=== PATIENT | female | born 1945 | race Caucasian/White ===

== ENCOUNTER 2018-03-19 11:22 | Emergency (ER) | payer MEDICARE, BC ==
--- OUTSIDE RECORDS SUMMARY | 2018-03-19 11:31 | XMS REPORT ---
:1945 External Reference #:[id number] Author Organization [employer] Address [address] [place] [address] [place] [address] Phone [phone] Care Team Providers Name Role Phone Nima Roche MD Primary Care Physician Unavailable Payers Type Date Identification Numbers Payment Provider Subscriber Medicare Primary Effective: Policy Number: Medicare Bradley Egan 2012 [id number] PayID: [id number] [address] [place] [address] Medigap Part B Effective: 2011 Policy Number: [facility] Bradley Egan [id number] PayID: [id number] [address] [place] [address] Medigap Part B Expires: 2011 Policy Number: [id number] [facility] Yogesh Egan Group Number: [id number] [address] PayID: [id number] [place] [address] Advance Directives Type Date Description Status Comment Other Directive 08/03/2014 Health Care Proxy Current and Verified Problems Date Description Provider Status Onset: 08/18/2007 Benign essential hypertension Nima Roche M.D.,FACP Active Onset: 08/18/2007 Mixed hyperlipidemia Nima Roche M.D.,FACZachariah Active Onset: 08/23/2010 Rheumatoid arthritis Nima Roche M.D.,FACP Active Note: RF 346 and 699 but also psoriatic. Note also OA maria c endo Onset: 08/23/2010 Type 2 diabetes mellitus Nima Roche M.D.,FACP Active Onset: 12/05/2010 Degenerative joint disease of Renato Shen M.D. Active shoulder region Note: Along with rheumatoid. Radiographically long hx OA-shoulders [AC], lumbar, feet. 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 M.DSarah,FACP region and thigh Onset: 08/24/2014 Presbyopia Rodrigue Melendez MD Active Onset: 08/24/2014 Borderline glaucoma Rodrigue Melendez MD Active Onset: 02/05/2015 Left bundle branch block Cici Palomares M.D.,FACP Onset: 05/25/2015 Transient ischemic colitis Cici Palomares M.D.,FACP Onset: 05/25/2015 Elevated levels of transaminase Nima Roche Active & lactic acid dehydrogenase Jannette,FACP Onset: 05/25/2015 Rheumatoid factor positive Cici Palomares M.D.,FACP Onset: 05/25/2015 Recurrent major depressive Nima Roche Active episodes Jannette,FACP Onset: 08/18/2007 Impaired fasting glycaemia Nima Roche Inactive Jannette,FACP Inactive: 12/31/2011 Onset: 08/18/2007 Blood chemistry abnormal Nima Roche M.D.,ERICAP Inactive Inactive: 12/31/2011 Onset: 04/01/2013 Disorder of muscle Renato Shen M.D. Inactive Inactive: 02/05/2015 Onset: 04/01/2013 Multiple joint pain Renato Shen M.D. Inactive Inactive: 05/25/2015 Onset: 04/01/2013 Malaise and fatigue Renato Shen M.D. Inactive Inactive: 05/25/2015 Onset: 04/18/2011 Carcinoid bronchial adenoma Nima Roche M.D.,FACP Resolved Resolved: 12/31/2011 Onset: 05/05/2013 Acute stress disorder Renato Shen M.D. Resolved Resolved: 02/05/2015 Family History Date Family Member(s) Problem(s) Comments General Pagets Disease Of Breast In Cousin General Hypertension Father due to kidney failure () Father Hypercholesterolemia had bypass surgery Mother due to not sure () Mother Deep Venous Thrombosis (DVT) First Daughter Lymphoma First Daughter (Adopted) Second Daughter Aortic Valve Repair Age 11 Second Daughter Hepatitis non-A non-B age 2 Second Daughter Mental Illness NOS Siblings 3 First Sister Ifg Paternal Aunts Diabetes, Non Insulin Dependent Social History Type Date Description Comments Marital Status Lives With Daughter Occupation Retired Cigarette Use Former Cigarette Smoker Cigarette Use Quit 32 Years Ago ETOH Use 06/16/2017 Occasionally consumes alcohol Recreational Drug Use Denies Drug Use Smoking Patient is a former smoker quit in 1975. 2ppd at the end of 12 years. Daily Caffeine Consumes on average 1 cup of regular coffee per day Exercise Type/Frequency Exercises rarely due to hip General Hx Text 2 children Allergies, Adverse Reactions, Alerts Date Description Reaction Status Severity Comments 08/18/2007 NKDA active Medications Medication Date Status Form Strength Qnty SIG Indications Ordering Provider Shingrix 03/10/ Active Suspension 50mcg 2units 2 doses 6 Z23 Zsofia 2017 Rec month Gui, apart [employer]ACHINE [employer] Metformin HCL 12/09/ Active Tablets 500mg 90tabs 1 by E11.9 Zsofia 2018 mouth Gui, every day [employer]ACH[employer] Wellbutrin XL 06/10/ Active Tablets ER 300mg 90tabs 1 by F33.9 Juancho Hudson 2016 24HR mouth Jamarcus Roche, every day M.D.,FACP Rosuvastatin 06/10/ Active Tablets 5mg 90tabs 1 by E11.9 Nima Calcium 2016 mouth Jamarcus Roche, every M.D.,FACP night at bedtime E78.4 Amoxicillin 01/24/2015 Active Capsules 500mg 12caps 4 tablets 1 Z47.1 Brady Aguilar, hour before M.D. dental work Lisinopril 08/30/2008 Active Tablets 10mg 90tabs take 1 tablet I10 Ander Ricketts by mouth once Boaz, daily M.D.,FACP E11.9 Aspirin Active Tablets 325mg take 1 by Unknown mouth once a day Vivotif 06/10/2016 - Hx Capsules 4c 1 tab every Z71.8 Nima 07/09/2016 DR bradley other day for 9 D. Melchor, s 4 doses (pt M.D.,FACP is done) Guaifenesin ac 02/17/2016 - Hx Syrup 100-10m Take 5-10 Unknown 06/10/2016 g/5ML Milliliters By Mouth Every 4 Hours as Needed For Cough. Max/ Mucinex 02/17/2016 - Hx Tablets ER 600mg Take 1 Tablet Unknown 06/10/2016 12HR By Mouth Twice Daily as Needed For Cough Cefdinir 02/17/2016 - Hx Capsules 300mg Take 1 Unknown 06/10/2016 Capsule By Mouth Twice Daily Benzonatate 02/17/2016 - Hx Capsules 100mg Take 1 Unknown 06/10/2016 Capsule By Mouth 3 Times Daily as Needed For Cough Proair HFA 02/17/2016 - Hx Aerosol 108(90B Inhale 2 Unknown 06/10/2016 ase) Puffs By mcg/Act Mouth Every 4 Hours as Needed For Shortness Of Breat Wellbutrin SR 05/25/2015 - Hx Tablets ER 150mg 60 1 tablet in F33.9 Pascual 06/10/2016 12HR ta the morning, HOLGER Perdue bs 1 at noon Debrox 08/03/2014 - Hx Solution 6.5% 1b 5 drops in L 380.4 Makayla 12/17/2014 ot ear bid x 3 Tara, tl days N.P. e Lidex 07/28/2013 - Hx Gel 0.05% 60 apply 250.0 Makayla 02/05/2015 mg topically 0 Tara, once daily as N.P. needed Cyclobenzaprine 05/05/2013 - Hx Tablets 5mg 60 1-2 po hs 308.3 Renato HCL 10/27/2013 Jannette Wright Nabumetone 05/05/2013 - Hx Tablets 500mg 60 1 po bid 714.0 Renato 10/27/2013 rosaura Shen M.D. bs Fluocinonide 01/26/2013 - Hx Gel 0.05% 30 topical twice E11.9 Nima 09/27/2017 gm a day as juan antonio Osorio M.D.,MAYELA Sertraline HCL 04/18/2011 - Hx Tablets 50mg 30 1/2 tab qd 311 Nima 05/27/2011 ta for 10 days chalino Osorio then 1 po qd Jannette,MAYELA Amoxicillin 02/18/2011 - Hx Tablets 500mg 28 2 tabs po bid 466.0 Juancho Hudson 04/01/2011 ta for 7 days chalino Osorio M.D.,FACP Diclofenac Sodium 10/09/2010 - Hx Tablets DR 75mg 18 1 tab by Renato CARTER 04/01/2011 0t mouth twice a Ac, Jannette ab day s Methotrexate 08/23/2010 - Hx Tablets 2.5mg 48 4 q week Nima 02/18/2011 chalino Bailey M.D.,FACP Folic Acid 08/23/2010 - Hx Tablets 1mg 30 1 po qd Nima 02/18/2011 chalino Bailey M.D.,FACP Azithromycin 08/08/2009 - Hx Tablets 500mg 5t 1 tab qd for 786.2 Juancho Hudson 01/21/2010 ab 5days tim [facility] M.D.,[facility] Robitussin ac 08/08/2009 - Hx Solution 20 10cc q 4 786.2 Nima 08/23/2010 0c hours prn chyna Osorio M.D.,FACP Prednisone 07/27/2009 - Hx Tablets 10mg 90 3 po qd for Nima 08/08/2009 ta 2wks, then 2 chalino Osorio M.DSarah,FACP Anusol-HC 01/04/2009 - Hx Cream 2.5% 1t apply to 569.4 Thananart, 05/07/2009 ub affected area 2 mike Perez bid x 7 days Jannette Leon 11/02/2008 - Hx Capsules 100mg 30 1-2 po tid 465.9 Thananart, 05/07/2009 ca prn yandy Perez M.D. Zithromax Z-Tevin 11/02/2008 - Hx Tablets 250mg 1P take as 465.9 Thananart, 05/07/2009 luzma Perez M.D. Aspirin 08/18/2007 - Hx Tablets 325mg 2 PO qd Nima 10/09/2010 Jamarcus Roche M.D.,ERICAP Fish Oil 08/18/2007 - Hx Capsules 1000mg 1 PO qpm Nima 02/18/2011 Jamarcus Roche M.D.,ERICAP Glucosamine-Chondr 08/18/2007 - Hx Capsules 500-400 bid PO Nima oitin 12/18/2010 Jamarcus Roche M.D.,FACP Urea 08/18/2007 - Hx Cream 40% 60 topical qd 701.1 Nima 11/24/2012 un Jamarcus Roche it Jannette,FACP s Triamterene/Hydroc - Hx Capsules 37.5-25 30 1 PO qam AnderDelio Hudson hlorothiazide 02/28/2008 ca Jamarcus Roche ps Jannette,FACP Lidex - Hx Gel 0.05% 60 apply 250.0 Nima 01/26/2013 mg topically 0 Jamarcus Roche, once daily as Jannette,MAYELA needed Aspirin - Hx Tablets 325mg 30 2 po qd Unknown 05/25/2015 ta bs Vitamin D - Hx Capsules 1000Uni 30 po qd Unknown 09/27/2017 t ca ps Vitamin B Complex - Hx Tablets 30 1 po qd Unknown 09/27/2017 ta bs Aspirin - Hx 325mg 1 tablets Unknown 09/27/2017 daily Medications Administered in Office Medication Date Status Form Strength Qnty SIG Indications Ordering Provider Inj, Administered Injection Karsten Ricketts Regadenoson, 015 Jannette Walters 0.1 MG Inj, Administered Injection Coty Juan Regadenosanant, 015 PA 0.1 MG Technetium TC Administered Injection Karsten Ricketts 99M 015 Jannette Walters Tetrofosmin, Per Unit Dose Up To 40 Millicuries Technetium TC Administered Injection Coty Juan, 99M 015 PA Tetrofosmin, Per Unit Dose Up To 40 Millicuries Immunizations CPT Code Status Date Vaccine Lot # [id number] Given 06/16/2017 Influenza Virus Vaccine, Quadrivalent, Split, [id number] Preservative Free [id number] Given 06/10/2016 Influenza Virus Vaccine, Quadrivalent, Split [id number] Virus, [place] Use 16910 Given 06/10/2016 Hepatitis A Vaccine Adult Dosage [id number] 05638 Given 05/25/2015 Influenza Virus Vaccine, Quadrivalent, Split, [id number] Preservative Free 17296 Given 08/03/2014 Pneumococcal Conjugate Vaccine 13 Valent For [id number] Intramuscular Use 59177 Given 04/17/2014 Flu Vaccine Split Virus Preservative Free For Indiv 3Yr Older 37217 Given 10/27/2013 Tdap - Tetanus/Diptheria/Acellular Pertussis [id number] 86082 Given 05/16/2013 Flu Vaccine Split Virus Preservative Free For [id number] Indiv 3Yr Older 97816 Given 05/26/2011 Influenza Virus 3Yrs & Over 68827 Given 08/23/2010 Pneumonia Vaccine [id number] 75140 Given 05/26/2010 Influenza Virus 3Yrs & Over 54526 Given 03/22/2008 Zoster (Zostavax) [id number] Given 03/22/2008 Zoster (Zostavax) [id number] Vital Signs Date Vital Result Comment 03/10/2018 Height 66.25 inches 5'6.25" Weight 190.50 lb Heart Rate 69 /min BP Systolic Sitting 136 mmHg BP Diastolic Sitting 72 mmHg O2 % BldC Oximetry 98 % BMI (Body Mass Index) 30.5 kg/m2 12/09/2017 Height 66.25 inches 5'6.25" Weight 203.12 lb Heart Rate 76 /min BP Systolic Sitting 132 mmHg BP Diastolic Sitting 70 mmHg Body Temperature 97.2 F O2 % BldC Oximetry 96 % BMI (Body Mass Index) 32.5 kg/m2 09/28/2017 Height 66.25 inches 5'6.25" Weight 202.00 lb BP Systolic 134 mmHg BP Diastolic 64 mmHg Respiratory Rate 18 /min Body Temperature 98.0 F Pain Level 6 BMI (Body Mass Index) 32.4 kg/m2 06/16/2017 Height 66.25 inches 5'6.25" Weight 199.00 lb Heart Rate 76 /min BP Systolic Sitting 138 mmHg BP Diastolic Sitting 60 mmHg Body Temperature 97.6 F O2 % BldC Oximetry 94 % BMI (Body Mass Index) 31.9 kg/m2 05/05/2017 Height 67 inches 5'7" Weight 197.75 lb with shoes Heart Rate 76 /min BP Systolic Sitting 124 mmHg LA reg cuff BP Diastolic Sitting 72 mmHg LA reg cuff BMI (Body Mass Index) 31.0 kg/m2 Ejection Fraction 50%- 55% echo 12/20/14 12/09/2016 Weight 203.00 lb Heart Rate 74 /min BP Systolic Sitting 124 mmHg BP Diastolic Sitting 62 mmHg Body Temperature 97.4 F O2 % BldC Oximetry 96 % 07/08/2016 Height 66 inches 5'6" Weight 202.75 lb Heart Rate 76 /min BP Systolic Sitting 142 mmHg LA lrg cuff BP Diastolic Sitting 72 mmHg LA lrg cuff BMI (Body Mass Index) 32.7 kg/m2 Ejection Fraction 50% - 55% echo 12/20/14 06/10/2016 Height 66 inches 5'6" Weight 201.00 lb Heart Rate 72 /min BP Systolic 124 mmHg BP Diastolic 72 mmHg Body Temperature 98.5 F O2 % BldC Oximetry 97 % BMI (Body Mass Index) 32.4 kg/m2 02/19/2016 Weight 201.00 lb Heart Rate 82 /min BP Systolic Sitting 136 mmHg BP Diastolic Sitting 84 mmHg Body Temperature 98.6 F O2 % BldC Oximetry 97 % 11/22/2015 Height 66 inches 5'6" Weight 203.00 lb Heart Rate 86 /min BP Systolic Sitting 118 mmHg BP Diastolic Sitting 62 mmHg Body Temperature 96.8 F O2 % BldC Oximetry 97 % BMI (Body Mass Index) 32.8 kg/m2 10/19/2015 Height 66 inches 5'6" Weight 201.00 lb with shoes Heart Rate 84 /min BP Systolic Sitting 112 mmHg LA, regular cuff BP Diastolic Sitting 62 mmHg LA, regular cuff BMI (Body Mass Index) 32.4 kg/m2 Ejection Fraction 50-55% echo 12/20/14 08/22/2015 Height 66 inches 5'6" Weight 203.00 lb Pain Level 0 BMI (Body Mass Index) 32.8 kg/m2 07/25/2015 Height 66 inches 5'6" Weight 203.12 lb Heart Rate 88 /min BP Systolic Sitting 126 mmHg BP Diastolic Sitting 68 mmHg Body Temperature 97.9 F O2 % BldC Oximetry 96 % BMI (Body Mass Index) 32.8 kg/m2 05/25/2015 Height 66 inches 5'6" Weight 199.00 lb Heart Rate 74 /min BP Systolic Sitting 124 mmHg BP Diastolic Sitting 60 mmHg Body Temperature 98.6 F O2 % BldC Oximetry 96 % BMI (Body Mass Index) 32.1 kg/m2 05/14/2015 Height 66 inches 5'6" Weight 202.00 lb Pain Level 0 BMI (Body Mass Index) 32.6 kg/m2 04/24/2015 Height 66 inches 5'6" Weight 196.12 lb Heart Rate 89 /min BP Systolic Sitting 128 mmHg BP Diastolic Sitting 60 mmHg Body Temperature 98.1 F O2 % BldC Oximetry 97 % BMI (Body Mass Index) 31.7 kg/m2 02/05/2015 Height 66 inches 5'6" Weight 198.38 lb Heart Rate 86 /min BP Systolic Sitting 128 mmHg BP Diastolic Sitting 68 mmHg Body Temperature 97.9 F O2 % BldC Oximetry 98 % BMI (Body Mass Index) 32.0 kg/m2 01/24/2015 Height 66 inches 5'6" Weight 202.00 lb Body Temperature 97.4 F Pain Level 1 BMI (Body Mass Index) 32.6 kg/m2 12/22/2014 Height 66 inches 5'6" Weight 202.00 lb Heart Rate 80 /min BP Systolic 128 mmHg LA reg BP Diastolic 72 mmHg LA reg BMI (Body Mass Index) 32.6 kg/m2 Ejection Fraction 50-55% 12/20/14 ECHO 12/18/2014 Height 66 inches 5'6" Weight 202.00 lb Heart Rate 100 /min BP Systolic 150 mmHg LA reg BP Diastolic 68 mmHg LA reg BMI (Body Mass Index) 32.6 kg/m2 12/18/2014 Height 66 inches 5'6" Weight 202.38 lb Heart Rate 84 /min BP Systolic Sitting 128 mmHg BP Diastolic Sitting 74 mmHg Body Temperature 98.2 F O2 % BldC Oximetry 97 % BMI (Body Mass Index) 32.7 kg/m2 11/22/2014 Height 66 inches 5'6" Weight 196.00 lb Body Temperature 96.5 F Pain Level 5 BMI (Body Mass Index) 31.6 kg/m2 10/02/2014 Height 66 inches 5'6" Weight 196.00 lb Body Temperature 96.2 F BMI (Body Mass Index) 31.6 kg/m2 08/03/2014 Weight 200.00 lb Heart Rate 88 /min BP Systolic Sitting 130 mmHg BP Diastolic Sitting 66 mmHg Body Temperature 97.9 F 02/15/2014 Height 66 inches 5'6" Weight 196.00 lb BMI (Body Mass Index) 31.6 kg/m2 01/31/2014 Weight 196.25 lb Heart Rate 80 /min BP Systolic Sitting 118 mmHg BP Diastolic Sitting 60 mmHg 10/27/2013 Weight 196.00 lb Heart Rate 94 /min BP Systolic Sitting 118 mmHg BP Diastolic Sitting 62 mmHg Body Temperature 97.3 F 07/28/2013 Weight 197.00 lb Heart Rate 78 /min BP Systolic Sitting 130 mmHg BP Diastolic Sitting 69 mmHg 05/16/2013 Height 66.5 inches 5'6.50" Weight 201.50 lb Heart Rate 80 /min BP Systolic Sitting 126 mmHg BP Diastolic Sitting 56 mmHg BMI (Body Mass Index) 32.0 kg/m2 05/05/2013 Height 66.50 inches 5'6.50" Weight 200.75 lb Heart Rate 70 /min BP Systolic Sitting 128 mmHg BP Diastolic Sitting 68 mmHg BMI (Body Mass Index) 31.9 kg/m2 04/01/2013 Weight 202.00 lb Heart Rate 78 /min BP Systolic Sitting 100 mmHg BP Diastolic Sitting 56 mmHg 01/26/2013 Height 66.5 inches 5'6.50" Weight 202.00 lb Heart Rate 80 /min BP Systolic Sitting 118 mmHg BP Diastolic Sitting 68 mmHg BMI (Body Mass Index) 32.1 kg/m2 11/24/2012 Height 66.5 inches 5'6.50" Weight 201.25 lb Heart Rate 88 /min BP Systolic Sitting 124 mmHg BP Diastolic Sitting 58 mmHg BMI (Body Mass Index) 32.0 kg/m2 12/31/2011 Height 67 inches 5'7" Weight 198.00 lb Heart Rate 86 /min BP Systolic Sitting 124 mmHg BP Diastolic Sitting 60 mmHg Respiratory Rate 16 /min Body Temperature 98.2 F lt ear BMI (Body Mass Index) 31.0 kg/m2 08/27/2011 Weight 195.00 lb Heart Rate 88 /min BP Systolic Sitting 124 mmHg BP Diastolic Sitting 72 mmHg 05/27/2011 Weight 189.00 lb Heart Rate 80 /min BP Systolic Sitting 116 mmHg BP Diastolic Sitting 62 mmHg 04/18/2011 Weight 185.00 lb Heart Rate 90 /min BP Systolic Sitting 108 mmHg BP Diastolic Sitting 62 mmHg 04/01/2011 Weight 186.00 lb Heart Rate 88 /min BP Systolic Sitting 130 mmHg BP Diastolic Sitting 70 mmHg 02/18/2011 Height 66 inches 5'6" Weight 194.00 lb Heart Rate 88 /min BP Systolic Sitting 138 mmHg BP Diastolic Sitting 78 mmHg BMI (Body Mass Index) 31.3 kg/m2 12/31/2010 Height 66 inches 5'6" Weight 200.00 lb Heart Rate 78 /min BP Systolic Sitting 122 mmHg BP Diastolic Sitting 66 mmHg BMI (Body Mass Index) 32.3 kg/m2 12/24/2010 Height 66 inches 5'6" Weight 198.00 lb Heart Rate 86 /min BP Systolic Sitting 148 mmHg BP Diastolic Sitting 74 mmHg BMI (Body Mass Index) 32.0 kg/m2 12/19/2010 Height 66 inches 5'6" Weight 200.00 lb Heart Rate 88 /min BP Systolic 122 mmHg BP Diastolic 70 mmHg BMI (Body Mass Index) 32.3 kg/m2 11/28/2010 Height 66 inches 5'6" Weight 198.00 lb Heart Rate 88 /min BP Systolic Sitting 122 mmHg BP Diastolic Sitting 70 mmHg BMI (Body Mass Index) 32.0 kg/m2 10/09/2010 Height 66 inches 5'6" Weight 202.00 lb Heart Rate 68 /min BP Systolic 132 mmHg BP Diastolic 72 mmHg BMI (Body Mass Index) 32.6 kg/m2 08/23/2010 Weight 200.00 lb Heart Rate 80 /min BP Systolic Sitting 140 mmHg BP Diastolic Sitting 74 mmHg 08/08/2009 Weight 200.00 lb Heart Rate 82 /min BP Systolic Sitting 120 mmHg BP Diastolic Sitting 70 mmHg 07/19/2009 Weight 200.00 lb Heart Rate 80 /min BP Systolic Sitting 130 mmHg BP Diastolic Sitting 70 mmHg 05/07/2009 Height 67 inches 5'7" Weight 198.00 lb Heart Rate 68 /min BP Systolic Sitting 132 mmHg BP Diastolic Sitting 68 mmHg BMI (Body Mass Index) 31.0 kg/m2 01/04/2009 Height 67 inches 5'7" Weight 198.00 lb Heart Rate 72 /min BP Systolic Sitting 140 mmHg BP Diastolic Sitting 70 mmHg BMI (Body Mass Index) 31.0 kg/m2 11/02/2008 Height 67 inches 5'7" Weight 194.00 lb Heart Rate 80 /min BP Systolic Sitting 152 mmHg BP Diastolic Sitting 74 mmHg Body Temperature 97.4 F BMI (Body Mass Index) 30.4 kg/m2 02/28/2008 Height 67 inches 5'7" Weight 194.00 lb Heart Rate 76 /min BP Systolic Sitting 130 mmHg BP Diastolic Sitting 62 mmHg BMI (Body Mass Index) 30.4 kg/m2 02/28/2008 Height 67 inches 5'7" Weight 193.00 lb BMI (Body Mass Index) 30.2 kg/m2 08/18/2007 Height 67 inches 5'7" Weight 197.00 lb BP Systolic Sitting 128 mmHg BP Diastolic Sitting 76 mmHg BMI (Body Mass Index) 30.9 kg/m2 Results Test Date Test Result H/L Range Note Laboratory test finding 12/09/2017 Hemoglobin A1c 6.8 5-7 Lipid Profile (Trig/Chol/HDL) 11/19/2017 Triglycerides 99 mg/dL 1 Cholesterol 148 mg/dL 2 HDL Cholesterol 61.0 mg/dL 3 LDL Cholesterol 67 mg/dL 4 Basic Metabolic Panel 11/19/2017 Sodium 139 mmol/L 139-145 Potassium 4.6 mmol/L 3.5-5.0 Chloride 106 mmol/L 101-111 Co2 Carbon Dioxide 26 mmol/L 22-32 Anion Gap 7 mmol/L 2-11 Glucose 160 mg/dL High 70-100 Blood Urea Nitrogen 17 mg/dL 6-24 Creatinine 0.99 mg/dL High 0.51-0.95 BUN/Creatinine Ratio 17.2 8-20 Calcium 9.2 mg/dL 8.6-10.3 Egfr Non- 55.1 >60 Egfr 70.9 >60 5 Urine Microalbumin Random 06/16/2017 Ur Microalbumin (mg/L) < 15.0 mg/L Urine Creatinine 46.87 mg/dL Urine Microalbumin/Creatinine TNP ug/mg <31 6 Laboratory test finding 06/16/2017 Hemoglobin A1c 6.8 5-7 Lipid Profile (Trig/Chol/HDL) 12/05/2016 Triglycerides 97 mg/dL 7 Cholesterol 137 mg/dL 8 HDL Cholesterol 56.2 mg/dL 9 LDL Cholesterol 61 mg/dL 10 Comp Metabolic Panel 12/05/2016 Sodium 138 mmol/L 133-145 Potassium 4.3 mmol/L 3.5-5.0 Chloride 107 mmol/L 101-111 Co2 Carbon Dioxide 25 mmol/L 22-32 Anion Gap 6 mmol/L 2-11 Glucose 135 mg/dL High 70-100 Blood Urea Nitrogen 15 mg/dL 6-24 Creatinine 0.91 mg/dL 0.51-0.95 BUN/Creatinine Ratio 16.5 8-20 Calcium 8.7 mg/dL 8.6-10.3 Total Protein 6.3 g/dL Low 6.4-8.9 Albumin 4.0 g/dL 3.2-5.2 Globulin 2.3 g/dL 2-4 Albumin/Globulin Ratio 1.7 1-3 Total Bilirubin 0.40 mg/dL 0.2-1.0 Alkaline Phosphatase 50 U/L 34-104 Alt 50 U/L 7-52 Ast 28 U/L 13-39 Egfr Non- 60.9 >60 Egfr 78.4 >60 11 Laboratory test 12/05/2016 Hemoglobin A1c (Glyco 6.7 % High Less than 6.0 12 finding HGB) Lipid Profile 03/07/2016 Triglycerides 114 mg/dL 13 (Trig/Chol/HDL) Cholesterol 200 mg/dL 14 HDL Cholesterol 47.7 mg/dL 15 LDL Cholesterol 130 mg/dL 16 Laboratory test 03/07/2016 Hemoglobin A1c 6.7 % High Less than 6.0 17 finding (Glyco HGB) Urine Microalbumin 03/07/2016 Urine Creatinine 181.71 mg/dL Random Ur Microalbumin (mg/L) 22.2 mg/L Urine Microalbumin/Creatinine 12.2 ug/mg <31 Basic Metabolic Panel 03/07/2016 Sodium 139 mmol/L 133-145 Potassium 5.0 mmol/L 3.5-5.0 Chloride 105 mmol/L 101-111 Co2 Carbon Dioxide 27 mmol/L 22-32 Anion Gap 7 mmol/L 2-11 Glucose 149 mg/dL High 70-100 Blood Urea Nitrogen 16 mg/dL 6-24 Creatinine 0.98 mg/dL High 0.51-0.95 BUN/Creatinine Ratio 16.3 8-20 Calcium 9.1 mg/dL 8.6-10.3 Egfr Non- 55.9 >60 Egfr 71.9 >60 18 Laboratory test 11/22/2015 Rapid Group A Strep neg finding Laboratory test 05/30/2015 Surgical Pathology SEE RESULT BELOW 19 finding CBC Auto Diff 04/24/2015 White Blood Count 10.2 10^3/uL 4.8-10.8 Red Blood Count 4.80 10^6/uL 4.0-5.4 Hemoglobin 14.2 g/dL 12.0-16.0 Hematocrit 42 % 35-47 Mean Corpuscular Volume 88 fL 80-97 Mean Corpuscular Hemoglobin 30 pg 27-31 Mean Corpuscular HGB Conc 34 g/dL 31-36 Red Cell Distribution Width 13 % 10.5-15 Platelet Count 233 10^3/uL 150-450 Mean Platelet Volume 9 um3 7.4-10.4 Abs Neutrophils 6.9 10^3/uL 1.5-7.7 Abs Lymphocytes 2.3 10^3/uL 1.0-4.8 Abs Monocytes 0.8 10^3/uL 0-0.8 Abs Eosinophils 0.2 10^3/uL 0-0.6 Abs Basophils 0 10^3/uL 0-0.2 Abs Nucleated RBC 0.01 10^3/uL Granulocyte % 67.4 % 38-83 Lymphocyte % 22.1 % Low 25-47 Monocyte % 7.9 % 1-9 Eosinophil % 2.2 % 0-6 Basophil % 0.4 % 0-2 Nucleated Red Blood Cells % 0.1 Comp Metabolic Panel 04/24/2015 Sodium 136 mmol/L 133-145 Potassium 4.0 mmol/L 3.5-5.0 Chloride 102 mmol/L 101-111 Co2 Carbon Dioxide 26 mmol/L 22-32 Anion Gap 8 mmol/L 2-11 Glucose 125 mg/dL High 70-100 Blood Urea Nitrogen 11 mg/dL 6-24 Creatinine 0.90 mg/dL 0.51-0.95 BUN/Creatinine Ratio 12.2 8-20 Calcium 9.1 mg/dL 8.6-10.3 Total Protein 6.5 g/dL 6.4-8.9 Albumin 4.1 g/dL 3.2-5.2 Globulin 2.4 g/dL 2-4 Albumin/Globulin Ratio 1.7 1-3 Total Bilirubin 1.00 mg/dL 0.2-1.0 Alt 75 U/L High 7-52 Ast 52 U/L High 13-39 Egfr Non- 61.9 >60 Egfr 79.6 >60 20 Laboratory test finding 04/24/2015 Amylase 21 U/L Low 29-103 Lipase 26 U/L 11.0-82.0 Alkaline Phosphatase 70 U/L 34-104 Inr/Protime 04/24/2015 Inr 0.98 0.78-1.07 Ua Routine 04/24/2015 Ua Specific [place] 1.030 Ua PH 7 Ua Color dark yellow Ua Appera clear Ua WBC neg Ua Protein neg Ua Glucose neg Ua Ketones neg Ua Bilirubin +++ Ua Urobilinogen normal Ua Nitrite positive Ua Occult Blood trace Basic Metabolic Panel 02/20/2015 Sodium 137 mmol/L 133-145 21 Potassium 4.5 mmol/L 3.5-5.0 21 Chloride 106 mmol/L 101-111 21 Co2 Carbon Dioxide 25 mmol/L 22-32 21 Anion Gap 6 mmol/L 2-11 21 Glucose 133 mg/dL High 70-100 21 Blood Urea Nitrogen 12 mg/dL 6-24 21 Creatinine 0.77 mg/dL 0.51-0.95 21 BUN/Creatinine Ratio 15.6 8-20 21 Calcium 8.9 mg/dL 8.6-10.3 21 Egfr Non- 74.1 >60 21 Egfr 95.3 >60 21, 22 Lipid Profile (Trig/Chol/HDL) 02/20/2015 Triglycerides 114 mg/dL 21, 23 Cholesterol 189 mg/dL 21, 24 HDL Cholesterol 55.4 mg/dL 21, 25 LDL Cholesterol 111 mg/dL 21, 26 Laboratory test 02/20/2015 Hemoglobin A1c (Glyco 5.6 % Less than 6.0 21 , 27 finding HGB) Urine Microalbumin 02/20/2015 Ur Microalbumin 17.0 mg/L 21 Random (mg/L) Urine Creatinine 146.47 mg/dL 21 Urine Microalbumin/Creatinine 11.6 ug/mg <31 21 CBC No Diff 12/19/2014 White Blood Count 7.3 10^3/uL 4.8-10.8 28 Red Blood Count 4.56 10^6/uL 4.0-5.4 28 Hemoglobin 13.8 g/dL 12.0-16.0 28 Hematocrit 40 % 35-47 28 Mean Corpuscular Volume 88 fL 80-97 28 Mean Corpuscular Hemoglobin 30 pg 27-31 28 Mean Corpuscular HGB Conc 34 g/dL 31-36 28 Red Cell Distribution Width 13 % 10.5-15 28 Platelet Count 278 10^3/uL 150-450 28 Mean Platelet Volume 9 um3 7.4-10.4 28 Inr/Protime 12/19/2014 Inr 0.97 0.78-1.07 28 Basic Metabolic Panel 12/19/2014 Sodium 136 mmol/L 133-145 28 Potassium 4.2 mmol/L 3.5-5.0 28 Chloride 103 mmol/L 101-111 28 Co2 Carbon Dioxide 26 mmol/L 22-32 28 Anion Gap 7 mmol/L 2-11 28 Glucose 131 mg/dL High 70-100 28 Blood Urea Nitrogen 17 mg/dL 6-24 28 Creatinine 0.91 mg/dL 0.51-0.95 28 BUN/Creatinine Ratio 18.7 8-20 28 Calcium 9.1 mg/dL 8.6-10.3 28 Egfr Non- 61.1 >60 28 Egfr 78.6 >60 28, 29 Type & Screen 12/19/2014 Patient Blood Type O Positive 28 Antibody Screen NEGATIVE 28 Urinalysis Profile 12/19/2014 Urine Color Yellow Urine Appearance Cloudy Urine Specific [place] 1.023 1.010-1.030 Urine pH 5.0 5-9 Urine Urobilinogen Negative Negative Urine Ketones Negative Negative Urine Protein Negative Negative Urine Leukocytes Trace Negative Urine Blood Negative Negative Urine Nitrite Negative Negative Urine Bilirubin Negative Negative Urine Glucose 1+(50 mg/dL) Negative Urine White Blood Cell Trace(0-5/hpf) Absent Urine Red Blood Cell 1+(3-5/hpf) Absent Urine Bacteria Absent Absent Urine Squamous Epithelial Cell Present Absent Urine Culture And 12/19/2014 Urine Culture (SEE NOTE) 30 Sensitivities Laboratory test finding 08/03/2014 Hemoglobin A1c 6.0 5-7 Urine Microalbumin Random 01/31/2014 Ur Microalbumin (mg/L) 5.0 mg/dL < 30 31 Urine Creatinine 69.03 mg/dL Urine Microalbumin/Creatinine 7.2 Less Than 31 Lipid Panel - [facility] 10/28/2013 Creatine Kinase 152 U/L 10-223 32 Comp Metabolic Panel 10/28/2013 Sodium 140 mmol/L 133-145 Potassium 5.0 mmol/L 3.7-5.6 Chloride 105 mmol/L 101-111 Co2 Carbon Dioxide 30 mmol/L 22-32 Anion Gap 5 mmol/L 2-11 Glucose 126 mg/dL High 70-100 Blood Urea Nitrogen 15 mg/dL 6-24 Creatinine 0.91 mg/dL 0.51-0.95 BUN/Creatinine Ratio 16.5 8-20 Calcium 9.0 mg/dL 8.6-10.3 Total Protein 6.6 g/dL 6.4-8.9 Albumin 4.1 g/dL 3.2-5.2 Globulin 2.5 g/dL 2-4 Albumin/Globulin Ratio 1.6 1-3 Total Bilirubin 0.50 mg/dL 0.2-1.0 Alkaline Phosphatase 68 U/L 34-104 Alt 30 U/L 7-52 Ast 19 U/L 13-39 Egfr Non- 61.5 >60 Egfr 79.1 >60 33 Lipid Profile (Trig/Chol/HDL) 10/28/2013 Triglycerides 83 mg/dL 34 Cholesterol 185 mg/dL 35 HDL Cholesterol 52.2 mg/dL 36 LDL Cholesterol 116 mg/dL 37 Laboratory test finding 10/27/2013 Hemoglobin A1c 6.0 5-7 Laboratory test finding 07/28/2013 Hemoglobin A1c 6.2 5-7 Laboratory test finding 05/16/2013 Lyme Disease Serology Negative Negative 38 CBC Auto Diff 04/01/2013 White Blood Count 8.4 10^3/uL 4.8-10.8 Red Blood Count 4.33 10^6/uL 4.0-5.4 Hemoglobin 13.1 g/dL 12.0-16.0 Hematocrit 38 % 35-47 Mean Corpuscular Volume 88 fL 80-97 Mean Corpuscular Hemoglobin 30 pg 27-31 Mean Corpuscular HGB Conc 34 g/dL 31-36 Red Cell Distribution Width 13 % 10.5-15 Platelet Count 277 10^3/uL 150-450 Mean Platelet Volume 9 um3 7.4-10.4 Abs Neutrophils 4.8 10^3/uL 1.5-7.7 Abs Lymphocytes 2.5 10^3/uL 1.0-4.8 Abs Monocytes 0.8 10^3/uL 0-0.8 Abs Eosinophils 0.2 10^3/uL 0-0.6 Abs Basophils 0.1 10^3/uL 0-0.2 Abs Nucleated RBC 0 10^3/uL Granulocyte % 57.3 % 38-83 Lymphocyte % 30.3 % 25-47 Monocyte % 9.4 % High 1-9 Eosinophil % 2.3 % 0-6 Basophil % 0.7 % 0-2 Nucleated Red Blood Cells % 0 Comp Metabolic Panel 04/01/2013 Sodium 140 mmol/L 133-145 Potassium 4.7 mmol/L 3.5-5.0 Chloride 105 mmol/L 101-111 Co2 Carbon Dioxide 30.0 mmol/L 22-32 Anion Gap 5.0 mmol/L 2-11 Glucose 111 mg/dL High 70-100 Blood Urea Nitrogen 15 mg/dL 6-24 Creatinine 0.90 mg/dL 0.50-1.40 BUN/Creatinine Ratio 16.7 8-20 Calcium 9.6 mg/dL 8.1-9.9 Total Protein 6.4 g/dL 6.2-8.1 Albumin 4.0 g/dL 3.2-5.2 Globulin 2.4 g/dL 2-4 Albumin/Globulin Ratio 1.7 1-3 Total Bilirubin 0.5 mg/dL 0.4-1.5 Alkaline Phosphatase 63 U/L 30-110 Alt 34 U/L 14-54 Ast 24 U/L 12-42 Egfr Non- 62.3 >60 Egfr 80.1 >60 39 Laboratory test finding 04/01/2013 Creatine Kinase 242 U/L High 0-200 Ariane (Anti-Nuclear AB) Screen Negative Negative 40 Hepatitis Acute Panel 04/01/2013 Hepatitis C Antibody Nonreactive Nonreactive Hepatitis A AB IgM Nonreactive Nonreactive Hepatitis B Core IgM Nonreactive Nonreactive Hepatitis B Surface Antigen Nonreactive Nonreactive Laboratory test finding 04/01/2013 Rheumatoid Factor 47 IU/mL <15 41 Cyclic Citrullinated Pept IgG <15.6 U 42 Manuel Screen Negative Negative 43 Erythrocyte Sed Rate 24 mm/Hr 0-40 Lipid Profile (Trig/Chol/HDL) 11/20/2012 Triglycerides 93 mg/dL 40-200 Cholesterol 214 mg/dL High Less than 200 HDL Cholesterol 61 mg/dL High 40-60 44 Cholesterol/HDL Ratio 3.5 Average 1-4.44 LDL Cholesterol 134.4 mg/dL High Less Than 100 45 Comp Metabolic Panel 11/20/2012 Sodium 136 mmol/L 133-145 Potassium 4.5 mmol/L 3.5-5.0 Chloride 104 mmol/L 101-111 Co2 Carbon Dioxide 24.0 mmol/L 22-32 Anion Gap 8.0 mmol/L 2-11 Glucose 141 mg/dL High 70-100 Blood Urea Nitrogen 16 mg/dL 6-24 Creatinine 0.90 mg/dL 0.50-1.40 BUN/Creatinine Ratio 17.8 8-20 Calcium 9.0 mg/dL 8.1-9.9 Total Protein 6.0 g/dL Low 6.2-8.1 Albumin 3.9 g/dL 3.2-5.2 Globulin 2.1 g/dL 2-4 Albumin/Globulin Ratio 1.9 1-3 Total Bilirubin 0.7 mg/dL 0.4-1.5 Alkaline Phosphatase 59 U/L 30-110 Alt 50 U/L 14-54 Ast 31 U/L 12-42 Egfr Non- 62.5 >60 Egfr 80.3 >60 46 Laboratory test finding 11/20/2012 Hemoglobin A1c 5.9 % Less than 6.0 47 Urine Microalbumin 11/20/2012 Ur Microalbumin (Mg/L) 7.0 mg/L 48 Random Urine Creatinine 163.1 mg/dL Urine Microalbumin/Creatinine 4.3 ug/mg Less Than 31 Laboratory test finding 11/20/2012 Creatine Kinase 272 U/L High 0-200 LDH 189 U/L High 95-185 Lipid Profile (Trig/Chol/HDL) 11/21/2011 Triglyceride 99 mg/dL 40-200 Cholesterol 203 mg/dL High Less Than 200 49 High Density Lipoprotein 58 mg/dL 40-60 50 Cholesterol/HDL Ratio 3.50 AVERAGE 1-4.44 Low Density Lipoprotein 125 mg/dL High Less Than 100 51 Comp Metabolic Panel 11/21/2011 Sodium 136 mmol/L 135-145 Potassium 4.8 mmol/L 3.5-5.0 Chloride 104 mmol/L 101-111 Co2 (Carbon Dioxide) 29.0 mmol/L 22-32 Anion Gap 3.0 mmol/L 2-11 52 Glucose 131 mg/dL High 70-100 BUN 14 mg/dL 6-24 Creatinine 0.9 mg/dL 0.50-1.40 One Over Creatinine 1.11 BUN/Creatinine Ratio 15.6 8-20 Calcium 8.9 mg/dL 8.1-9.9 Total Protein 6.3 GM/DL 6.2-8.1 Albumin 4.0 GM/DL 3.2-5.2 Globulin 2.3 GM/DL 2-4 Albumin/Globulin Ratio 1.7 1-3 Bilirubin Total 0.6 mg/dL 0.4-1.5 53 Alkaline Phosphatase 65 U/L 30-110 Alt (SGPT) 56 U/L High 14-54 Ast (Sgot) 33 U/L 12-42 eGFR Non- 62.6 > 60 eGFR 80.6 > 60 54 Laboratory test finding 11/21/2011 CPK (Creatine Kinase) 350 U/L High 0- 170 Hemoglobin A1c 6.2 % High Less Than 6.0 55 Urine Microalbumin Random 11/21/2011 Microalbumin (MG/L) 8.0 mg/L Urine Creatinine 155.2 mg/dL Arik Alb/Creatinine Ratio 5.2 UG/MG Less Than 30 56 Laboratory test finding 08/27/2011 Hemoglobin A1c 5.8 5-7 Comp Metabolic Panel 04/01/2011 Sodium 138 mmol/L 135-145 Potassium 4.5 mmol/L 3.5-5.0 Chloride 102 mmol/L 101-111 Co2 (Carbon Dioxide) 26.0 mmol/L 22-32 Anion Gap 10.0 mmol/L 2-11 57 Glucose 145 mg/dL High 70-100 BUN 16 mg/dL 6-24 Creatinine 0.80 mg/dL 0.50-1.40 One Over Creatinine 1.20 BUN/Creatinine Ratio 20.0 8-20 Calcium 8.9 mg/dL 8.1-9.9 Total Protein 6.4 GM/DL 6.2-8.1 Albumin 3.6 GM/DL 3.2-5.2 Globulin 2.8 GM/DL 2-4 Albumin/Globulin Ratio 1.3 1-3 Bilirubin Total 0.6 mg/dL 0.4-1.5 58 Alkaline Phosphatase 61 U/L 30-110 Alt (SGPT) 30 U/L 14-54 Ast (Sgot) 21 U/L 12-42 eGFR Non- 71.8 > 60 eGFR 92.3 > 60 59 CBC With Manual Diff 04/01/2011 White Blood Count 9.3 CUMM 4.8-10.8 Red Cell Count 3.92 CUMM Low 4.2-5.4 Hemoglobin 12.1 g/dL 12.0-16.0 Hematocrit 35 % 35-47 Mean Corpuscular Volume 89 um3 79-97 Mean Corpuscular Hemoglob 31 pg 27-31 Mean Corpuscular HGB Cone 35 g/dL 32-36 Redcell Distribution WDTH 12 % 10.5-15 Platelet Count 339 CUMM 150-450 Mean Platelet Volume 8.8 um3 7.4-10.4 Polysegmented Neutrophil 67 % 38-83 Band Neutrophil 1 % 0-8 Lymphocyte 18 % Low 25-47 Monocyte 7 % 0-13 Eosinophil 6 % 0-6 Basophil 1 % 0-2 NRBC 1 High 0-0 Absolute Neutrophil Count 6.3 RBC Morphology NORMAL Manual Diff Comments (SEE NOTE) 60 Laboratory test finding 04/01/2011 CPK (Creatine Kinase) 175 U/L High 0- 170 CBC Auto Diff 04/01/2011 White Blood Count 9.3 CUMM 4.8-10.8 Red Cell Count 3.92 CUMM Low 4.2-5.4 Hemoglobin 12.1 g/dL 12.0-16.0 Hematocrit 35 % 35-47 Mean Corpuscular Volume 89 um3 79-97 Mean Corpuscular Hemoglob 31 pg 27-31 Mean Corpuscular HGB Cone 35 g/dL 32-36 Redcell Distribution WDTH 12 % 10.5-15 Platelet Count 339 CUMM 150-450 Mean Platelet Volume 8.8 um3 7.4-10.4 Gran % 64.9 % 38-83 Lymph % 20.9 % Low 25-47 Mononuclear % 7.8 % 1-9 Eosinophil % 5.9 % 0-6 Basophil % 0.5 % 0-2 Abs Lymphs 1.9 1.0-4.8 Abs Mononuclear 0.7 0-0.8 Absolute Neutrophil Count 6.0 1.5-7.7 Abs Eosinophils 0.5 0-0.6 Abs Basophils 0 0-0.2 Cytology Non-Benefit Director 12/26/2010 Cytology Non Benefit Director <SEE 61 NOTE> Protime 12/24/2010 Inr 0.97 0.82-1.17 62 Protime 11.4 SEC 10.2-14.8 63 Laboratory test finding 12/24/2010 PTT (Aptt) 29.4 25.15-38.53 CBC Auto Diff 12/24/2010 White Blood Count 7.1 CUMM 4.8-10.8 Red Cell Count 4.21 CUMM 4.2-5.4 Hemoglobin 13.3 g/dL 12.0-16.0 Hematocrit 40 % 35-47 Mean Corpuscular Volume 94 um3 79-97 Mean Corpuscular Hemoglob 32 pg High 27-31 Mean Corpuscular HGB Cone 34 g/dL 32-36 Redcell Distribution WDTH 13 % 10.5-15 Platelet Count 259 CUMM 150-450 Mean Platelet Volume 9.2 um3 7.4-10.4 Gran % 59.4 % 38-83 Lymph % 30.3 % 25-47 Mononuclear % 8.1 % 1-9 Eosinophil % 1.7 % 0-6 Basophil % 0.5 % 0-2 Abs Lymphs 2.2 1.0-4.8 Abs Mononuclear 0.6 0-0.8 Absolute Neutrophil Count 4.2 1.5-7.7 Abs Eosinophils 0.1 0-0.6 Abs Basophils 0 0-0.2 Liver Function Panel 12/24/2010 Total Protein 7.0 GM/DL 6.2-8.1 Albumin 4.4 GM/DL 3.2-5.2 Globulin 2.6 GM/DL 2-4 Albumin/Globulin Ratio 1.7 1-3 Bilirubin Total 0.9 mg/dL 0.4-1.5 64 Bilirubin Direct 0.1 mg/dL 0.1-0.5 Indirect Bilirubin 0.8 mg/dL 0.3-1.0 65 Alkaline Phosphatase 57 U/L 30-110 Alt (SGPT) 82 U/L High 14-54 Ast (Sgot) 44 U/L High 12-42 Laboratory test finding 12/24/2010 CPK (Creatine Kinase) 536 U/L High 0- 170 CK Isoenzymes 2010 Creatine Kinase (CK) 489 U/L 38-176 66 Total CK 489 U/L () 67 mm Fraction . % 100 68 MB Fraction 4 % 0 BB Fraction 0 % 0 69 Laboratory test finding 2010 CPK (Creatine Kinase) 500 U/L High 0- 170 CKMB 2010 CKMB In NG/ML 20.0 NG/ML High 0.3-4.0 % CKMB 4 %MB 0-9 70 Laboratory test finding 12/04/2010 Hemoglobin A1c 6.2 % High Less Than 6.0 71 Urine Microalbumin 12/04/2010 Microalbumin (MG/L) 8.0 mg/L Random Urine Creatinine 198.78 mg/dL Arik Alb/Creatinine Ratio 4.0 UG/MG Less Than 30 72 Lipid Panel - [facility] 12/04/2010 CPK (Creatine Kinase) 491 U/L High 0-170 Comp Metabolic Panel 12/04/2010 Sodium 139 mmol/L 135-145 Potassium 4.6 mmol/L 3.5-5.0 Chloride 107 mmol/L 101-111 Co2 (Carbon Dioxide) 27.0 mmol/L 22-32 Anion Gap 5.0 mmol/L 2-11 73 Glucose 122 mg/dL High 70-100 BUN 14 mg/dL 6-24 Creatinine 0.80 mg/dL 0.50-1.40 One Over Creatinine 1.20 BUN/Creatinine Ratio 17.5 8-20 Calcium 8.8 mg/dL 8.1-9.9 Total Protein 6.0 GM/DL Low 6.2-8.1 Albumin 4.0 GM/DL 3.2-5.2 Globulin 2.0 GM/DL 2-4 Albumin/Globulin Ratio 2.0 1-3 Bilirubin Total 0.9 mg/dL 0.4-1.5 74 Alkaline Phosphatase 55 U/L 30-110 Alt (SGPT) 84 U/L High 14-54 Ast (Sgot) 44 U/L High 12-42 eGFR Non- 72.0 > 60 eGFR 92.6 > 60 75 Lipid Profile (Trig/Chol/HDL) 12/04/2010 Triglyceride 132 mg/dL 40-200 Cholesterol 232 mg/dL High Less Than 200 76 High Density Lipoprotein 53 mg/dL 40-60 77 Cholesterol/HDL Ratio 4.38 AVERAGE 1-4.44 Low Density Lipoprotein 153 mg/dL High Less Than 100 78 CBC Auto Diff 12/04/2010 White Blood Count 5.9 CUMM 4.8-10.8 Red Cell Count 4.12 CUMM Low 4.2-5.4 Hemoglobin 12.9 g/dL 12.0-16.0 Hematocrit 38 % 35-47 Mean Corpuscular Volume 92 um3 79-97 Mean Corpuscular Hemoglob 31 pg 27-31 Mean Corpuscular HGB Cone 34 g/dL 32-36 Redcell Distribution WDTH 13 % 10.5-15 Platelet Count 262 CUMM 150-450 Mean Platelet Volume 9.1 um3 7.4-10.4 Gran % 52.2 % 38-83 Lymph % 35.8 % 25-47 Mononuclear % 8.0 % 1-9 Eosinophil % 3.3 % 0-6 Basophil % 0.7 % 0-2 Abs Lymphs 2.1 1.0-4.8 Abs Mononuclear 0.5 0-0.8 Absolute Neutrophil Count 3.1 1.5-7.7 Abs Eosinophils 0.2 0-0.6 Abs Basophils 0 0-0.2 Comp Metabolic Panel 08/23/2010 Sodium 137 mmol/L 135-145 Potassium 4.4 mmol/L 3.5-5.0 Chloride 105 mmol/L 101-111 Co2 (Carbon Dioxide) 27.0 mmol/L 22-32 Anion Gap 5.0 mmol/L 2-11 79 Glucose 138 mg/dL High 70-100 BUN 11 mg/dL 6-24 Creatinine 0.90 mg/dL 0.50-1.40 One Over Creatinine 1.10 BUN/Creatinine Ratio 12.2 8-20 Calcium 8.9 mg/dL 8.1-9.9 Total Protein 5.9 GM/DL Low 6.2-8.1 Albumin 3.8 GM/DL 3.2-5.2 Globulin 2.1 GM/DL 2-4 Albumin/Globulin Ratio 1.8 1-3 Bilirubin Total 0.8 mg/dL 0.4-1.5 80 Alkaline Phosphatase 58 U/L 30-110 Alt (SGPT) 46 U/L 14-54 Ast (Sgot) 28 U/L 12-42 eGFR Non- 66.8 > 60 eGFR 80.8 > 60 81 Lipid Profile (Trig/Chol/HDL) 08/23/2010 Triglyceride 106 mg/dL 40-200 Cholesterol 197 mg/dL Less Than 200 82 High Density Lipoprotein 52 mg/dL 40-60 83 Cholesterol/HDL Ratio 3.79 AVERAGE 1-4.44 Low Density Lipoprotein 124 mg/dL High Less Than 100 84 Laboratory test 08/23/2010 Hemoglobin A1c 6.3 % High Less Than 6.0 85 finding Lipid Panel - [facility] 08/23/2010 CPK (Creatine Kinase) 376 U/L High 0-170 Laboratory test 05/22/2010 Erythrocyte Sed Rate 9 MM/HR 0-40 finding Manual Differential 05/22/2010 Polysegmented 49 % 38-83 Neutrophil Band Neutrophil 1 % 0-8 Lymphocyte 38 % 25-47 Monocyte 11 % 0-13 Eosinophil 1 % 0-6 Absolute Neutrophil Count 3.9 RBC Morphology NORMAL CBC With Electronic Diff 05/22/2010 White Blood Count 7.9 CUMM 4.8-10.8 Red Cell Count 4.18 CUMM Low 4.2-5.4 Hemoglobin 13.5 g/dL 12.0-16.0 Hematocrit 38 % 35-47 Mean Corpuscular Volume 92 um3 79-97 Mean Corpuscular Hemoglob 32 pg High 27-31 Mean Corpuscular HGB Cone 35 g/dL 32-36 Redcell Distribution WDTH 12 % 10.5-15 Platelet Count 272 CUMM 150-450 Mean Platelet Volume 8.1 um3 7.4-10.4 Laboratory test finding 05/22/2010 C Reactive Protein 1.0 mg/dL High Less Than 0.5 Liver Function Panel 05/22/2010 Total Protein 5.8 GM/DL Low 6.2-8.1 Albumin 4.0 GM/DL 3.2-5.2 Globulin 1.8 GM/DL Low 2-4 Albumin/Globulin Ratio 2.2 1-3 Bilirubin Total 0.7 mg/dL 0.4-1.5 86 Bilirubin Direct 0.0 mg/dL Low 0.1-0.5 Indirect Bilirubin (SEE NOTE) mg/dL 0.3-1.0 87 Alkaline Phosphatase 52 U/L 30-110 Alt (SGPT) 57 U/L High 14-54 Ast (Sgot) 34 U/L 12-42 Basic Metabolic Panel 05/22/2010 Sodium 138 mmol/L 135-145 Potassium 4.0 mmol/L 3.5-5.0 Chloride 104 mmol/L 101-111 Co2 (Carbon Dioxide) 26.0 mmol/L 22-32 Anion Gap 8.0 mmol/L 2-11 88 Glucose 129 mg/dL High 70-100 89 BUN 15 mg/dL 6-24 Creatinine 0.90 mg/dL 0.50-1.40 One Over Creatinine 1.10 BUN/Creatinine Ratio 16.7 8-20 Calcium 9.0 mg/dL 8.1-9.9 eGFR Non- 66.8 > 60 eGFR 80.8 > 60 90 Basic Metabolic Panel 03/15/2010 Sodium 139 mmol/L 135-145 Potassium 4.3 mmol/L 3.5-5.0 Chloride 104 mmol/L 101-111 Co2 (Carbon Dioxide) 28.0 mmol/L 22-32 Anion Gap 7.0 mmol/L 2-11 91 Glucose 123 mg/dL High 70-100 92 BUN 13 mg/dL 6-24 Creatinine 0.90 mg/dL 0.50-1.40 One Over Creatinine 1.10 BUN/Creatinine Ratio 14.4 8-20 Calcium 9.1 mg/dL 8.1-9.9 93 eGFR Non- 66.8 > 60 eGFR 80.8 > 60 94 Liver Function Panel 03/15/2010 Total Protein 6.4 GM/DL 6.2-8.1 Albumin 4.0 GM/DL 3.2-5.2 Globulin 2.4 GM/DL 2-4 Albumin/Globulin Ratio 1.7 1-3 Bilirubin Total 0.6 mg/dL 0.4-1.5 95 Bilirubin Direct 0.1 mg/dL 0.1-0.5 Indirect Bilirubin 0.5 mg/dL 0.3-1.0 96 Alkaline Phosphatase 57 U/L 30-110 Alt (SGPT) 53 U/L 14-54 Ast (Sgot) 32 U/L 12-42 Laboratory test finding 03/15/2010 C Reactive Protein 0.8 mg/dL High Less Than 0.5 CBC With Electronic Diff 03/15/2010 White Blood Count 8.3 CUMM 4.8-10.8 Red Cell Count 4.09 CUMM Low 4.2-5.4 Hemoglobin 13.1 g/dL 12.0-16.0 Hematocrit 37 % 35-47 Mean Corpuscular Volume 91 um3 79-97 Mean Corpuscular Hemoglob 32 pg High 27-31 Mean Corpuscular HGB Cone 35 g/dL 32-36 Redcell Distribution WDTH 13 % 10.5-15 Platelet Count 277 CUMM 150-450 Mean Platelet Volume 7.9 um3 7.4-10.4 97 Manual Differential 03/15/2010 Polysegmented Neutrophil 57 % 38-83 Band Neutrophil 2 % 0-8 Lymphocyte 30 % 25-47 Monocyte 8 % 0-13 Eosinophil 3 % 0-6 Absolute Neutrophil Count 4.8 RBC Morphology NORMAL Laboratory test finding 03/15/2010 Erythrocyte Sed Rate 11 MM/HR 0-40 Basic Metabolic Panel 01/22/2010 Sodium 135 mmol/L 135-145 Potassium 4.0 mmol/L 3.5-5.0 Chloride 105 mmol/L 101-111 Co2 (Carbon Dioxide) 25.0 mmol/L 22-32 Anion Gap 5.0 mmol/L 2-11 98 Glucose 137 mg/dL High 70-100 99 BUN 10 mg/dL 6-24 Creatinine 0.80 mg/dL 0.50-1.40 One Over Creatinine 1.20 BUN/Creatinine Ratio 12.5 8-20 Calcium 8.5 mg/dL 8.1-9.9 100 eGFR Non- 76.5 > 60 eGFR 92.6 > 60 101 Liver Function Panel 01/22/2010 Total Protein 6.0 GM/DL Low 6.2-8.1 Albumin 3.8 GM/DL 3.2-5.2 Globulin 2.2 GM/DL 2-4 Albumin/Globulin Ratio 1.7 1-3 Bilirubin Total 0.7 mg/dL 0.4-1.5 102 Bilirubin Direct 0.1 mg/dL 0.1-0.5 Indirect Bilirubin 0.6 mg/dL 0.1-0.75 Alkaline Phosphatase 52 U/L 30-110 Alt (SGPT) 58 U/L High 14-54 Ast (Sgot) 40 U/L 12-42 Laboratory test finding 01/22/2010 C Reactive Protein 0.6 mg/dL High Less Than 0.5 CBC With Manual Diff 01/22/2010 White Blood Count 6.5 CUMM 4.8-10.8 Red Cell Count 3.99 CUMM Low 4.2-5.4 Hemoglobin 12.4 g/dL 12.0-16.0 Hematocrit 35 % 35-47 Mean Corpuscular Volume 89 um3 79-97 Mean Corpuscular Hemoglob 31 pg 27-31 Mean Corpuscular HGB Cone 35 g/dL 32-36 Redcell Distribution WDTH 13 % 10.5-15 Platelet Count 265 CUMM 150-450 Mean Platelet Volume 8.8 um3 7.4-10.4 Polysegmented Neutrophil 53 % 38-83 Lymphocyte 32 % 25-47 Monocyte 7 % 0-13 Eosinophil 3 % 0-6 Basophil 1 % 0-2 Atypical Lymph 4 % 0-6 Absolute Neutrophil Count 3.4 RBC Morphology NORMAL Laboratory test finding 01/22/2010 Erythrocyte Sed Rate 14 MM/HR 0-40 Laboratory test finding 10/10/2009 Erythrocyte Sed Rate 13 MM/HR 0-30 Cyclic Citrullinated Pep Igg <15.6 U () 103 CBC With Manual Diff 10/10/2009 White Blood Count 5.8 CUMM 4.8-10.8 Red Cell Count 4.33 CUMM 4.2-5.4 Hemoglobin 13.3 g/dL 12.0-16.0 Hematocrit 38 % 35-47 Mean Corpuscular Volume 88 um3 79-97 Mean Corpuscular Hemoglob 31 pg 27-31 Mean Corpuscular HGB Cone 35 g/dL 32-36 Redcell Distribution WDTH 12 % 10.5-15 Platelet Count 267 CUMM 150-450 Mean Platelet Volume 8.0 um3 7.4-10.4 Polysegmented Neutrophil 64 % 38-83 Lymphocyte 25 % 25-47 Monocyte 6 % 0-13 Eosenophil 2 % 0-6 Atypical Lymph 3 % 0-6 Absolute Neutrophil Count 3.7 Anisocytosis SLIGHT Laboratory test finding 10/10/2009 Rheumatoid Factor 699.5 IU/mL High Less Than 20 C Reactive Protein 0.5 mg/dL Less Than 0.5 Comp Metabolic Panel 10/10/2009 Sodium 132 mmol/L Low 135-145 Potassium 4.2 mmol/L 3.5-5.0 Chloride 99 mmol/L Low 101-111 Co2 (Carbon Dioxide) 27.0 mmol/L 22-32 Anion Gap 6.0 mmol/L 2-11 104 Glucose 137 mg/dL High 70-100 105 BUN 15 mg/dL 6-24 Creatinine 0.90 mg/dL 0.50-1.40 One Over Creatinine 1.10 BUN/Creatinine Ratio 16.7 8-20 Calcium 8.8 mg/dL 8.1-9.9 106 Total Protein 6.0 GM/DL Low 6.2-8.1 Albumin 3.6 GM/DL 3.2-5.2 Globulin 2.4 GM/DL 2-4 Albumin/Globulin Ratio 1.5 1-3 Bilirubin Total 0.7 mg/dL 0.4-1.5 107 Alkaline Phosphatase 55 U/L 30-110 Alt (SGPT) 42 U/L 14-54 Ast (Sgot) 28 U/L 12-42 eGFR Non- 67.0 > 60 eGFR 81.1 > 60 108 Laboratory test finding 07/19/2009 Magnesium 2.2 mg/dL 1.7-2.6 Laboratory test finding 07/19/2009 Erythrocyte Sed Rate 13 MM/HR 0-30 C Reactive Protein < 0.5 mg/dL Less Than 0.5 Rheumatoid Factor 346.7 IU/mL High Less Than 20 CBC With Manual Diff 07/19/2009 White Blood Count 5.9 CUMM 4.8-10.8 Red Cell Count 4.37 CUMM 4.2-5.4 Hemoglobin 13.3 g/dL 12.0-16.0 Hematocrit 39 % 35-47 Mean Corpuscular Volume 89 um3 79-97 Mean Corpuscular Hemoglob 30 pg 27-31 Mean Corpuscular HGB Cone 34 g/dL 32-36 Redcell Distribution WDTH 13 % 10.5-15 Platelet Count 267 CUMM 150-450 Mean Platelet Volume 8.8 um3 7.4-10.4 Polysegmented Neutrophil 50 % 38-83 Band Neutrophil 1 % 0-8 Lymphocyte 34 % 25-47 Monocyte 10 % 0-13 Eosenophil 1 % 0-6 Basophil 1 % 0-2 Atypical Lymph 3 % 0-6 Absolute Neutrophil Count 3.0 Anisocytosis SLIGHT Basic Metabolic Panel 07/19/2009 Sodium 138 mmol/L 135-145 Potassium 4.4 mmol/L 3.5-5.0 Chloride 107 mmol/L 101-111 Co2 (Carbon Dioxide) 27.0 mmol/L 22-32 Anion Gap 4.0 mmol/L 2-11 109 Glucose 129 mg/dL High 70-100 110 BUN 14 mg/dL 6-24 Creatinine 0.80 mg/dL 0.50-1.40 One Over Creatinine 1.20 BUN/Creatinine Ratio 17.5 8-20 Calcium 8.9 mg/dL 8.1-9.9 111 eGFR Non- 76.8 > 60 eGFR 92.9 > 60 112 Laboratory test finding 07/19/2009 Ariane (Antinuclear NEGATIVE Negative Antibodies) TSH 1.93 MIU/ML 0.34-5.60 Thyroxine Free 07/19/2009 Free Thyroxine 0.74 NG/ML 0.61-1.24 113 Lipid Profile (Trig/Chol/HDL) 02/29/2008 Triglyceride 102 mg/dL 40-200 Cholesterol 219 mg/dL High Less Than 200 114 High Density Lipoprotein 50 mg/dL 40-60 115 Cholesterol/HDL Ratio 4.38 AVERAGE 1-4.44 Low Density Lipoprotein 149 mg/dL High Less Than 100 116 Laboratory test finding 02/29/2008 Magnesium 2.1 mg/dL 1.7-2.6 Basic Metabolic Panel 02/29/2008 Sodium 142 mmol/L 135-145 Potassium 4.0 mmol/L 3.5-5.0 Chloride 108 mmol/L 101-111 Co2 (Carbon Dioxide) 27.0 mmol/L 22-32 Anion Gap 7.0 mmol/L 2-11 117 Glucose 119 mg/dL High 70-105 BUN 11 mg/dL 6-24 Creatinine 1.0 mg/dL 0.5-1.4 One Over Creatinine 1.00 BUN/Creatinine Ratio 11.0 8-20 Calcium 8.6 mg/dL 8.1-9.9 118 Laboratory test finding 02/29/2008 Hemoglobin A1c 6.2 % High <6.0 119 Stool For Blood 08/09/2007 Stool For Blood POSITIVE Negative Stool Color BROWN Stool Consistency FIRM Stool Form FORMED Laboratory test finding 08/09/2007 C. Difficile Toxin A N^NEGATIVE BY IM < SEE 120 B NOTE> Urinalysis 08/05/2007 Ua Color YELLOW Appearance-Urine CLEAR Bilirubin-Ur NEGATIVE Negative Blood-Urine NEGATIVE Negative Esterase-Urine NEGATIVE Negative Glucose-Urine NEGATIVE Negative Ketones-Urine NEGATIVE Negative Nitrite NEGATIVE Negative PH-Urine 6.0 5-9 Protein-Urine NEGATIVE Negative [id number] NEGATIVE Negative Specific [place]-Ur 1.008 Low 1.010-1.030 Laboratory test finding 08/05/2007 Urine Culture Sensitivi NG 121 1 Desirable: <150 Borderline High: 150-199 High: 200-499 Very High: >500 2 Desirable: <200 Borderline High: 200-239 High: >239 3 Low: <40 Desirable: 40-60 High: >60 4 Desirable: <100 Near Optimal: 100-129 Borderline High: 130-159 High: 160-189 Very High: >189 5 Because ethnic data is not always readily available, this report includes an eGFR for both -Americans and non- Americans. The National Kidney Disease Education Program (NKDEP) does not endorse the use of the MDRD equation for patients that are not between the ages of 18 and 70, are , have extremes of body size, muscle mass, or nutritional status, or are non- or non-. According to the National Kid[employer], irrespective of diagnosis, the stage of the disease is based on the level of kidney function: Stage Description GFR(mL/min/1.73 m(2)) 1 Kidney damage with normal or decreased GFR 90 2 Kidney damage with mild decrease in GFR 60-89 3 Moderate decrease in GFR 30-59 4 Severe decrease in GFR 15-29 5 Kidney failure <15 (or dialysis) 6 Unable to calculate due to low microalbumin 7 Desirable <150 Borderline high 150-199 High 200-499 Very High >500 8 Desirable <200 Borderline high 200-239 High >239 9 Low <40 Desirable: 40-60 High: >60 10 Desirable: <100 mg/dL Near Optimal: 100-129 mg/dL Borderline High: 130-159 mg/dL High: 160-189 mg/dL Very High: >189 mg/dL 11 Because ethnic data is not always readily available, this report includes an eGFR for both -Americans and non- Americans. The National Kidney Disease Education Program (NKDEP) does not endorse the use of the MDRD equation for patients that are not between the ages of 18 and 70, are , have extremes of body size, muscle mass, or nutritional status, or are non- or non-. According to the National Kid[employer], irrespective of diagnosis, the stage of the disease is based on the level of kidney function: Stage Description GFR(mL/min/1.73 m(2)) 1 Kidney damage with normal or decreased GFR 90 2 Kidney damage with mild decrease in GFR 60-89 3 Moderate decrease in GFR 30-59 4 Severe decrease in GFR 15-29 5 Kidney failure <15 (or dialysis) 12 Therapeutic target for the treatment of diabetes Mellitus patients is <7% HBA1C, and in selective patients <6.0%.Please refer to [place] [employer] Diabetic care guidelines for further information. 13 Desirable <150 Borderline high 150-199 High 200-499 Very High >500 14 Desirable <200 Borderline high 200-239 High >239 15 Low <40 Desirable: 40-60 High: >60 16 Desirable: <100 mg/dL Near Optimal: 100-129 mg/dL Borderline High: 130-159 mg/dL High: 160-189 mg/dL Very High: >189 mg/dL 17 Therapeutic target for the treatment of diabetes Mellitus patients is <7% HBA1C, and in selective patients <6.0%.Please refer to [place] [employer] Diabetic care guidelines for further information. 18 Because ethnic data is not always readily available, this report includes an eGFR for both -Americans and non- Americans. The National Kidney Disease Education Program (NKDEP) does not endorse the use of the MDRD equation for patients that are not between the ages of 18 and 70, are , have extremes of body size, muscle mass, or nutritional status, or are non- or non-. According to the National Kidney Foundation, irrespective of diagnosis, the stage of the disease is based on the level of kidney function: Stage Description GFR(mL/min/1.73 m(2)) 1 Kidney damage with normal or decreased GFR 90 2 Kidney damage with mild decrease in GFR 60-89 3 Moderate decrease in GFR 30-59 4 Severe decrease in GFR 15-29 5 Kidney failure <15 (or dialysis) 19 SEE RESULT BELOW Name: BRADLEY EGAN : [address]: Rodrigue Villalba MD Acct: [id number] Unit: [id number] AGE: 69 Location: [facility] Re05/30/15 SEX: F Status: REG REF SPEC: [id number] LAURA: 05/30/15- SUBM DR: Rodrigue Villalba MD REQ: [id number] RECD: 05/30/15 STATUS: MILO CHRISTIE DR: Nima Roche MD _ ORDERED: LEVEL IV/2 FINAL DIAGNOSIS 1. Colon, proximal sigmoid, biopsy: -- Hyperplastic polyp. 2. Colon, mid sigmoid, biopsy: -- Tubular adenoma. -- No high grade dysplasia or malignancy. CLINICAL HISTORY Usual bowel habit; pain and aches, had diarrhea approximately 9/10 with no fever. Hip 12/26/14, , neuroendocrine tumor right 2010; family history - aunt-breast POST-OPERATIVE DIAGNOSIS Colonoscopy to cecum - very gnarled, loose sigmoid, difficult, changed to peds - 2 polyps removed. Diverticulosis, loose sigmoid; polyps; difficult anatomy; rectal bleeding??? GROSS DESCRIPTION 1. The specimen is received in formalin labeled, Proximal Sigmoid Colon Polyp, and consists of a 1.2 x 0.3 x 0.2 cm jolly-white ovoid soft tissue fragment, which is inked, serially sectioned and entirely submitted in one cassette. 2. The specimen is received in formalin labeled, Mid Sigmoid Colon Polyp, and consists of a 0.4 x 0.2 x 0.1 cm jolly-white irregular soft tissue fragment, which is submitted entirely in one cassette. Signed (signature on file) Maricruz Valencia MD [id number] END OF REPORT * ML=Testing performed at Main Lab DEPARTMENT OF PATHOLOGY, [address] [place] [address] Keanu Paiz M.D. Director [facility] # [id number] 20 Because ethnic data is not always readily available, this report includes an eGFR for both -Americans and non- Americans. The National Kidney Disease Education Program (NKDEP) does not endorse the use of the MDRD equation for patients that are not between the ages of 18 and 70, are , have extremes of body size, muscle mass, or nutritional status, or are non- or non-. According to the National Kidney Foundation, irrespective of diagnosis, the stage of the disease is based on the level of kidney function: Stage Description GFR(mL/min/1.73 m(2)) 1 Kidney damage with normal or decreased GFR 90 2 Kidney damage with mild decrease in GFR 60-89 3 Moderate decrease in GFR 30-59 4 Severe decrease in GFR 15-29 5 Kidney failure <15 (or dialysis) 21 PT IS FASTING 22 Because ethnic data is not always readily available, this report includes an eGFR for both -Americans and non- Americans. The National Kidney Disease Education Program (NKDEP) does not endorse the use of the MDRD equation for patients that are not between the ages of 18 and 70, are , have extremes of body size, muscle mass, or nutritional status, or are non- or non-. According to the National Kidney Foundation, irrespective of diagnosis, the stage of the disease is based on the level of kidney function: Stage Description GFR(mL/min/1.73 m(2)) 1 Kidney damage with normal or decreased GFR 90 2 Kidney damage with mild decrease in GFR 60-89 3 Moderate decrease in GFR 30-59 4 Severe decrease in GFR 15-29 5 Kidney failure <15 (or dialysis) 23 Desirable <150 Borderline high 150-199 High 200-499 Very High >500 24 Desirable <200 Borderline high 200-239 High >239 25 Low <40 Desirable: 40-60 High: >60 26 Desirable: <100 mg/dL Near Optimal: 100-129 mg/dL Borderline High: 130-159 mg/dL High: 160-189 mg/dL Very High: >189 mg/dL 27 Therapeutic target for the treatment of diabetes Mellitus patients is <7% HBA1C, and in selective patients <6.0%.Please refer to [place] [employer] Diabetic care guidelines for further information. 28 SDS 12/26 29 Because ethnic data is not always readily available, this report includes an eGFR for both -Americans and non- Americans. The National Kidney Disease Education Program (NKDEP) does not endorse the use of the MDRD equation for patients that are not between the ages of 18 and 70, are , have extremes of body size, muscle mass, or nutritional status, or are non- or non-. According to the National Kidney Foundation, irrespective of diagnosis, the stage of the disease is based on the level of kidney function: Stage Description GFR(mL/min/1.73 m(2)) 1 Kidney damage with normal or decreased GFR 90 2 Kidney damage with mild decrease in GFR 60-89 3 Moderate decrease in GFR 30-59 4 Severe decrease in GFR 15-29 5 Kidney failure <15 (or dialysis) 30 RUN DATE: 12/21/14 [facility] LAB LIVE PAGE 1 RUN TIME: [address] [place], [place] [address] Specimen Inquiry Name: BRADLEY EGAN : [address]: Brady Aguilar MD Acct: [id number] Unit: [id number] AGE: 69 Location: [facility] Re12/19/14 SEX: F Status: REG REF SPEC: [id number] LAURA: 12/19/14-14[address] [facility] [address]: Brady Aguilar MD REQ: [id number] RECD: 12/19/14-155 STATUS: BRANDON CHRISTIE DR: Nima Roche MD _ SOURCE: URINE SPDESC: ORDERED: Urine Culture Procedure Result Verified Site Urine Culture Final 12/21/14- 1228 ML Organism 1 NORMAL MICHELLE [place] Count 25-50,000 (Moderate) CFU/ML * ML - MAIN LAB ([facility]) . END OF REPORT * ML=Testing performed at Main Lab DEPARTMENT OF PATHOLOGY, [address] [place] [address] Keanu Paiz M.D. Director [facility] # [id number] 31 Microalbuminuria in a random sample is defined as: Microalbumin/Creatinine ratio of 30-299 ug/mg. 32 FASTING 10 HOUR 33 Because ethnic data is not always readily available, this report includes an eGFR for both -Americans and non- Americans. The National Kidney Disease Education Program (NKDEP) does not endorse the use of the MDRD equation for patients that are not between the ages of 18 and 70, are , have extremes of body size, muscle mass, or nutritional status, or are non- or non-. According to the National Kidney Foundation, irrespective of diagnosis, the stage of the disease is based on the level of kidney function: Stage Description GFR(mL/min/1.73 m(2)) 1 Kidney damage with normal or decreased GFR 90 2 Kidney damage with mild decrease in GFR 60-89 3 Moderate decrease in GFR 30-59 4 Severe decrease in GFR 15-29 5 Kidney failure <15 (or dialysis) 34 Desirable <150 Borderline high 150-199 High 200-499 Very High >500 35 Desirable <200 Borderline high 200-239 High >239 36 Low <40 Desirable: 40-60 High: >60 37 Desirable <100 Near Optimal 100-129 Borderline high 130-159 High 160-189 Very High >189 38 Serologic response to B. burgdorferi infection is not detected, but cannot rule out early infection during which low or undetectable antibody levels to B. burgdorferi may be present. If clinically indicated, a new serum specimen should be submitted in 7-14 days. Test Performed by: [place] [address] Supervisor Customer Complaint Service: Marcos Alejandro III, M.D. 39 Because ethnic data is not always readily available, this report includes an eGFR for both -Americans and non- Americans. The National Kidney Disease Education Program (NKDEP) does not endorse the use of the MDRD equation for patients that are not between the ages of 18 and 70, are , have extremes of body size, muscle mass, or nutritional status, or are non- or non-. According to the National Kidney Foundation, irrespective of diagnosis, the stage of the disease is based on the level of kidney function: Stage Description GFR(mL/min/1.73 m(2)) 1 Kidney damage with normal or decreased GFR 90 2 Kidney damage with mild decrease in GFR 60-89 3 Moderate decrease in GFR 30-59 4 Severe decrease in GFR 15-29 5 Kidney failure <15 (or dialysis) 40 @Sample frozen by at 1629 on 04/01/13. 41 Test Performed by: [place] [address] Supervisor Customer Complaint Service: Marcos Alejandro III, M.D. 42 -- REFERENCE VALUE -- <20.0 (Negative) Test Performed by: [place] [address] Supervisor Customer Complaint Service: Marcos Alejandro III, M.D. 43 The above MANUEL screen is designed for the detection of antibodies to extractable nuclear antigen (MANUEL) in human serum. It is a combination test for the detection of antibodies to [employer], Sm, SS-A (Ro), and SS-B (La) nuclear antigens. 44 HDL Interpretation: Undesirable: High Risk: Less than 40 MG/DL Desirable: Low Risk: Greater than 60 MG/DL 45 LDL Interpretation: Low Risk Optimal Level: LDL Less than 100 MG/DL Near or Above Optimal: LDL 100-129 MG/DL Borderline High Risk: LDL 130-159 MG/DL High Risk: LDL 160-189 MG/DL Very High Risk: LDL Greater than 189 MG/DL 46 Because ethnic data is not always readily available, this report includes an eGFR for both -Americans and non- Americans. The National Kidney Disease Education Program (NKDEP) does not endorse the use of the MDRD equation for patients that are not between the ages of 18 and 70, are , have extremes of body size, muscle mass, or nutritional status, or are non- or non-. According to the National Kidney Foundation, irrespective of diagnosis, the stage of the disease is based on the level of kidney function: Stage Description GFR(mL/min/1.73 m(2)) 1 Kidney damage with normal or decreased GFR 90 2 Kidney damage with mild decrease in GFR 60-89 3 Moderate decrease in GFR 30-59 4 Severe decrease in GFR 15-29 5 Kidney failure <15 (or dialysis) 47 Therapeutic target for the treatment of diabetes Mellitus patients is <7% HBA1C, and in selective patients <6.0%.Please refer to [place] Diabetes Association Diabetic care guidelines for further information. 48 Microalbuminuria in a random sample is defined as: Microalbumin/Creatinine ratio of 30-299 ug/mg. 49 CHOLESTEROL INTERPRETATION: Desirable: Less than 200 MG/DL Borderline-High Risk: 200-239 MG/DL High-Risk: 240 MG/DL and over 50 HDL INTERPRETATION: Undesirable: High Risk: Less than 40 MG/DL Desirable: Low Risk: Greater than 60 MG/DL 51 LDL INTERPRETATION: Low Risk Optimal Level: LDL Less than 100 MG/DL Near or Above Optimal: LDL 100-129 MG/DL Borderline High Risk: LDL 130-159 MG/DL High Risk: LDL 160-189 MG/DL Very High Risk: LDL Greater than 189 MG/DL 52 Anion gap measurement may be of limited value in the presence of any alkalosis, especially in a combined acid base disorder. . 53 A metabolite of Naproxen, O-desmethylnaproxen, has been shown to interfere with the Jendrassik-Kwame method for measuring total bilirubin. Samples from patients who have taken Naproxen have shown spurious elevation in total bilirubin levels. 54 Because ethnic data is not always readily available, this report includes an eGFR for both -Americans and non- Americans. The National Kidney Disease Education Program (NKDEP) does not endorse the use of the MDRD equation for patients that are not between the ages of 18 and 70, are , have extremes of body size, muscle mass, or nutritional status, or are non- or non-. According to the National Kidney Foundation, irrespective of diagnosis, the stage of the disease is based on the level of kidney function: Stage Description GFR(mL/min/1.73 m(2)) 1 Kidney damage with normal or decreased GFR 90 2 Kidney damage with mild decrease in GFR 60-89 3 Moderate decrease in GFR 30-59 4 Severe decrease in GFR 15-29 5 Kidney failure <15 (or dialysis) 55 THERAPEUTIC TARGET FOR THE TREATMENT OF DIABETES MELLITUS PATIENTS IS <7% HBA1C, AND IN SELECTIVE PATIENTS <6.0%. PLEASE REFER TO [place] [employer]ATION DIABETIC CARE GUIDELINES FOR FURTHER INFORMATION. 56 MICROALBUMINURIA IN A RANDOM SAMPLE IS DEFINED : MICROALBUMIN/CREATININE RATIO OF 30-299 ug/mg. . 57 Anion gap measurement may be of limited value in the presence of any alkalosis, especially in a combined acid base disorder. . 58 A metabolite of Naproxen, O-desmethylnaproxen, has been shown to interfere with the Jendrassik-Kwame method for measuring total bilirubin. Samples from patients who have taken Naproxen have shown spurious elevation in total bilirubin levels. 59 Because ethnic data is not always readily available, this report includes an eGFR for both -Americans and non- Americans. The National Kidney Disease Education Program (NKDEP) does not endorse the use of the MDRD equation for patients that are not between the ages of 18 and 70, are , have extremes of body size, muscle mass, or nutritional status, or are non- or non-. According to the National Kidney Foundation, irrespective of diagnosis, the stage of the disease is based on the level of kidney function: Stage Description GFR(mL/min/1.73 m(2)) 1 Kidney damage with normal or decreased GFR 90 2 Kidney damage with mild decrease in GFR 60-89 3 Moderate decrease in GFR 30-59 4 Severe decrease in GFR 15-29 5 Kidney failure <15 (or dialysis) 60 REVIEWED BY KEANU PAIZ MD 61 ---- RUN DATE: 01/02/11 [facility] NMI LIVE PAGE 1 RUN TIME: 1027 Specimen Inquiry RUN USER: INTERFACE -- Name: BRADLEY EGAN [facility]#: [id number] Status: DEP ESME Re12/26/10 Age/Sex: 65/F Unit#: [id number] Location: [facility]. : 44 -- Specimen: [id number] SOUT Spec Date: 12/26/[address] [facility] Dr: Seth cross MD Spec Type: CYTOLOGY Received: 12/26/10-1241 Copies to: Nima gandara MD SOURCE FINE NEEDLE ASPIRATION Right lung, CT Guided PATIENT INFORMATION ACTUAL COLLECTION DATE: 12/26/10 PATIENT HISTORY: HX of cancer GROSS DESCRIPTION CT guided fine needle aspiration x 2 passes with 3 alcohol fixed slide(s) and Needle rinse in Cytolyt solution (bloody) for cell block. 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 COMMENT The aspirate smears and the cell block show bland appearing epithelial cells with small nucleoli, scant cytoplasm and regular nuclear membrane. There is no evidence of necrosis and no mitotic activity. The cell block shows cells with the appearance described above, some spindle, predominantly arranged around blood vessels. Immunohistochemical stains performed with appropriate controls are as follows: S100 Positive. Pancytokeratin Positive. Chromogranin Positive. Synaptophysin Positive. TTF1 Focally positive. CD31 Decorate blood vessels. -- DEPARTMENT OF PATHOLOGY, [address] [place] [address] [facility] Permit #[id number] Jannette Matson M.D. Hot Saw Helper Dir ford -- -- RUN DATE: 01/02/11 [facility] NMI LIVE PAGE 2 RUN TIME: 1027 Specimen Inquiry RUN USER: INTERFACE -- Name: BRADLEY EGAN [facility]#: [id number] Status: DIALLO VICTORIA Re12/26/10 Age/Sex: 65/F Unit#: [id number] Location: [facility]. : 43 -- -- CONTINUED -- COMMENT (Continued) CD34 Decorate blood vessels. HMB45 Negative. These findings together with the morphology indicate a well differentiated neuroendocrine carcinoma (typical carcinoid). Note is made of clinical history of right middle lobe mass which has slowly grown from 2.5 cm. to 3.1 cm. This case was discussed with Dr. Barbra Lala and Dr. Ander Roche. Dr. Paiz has reviewed this case and concurs. A cell block was prepared in the evaluation of this specimen. Smears and cell block reveal similar findings. Initial evaluation performed by Lei MCMILLAN([facility]) 12/27/10 Final Interpretation electronically signed by: SHANNON AC 01/02/11 1026 -- -- DEPARTMENT OF PATHOLOGY, [address] [place] [address] [facility] Permit #[id number] Keanu Paiz M.D. Director Shannon cA M.D. Hot Saw Helper Dir [employer] -- 62 Recommended INR for Patients on Oral Anticoagulants Prophylaxis 2.0 - 3.0 Treatment of thrombosis 2.0 - 3.0 Prevention of embolism 2.0 - 3.0 Prevention of embolism from prosthetic heart valves 2.5 - 3.5 63 DIAGNOSIS,TREATMENT,AND THERAPY MUST BE BASED ON THE INR VALUE ALONE. 64 A metabolite of Naproxen, O-desmethylnaproxen, has been shown to interfere with the [place] method for measuring total bilirubin. Samples from patients who have taken Naproxen have shown spurious elevation in total bilirubin levels. 65 Please note updated reference range, effective 03/07/10 66 Test Performed by: [facility] Dpt of Lab Med and Pathology [address] [place] [address] Supervisor Customer Complaint Service: Marcos Alejandro III, M.D. 67 -- REFERENCE VALUE -- 38-176 (>=18 y) NOTE: Strenuous exercise or intramuscular injections may cause transient elevation of CK. 68 MM=93% MACRO TYPE 1=3% 69 Test Performed by: [facility] Dpt of Lab Med and Pathology [address] [place] [address] Supervisor Customer Complaint Service: Marcos Alejandro III, M.D. 70 INTERPRETATION %CK-MB < 5% NOT SUPPORTIVE OF DIAGNOSIS OF [place] 5 - <10% INDETERMINATE; SUGGEST SERIAL STUDIES IF CLINICALLY INDICATED 10% OR > CONSISTENT WITH DIAGNOSIS OF [place] . 71 THERAPEUTIC TARGET FOR THE TREATMENT OF DIABETES MELLITUS PATIENTS IS <7% HBA1C, AND IN SELECTIVE PATIENTS <6.0%. PLEASE REFER TO [place] [employer] DIABETIC CARE GUIDELINES FOR FURTHER INFORMATION. 72 MICROALBUMINURIA IN A RANDOM SAMPLE IS DEFINED : MICROALBUMIN/CREATININE RATIO OF 30-299 ug/mg. . 73 Anion gap measurement may be of limited value in the presence of any alkalosis, especially in a combined acid base disorder. . 74 A metabolite of Naproxen, O-desmethylnaproxen, has been shown to interfere with the Jendrassik-Kwame method for measuring total bilirubin. Samples from patients who have taken Naproxen have shown spurious elevation in total bilirubin levels. 75 Because ethnic data is not always readily available, this report includes an eGFR for both -Americans and non- Americans. The National Kidney Disease Education Program (NKDEP) does not endorse the use of the MDRD equation for patients that are not between the ages of 18 and 70, are , have extremes of body size, muscle mass, or nutritional status, or are non- or non-. According to the National Kidney Foundation, irrespective of diagnosis, the stage of the disease is based on the level of kidney function: Stage Description GFR(mL/min/1.73 m(2)) 1 Kidney damage with normal or decreased GFR 90 2 Kidney damage with mild decrease in GFR 60-89 3 Moderate decrease in GFR 30-59 4 Severe decrease in GFR 15-29 5 Kidney failure <15 (or dialysis) 76 CHOLESTEROL INTERPRETATION: Desirable: Less than 200 MG/DL Borderline-High Risk: 200-239 MG/DL High-Risk: 240 MG/DL and over 77 HDL INTERPRETATION: Undesirable: High Risk: Less than 40 MG/DL Desirable: Low Risk: Greater than 60 MG/DL 78 LDL INTERPRETATION: Low Risk Optimal Level: LDL Less than 100 MG/DL Near or Above Optimal: LDL 100-129 MG/DL Borderline High Risk: LDL 130-159 MG/DL High Risk: LDL 160-189 MG/DL Very High Risk: LDL Greater than 189 MG/DL 79 Anion gap measurement may be of limited value in the presence of any alkalosis, especially in a combined acid base disorder. . 80 A metabolite of Naproxen, O-desmethylnaproxen, has been shown to interfere with the [place] method for measuring total bilirubin. Samples from patients who have taken Naproxen have shown spurious elevation in total bilirubin levels. 81 Because ethnic data is not always readily available, this report includes an eGFR for both -Americans and non- Americans. The National Kidney Disease Education Program (NKDEP) does not endorse the use of the MDRD equation for patients that are not between the ages of 18 and 70, are , have extremes of body size, muscle mass, or nutritional status, or are non- or non-. According to the National Kidney Foundation, irrespective of diagnosis, the stage of the disease is based on the level of kidney function: Stage Description GFR(mL/min/1.73 m(2)) 1 Kidney damage with normal or decreased GFR 90 2 Kidney damage with mild decrease in GFR 60-89 3 Moderate decrease in GFR 30-59 4 Severe decrease in GFR 15-29 5 Kidney failure <15 (or dialysis) 82 CHOLESTEROL INTERPRETATION: Desirable: Less than 200 MG/DL Borderline-High Risk: 200-239 MG/DL High-Risk: 240 MG/DL and over 83 HDL INTERPRETATION: Undesirable: High Risk: Less than 40 MG/DL Desirable: Low Risk: Greater than 60 MG/DL 84 LDL INTERPRETATION: Low Risk Optimal Level: LDL Less than 100 MG/DL Near or Above Optimal: LDL 100-129 MG/DL Borderline High Risk: LDL 130-159 MG/DL High Risk: LDL 160-189 MG/DL Very High Risk: LDL Greater than 189 MG/DL 85 THERAPEUTIC TARGET FOR THE TREATMENT OF DIABETES MELLITUS PATIENTS IS <7% HBA1C, AND IN SELECTIVE PATIENTS <6.0%. PLEASE REFER TO [place] [employer] DIABETIC CARE GUIDELINES FOR FURTHER INFORMATION. 86 A metabolite of Naproxen, O-desmethylnaproxen, has been shown to interfere with the Jendrassik-Kwame method for measuring total bilirubin. Samples from patients who have taken Naproxen have shown spurious elevation in total bilirubin levels. 87 UNABLE TO CALCULATE IND.BILI D.BILI IS <0.1 Please note updated reference range, effective 03/07/10 88 Anion gap measurement may be of limited value in the presence of any alkalosis, especially in a combined acid base disorder. . 89 Note change in reference range as of 04/06/08. The change was based on recommendations from the [place] [employer]. 90 Because ethnic data is not always readily available, this report includes an eGFR for both -Americans and non- Americans. The National Kidney Disease Education Program (NKDEP) does not endorse the use of the MDRD equation for patients that are not between the ages of 18 and 70, are , have extremes of body size, muscle mass, or nutritional status, or are non- or non-. According to the National Kidney Foundation, irrespective of diagnosis, the stage of the disease is based on the level of kidney function: Stage Description GFR(mL/min/1.73 m(2)) 1 Kidney damage with normal or decreased GFR 90 2 Kidney damage with mild decrease in GFR 60-89 3 Moderate decrease in GFR 30-59 4 Severe decrease in GFR 15-29 5 Kidney failure <15 (or dialysis) 91 Anion gap measurement may be of limited value in the presence of any alkalosis, especially in a combined acid base disorder. . 92 Note change in reference range as of 04/06/08. The change was based on recommendations from the [place] [employer]. 93 Please note change in reference range effective 08 . 94 Because ethnic data is not always readily available, this report includes an eGFR for both -Americans and non- Americans. The National Kidney Disease Education Program (NKDEP) does not endorse the use of the MDRD equation for patients that are not between the ages of 18 and 70, are , have extremes of body size, muscle mass, or nutritional status, or are non- or non-. According to the National Kidney Foundation, irrespective of diagnosis, the stage of the disease is based on the level of kidney function: Stage Description GFR(mL/min/1.73 m(2)) 1 Kidney damage with normal or decreased GFR 90 2 Kidney damage with mild decrease in GFR 60-89 3 Moderate decrease in GFR 30-59 4 Severe decrease in GFR 15-29 5 Kidney failure <15 (or dialysis) 95 A metabolite of Naproxen, O-desmethylnaproxen, has been shown to interfere with the Jendrassik-Kwame method for measuring total bilirubin. Samples from patients who have taken Naproxen have shown spurious elevation in total bilirubin levels. 96 Please note updated reference range, effective 03/07/10 97 Imm. NE 1 98 Anion gap measurement may be of limited value in the presence of any alkalosis, especially in a combined acid base disorder. . 99 Note change in reference range as of 04/06/08. The change was based on recommendations from the [employer]. 100 Please note change in reference range effective 08 . 101 Because ethnic data is not always readily available, this report includes an eGFR for both -Americans and non- Americans. The National Kidney Disease Education Program (NKDEP) does not endorse the use of the MDRD equation for patients that are not between the ages of 18 and 70, are , have extremes of body size, muscle mass, or nutritional status, or are non- or non-. According to the National Kidney Foundation, irrespective of diagnosis, the stage of the disease is based on the level of kidney function: Stage Description GFR(mL/min/1.73 m(2)) 1 Kidney damage with normal or decreased GFR 90 2 Kidney damage with mild decrease in GFR 60-89 3 Moderate decrease in GFR 30-59 4 Severe decrease in GFR 15-29 5 Kidney failure <15 (or dialysis) 102 A metabolite of Naproxen, O-desmethylnaproxen, has been shown to interfere with the [place] method for measuring total bilirubin. Samples from patients who have taken Naproxen have shown spurious elevation in total bilirubin levels. 103 -- REFERENCE VALUE -- <20.0 (Negative) 20.0-39.9 (Weak Positive) 40.0-59.9 (Positive) >=60.0 (Strong Positive) Test Performed by: [facility] Dpt of Lab Med and Pathology [address] [place], [place] [id number] Supervisor Customer Complaint Service: Marcos Alejandro III, M.D. 104 Anion gap measurement may be of limited value in the presence of any alkalosis, especially in a combined acid base disorder. . 105 Note change in reference range as of 04/06/08. The change was based on recommendations from the [place] [employer]. 106 Please note change in reference range effective 08 . 107 A metabolite of Naproxen, O-desmethylnaproxen, has been shown to interfere with the [place] method for measuring total bilirubin. Samples from patients who have taken Naproxen have shown spurious elevation in total bilirubin levels. 108 Because ethnic data is not always readily available, this report includes an eGFR for both -Americans and non- Americans. The National Kidney Disease Education Program (NKDEP) does not endorse the use of the MDRD equation for patients that are not between the ages of 18 and 70, are , have extremes of body size, muscle mass, or nutritional status, or are non- or non-. According to the National Kidney Foundation, irrespective of diagnosis, the stage of the disease is based on the level of kidney function: Stage Description GFR(mL/min/1.73 m(2)) 1 Kidney damage with normal or decreased GFR 90 2 Kidney damage with mild decrease in GFR 60-89 3 Moderate decrease in GFR 30-59 4 Severe decrease in GFR 15-29 5 Kidney failure <15 (or dialysis) 109 Anion gap measurement may be of limited value in the presence of any alkalosis, especially in a combined acid base disorder. . 110 Note change in reference range as of 04/06/08. The change was based on recommendations from the [place] [employer]. 111 Please note change in reference range effective 08 . 112 Because ethnic data is not always readily available, this report includes an eGFR for both -Americans and non- Americans. The National Kidney Disease Education Program (NKDEP) does not endorse the use of the MDRD equation for patients that are not between the ages of 18 and 70, are , have extremes of body size, muscle mass, or nutritional status, or are non- or non-. According to the National Kidney Foundation, irrespective of diagnosis, the stage of the disease is based on the level of kidney function: Stage Description GFR(mL/min/1.73 m(2)) 1 Kidney damage with normal or decreased GFR 90 2 Kidney damage with mild decrease in GFR 60-89 3 Moderate decrease in GFR 30-59 4 Severe decrease in GFR 15-29 5 Kidney failure <15 (or dialysis) 113 PLEASE NOTE NEW REFERENCE RANGES. 114 CHOLESTEROL INTERPRETATION: Desirable: Less than 200 MG/DL Borderline-High Risk: 200-239 MG/DL High-Risk: 240 MG/DL and over 115 HDL INTERPRETATION: Undesirable: High Risk: Less than 40 MG/DL Desirable: Low Risk: Greater than 60 MG/DL 116 LDL INTERPRETATION: Low Risk Optimal Level: LDL Less than 100 MG/DL Near or Above Optimal: LDL 100-129 MG/DL Borderline High Risk: LDL 130-159 MG/DL High Risk: LDL 160-189 MG/DL Very High Risk: LDL Greater than 189 MG/DL 117 Anion gap measurement may be of limited value in the presence of any alkalosis, especially in a combined acid base disorder. . 118 Please note change in reference range effective 08 . 119 THERAPEUTIC TARGET FOR THE TREATMENT OF DIABETES MELLITUS PATIENTS IS <7% HBA1C, AND IN SELECTIVE PATIENTS <6.0%. PLEASE REFER TO [place] [employer] DIABETIC CARE GUIDELINES FOR FURTHER INFORMATION. 120 N^NEGATIVE BY IMMUNOASSAY^CDT 121 FINAL: NO GROWTH DAY 2 (<1,000 CFU/mL) Procedures Date CPT Code Description Status 06/10/2017 71034 ECHO Transthoracic, Real-Time 2D With Doppler And Color Completed Flow 05/05/2017 44258 EKG Tracing & Interpretation Completed 07/08/2016 01046 EKG Tracing & Interpretation Completed 06/18/2016 Mammogram Completed 03/27/2016 83989 Diffusing Capacity Completed 03/27/2016 70007 Plethysmography Determination Lung Volumes & Per Airway Completed Resist 03/27/2016 18801 Pulmonary Function><Bronchodil Completed 11/29/2015 Diabetic Retinal Eye Exam Completed 10/19/2015 99397 EKG Tracing & Interpretation Completed 05/30/2015 Colonoscopy Completed 04/04/2015 Mammogram Completed 12/26/2014 47733 THR Total Hip Replacement Completed 12/26/2014 89759 THR Total Hip Replacement Completed 12/22/2014 32325 Myocardial Perfusion Imaging Tomographic (Spect) Completed Multiple Studies 12/22/2014 21154 Myocardial Perfusion Imaging Tomographic (Spect) Completed Multiple Studies 12/22/2014 17523 Stress Test Completed 12/20/2014 67088 ECHO Transthoracic, Real-Time 2D With Doppler And Color Completed Flow 12/18/2014 59469 EKG Tracing & Interpretation Completed 12/18/2014 32532 EKG Tracing & Interpretation Completed 08/24/2014 Diabetic Retinal Eye Exam Completed 02/01/2014 Mammogram Completed 02/01/2014 Bone Mineral Density Test Completed 04/27/2013 Diabetic Retinal Eye Exam Completed 01/31/2013 Mammogram Completed 10/01/2011 Colonoscopy Completed 09/11/2011 Bone Mineral Density Test Completed 09/04/2010 Mammogram Completed 08/11/2008 Mammogram Completed 05/18/2006 Colonoscopy Completed Encounters Type Date Location Provider CPT E/M Dx Office Visit 12/09/2017 9:20a [facility] Internal Medicine Truong Messer, MACHINE SPREADER [address] E11.[address] - [address] I10 E78.4 E11.65 Office Visit 09/28/2017 9:00a [facility] Aguilar M.D. 97003 M70.61 C.M.A. Office Visit 06/16/2017 9:10a [facility] Internal Medicine Nima Roche, 29824 Z00.01 Viraj Bhatia,FACP E11.9 I10 F33.9 Z23 Office Visit 05/05/2017 2:00p [facility] Qutaybeh S. [place], [address] I10 Jannette E78.4 I44.7 R53.83 Office Visit 12/09/2016 10:10a [facility] Internal Medicine Nima Roche, 18395 E11.9 - Viraj Bhatia,FACP I10 E78.4 Z85.110 Office Visit 07/08/2016 3:00p [facility] Qutaybeh S. Jersonah, 47890 Mildred0 Jannette E78.4 I44.7 E66.9 Z68.32 Office Visit 06/10/2016 10:30a [facility] Internal Medicine Nima Roche, 05586 Z00.00 - Viraj Bhatia,FACP E11.9 I10 F33.9 Z71.89 Z23 Office Visit 02/19/2016 9:10a [facility] Internal Medicine Nima Roche, 05549 J20.9 - Virja Bhatia,FACP E11.9 Office Visit 11/22/2015 1:20p [facility] [place] [address] J00 - [address] Office Visit 10/19/2015 10:20a [facility] Qutaybeh S. 73354 E11.9 Jannette Simon I10 R94.31 I44.7 Office Visit 08/22/2015 9:15a [facility] M.D. 53930 Z96.642 C.M.A. Office Visit 07/25/2015 10:00a [facility] Internal Medicine - Pascual Perdue, HOLGER [address] Office Visit 05/14/2015 9:15a [facility] M.D. 36218 Z47.1 C.M.A. Z96.642 Office Visit 04/24/2015 10:30a [facility] Internal Medicine - Pascual Perdue, HOLGER [address] 788.1 Office Visit 02/05/2015 10:10a [facility] Internal NimaTristan Roche, 09969 250.00 Medicine - [address] Jas Bhatia,FACP 401.1 309.9 Office Visit 12/22/2014 3:20p [facility] Braulioangie Simon, 50592 V72.84 M.DSarah 401.1 250.00 272.2 715.15 Office Visit 12/18/2014 4:00p [facility] Braulioybangie Simon, 30172 V72.83 M.DSarah 715.15 250.00 272.2 401.1 794.31 Office Visit 12/18/2014 11:00a [facility] [place] [address] V43.64 794.31 401.1 272.2 250.00 714.0 715.95 Office Visit 11/22/2014 8:45a [facility] M.D. 91238 715.35 C.M.A. Office Visit 10/02/2014 3:30p [facility] Naty Almazan, 92313 716.96 C.M.A. RPA-C Office Visit 08/03/2014 8:30a [facility] Medicine Makayla Pacheco, 22055 250.00 - Patrick N.P. 380.4 715.15 v03.82 Office Visit 02/15/2014 1:30p [facility] M.D. 23109 726.71 C.M.ASarah 726.64 715.15 Office Visit 01/31/2014 10:00a [facility] Internal Medicine Makayla Pacheco N.P. 55127 715.15 - Patrick 250.00 726.71 Office Visit 10/27/2013 10:00a [facility] Medicine Makayla Pacheco, N.P. 03684 250.00 - Patrick V82.81 v06.1 Office Visit 07/28/2013 10:00a [facility] Internal Medicine Makayla Pacheco, N.P. 59684 250.00 - Patrick Office Visit 05/16/2013 8:30a [facility] Internal Medicine Nima Roche, 17253 716.96 - Viraj Bhatia,FACP 453.40 724.02 v04.81 Office Visit 05/05/2013 11:40a [facility] Renato Shen M.D. 69840 714.0 Of [facility] 719.49 715.15 308.3 Office Visit 04/01/2013 11:40a [facility] Renato Shen, 17819 359.89 Of Adam Bhatia 719.49 780.79 Office Visit 01/26/2013 8:30a [facility] Internal Medicine Nima Roche, 38758 V70.0 - Viraj Bhatia,FACP 250.00 V76.10 715.15 Office Visit 11/24/2012 8:30a [facility] Internal Medicine Nima Roche, 07056 728.9 - Viraj Bhatia,FACP 727.40 719.45 287.2 250.00 Office Visit 12/31/2011 3:20p [facility] Internal Medicine Nima Roche, 33306 V70.0 - Viraj Bhatia,FACP 250.00 Office Visit 08/27/2011 2:40p [facility] Internal Medicine Nima Roche, 66788 250.00 - Viraj Bhatia,FACP 729.2 V82.81 V76.51 Office Visit 05/27/2011 11:10a DO Not Use [employer] Systems Administrator AT Nima Roche, 437[address] [facility] Arlyn Bhatia,FACP 250.00 Office Visit 04/18/2011 10:40a DO Not Use Windows Systems Administrator AT [facility], [address] 311 [facility] 209.21 728.88 Office Visit 04/01/2011 8:40a DO Not Use Windows Systems Administrator AT [facility], 51501 209.21 [facility] 728.88 696.0 Office Visit 02/18/2011 10:40a DO Not Use Windows Systems Administrator AT [facility], 63748 466.0 [facility],FACP 729.2 Office Visit 12/31/2010 2:40p DO Not Use Windows Systems Administrator AT [facility], 84340 759.6 [facility] 359.9 Office Visit 12/24/2010 9:40a DO Not Use Windows Systems Administrator AT [facility], 87382 518.89 [facility],FACP 359.9 790.4 Office Visit 12/19/2010 8:40a [facility] Renato Shen M.D. 27032 714.0 Of [employer] Systems Administrator 359.9 443.0 V58.69 Office Visit 11/28/2010 11:00a DO Not Use Windows Systems Administrator AT [facility], [address] [facility] Jannette,FACP 714.0 786.09 401.1 Office Visit 10/09/2010 10:00a [facility] Renato Shen M.D. 58951 714.0 Of [employer] Systems Administrator 715.91 V58.69 Office Visit 08/23/2010 3:00p DO Not Use Windows Systems Administrator AT [facility], 00608 V70.0 [facility]FACP 401.1 V76.10 250.00 696.0 272.2 786.09 V03.82 Office Visit 08/08/2009 11:40a DO Not Use Windows Systems Administrator AT [facility], 91238 786.2 [facility],FACP 696.0 Office Visit 07/19/2009 8:30a DO Not Use [employer] [place] [address] [facility] 719.49 729.82 Office Visit 05/07/2009 11:40a DO Not Use Windows Systems Administrator AT NimaTristan Roche, 30140 717.6 Arlyn Jessica.Brooks.,FACP 840.4 Office Visit 01/04/2009 3:40p [facility] 379[address] 569.42 Arlyn M.D. Office Visit 11/02/2008 9:00a [facility] Not Use [facility] 589[address] 465.9 Arlyn Jessica.Brooks. Office Visit 02/28/2008 3:20p DO Not Use Windows Systems Administrator AT NimaTristan Roche, 43757 361.30 [facility] Jessica.Brooks.,FACP 401.1 790.21 Office Visit 08/18/2007 4:00p DO Not Use Windows Systems Administrator AT NimaTristan Roche, 87427 401.1 Arlyn Jessica.Jamarcus,FACP 272.2 790.6 701.1 Plan of Care Future Appointment(s):08/20/2018 10:20 am - Nima Roche M.D.,FACP at [facility] Internal Medicine - [address]03/10/2018 - Truong Messer, FNPE11.9 Type 2 diabetes mellitus without complicationsNew Labs:Hemoglobin A1c (Glyco HGB) Comments:For your diabetes: Continue with your current management. You are doing wonderfully!Congratulation of getting this under controlFollow up: Medicare with Dr. Roche in June or [id number] Essential (primary) hypertensionComments:~B_HYPERTENSION:~b_Well controlled on current regimen. Continue present management. On aspirin 81mgdaily.Lipid profile is at goal.Discussed potassium rich foods.Gave written information about low sodium diets. Reviewed nonpharmacologic strategies to lower bp.Monitor bp's and keep log..E78.4 Other tltclerctjrpecV14.22 Impacted cerumen, left earComments:Your ear canal is blocked with cerumen We recommend to use an OTC "ear wax removal" such as Debrox to clear it. Use it as directed. Please call if does not work and I will refer you to ENT for [id number] Encounter for immunizationNew Medication:Shingrix 50 mcgComments:Shingles vaccine: There is a new shingles vaccine called Shingrix. SHINGRIX is a vaccine indicated for prevention of herpes zoster (shingles) in adults aged 50 years and older and in immunocompromised individuals.This vaccine is a 2 tier vaccine.I sent order for this vaccine to your pharmacy.Please call your insurance company to make sure they provide coverage for this vaccine
[2018-03-19 11:42] VITALS: BP 120/68
--- NOTE | 2018-03-19 12:00 | UC ---
Lower Extremity/Ankle HPI - HPI Summary HPI Summary: This is shauna Sanchez documenting for Dr. Haider Dowell MD. Pt is a 72 y/o F who presents to [facility] c/o left calf pain for past week. She had left knee pain for a month, but it has now resolved. Rates her pain as an 8/10 in severity when she ambulates. Describes the pain as a constant ache that is non-radiating. Pain is exacerbated by walking and standing. Notes that leg is not swollen. - History of Current Complaint Chief Complaint: UCLowerExtremity Stated Complaint: LEFT KNEE AND LEG PAIN Time Seen by Provider: 03/19/18 11:48 Hx Obtained From: Patient Onset/Duration: Lasting Days, Still Present Severity Currently: Severe Pain Intensity: 8 Pain Scale Used: 0-10 Numeric Aggravating Factor(s): Standing, Ambulation - Allergies/Home Medications Allergies/Adverse Reactions: Allergies Allergy/AdvReac Type Severity Reaction Status Date / Time No Known Allergies Allergy Verified 03/19/18 11:32 Home Medications: Home Medications Aspirin TAB* [Aspirin 325 MG TAB*] 325 mg PO BID 03/19/18 [History Confirmed 11/01] Rosuvastatin Calcium [Crestor] 5 mg PO DAILY 03/19/18 [History Confirmed ] metFORMIN* [Glucophage 500 MG TAB *] 500 mg PO DAILY 03/19/18 [History Confirmed 03/19/18] PMH/Surg Hx/FS Hx/Imm Hx Cardiovascular History: Hypertension Respiratory History: Asthma - NEGATIVE - Surgical History Surgical History: Yes Surgery Procedure, Year, and Place: right middle lobectomy, left hip replacement12/2014. C section - Family History Known Family History: Positive: Hypertension, Diabetes - Social History Alcohol Use: Weekly Alcohol Amount: 1/DAY Substance Use Type: None Smoking Status (MU): Former Smoker Type: Cigarettes Length of Time of Smoking/Using Tobacco: 13 YRS Have You Smoked in the Last Year: No When Did the Patient Quit Smoking/Using Tobacco: 1975 - Immunization History Most Recent Influenza Vaccination: 2013 Most Recent Tetanus Shot: WITHIN THE YEAR Most Recent Pneumonia Vaccination: FALL 2013 Review of Systems Constitutional: Fever - NEGATIVE Musculoskeletal: Calf Tenderness, Other: - left knee pain that is now resolved All Other Systems Reviewed And Are Negative: Yes Physical Exam - Summary Physical Exam Summary: VITAL SIGNS: Reviewed. GENERAL: Patient is a well-developed and nourished female who is lying comfortable in the stretcher. Patient is not in any acute respiratory distress. HEAD AND FACE: Normocephalic EYES: PERRLA, EOMI x 2. EARS: Hearing grossly intact. MOUTH: Oropharynx within normal limits. NECK: Supple, trachea is midline, no adenopathy, no JVD, no carotid bruit. CHEST: Symmetric, no tenderness at palpation LUNGS: Clear to auscultation bilaterally. No wheezing or crackles. CVS: Regular rate and rhythm, S1 and S2 present, no murmurs or gallops appreciated. ABDOMEN: Soft, non-tender. Bowel sounds are normal. No abdominal abnormal pulsations. EXTREMITIES: Left calf tenderness. Full ROM in all major joints, no edema, no cyanosis or clubbing. Negative mike's test NEURO: Alert and oriented x 3. No acute neurological deficits. Speech is normal and follows commands. SKIN: Dry and warm Triage Information Reviewed: Yes Vital Signs: Initial Vital Signs Temp 98.7 F 03/19/18 11:36 Pulse 65 03/19/18 11:36 Resp 18 03/19/18 11:36 BP 120/68 03/19/18 11:36 Pulse Ox 98 03/19/18 11:36 Vital Signs Reviewed: Yes Diagnostics - Radiology Venous Doppler Study Left Lower Ext Radiology Interpretation Completed By: Radiologist Lower Extremity Course/Dx - Course Course Of Treatment: Patient is a 72-year-old female who presents to the urgent care with chief complaint of left calf pain. Ultrasound of the left lower extremity shows no DVT. Therefore, I believe that the pain is more musculoskeletal pain. She was given Toradol for the pain. Patient will be discharged home with follow-up with PCP. She doesn't open with orthopedic surgeon for the knee pain, she will follow-up tomorrow at her appointment. Patient is feeling better, she is undulating out of the urgent care. She is hemodynamically stable alert and oriented 3. - Differential Dx/Diagnosis Differential Diagnosis/HQI/PQRI: Arthritis, Bursitis, Cellulitis, Infection, Sprain, Strain, Tendonitis Provider Diagnoses: calf pain Discharge - Sign-Out/Discharge Documenting (check all that apply): Patient Departure - Discharge Plan Condition: Stable Disposition: HOME Prescriptions: Ibuprofen TAB* [Motrin TAB* 600 MG] 600 mg PO Q8H PRN #30 tab PRN Reason: Pain Patient Education Materials: Musculoskeletal Pain (ED) Referrals: Nima Roche MD [Primary Care Provider] - Additional Instructions: Take medications as instructed and adhere to plan Take Acetaminophen or ibuprofen for pain or fever Increase your fluid intake Return to the or go to the emergency department if symptoms worsen Follow-up with primary care physician in next 2-3 days - Billing Disposition and Condition Condition: STABLE Disposition: Home
--- NOTE | 2018-03-19 13:08 | RAD ---
HISTORY: calf pain COMPARISONS: None relevant TECHNIQUE: Multiple transverse and longitudinal ultrasound images were obtained of the left lower extremity from the level of the common femoral vein inferiorly through to the infrapopliteal veins using grayscale, color Doppler, and spectral Doppler imaging with and without compression and with augmentation. Comparison images were obtained of the contralateral common femoral vein. FINDINGS: VEINS: The venous system of the left lower extremity is compressible throughout its course, with normal flow on color Doppler imaging and normal response to augmentation on spectral Doppler imaging. SOFT TISSUES: Unremarkable. OTHER FINDINGS: None. IMPRESSION: NO LEFT LOWER EXTREMITY DEEP VEIN THROMBOSIS
[2018-03-19] MEDS ORDERED: Ketorolac INJ* 60 MG/2 ML VIAL IM ONE (13:25)
== END 2018-03-19 13:38 | disposition home or self-care (01) ==
LOC: UCEAST 11:22
DX: M79.662 Pain in left lower leg (principal); Z79.82 Long term (current) use of aspirin; Z96.642 Presence of left artificial hip joint; Z87.891 Personal history of nicotine dependence
CPT/HCPCS: 96372; 99212; G0463; J1885

== ENCOUNTER → 2018-03-28 18:26 | Emergency (ER) | payer MEDICARE, BC ==
[2018-03-28 18:41] VITALS: BP 133/67
--- NOTE | 2018-03-28 20:16 | ED ---
Lower Extremity - HPI Summary HPI Summary: 72 year old female presents with left knee pain for the past month. She states that she did not injure anything. She states that the pain has increasingly getting worse. She states that 2 weeks ago she developed severe pain in her left calf and was seen in urgent care and had an ultrasound done. no DVT was seen. States she has family history of DVTs. No recent travel or surgeries. She states that a couple days later she saw Dr. Aguilar for hip and he x-rayed her knee and xray showed arthritis. She states today she was walking and she felt her knee give out. She states that after her knee gave out her foot became blue. She denies any coldness. The blue color lasted for 10 minutes. States it was from her ankle down. no numbness or tingling. She states never happened before. She denies any family history of vascular issues. She is pre diabetic. She was a smoker. - History of Current Complaint Chief Complaint: EDExtremityLower Stated Complaint: LT LEG INJURY Time Seen by Provider: 03/28/18 19:43 Pain Intensity: 7 - Allergies/Home Medications Allergies/Adverse Reactions: Allergies Allergy/AdvReac Type Severity Reaction Status Date / Time No Known Allergies Allergy Verified 03/19/18 11:32 PMH/Surg Hx/FS Hx/Imm Hx Endocrine/Hematology History: Reports: Hx Diabetes - pre-diabetic Denies: Hx Thyroid Disease Cardiovascular History: Reports: Hx Hypertension Respiratory History: Denies: Hx Asthma GI History: Denies: Hx Ulcer History: Reports: Hx Kidney Stones - 2001 Musculoskeletal History: Reports: Hx Arthritis - PSORIATIC ARTHRITIS, Hx Rheumatoid Arthritis - no meds Denies: Hx Osteoporosis Sensory History: Reports: Hx Contacts or Glasses - GLASSES Denies: Hx Hearing Aid Opthamlomology History: Reports: Hx Contacts or Glasses - GLASSES Psychiatric History: Reports: Hx Depression - Cancer History Cancer Type, Location and Year: 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 C section Hx Anesthesia Reactions: No Infectious Disease History: No Infectious Disease History: Denies: Hx Clostridium Difficile, Hx Hepatitis, Hx Human Immunodeficiency Virus (HIV), Hx of Known/Suspected MRSA, Hx Shingles, Hx Tuberculosis, History Other Infectious Disease, Traveled Outside the [place] in Last 30 Days - Family History Known Family History: Positive: Hypertension, Diabetes - Social History Alcohol Use: Weekly Alcohol Amount: 1/DAY Substance Use Type: Reports: None Smoking Status (MU): Former Smoker Type: Cigarettes Length of Time of Smoking/Using Tobacco: 13 YRS Have You Smoked in the Last Year: No Review of Systems Negative: Fever Negative: Chest Pain Negative: Shortness Of Breath Positive: Myalgia - left knee pain All Other Systems Reviewed And Are Negative: Yes Physical Exam Triage Information Reviewed: Yes Vital Signs On Initial Exam: Initial Vitals Temp Pulse Resp BP Pulse Ox 97.8 F 74 16 133/67 98 03/28/18 18:38 03/28/18 18:38 03/28/18 18:38 03/28/18 18:38 03/28/18 18:38 Vital Signs Reviewed: Yes Appearance: Positive: Well-Appearing Skin: Positive: Warm, Dry Head/Face: Positive: Normal Head/Face Inspection Eyes: Positive: Normal, Conjunctiva Clear ENT: Positive: Pharynx normal Respiratory/Lung Sounds: Positive: Clear to Auscultation, Breath Sounds Present Cardiovascular: Positive: Normal, RRR Musculoskeletal: Positive: Limited @ - left knee, Other - neg ballotment, good pulses popliteal, dorsalis pedis, posterior tibials, sensation grossly intact, capillary refill<2 secs. Negative: Edema Left Neurological: Positive: Normal Psychiatric: Positive: Normal Diagnostics - Vital Signs Vital Signs Temp Pulse Resp BP Pulse Ox 03/28/18 18:38 97.8 F 74 16 133/67 98 - Laboratory Lab Statement: Any lab studies that have been ordered have been reviewed, and results considered in the medical decision making process. Lower Extremity Course/Dx - Course Course Of Treatment: 72 year old female presents with left knee pain for the past month. She states that she did not injure anything. She states that the pain has increasingly getting worse. She states that 2 weeks ago she developed severe pain in her left calf and was seen in urgent care and had an ultrasound done. no DVT was seen. States she has family history of DVTs. No recent travel or surgeries. She states that a couple days later she saw Dr. Aguilar for hip and he x-rayed her knee and xray showed arthritis. She states today she was walking and she felt her knee give out. She states that after her knee gave out her foot became blue. She denies any coldness. The blue color lasted for 10 minutes. States it was from her ankle down. no numbness or tingling. She states never happened before. She denies any family history of vascular issues. She is pre diabetic. She was a smoker. on exam has tenderness left knee, neurovascular intact. with recent xray and u/s do not need to repeat such. discussed with dr lezama as at the moment has good pulses will have follow up with vascular surgeon outpatient about color change. gave knee immbolizer and will have follow up with ortho again about knee. patient understand and agrees with plan. - Diagnoses Differential Diagnosis/HQI/PQRI: Positive: Fracture (Closed), Sprain, Strain Provider Diagnoses: Left knee pain Discharge - Sign-Out/Discharge Documenting (check all that apply): Patient Departure - Discharge Plan Condition: Good Disposition: HOME Patient Education Materials: Knee Pain (ED) Referrals: Nima Roche MD [Primary Care Provider] - Brady Aguilar MD [Medical Doctor] - Shanatl Milligan MD [Medical Doctor] - Additional Instructions: Follow up with vascular surgeon Follow up with ortho Use immobilizer Stay off knee as much as possible Take Tylenol or ibuprofen every 6 hours as needed for pain Apply ice, rest, elevate Return to ED if develop any new or worsening symptoms - Billing Disposition and Condition Condition: GOOD Disposition: Home
== END | disposition home or self-care (01) ==
LOC: ED 18:26
DX: M25.562 Pain in left knee (principal); Z87.891 Personal history of nicotine dependence; R73.03 Prediabetes; L40.50 Arthropathic psoriasis, unspecified; M06.9 Rheumatoid arthritis, unspecified; Z85.118 Personal history of other malignant neoplasm of bronchus and lung; Z83.2 Family history of diseases of the blood and blood-forming organs and certain disorders involving the immune mechanism
CPT/HCPCS: 99281

== ENCOUNTER 2018-06-10 06:01 | Day surgery (SDC) | payer MEDICARE, BC ==
--- NOTE | 2018-06-07 00:42 | HP ---
AMENDED REPORT NOW INCLUDES DESIGNATED COSIGNER HISTORY AND PHYSICAL: DATE OF ADMISSION: 06/10/18 DATE OF OFFICE VISIT: 05/28/18 REASON FOR HOSPITALIZATION: Left knee pain. ATTENDING PHYSICIAN: Dr. Netta Brooks.* (DICTATED BY ISSAC COLEMAN) HISTORY OF PRESENT ILLNESS: Ms. Siegel is a 72-year-old female who has had a 1 month history of increased left knee pain. She has mechanical symptoms giving her 8/10 pain, worse with weightbearing and walking. She had clicking, catching , and locking along the joint line. She had had an MRI done that showed advanced osteoarthritis in the patellofemoral and medial compartments. Also had a complex tear of the medial meniscus. The fragment is displaced into the intracondylar notch. She has failed conservative treatment options and has elected to proceed with surgery. She is scheduled to undergo a left knee arthroscopy with partial meniscectomy on 06/10/[address] Brooks. PAST MEDICAL HISTORY: Hypertension and hypercholesterolemia. PAST SURGICAL HISTORY: Neuroendocrine tumor excision from her chest and C- section. MEDICATIONS: 1. Shingrix 50 mcg. 2. Metformin 500 mg. 3. Wellbutrin XL 300 mg. 4. Rosuvastatin. 5. Calcium 5 mg. 6. Lisinopril 10 mg. ALLERGIES: No known drug allergies. FAMILY HISTORY: Negative. SOCIAL HISTORY: The patient lives with her daughter. No tobacco or recreational drug use. She consumes 7 alcoholic beverages per week, minimal exercise. REVIEW OF SYSTEMS: A complete 14-point review of systems was obtained. Other than HPI was positive for left knee pain and swelling, history of high blood pressure and balance problems, negative for fevers, chills, chest pain, and no shortness of breath. Otherwise, the rest of the systems are negative and noncontributory. PHYSICAL EXAMINATION GENERAL: Well-developed, well-nourished 72-year-old female in no acute distress. Alert and oriented x3. Appropriate mood and affect. SKIN: Intact without rashes or lesions. HEENT: Head is normocephalic and atraumatic. NECK: Supple with no palpable lymph nodes. LUNGS: Clear to auscultation bilaterally. No wheezes, rales, or rhonchi. CARDIAC: Regular rate and rhythm. S1 and S2. No murmurs, rubs, or gallops. EXTREMITIES: Left lower extremity: The patient's skin is intact without rashes or lesions. Moderate effusion of the knee, 5 to 120 degrees of flexion with pain and patellofemoral crepitus. No varus or valgus instability. No warmth or erythema. Distally, no edema or varicosities. 5/5 ankle dorsiflexion and plantarflexion strength. Full sensation to light touch in ulnar distribution and 2+ palpable dorsalis pedis pulses. Tenderness along the MCL. IMPRESSION: Left knee pain and swelling due to some mild degenerative changes on radiographs and medial meniscus tear. PLAN/RECOMMENDATIONS: She is scheduled to undergo left knee arthroscopy with partial meniscectomy on 06/10/[address] Brooks. A prescription for oxycodone will be sent to the patient's pharmacy for postoperative pain management. She will follow up in the office 10 to 14 days postoperatively. ISSAC COLEMAN [id number]/[facility] #: [id number] MAURICE
[~2018-06-10 06:01] MED LIST: Buffered Lidocaine 0.9% SYRIN* 5 ML/SYR SYRINGE INTRADERM ONE; Dexamethasone IV* 4 MG/ML 1 ML (4 MG) IV SLOW PU ONE; Famotidine IV* 10 MG/ML 2 ML (20 mg) IV ONE
[2018-06-10] MEDS ORDERED: Famotidine IV* 10 MG/ML 2 ML (20 mg) ONE (06:09)
[2018-06-10] MEDS ORDERED: Dexamethasone IV* 4 MG/ML 1 ML (4 MG) ONE (06:10)
[2018-06-10] MEDS ORDERED: Buffered Lidocaine 0.9% SYRIN* 5 ML/SYR SYRINGE ONE (06:10)
[2018-06-10] MEDS ORDERED: ceFAZolin 2 GM PREMIX in ORs 2 GM/50 ML BAG IVPB ONE (06:10)
[2018-06-10] MEDS ORDERED: EPINEPHRINE 1 MG/ML 1 ML VIAL ONE (07:08)
[2018-06-10] MEDS ORDERED: Bupivacaine 0.5% SDV PF* 30ML VIAL ONE (07:08)
[2018-06-10] MEDS ORDERED: methylPREDNISolone ACETATE 80* 80 MG/ML 1 ML VIAL ONE (07:08)
[2018-06-10] MEDS ORDERED: Ondansetron INJ* 2 MG/ML VIAL ONE (07:21)
[2018-06-10] MEDS ORDERED: Midazolam* 1 MG/ML 5 ML VIAL (5 MG) ONE (07:21)
[2018-06-10] MEDS ORDERED: Ketorolac INJ* 30 MG/ML 1 ML VIAL ONE (07:21)
[2018-06-10] MEDS ORDERED: Propofol* 10 MG/ML 20 ML BTL IV PUSH ONE (07:21)
[2018-06-10] MEDS ORDERED: Chloroprocaine 2%* 20 ML VIAL ONE (07:21)
[2018-06-10] MEDS ORDERED: Phenylephrine INJ* 10 MG/ML 1 ML VIAL (10 MG) ONE (07:22)
[2018-06-10] MEDS ORDERED: Lidocaine 2% PF * 5 ML VIAL ONE (07:58)
[2018-06-10] MEDS ORDERED: Naloxone* 0.4 MG/ML 1 ML VIAL IV PRN (08:13)
[2018-06-10] MEDS ORDERED: fentaNYL* 50 MCG/ML 2 ML VIAL (100 MCG VIAL) IV PRN (08:13)
[2018-06-10] MEDS ORDERED: oxyCODONE/Acetamin 5/325 MG* TAB PO PRN (08:13)
[2018-06-10] MEDS ORDERED: Ondansetron INJ* 2 MG/ML VIAL IV PRN (08:13)
[2018-06-10] MEDS ORDERED: DiMENhydriNATE IV* 50 MG/ML VIAL IV PUSH PRN (08:13)
[2018-06-10 09:49] VITALS: BP 141/84
--- NOTE | 2018-06-11 09:09 | OP ---
DATE OF OPERATION: 06/10/18 - [facility] DATE OF : 43 SURGEON: Netta Brooks MD ASSISTANT COUNTY ENGINEER: ISSAC Murphy. Ms. lAmeida did help throughout the procedure with preparation of the leg, wound retraction, manipulation of the knee, and wound closure. ANESTHESIOLOGIST: Dr. Pitts. ANESTHESIA: Spinal. PRE-OP DIAGNOSIS: Left knee medial meniscus tear, [id number] osteoarthritis. POST-OP DIAGNOSIS: Left knee medial meniscus tear, lateral meniscus tear, medial plica impingement, [id number] osteoarthritis. OPERATIVE PROCEDURE: Left knee arthroscopy with partial medial meniscectomy, partial lateral meniscectomy, medial plica excision, patellofemoral chondroplasty. ESTIMATED BLOOD LOSS: Less than 25 cc. COMPLICATIONS: None. SPECIMEN: None. BRIEF HISTORY/INDICATION: Ms. Siegel is a 72-year-old female with several months of mechanical symptoms and pain with swelling in her left knee. She failed conservative treatment and MRI confirmed meniscal tear medially. She understood she had to proceed with left knee arthroscopy and partial meniscectomy due to continued pain and mechanical symptoms. Informed consent was obtained from the patient. She understood the the risks of the surgery included but were not limited to bleeding, infection, damage to nearby structures, continued pain, need for further surgery, re-tear of the meniscus, continued progression of arthritis, stroke, heart attack, blood clot, and . She wished to proceed. INTRAOPERATIVE FINDINGS: Intraoperatively, the patient was noted to have a radial tear of the posterior horn of the lateral meniscus, a radial tear of the posterior portion of the medial meniscus, she had a significant medial plica, which impinged with patellofemoral range of motion. She also had significant cartilage flapping along the patellofemoral compartment. She was noted to have grade 3 and 4 Outerbridge cartilage changes in the medial and patellofemoral compartments. This was advanced arthritis. DESCRIPTION OF PROCEDURE: Ms. Siegel was identified in the preanesthesia unit. Her left lower extremity was marked as the correct operative site. Informed consent was signed and placed in the chart. The patient was taken to the operating room and placed under spinal anesthesia. Left lower extremity was prepped and draped in the usual sterile fashion. Preop time-out was made to correctly identify the patient, side and site. Appropriate perioperative antibiotics were given within 1 hour of incision. A standard anterolateral portal incision was made with a 10 blade and carried down to the capsule. Trocar was introduced. As soon as the light and water sources were turned on, there was immediate visualization of the suprapatellar pouch. A tour of the knee joint was performed. Suprapatellar pouch showed no obvious abnormalities. There were several cartilage pieces floating in the joint fluid. Patellofemoral compartment showed cartilage flapping and exposed subchondral bone. These were grade 3 and 4 Outerbridge cartilage changes. Medial gutter showed no large loose body but some small cartilage fragments as well as a significant medial plica, which did impinge with patellofemoral motion. Medial compartment showed significant arthritis with grade 3 and 4 Outerbridge cartilage changes affecting the medial femoral condyle. There was exposed subchondral bone along the medial femoral condyle. The medial meniscus had an obvious posterior radial tear. ACL and PCL appeared to be intact. The knee was placed in a [id number]-ir-iyok position. Lateral compartment had some grade 2 and 3 Outerbridge cartilage changes. There was a radial tear with displacement into the joint space along the posterior horn of the lateral meniscus. Under direct visualization, a medial portal incision was made. Shaver and radiofrequency ablation wand were used to remove some soft tissue from the anterior joint line to improve visualization. Shaver and radiofrequency ablation wand were then used to perform partial medial plica excision until there was no further impingement. Radiofrequency ablation wand was used to smooth any cartilage flaps along the patellofemoral compartment. This was done in a conservative fashion. The straight biter and shaver were used to perform partial medial meniscectomy. A smooth border of the meniscus was obtained in the red-white zone of the posterior one-third of the medial meniscus. It showed no additional tears or slipped fragments. The knee was placed in a [id number]-azaf position. Shaver and radiofrequency ablation wand were used to perform partial lateral meniscectomy along the posterior root. The tear was carefully excised and further probing of the lateral meniscus showed no additional tears. The knee was copiously irrigated with sterile saline. All instruments were removed. Incisions were closed using interrupted 3-0 nylon suture. Intraarticular injection of 80 mg Depo-Medrol and 6 cc of 0.25% Marcaine were placed in the knee joint. The patient's incisions were covered with Xeroform, 4x4's, and Webril. Abel wrap and cold pack were placed over this. The patient's anesthesia was reversed without difficulty. She was taken to the PACU in stable condition. Intended weightbearing will be weightbearing as tolerated. Intended DVT prophylaxis will be aspirin. She will follow up in 2 weeks' time for suture removal. [id number]/[facility] #: [id number] MAURICE
== END 2018-06-10 10:21 | disposition home or self-care (01) ==
LOC: OR 06:01
PROVIDERS: ATTEND Orthopaedic Surgery Adult Reconstructive Orthopaedic Surgery
DX: S83.242A Other tear of medial meniscus, current injury, left knee, initial encounter (principal); S83.282A Other tear of lateral meniscus, current injury, left knee, initial encounter; X58.XXXA Exposure to other specified factors, initial encounter; Y92.9 Unspecified place or not applicable; I10 Essential (primary) hypertension; I44.7 Left bundle-branch block, unspecified; E78.00 Pure hypercholesterolemia, unspecified; E11.9 Type 2 diabetes mellitus without complications; Z79.84 Long term (current) use of oral hypoglycemic drugs
CPT/HCPCS: J0690; J1040; J1100; J1885; J2250; J2400; J2405; J2704

== ENCOUNTER 2018-12-16 07:08 | Inpatient (IN) | payer MEDICARE, BC ==
--- NOTE | 2018-12-06 13:38 | HP ---
HISTORY AND PHYSICAL: DATE OF ADMISSION/SURGERY: 12/16/18 DATE OF OFFICE VISIT: 12/03/18 SURGEON: Netta Brooks MD* (dictated by ISSAC Chappell). PROCEDURE: Left total knee arthroplasty. CHIEF COMPLAINT: Left knee pain. HISTORY OF PRESENT ILLNESS: Ms. Siegel is a 72-year-old female with end-stage osteoarthritis of the left knee. She has failed conservative treatment and elected to proceed with a left total knee arthroplasty. PAST MEDICAL HISTORY: Hypertension, high cholesterol, diabetes, and RA. PAST SURGICAL HISTORY: Neuroendocrine tumor excision from her chest, , left total hip arthroplasty, laparoscopy, and appendectomy. CURRENT MEDICATIONS: 1. Aspirin 325 two tabs a day. 2. Vitamin B. 3. Vitamin D. 4. Lisinopril 10 mg a day. 5. Metformin 500 mg a day. 6. Wellbutrin 300 mg a day. 7. Rosuvastatin calcium 5 mg q.h.s. ALLERGIES: No known drug allergies. FAMILY HISTORY: Coronary artery disease, hypertension, and DVT. SOCIAL HISTORY: She is a 72-year-old female. She lives with her daughter. She does not smoke or use drugs. Uses occasional alcohol. REVIEW OF SYSTEMS: A complete 14-point review of systems was reviewed with the patient. It was positive for diabetes. She denies history of DVT, PE, hepatitis, HIV, or anesthesia problems. PHYSICAL EXAMINATION GENERAL: She is well developed, well nourished, in no acute distress. VITAL SIGNS: She stands 67 inches tall. Blood pressure is 111/62, heart rate 74. HEENT: Normocephalic, atraumatic. NECK: Supple. No palpable lymph nodes. PULMONARY: The lungs are clear to auscultation bilaterally. CARDIO: Regular rate and rhythm. Strong S1, S2. ABDOMEN: Soft, nontender, nondistended. NEUROLOGICAL: She is alert and oriented x3. MUSCULOSKELETAL: Left lower extremity: The skin is intact. There are no open wounds or abrasions. She had moderate effusion of the left knee joint. She has just tenderness over the medial and lateral joint line. Range of motion is 10 to 100 degrees of flexion with patellofemoral crepitus. She has a 2+ dorsalis pedis pulse with intact sensation. Her lower extremity muscle group strengths are intact at 5/5. ASSESSMENT AND PLAN: Ms. Siegel is a 72-year-old female with end-stage osteoarthritis of the left knee. She has failed conservative treatment and elected to proceed with a left total knee arthroplasty. The surgery is scheduled for 12/16/[address] Brooks discussed the risks and benefits of the surgery at today's visit and all of her questions were answered. She will follow up with Dr. Brooks 2 weeks after the surgery. ISSAC CHAPPELL [id number]/[facility] #: [id number] MTDBrooks
[~2018-12-16 07:08] MED LIST changes: -Buffered Lidocaine 0.9% SYRIN* 5 ML/SYR SYRINGE INTRADERM ONE; +Buffered Lidocaine 1% SYRIN* 1 ML/SYRINGE INTRADERM ONE; -Dexamethasone IV* 4 MG/ML 1 ML (4 MG) IV SLOW PU ONE; -Famotidine IV* 10 MG/ML 2 ML (20 mg) IV ONE; +Lactated Ringers 1000 ML Bag* 1,000 ML IV SCH; +Tranexamic Acid 1,000 MG in NS 0.9% 50 ML* (outpatient use) IV SCH
--- OUTSIDE RECORDS SUMMARY | 2018-12-16 07:12 | XMS REPORT | Continuity of Care Document ---
:1945 External Reference #:[id number] Author Name Radha Garrison Care Team Providers Name Role Phone Zeny Wihteside M.D. Primary Care Physician Unavailable Payers Date Identification Numbers Payment Provider Subscriber Policy Number: [id number] Medicare Bradley Egan PayID: [id number] [address] [facility] [place] [address] Effective: 2012 Policy Number: [id number] Medicare Bradley Egan Expires: 2018 PayID: [id number] [address] [place] [address] Effective: 2011 Policy Number: [id number] [facility] Bradley Egan PayID: [id number] [address] [place] [address] Expires: 2011 Policy Number: [id number] [facility] Yogesh Egan Group Number: [id number] [address] PayID: [id number] [place] [address] Advance Directives Type Date Description Status Comment Other Directive 08/03/2014 Health Care Proxy Current and Verified Problems Active Problems Provider Date Benign essential hypertension Nima Roche M.D.,FACP Onset: 08/18/2007 Mixed hyperlipidemia Nima Roche M.D.,FACP Onset: 08/18/2007 Rheumatoid arthritis Nima Roche M.D.,FACP Onset: 08/23/2010 Note: RF 346 and 699 but also psoriatic. Note also OA maria c endo Type 2 diabetes mellitus Nima Roche M.D.,FACP Onset: 08/23/2010 Degenerative joint disease of shoulder Renato Shen M.D. Onset: 12/05/2010 region Note: Along with rheumatoid. Radiographically long hx OA-shoulders [AC], lumbar, feet. Localized, primary osteoarthritis of Nima Roche M.D.,FACP Onset: 07/2013 the pelvic region and thigh Presbyopia Rodrigue Melendez MD Onset: 08/24/2014 Borderline glaucoma Rodrigue Melendez MD Onset: 08/24/2014 Left bundle branch block Nima Roche M.D.,FACP Onset: 02/05/2015 Transient ischemic colitis Nima Roche M.D.,FACP Onset: 05/25/2015 Rheumatoid factor positive Nmia Roche M.D.,FACP Onset: 05/25/2015 Recurrent major depressive episodes Nima Roche M.D.,FACP Onset: 05/25 Localized, primary osteoarthritis Netta Brooks M.D. Onset: 04/05/2018 Current tear of medial cartilage Netta Brooks M.D. Onset: 04/26/2018 AND/OR meniscus of knee Inactive Problems Impaired fasting glycaemia Nima Roche M.D.,FACP Onset: 08/18/2007 Inactive: 12/31/2011 Blood chemistry abnormal Nima Roche M.D.,FACP Onset: 08/18/2007 Inactive: 12/31/2011 Disorder of muscle Renato Shen M.D. Onset: 04/01/2013 Inactive: 02/05/2015 Multiple joint pain Renato Shen M.D. Onset: 04/01/2013 Inactive: 05/25/2015 Malaise and fatigue Renato Shen M.D. Onset: 04/01/2013 Inactive: 05/25/2015 Resolved Problems Carcinoid bronchial adenoma Nima Roche M.D.,FACP Onset: 04/18/2011 Resolved: 12/31/2011 Acute stress disorder Renato Shen M.D. Onset: 05/05/2013 Resolved: 02/05/2015 Elevated levels of transaminase & Nima Roche M.D.FACP Onset: 2014 lactic acid dehydrogenase Resolved: 08/26/2018 Family History Date Family Member(s) Observation Comments General Pagets Disease Of Breast In [...] Dependent Social History Type Date Description Comments Sex Unknown Marital Status Lives With Daughter granddaughter Occupation Retired Tobacco Use Start: Unknown Former Cigarette End: Unknown Smoker Cigarette Use Quit 32 Years Ago ETOH Use 08/26/2018 Occasionally consumes alcohol Recreational Drug Use Denies Drug Use Tobacco Use Start: Unknown Patient is a former quit in 1975. 2ppd at End: Unknown smoker the end of 12 years. Smoking Status Reviewed: Patient is a former quit in 1975. 2ppd at 12/08/18 smoker the end of 12 years. Exercise Type/Frequency Exercises rarely due to hip Allergies, Adverse Reactions, Alerts Description No Known Drug Allergies Medications Active Medications SIG Qnty Indications Ordering Provider Date Amoxicillin 4 tablets 1 hour 12caps Z47.1 Brady Aguilar M.D. 06/16/2018 500mg before dental Capsules work Aspirin ( Not Taking AT 28tabs Netta Brooks, 06/09/[address] This Time ) take M.D. 1 by mouth twice a day for two weeks Shingrix 2 doses 6 month 2units Z23 Truong Messer, 03/10/2018 50mcg Suspension apart [employer] Rec Metformin HCL 1 by mouth every 90tabs E11.9 Nima Ricketts 12/09/2017 500mg day Jannette Roche,FACP Tablets Wellbutrin XL 1 by mouth every 90tabs F33.9 Nima Ricketts 06/10/2016 300mg day Jannette Roche,FACP Tablets ER 24HR Rosuvastatin Calcium 1 by mouth every 90tabs E11.9 Nima Ricketts 06/10/2016 5mg night at bedtime Jannette Roche,FACP Tablets E78.4 Lisinopril take 1 tablet by 90tabs I10 Nima Roche, 08/30/2008 10mg Tablets mouth once daily M.D.,FACP E11.9 Vitamin B daily Unknown Vitamin D daily Unknown History Medications Percocet 1 by mouth every 42tabs Netta Brooks, 06/09/2018 - 5-325mg Tablets 4 hours as needed M.D. 12/02/2018 pain Meloxicam 1 by mouth every 30tabs M25.462 Netta Brooks, 04/05/2018 - 15mg Tablets day (patient is M.D. 08/25/2018 taking prn) Vivotif 1 tab every other 4caps Z71.89 Nima Ricketts 06/10/2016 - Capsules DR day for 4 doses Pacolet, 07/09/2016 (pt is done) MAYELA Bhatia Proair HFA Inhale 2 Puffs By Unknown 02/17/2016 - 108(90Base) Mouth Every 4 06/10/2016 mcg/Act Aerosol Hours as Needed For Shortness Of Breat Benzonatate Take 1 Capsule By Unknown 02/17/2016 - 100mg Mouth 3 Times 06/10/2016 Capsules Daily as Needed For Cough Cefdinir Take 1 Capsule By Unknown 02/17/2016 - 300mg Capsules Mouth Twice Daily 06/10/2016 Mucinex Take 1 Tablet By Unknown 02/17/2016 - 600mg Tablets ER Mouth Twice Daily 06/10/2016 12HR as Needed For Cough Guaifenesin ac Take 5-10 Unknown 02/17/2016 - Milliliters By 06/10/2016 100-10mg/5ML Syrup Mouth Every 4 Hours as Needed For Cough. Max/ Wellbutrin SR 1 tablet in the 60tabs F33.9 Pascual Perdue, 05/25/2015 - 150mg morning, 1 at [employer]AR[employer] ATTEND[employer] 06/10/2016 Tablets ER 12HR noon Amoxicillin 4 tablets 1 hour 12caps Z47.1 Brady Aguilar, 01/24/2015 - 500mg before dental M.D. 06/04/2018 Capsules work Debrox 5 drops in L ear 1bottle 380.4 Makayla 08/03/2014 - 6.5% Solution bid x 3 days Tara, N.P. 12/17/2014 Lidex apply topically 60mg 250.00 Makayla 07/28/2013 - 0.05% Gel once daily as Tara, N.P. 02/05/2015 needed Cyclobenzaprine HCL 1-2 po hs 60tabs 308.3 Renato Shen, 05/05/2013 - 5mg M.D. 10/27/2013 Tablets Nabumetone 1 po bid 60tabs 714.0 Renato Shen, 05/05/2013 - 500mg Tablets M.D. 10/27/2013 Fluocinonide topical twice a 30gm E11.9 Nima Ricketts 01/26/2013 - 0.05% Gel day as needed Melchor, 09/27/2017 Jannette,FACP Sertraline HCL 1/2 tab qd for 10 30tabs 311 Nima Ricketts 04/18/2011 - 50mg days then 1 po qd Melchor, 05/27/2011 Tablets Jannette,FACP Amoxicillin 2 tabs po bid for 28tabs 466.0 Nima Ricketts 02/18/2011 - 500mg Tablets 7 days Melchor, 04/01/2011 Jannette,FACP Diclofenac Sodium DR 1 tab by mouth 180tabs Renato Shen, 10/09/2010 - 75mg twice a day Aracely.Jamarcus 04/01/[address] Methotrexate 4 q week 48tabs Nima Ricketts 08/23/2010 - 2.5mg Melchor, 02/18/2011 Tablets Jannette,FACP Folic Acid 1 po qd 30tabs Nima Ricketts 08/23/2010 - 1mg Tablets Melchor, 02/18/2011 Jannette,FACP Azithromycin 1 tab qd for 5tabs 786.2 Nima Ricketts 08/08/2009 - 500mg 5days Melchor, 01/21/2010 Tablets Jannette,FACP Robitussin ac 10cc q 4 hours 200cc 786.2 Nima Ricketts 08/08/2009 - Solution prn cough Melchor, 08/23/2010 Jannette,FACP Prednisone 3 po qd for 2wks, 90tabs Nima Ricketts 07/27/2009 - 10mg Tablets then 2 qd Melchor, 08/08/2009 Jannette,FACP Anusol-HC apply to affected 1tube 569.42 Sudhir, 01/04/2009 - 2.5% Cream area bid x 7 days Jannette Perez 05/07/2009 Tahmina Leon 1-2 po tid prn 30caps 465.9 Thananart, 11/02/2008 - 100mg Jannette Perez 05/07/2009 Capsules Zithromax Z-Tevin take as directed 1Pak 465.9 Thananart, 11/02/2008 - 250mg Jannette Perez 05/07/2009 Tablets Urea topical qd 60units 701.1 Nima Ricketts 08/18/2007 - 40% Cream Pacolet, 11/24/2012 M.D.,FACP Glucosamine-Chondroiti bid PO Nima Ricketts 08/18/2007 - n Pacolet, 12/18/2010 500-400 Capsules M.D.,FACP Fish Oil 1 PO qpm Nima Ricketts 08/18/2007 - 1000mg Capsules Pacolet, 02/18/2011 M.D.,FACP Aspirin 2 PO qd Nima Ricketts 08/18/2007 - 325mg Tablets Pacolet, 10/09/2010 M.D.,FACP Triamterene/Hydrochlor 1 PO qam 30caps Nima Ricketts - othiazide Pacolet, 02/28/2008 37.5-25 M.D.,FACP Capsules Lidex apply topically 60mg 250.00 Nima Ricketts - 0.05% Gel once daily as Pacolet, 01/26/2013 needed M.D.,FACP Aspirin 2 po qd 30tabs Unknown - 325mg Tablets 05/25/2015 Vitamin D po qd 30caps Unknown - 1000Unit 09/27/2017 Capsules Vitamin B Complex 1 po qd 30tabs Unknown - 09/27/2017 Tablets Aspirin 1 tablets daily Unknown - 325mg 09/27/2017 Aspirin take 1 by mouth Unknown - 325mg Tablets once a day 04/04/2018 Ibuprofen 200 400-600mg every 6 Unknown - 200mg hours as needed 04/04/2018 Tablets for pain. Fluocinonide apply topically Unknown - 0.05% Gel twice a day if 04/04/2018 needed Vitamin B12 1 by mouth every Unknown - 1000mcg day 04/04/2018 Tablets ER Medications Administered in Office Medication SIG Qnty Indications Ordering Provider Date Triamcinolone (Kenalog) Netta Brooks M.D. 04/05/2018 Injection Inj, Regadenoson, 0.1 MG Karsten Walters M.D. 12/22/2014 Injection Inj, Regadenoson, 0.1 MG ISSAC Cisneros 12/22/2014 Injection Technetium TC 99M TetrofosminKarsten M.D. 12/22/2014 Per Unit Dose Up To 40 Millicuries Injection Technetium TC 99M TetrofosminCoty PA 12/22/2014 Per Unit Dose Up To 40 Millicuries Injection Immunizations CPT Code Status Date Vaccine Lot # 18938 Given 07/13/2018 Zoster (Shingles) Vaccine (HZV), Recombinant, Subunit, Adjuvanted 28875 Given 06/04/2018 Fluzone High Dose [id number] 81039 Given 06/16/2017 Influenza Virus Vaccine, Quadrivalent, Split, [id number] Preservative Free 81743 Given 06/10/2016 Influ Virus Vaccine, Quadrivalent, Split Virus, [place] [id number] [place] [address] Given 06/10/2016 Hepatitis A Vaccine Adult Dosage [id number] 11016 Given 05/25/2015 Influenza Virus Vaccine, Quadrivalent, Split, [id number] Preservative Free 72490 Given 08/03/2014 Pneumococcal Conjugate Vaccine 13 Valent For [id number] Intramuscular Use 96314 Given 04/17/2014 Flu Vaccine Split Virus Preservative Free For Indiv 3Yr Older 71753 Given 10/27/2013 Tdap - Tetanus/Diptheria/Acellular Pertussis [id number] 34384 Given 05/16/2013 Flu Vaccine Split Virus Preservative Free For [id number] Indiv 3Yr Older 79541 Given 05/26/2011 Influenza Virus 3Yrs & Over 46741 Given 08/23/2010 Pneumonia Vaccine [id number] 49755 Given 05/26/2010 Influenza Virus 3Yrs & Over 98507 Given 03/22/2008 Zoster (Zostavax) 17022 Given 03/22/2008 Zoster (Zostavax) [id number] Vital Signs Date Vital Result Comment 12/08/2018 9:24am Height 67 inches 5'7" Weight 177.38 lb Heart Rate 96 /min BP Systolic 130 mmHg BP Diastolic 66 mmHg Body Temperature 96.2 F O2 % BldC Oximetry 97 % BMI (Body Mass Index) 27.8 kg/m2 12/03/2018 8:06am Height 67 inches 5'7" Weight 178.00 lb BP Systolic 111 mmHg BP Diastolic 62 mmHg Respiratory Rate 15 /min Pain Level 3 BMI (Body Mass Index) 27.9 kg/m2 11/17/2018 11:26am Height 67 inches 5'7" Heart Rate 78 /min BP Systolic Sitting 122 mmHg BP Diastolic Sitting 68 mmHg Pain Level 6 O2 % BldC Oximetry 96 % 08/26/2018 8:53am Height 67 inches 5'7" Weight 179.00 lb Heart Rate 84 /min BP Systolic Sitting 116 mmHg Lue reg cuff BP Diastolic Sitting 64 mmHg Lue reg cuff Respiratory Rate 16 /min Body Temperature 96.9 F tympanic O2 % BldC Oximetry 96 % on Ra BMI (Body Mass Index) 28.0 kg/m2 08/20/2018 8:24am Height 67 inches 5'7" Heart Rate 88 /min BP Systolic 134 mmHg BP Diastolic 68 mmHg Body Temperature 97.3 F Pain Level 2 07/21/2018 9:28am Height 67 inches 5'7" Weight 178.00 lb Heart Rate 96 /min BP Systolic 126 mmHg BP Diastolic 64 mmHg Body Temperature 98.2 F Pain Level 2 BMI (Body Mass Index) 27.9 kg/m2 06/23/2018 9:28am Height 67 inches 5'7" Weight 176.50 lb Heart Rate 80 /min BP Systolic Sitting 140 mmHg BP Diastolic Sitting 78 mmHg Body Temperature 98.2 F Pain Level 0 BMI (Body Mass Index) 27.6 kg/m2 06/04/2018 2:18pm Height 67 inches 5'7" Weight 180.38 lb Heart Rate 75 /min BP Systolic 110 mmHg BP Diastolic 68 mmHg Body Temperature 97.7 F O2 % BldC Oximetry 97 % BMI (Body Mass Index) 28.2 kg/m2 05/28/2018 11:40am Height 67 inches 5'7" Weight 180.00 lb Heart Rate 69 /min BP Systolic 121 mmHg BP Diastolic 64 mmHg Respiratory Rate 15 /min Pain Level 2 BMI (Body Mass Index) 28.2 kg/m2 04/26/2018 1:02pm Height 67 inches 5'7" Weight 180.00 lb Heart Rate 72 /min BP Systolic 124 mmHg BP Diastolic 74 mmHg Respiratory Rate 12 /min Pain Level 7 BMI (Body Mass Index) 28.2 kg/m2 04/05/2018 9:28am Height 67 inches 5'7" Weight 184.00 lb Heart Rate 84 /min BP Systolic Sitting 152 mmHg BP Diastolic Sitting 70 mmHg Respiratory Rate 16 /min Body Temperature 97.9 F Pain Level 8 BMI (Body Mass Index) 28.8 kg/m2 03/22/2018 9:50am Height 66 inches 5'6" Weight 193.00 lb BP Systolic 130 mmHg BP Diastolic 64 mmHg Respiratory Rate 20 /min Body Temperature 97.2 F Pain Level 6 BMI (Body Mass Index) 31.1 kg/m2 03/10/2018 9:55am Height 66.25 inches 5'6.25" Weight 190.50 lb Heart Rate 69 /min BP Systolic Sitting 136 mmHg BP Diastolic Sitting 72 mmHg O2 % BldC Oximetry 98 % BMI (Body Mass Index) 30.5 kg/m2 12/09/2017 9:01am Height 66.25 inches 5'6.25" Weight 203.12 lb Heart Rate 76 /min BP Systolic Sitting 132 mmHg BP Diastolic Sitting 70 mmHg Body Temperature 97.2 F O2 % BldC Oximetry 96 % BMI (Body Mass Index) 32.5 kg/m2 09/28/2017 9:03am Height 66.25 inches 5'6.25" Weight 202.00 lb BP Systolic 134 mmHg BP Diastolic 64 mmHg Respiratory Rate 18 /min Body Temperature 98.0 F Pain Level 6 BMI (Body Mass Index) 32.4 kg/m2 06/16/2017 9:21am Height 66.25 inches 5'6.25" Weight 199.00 lb Heart Rate 76 /min BP Systolic Sitting 138 mmHg BP Diastolic Sitting 60 mmHg Body Temperature 97.6 F O2 % BldC Oximetry 94 % BMI (Body Mass Index) 31.9 kg/m2 05/05/2017 1:39pm Height 67 inches 5'7" Weight 197.75 lb with shoes Heart Rate 76 /min BP Systolic Sitting 124 mmHg LA reg cuff BP Diastolic Sitting 72 mmHg LA reg cuff BMI (Body Mass Index) 31.0 kg/m2 Ejection Fraction 50%- 55% echo 12/20/14 12/09/2016 10:15am Weight 203.00 lb Heart Rate 74 /min BP Systolic Sitting 124 mmHg BP Diastolic Sitting 62 mmHg Body Temperature 97.4 F O2 % BldC Oximetry 96 % 07/08/2016 3:16pm Height 66 inches 5'6" Weight 202.75 lb Heart Rate 76 /min BP Systolic Sitting 142 mmHg LA lrg cuff BP Diastolic Sitting 72 mmHg LA lrg cuff BMI (Body Mass Index) 32.7 kg/m2 Ejection Fraction 50% - 55% echo 12/20/14 06/10/2016 10:26am Height 66 inches 5'6" Weight 201.00 lb Heart Rate 72 /min BP Systolic 124 mmHg BP Diastolic 72 mmHg Body Temperature 98.5 F O2 % BldC Oximetry 97 % BMI (Body Mass Index) 32.4 kg/m2 02/19/2016 9:20am Weight 201.00 lb Heart Rate 82 /min BP Systolic Sitting 136 mmHg BP Diastolic Sitting 84 mmHg Body Temperature 98.6 F O2 % BldC Oximetry 97 % 11/22/2015 1:27pm Height 66 inches 5'6" Weight 203.00 lb Heart Rate 86 /min BP Systolic Sitting 118 mmHg BP Diastolic Sitting 62 mmHg Body Temperature 96.8 F O2 % BldC Oximetry 97 % BMI (Body Mass Index) 32.8 kg/m2 10/19/2015 10:08am Height 66 inches 5'6" Weight 201.00 lb with shoes Heart Rate 84 /min BP Systolic Sitting 112 mmHg LA, regular cuff BP Diastolic Sitting 62 mmHg LA, regular cuff BMI (Body Mass Index) 32.4 kg/m2 Ejection Fraction 50-55% echo 12/20/14 08/22/2015 9:36am Height 66 inches 5'6" Weight 203.00 lb Pain Level 0 BMI (Body Mass Index) 32.8 kg/m2 07/25/2015 10:09am Height 66 inches 5'6" Weight 203.12 lb Heart Rate 88 /min BP Systolic Sitting 126 mmHg BP Diastolic Sitting 68 mmHg Body Temperature 97.9 F O2 % BldC Oximetry 96 % BMI (Body Mass Index) 32.8 kg/m2 05/25/2015 11:14am Height 66 inches 5'6" Weight 199.00 lb Heart Rate 74 /min BP Systolic Sitting 124 mmHg BP Diastolic Sitting 60 mmHg Body Temperature 98.6 F O2 % BldC Oximetry 96 % BMI (Body Mass Index) 32.1 kg/m2 05/14/2015 9:18am Height 66 inches 5'6" Weight 202.00 lb Pain Level 0 BMI (Body Mass Index) 32.6 kg/m2 04/24/2015 10:25am Height 66 inches 5'6" Weight 196.12 lb Heart Rate 89 /min BP Systolic Sitting 128 mmHg BP Diastolic Sitting 60 mmHg Body Temperature 98.1 F O2 % BldC Oximetry 97 % BMI (Body Mass Index) 31.7 kg/m2 02/05/2015 10:05am Height 66 inches 5'6" Weight 198.38 lb Heart Rate 86 /min BP Systolic Sitting 128 mmHg BP Diastolic Sitting 68 mmHg Body Temperature 97.9 F O2 % BldC Oximetry 98 % BMI (Body Mass Index) 32.0 kg/m2 01/24/2015 9:04am Height 66 inches 5'6" Weight 202.00 lb Body Temperature 97.4 F Pain Level 1 BMI (Body Mass Index) 32.6 kg/m2 12/22/2014 2:55pm Height 66 inches 5'6" Weight 202.00 lb Heart Rate 80 /min BP Systolic 128 mmHg LA reg BP Diastolic 72 mmHg LA reg BMI (Body Mass Index) 32.6 kg/m2 Ejection Fraction 50-55% 12/20/14 ECHO 12/18/2014 3:37pm Height 66 inches 5'6" Weight 202.00 lb Heart Rate 100 /min BP Systolic 150 mmHg LA reg BP Diastolic 68 mmHg LA reg BMI (Body Mass Index) 32.6 kg/m2 12/18/2014 11:04am Height 66 inches 5'6" Weight 202.38 lb Heart Rate 84 /min BP Systolic Sitting 128 mmHg BP Diastolic Sitting 74 mmHg Body Temperature 98.2 F O2 % BldC Oximetry 97 % BMI (Body Mass Index) 32.7 kg/m2 11/22/2014 8:54am Height 66 inches 5'6" Weight 196.00 lb Body Temperature 96.5 F Pain Level 5 BMI (Body Mass Index) 31.6 kg/m2 10/02/2014 3:46pm Height 66 inches 5'6" Weight 196.00 lb Body Temperature 96.2 F BMI (Body Mass Index) 31.6 kg/m2 08/03/2014 8:39am Weight 200.00 lb Heart Rate 88 /min BP Systolic Sitting 130 mmHg BP Diastolic Sitting 66 mmHg Body Temperature 97.9 F 02/15/2014 1:56pm Height 66 inches 5'6" Weight 196.00 lb BMI (Body Mass Index) 31.6 kg/m2 01/31/2014 9:53am Weight 196.25 lb Heart Rate 80 /min BP Systolic Sitting 118 mmHg BP Diastolic Sitting 60 mmHg 10/27/2013 10:06am Weight 196.00 lb Heart Rate 94 /min BP Systolic Sitting 118 mmHg BP Diastolic Sitting 62 mmHg Body Temperature 97.3 F 07/28/2013 10:00am Weight 197.00 lb Heart Rate 78 /min BP Systolic Sitting 130 mmHg BP Diastolic Sitting 69 mmHg 05/16/2013 8:25am Height 66.5 inches 5'6.50" Weight 201.50 lb Heart Rate 80 /min BP Systolic Sitting 126 mmHg BP Diastolic Sitting 56 mmHg BMI (Body Mass Index) 32.0 kg/m2 05/05/2013 11:41am Height 66.50 inches 5'6.50" Weight 200.75 lb Heart Rate 70 /min BP Systolic Sitting 128 mmHg BP Diastolic Sitting 68 mmHg BMI (Body Mass Index) 31.9 kg/m2 04/01/2013 11:36am Weight 202.00 lb Heart Rate 78 /min BP Systolic Sitting 100 mmHg BP Diastolic Sitting 56 mmHg 01/26/2013 8:23am Height 66.5 inches 5'6.50" Weight 202.00 lb Heart Rate 80 /min BP Systolic Sitting 118 mmHg BP Diastolic Sitting 68 mmHg BMI (Body Mass Index) 32.1 kg/m2 11/24/2012 8:35am Height 66.5 inches 5'6.50" Weight 201.25 lb Heart Rate 88 /min BP Systolic Sitting 124 mmHg BP Diastolic Sitting 58 mmHg BMI (Body Mass Index) 32.0 kg/m2 12/31/2011 3:27pm Height 67 inches 5'7" Weight 198.00 lb Heart Rate 86 /min BP Systolic Sitting 124 mmHg BP Diastolic Sitting 60 mmHg Respiratory Rate 16 /min Body Temperature 98.2 F lt ear BMI (Body Mass Index) 31.0 kg/m2 08/27/2011 2:43pm Weight 195.00 lb Heart Rate 88 /min BP Systolic Sitting 124 mmHg BP Diastolic Sitting 72 mmHg 05/27/2011 11:43am Weight 189.00 lb Heart Rate 80 /min BP Systolic Sitting 116 mmHg BP Diastolic Sitting 62 mmHg 04/18/2011 10:54am Weight 185.00 lb Heart Rate 90 /min BP Systolic Sitting 108 mmHg BP Diastolic Sitting 62 mmHg 04/01/2011 8:57am Weight 186.00 lb Heart Rate 88 /min BP Systolic Sitting 130 mmHg BP Diastolic Sitting 70 mmHg 02/18/2011 10:47am Height 66 inches 5'6" Weight 194.00 lb Heart Rate 88 /min BP Systolic Sitting 138 mmHg BP Diastolic Sitting 78 mmHg BMI (Body Mass Index) 31.3 kg/m2 12/31/2010 2:44pm Height 66 inches 5'6" Weight 200.00 lb Heart Rate 78 /min BP Systolic Sitting 122 mmHg BP Diastolic Sitting 66 mmHg BMI (Body Mass Index) 32.3 kg/m2 12/24/2010 9:37am Height 66 inches 5'6" Weight 198.00 lb Heart Rate 86 /min BP Systolic Sitting 148 mmHg BP Diastolic Sitting 74 mmHg BMI (Body Mass Index) 32.0 kg/m2 12/19/2010 8:46am Height 66 inches 5'6" Weight 200.00 lb Heart Rate 88 /min BP Systolic 122 mmHg BP Diastolic 70 mmHg BMI (Body Mass Index) 32.3 kg/m2 11/28/2010 11:12am Height 66 inches 5'6" Weight 198.00 lb Heart Rate 88 /min BP Systolic Sitting 122 mmHg BP Diastolic Sitting 70 mmHg BMI (Body Mass Index) 32.0 kg/m2 10/09/2010 10:11am Height 66 inches 5'6" Weight 202.00 lb Heart Rate 68 /min BP Systolic 132 mmHg BP Diastolic 72 mmHg BMI (Body Mass Index) 32.6 kg/m2 08/23/2010 3:21pm Weight 200.00 lb Heart Rate 80 /min BP Systolic Sitting 140 mmHg BP Diastolic Sitting 74 mmHg 08/08/2009 11:55am Weight 200.00 lb Heart Rate 82 /min BP Systolic Sitting 120 mmHg BP Diastolic Sitting 70 mmHg 07/19/2009 8:36am Weight 200.00 lb Heart Rate 80 /min BP Systolic Sitting 130 mmHg BP Diastolic Sitting 70 mmHg 05/07/2009 12:04pm Height 67 inches 5'7" Weight 198.00 lb Heart Rate 68 /min BP Systolic Sitting 132 mmHg BP Diastolic Sitting 68 mmHg BMI (Body Mass Index) 31.0 kg/m2 01/04/2009 3:35pm Height 67 inches 5'7" Weight 198.00 lb Heart Rate 72 /min BP Systolic Sitting 140 mmHg BP Diastolic Sitting 70 mmHg BMI (Body Mass Index) 31.0 kg/m2 11/02/2008 9:09am Height 67 inches 5'7" Weight 194.00 lb Heart Rate 80 /min BP Systolic Sitting 152 mmHg BP Diastolic Sitting 74 mmHg Body Temperature 97.4 F BMI (Body Mass Index) 30.4 kg/m2 02/28/2008 3:40pm Height 67 inches 5'7" Weight 194.00 lb Heart Rate 76 /min BP Systolic Sitting 130 mmHg BP Diastolic Sitting 62 mmHg BMI (Body Mass Index) 30.4 kg/m2 02/28/2008 3:40pm Height 67 inches 5'7" Weight 193.00 lb BMI (Body Mass Index) 30.2 kg/m2 08/18/2007 4:20pm Height 67 inches 5'7" Weight 197.00 lb BP Systolic Sitting 128 mmHg BP Diastolic Sitting 76 mmHg BMI (Body Mass Index) 30.9 kg/m2 Results Test Date Facility Test Result H/L Range Note Laboratory test 12/08/2018 [facility] In House Hemoglobin A1c 6.5 5-7 finding Laboratory test 08/26/2018 [facility] House Hemoglobin A1c 6.2 5-7 finding Urine Microalbumin 08/18/2018 [facility] Ur Microalbumin 18.6 [address] (mg/L) [place] [address] [phone] Urine Creatinine 164.23 mg/dL Urine Microalbumin/Creatinine 11.3 N <31 Laboratory test 06/10/2018 [facility] Point of 131 mg/dL High 70-100 [address] [place] [address] [phone] CBC Auto Diff 06/04/2018 [facility] White Blood 7.8 N 3.5- 10.[address] Count 10^3/[place] [address] [phone] Red Blood Count 4.25 10^6/uL N 4.00-5.40 Hemoglobin 13.0 g/dL N 12.0-16.0 Hematocrit 37 % N 35-47 Mean Corpuscular Volume 88 fL N 80-97 Mean Corpuscular Hemoglobin 31 pg N 27-31 Mean Corpuscular HGB Conc 35 g/dL N 31-36 Red Cell Distribution Width 13 % N 10.5-15 Platelet Count 278 10^3/uL N 150-450 Mean Platelet Volume 8.9 um3 N 7.4-10.4 Abs Neutrophils 4.8 10^3/uL N 1.5-7.7 Abs Lymphocytes 2.1 10^3/uL N 1.0-4.8 Abs Monocytes 0.6 10^3/uL N 0-0.8 Abs Eosinophils 0.2 10^3/uL N 0-0.6 Abs Basophils 0.1 10^3/uL N 0-0.2 Abs Nucleated RBC 0 10^3/uL Granulocyte % 61.8 % N 38-83 Lymphocyte % 26.9 % N 25-47 Monocyte % 8.3 % High 0-7 Eosinophil % 2.3 % N 0-6 Basophil % 0.7 % N 0-2 Nucleated Red Blood Cells % 0 Inr/Protime 06/04/2018 [facility] Inr 0.92 N 0.77-1.[address] [place] [address] [phone] Laboratory test 06/04/2018 [facility] Partial 30.3 seconds N 26.0-36.[address] [place] [address] PTT [phone] Basic Metabolic 06/04/2018 [facility] Sodium 140 mmol/L N 135- [address] [place] [address] [phone] Potassium 4.5 mmol/L N 3.5-5.0 Chloride 106 mmol/L N 101-111 Co2 Carbon Dioxide 29 mmol/L N 22-32 Anion Gap 5 mmol/L N 2-11 Glucose 117 mg/dL High 70-100 Blood Urea Nitrogen 21 mg/dL N 6-24 Creatinine 0.96 mg/dL High 0.51-0.95 BUN/Creatinine Ratio 21.9 High 8-20 Calcium 9.5 mg/dL N 8.6-10.3 Egfr Non- 57.0 >60 Egfr 68.9 >60 3 Laboratory test 04/05/2018 [facility] Lyme Disease Negative Negative [address] [place] [address] [phone] Laboratory test 03/10/2018 [facility] House Hemoglobin A1c 6.4 5-7 finding Laboratory test 12/09/2017 [facility] In House Hemoglobin A1c 6.8 5-7 finding Lipid Profile 11/19/2017 [facility] Triglycerides 99 mg/dL 5 (Trig/Chol/HDL) [address] [place] [address] [phone] Cholesterol 148 mg/dL 6 HDL Cholesterol 61.0 mg/dL 7 LDL Cholesterol 67 mg/dL 8 Basic Metabolic Panel 11/19/2017 [facility] Sodium 139 mmol/L N 139-145 [address] [place] [address] [phone] Potassium 4.6 mmol/L N 3.5-5.0 Chloride 106 mmol/L N 101-111 Co2 Carbon Dioxide 26 mmol/L N 22-32 Anion Gap 7 mmol/L N 2-11 Glucose 160 mg/dL High 70-100 Blood Urea Nitrogen 17 mg/dL N 6-24 Creatinine 0.99 mg/dL High 0.51-0.95 BUN/Creatinine Ratio 17.2 N 8-20 Calcium 9.2 mg/dL N 8.6-10.3 Egfr Non- 55.1 >60 Egfr 70.9 >60 9 Urine Microalbumin 06/16/2017 [facility] Ur Microalbumin < 15.0 N Random 101 [facility] (mg/L) mg/[place] [address] [phone] Urine Creatinine 46.87 mg/dL N Urine Microalbumin/Creatinine TNP ug/mg N <31 10 Laboratory test 06/16/2017 [facility] In House Hemoglobin A1c 6.8 5-7 finding Lipid Profile 12/05/2016 [facility] Triglycerides 97 mg/dL N 11 (Trig/Chol/HDL) [address] [place] [address] [phone] Cholesterol 137 mg/dL N 12 HDL Cholesterol 56.2 mg/dL N 13 LDL Cholesterol 61 mg/dL N 14 Comp Metabolic Panel 12/05/2016 [facility] Sodium 138 mmol/L N 133-145 [address] [place] [address] [phone] Potassium 4.3 mmol/L N 3.5-5.0 Chloride 107 mmol/L N 101-111 Co2 Carbon Dioxide 25 mmol/L N 22-32 Anion Gap 6 mmol/L N 2-11 Glucose 135 mg/dL High 70-100 Blood Urea Nitrogen 15 mg/dL N 6-24 Creatinine 0.91 mg/dL N 0.51-0.95 BUN/Creatinine Ratio 16.5 N 8-20 Calcium 8.7 mg/dL N 8.6-10.3 Total Protein 6.3 g/dL Low 6.4-8.9 Albumin 4.0 g/dL N 3.2-5.2 Globulin 2.3 g/dL N 2-4 Albumin/Globulin Ratio 1.7 N 1-3 Total Bilirubin 0.40 mg/dL N 0.2-1.0 Alkaline Phosphatase 50 U/L N 34-104 Alt 50 U/L N 7-52 Ast 28 U/L N 13-39 Egfr Non- 60.9 N >60 Egfr 78.4 N >60 15 Laboratory test 12/05/2016 [facility] Hemoglobin A1c 6.7 % High Less [address] (Glyco HGB) than 6.0 [place] [address] [phone] Lipid Profile 03/07/2016 [facility] Triglycerides 114 N 17 (Trig/Chol/HDL) [address] mg/[place] [address] [phone] Cholesterol 200 mg/dL N 18 HDL Cholesterol 47.7 mg/dL N 19 LDL Cholesterol 130 mg/dL N 20 Laboratory test 03/07/2016 [facility] Hemoglobin A1c 6.7 % High Less [address] (Glyco HGB) than 6.0 [place] [address] [phone] Urine 03/07/2016 [facility] Urine 181.71 N Microalbumin [address] Creatinine mg/[place] [address] [phone] Ur Microalbumin (mg/L) 22.2 mg/L N Urine Microalbumin/Creatinine 12.2 ug/mg N <31 Basic Metabolic Panel 03/07/2016 [facility] Sodium 139 mmol/L N 133-[address] [place] [address] [phone] Potassium 5.0 mmol/L N 3.5-5.0 Chloride 105 mmol/L N 101-111 Co2 Carbon Dioxide 27 mmol/L N 22-32 Anion Gap 7 mmol/L N 2-11 Glucose 149 mg/dL High 70-100 Blood Urea Nitrogen 16 mg/dL N 6-24 Creatinine 0.98 mg/dL High 0.51-0.95 BUN/Creatinine Ratio 16.3 N 8-20 Calcium 9.1 mg/dL N 8.6-10.3 Egfr Non- 55.9 N >60 Egfr 71.9 N >60 22 Laboratory test 11/22/2015 [facility] Rapid Group A neg finding Strep Laboratory test 05/30/2015 [facility] Surgical SEE RESULT [address] [place] [address] [phone] CBC Auto Diff 04/24/2015 [facility] White Blood 10.2 10^3/uL N 4.8-10. [address] Count 8 [place] [address] [phone] Red Blood Count 4.80 10^6/uL N 4.0-5.4 Hemoglobin 14.2 g/dL N 12.0-16.0 Hematocrit 42 % N 35-47 Mean Corpuscular Volume 88 fL N 80-97 Mean Corpuscular Hemoglobin 30 pg N 27-31 Mean Corpuscular HGB Conc 34 g/dL N 31-36 Red Cell Distribution Width 13 % N 10.5-15 Platelet Count 233 10^3/uL N 150-450 Mean Platelet Volume 9 um3 N 7.4-10.4 Abs Neutrophils 6.9 10^3/uL N 1.5-7.7 Abs Lymphocytes 2.3 10^3/uL N 1.0-4.8 Abs Monocytes 0.8 10^3/uL N 0-0.8 Abs Eosinophils 0.2 10^3/uL N 0-0.6 Abs Basophils 0 10^3/uL N 0-0.2 Abs Nucleated RBC 0.01 10^3/uL N Granulocyte % 67.4 % N 38-83 Lymphocyte % 22.1 % Low 25-47 Monocyte % 7.9 % N 1-9 Eosinophil % 2.2 % N 0-6 Basophil % 0.4 % N 0-2 Nucleated Red Blood Cells % 0.1 N Comp Metabolic Panel 04/24/2015 [facility] Sodium 136 mmol/L N 133-[address] [place] [address] [phone] Potassium 4.0 mmol/L N 3.5-5.0 Chloride 102 mmol/L N 101-111 Co2 Carbon Dioxide 26 mmol/L N 22-32 Anion Gap 8 mmol/L N 2-11 Glucose 125 mg/dL High 70-100 Blood Urea Nitrogen 11 mg/dL N 6-24 Creatinine 0.90 mg/dL N 0.51-0.95 BUN/Creatinine Ratio 12.2 N 8-20 Calcium 9.1 mg/dL N 8.6-10.3 Total Protein 6.5 g/dL N 6.4-8.9 Albumin 4.1 g/dL N 3.2-5.2 Globulin 2.4 g/dL N 2-4 Albumin/Globulin Ratio 1.7 N 1-3 Total Bilirubin 1.00 mg/dL N 0.2-1.0 Alt 75 U/L High 7-52 Ast 52 U/L High 13-39 Egfr Non- 61.9 N >60 Egfr 79.6 N >60 24 Laboratory test finding 04/24/2015 [facility] Amylase 21 U/L Low 29-103 [address] [place] [address] [phone] Lipase 26 U/L N 11.0-82.0 Alkaline Phosphatase 70 U/L N 34-104 Inr/Protime 04/24/2015 [facility] Inr 0.98 N 0.78-1.07 [address] [place] [address] [phone] Ua Routine 04/24/2015 [facility] Ua Specific Rogers 1.030 Ua PH 7 Ua Color dark yellow Ua Appera clear Ua WBC neg Ua Protein neg Ua Glucose neg Ua Ketones neg Ua Bilirubin +++ Ua Urobilinogen normal Ua Nitrite positive Ua Occult Blood trace Basic Metabolic Panel 02/20/2015 [facility] Sodium 137 mmol/L N 133-145 25 [address] [place] [address] [phone] Potassium 4.5 mmol/L N 3.5-5.0 Chloride 106 mmol/L N 101-111 Co2 Carbon Dioxide 25 mmol/L N 22-32 Anion Gap 6 mmol/L N 2-11 Glucose 133 mg/dL High 70-100 Blood Urea Nitrogen 12 mg/dL N 6-24 Creatinine 0.77 mg/dL N 0.51-0.95 BUN/Creatinine Ratio 15.6 N 8-20 Calcium 8.9 mg/dL N 8.6-10.3 Egfr Non- 74.1 N >60 Egfr 95.3 N >60 26 Lipid Profile 02/20/2015 [facility] Triglycerides 114 mg/dL N 27 (Trig/Chol/HDL) [address] [place] [address] [phone] Cholesterol 189 mg/dL N 28 HDL Cholesterol 55.4 mg/dL N 29 LDL Cholesterol 111 mg/dL N 30 Laboratory test 02/20/2015 [facility] Hemoglobin A1c 5.6 % N Less 31 finding 101 [facility] (Glyco HGB) than 6.0 [place] [address] [phone] Urine 02/20/2015 [facility] Ur Microalbumin 17.0 N Microalbumin 101 (mg/L) mg/[place] [address] [phone] Urine Creatinine 146.47 mg/dL N Urine Microalbumin/Creatinine 11.6 ug/mg N <31 Urinalysis Profile 12/19/2014 [facility] Urine Color Yellow [address] [place] [address] [phone] Urine Appearance Cloudy N Urine Specific Rogers 1.023 N 1.010-1.030 Urine pH 5.0 N 5-9 Urine Urobilinogen Negative N Negative Urine Ketones Negative N Negative Urine Protein Negative N Negative Urine Leukocytes Trace Abnormal Negative Urine Blood Negative N Negative Urine Nitrite Negative N Negative Urine Bilirubin Negative N Negative Urine Glucose 1+(50 mg/dL) Abnormal Negative Urine White Blood Cell Trace(0-5/hpf) N Absent Urine Red Blood Cell 1+(3-5/hpf) Abnormal Absent Urine Bacteria Absent N Absent Urine Squamous Epithelial Cell Present Abnormal Absent Type & Screen 12/19/2014 [facility] Patient Blood Type O Positive N [address] [place] [address] [phone] Antibody Screen NEGATIVE N Basic Metabolic Panel 12/19/2014 [facility] Sodium 136 mmol/L N 133-145 [address] [place] [address] [phone] Potassium 4.2 mmol/L N 3.5-5.0 Chloride 103 mmol/L N 101-111 Co2 Carbon Dioxide 26 mmol/L N 22-32 Anion Gap 7 mmol/L N 2-11 Glucose 131 mg/dL High 70-100 Blood Urea Nitrogen 17 mg/dL N 6-24 Creatinine 0.91 mg/dL N 0.51-0.95 BUN/Creatinine Ratio 18.7 N 8-20 Calcium 9.1 mg/dL N 8.6-10.3 Egfr Non- 61.1 N >60 Egfr 78.6 N >60 33 Inr/Protime 12/19/2014 [facility] Inr 0.97 N 0.78-1.[address] [place] [address] [phone] CBC No Diff 12/19/2014 [facility] White Blood 7.3 10^3/uL N 4.8-10.[address] [place] [address] [phone] Red Blood Count 4.56 10^6/uL N 4.0-5.4 Hemoglobin 13.8 g/dL N 12.0-16.0 Hematocrit 40 % N 35-47 Mean Corpuscular Volume 88 fL N 80-97 Mean Corpuscular Hemoglobin 30 pg N 27-31 Mean Corpuscular HGB Conc 34 g/dL N 31-36 Red Cell Distribution Width 13 % N 10.5-15 Platelet Count 278 10^3/uL N 150-450 Mean Platelet Volume 9 um3 N 7.4-10.4 Urine Culture And 12/19/2014 [facility] Urine Culture (SEE NOTE ) [address] [place] [address] [phone] Laboratory test 08/03/2014 [facility] In House Hemoglobin A1c 6.0 5-7 finding Urine Microalbumin 01/31/2014 [facility] Ur Microalbumin 5.0 mg/ dL N <30 [address] (mg/L) [place] [address] [phone] Urine Creatinine 69.03 mg/dL N Urine Microalbumin/Creatinine 7.2 N Less Than 31 Lipid Panel - 10/28/2013 [facility] Creatine Kinase 152 U/L 10-223 [address] [place] [address] [phone] Comp Metabolic 10/28/2013 [facility] Sodium 140 133-[address] mmol/[place] [address] [phone] Potassium 5.0 mmol/L 3.7-5.6 Chloride 105 mmol/L [...] Egfr Non- 61.5 >60 Egfr 79.1 >60 37 Lipid Profile 10/28/2013 [facility] Triglycerides 83 mg/dL 38 (Trig/Chol/HDL) [address] [place] [address] [phone] Cholesterol 185 mg/dL 39 HDL Cholesterol 52.2 mg/dL 40 LDL Cholesterol 116 mg/dL 41 Laboratory test 10/27/2013 [facility] Hemoglobin A1c 6.0 5-7 finding Laboratory test 07/28/2013 [facility] Hemoglobin A1c 6.2 5-7 finding Laboratory test 05/16/2013 [facility] Lyme Disease Negative Negative 42 finding 101 [facility] [place] [address] [phone] CBC Auto Diff 04/01/2013 [facility] White Blood Count 8.4 10^3/ uL 4.8-10.8 [address] [place] [address] [phone] Red Blood Count 4.33 10^6/uL 4.0-5.4 Hemoglobin [...] Cells % 0 Comp Metabolic Panel 04/01/2013 [facility] Sodium 140 mmol/L 133-145 [address] [place] [address] [phone] Potassium 4.7 mmol/L 3.5-5.0 Chloride 105 mmol/L [...] Egfr Non- 62.3 >60 Egfr 80.1 >60 43 Laboratory test 04/01/2013 [facility] Creatine Kinase 242 U/L High 0-200 finding [address] [place] [address] [phone] Ariane (Anti-Nuclear AB) Screen Negative Negative 44 Hepatitis 04/01/2013 [facility] Hepatitis C Nonreactive Nonreactive Acute Panel [address] [place] [address] [phone] Hepatitis A AB IgM Nonreactive Nonreactive Hepatitis B Core IgM Nonreactive Nonreactive Hepatitis B Surface Antigen Nonreactive Nonreactive Laboratory test 04/01/2013 [facility] Rheumatoid 47 IU/mL Abnormal <15 [address] [place] [address] [phone] Cyclic Citrullinated Pept IgG <15.6 U 46 Muriel Screen Negative Negative 47 Erythrocyte Sed Rate 24 mm/Hr 0-40 Laboratory test 11/20/2012 [facility] Creatine Kinase 272 U/L High 0-[address] [place] [address] [phone] LDH 189 U/L High 95-185 Urine Microalbumin 11/20/2012 [facility] Ur Microalbumin 7.0 mg/ L [address] (Mg/L) [place] [address] [phone] Urine Creatinine 163.1 mg/dL Urine Microalbumin/Creatinine 4.3 ug/mg Less Than 31 Laboratory test 11/20/2012 [facility] Hemoglobin A1c 5.9 % Less than [address] 6.0 [place] [address] [phone] Comp Metabolic 11/20/2012 [facility] Sodium 136 133-[address] mmol/[place] [address] [phone] Potassium 4.5 mmol/L 3.5-5.0 Chloride 104 mmol/L [...] Egfr Non- 62.5 >60 Egfr 80.3 >60 50 Lipid Profile 11/20/2012 [facility] Triglycerides 93 mg/dL 40 -200 (Trig/Chol/HDL) [address] [place] [address] [phone] Cholesterol 214 mg/dL High Less than 200 HDL Cholesterol 61 mg/dL High 40-60 51 Cholesterol/HDL Ratio 3.5 Average 1-4.44 LDL Cholesterol 134.4 mg/dL High Less Than 100 52 Urine Microalbumin 11/21/2011 [facility] Microalbumin (MG/L) 8.0 mg/L Random [address] [place] [address] [phone] Urine Creatinine 155.2 mg/dL Arik Alb/Creatinine Ratio 5.2 UG/MG Less Than 30 53 Laboratory test 11/21/2011 [facility] CPK (Creatine 350 U/L High 0-170 finding 101 Kinase) [place] [address] [phone] Hemoglobin A1c 6.2 % High Less Than 6.0 54 Comp Metabolic Panel 11/21/2011 [facility] Sodium 136 mmol/L 135-145 [address] [place] [address] [phone] Potassium 4.8 mmol/L 3.5-5.0 Chloride 104 mmol/L 101-111 Co2 (Carbon Dioxide) 29.0 mmol/L 22-32 Anion Gap 3.0 mmol/L 2-11 55 Glucose 131 mg/dL High 70-100 BUN 14 mg/dL 6-24 Creatinine 0.9 mg/dL 0.50-1.40 One Over Creatinine 1.11 BUN/Creatinine Ratio 15.6 8-20 Calcium 8.9 mg/dL 8.1-9.9 Total Protein 6.3 GM/DL 6.2-8.1 Albumin 4.0 GM/DL 3.2-5.2 Globulin 2.3 GM/DL 2-4 Albumin/Globulin Ratio 1.7 1-3 Bilirubin Total 0.6 mg/dL 0.4-1.5 56 Alkaline Phosphatase 65 U/L 30-110 Alt (SGPT) 56 U/L High 14-54 Ast (Sgot) 33 U/L 12-42 eGFR Non- 62.6 > 60 eGFR 80.6 > 60 57 Lipid Profile 11/21/2011 [facility] Triglyceride 99 mg/dL 40- 200 (Trig/Chol/HDL) [address] [place] [address] [phone] Cholesterol 203 mg/dL High Less Than 200 58 High Density Lipoprotein 58 mg/dL 40-60 59 Cholesterol/HDL Ratio 3.50 AVERAGE 1-4.44 Low Density Lipoprotein 125 mg/dL High Less Than 100 60 Laboratory test 08/27/2011 [facility] In House Hemoglobin A1c 5.8 5-7 finding Laboratory test 04/01/2011 [facility] CPK (Creatine 175 U/L High 0-170 finding 101 [facility] Kinase) [place] [address] [phone] CBC With Manual 04/01/2011 [facility] White Blood Count 9.3 CUMM 4.8-10.[address] [place] [address] [phone] Red Cell Count 3.92 CUMM Low 4.2-5.4 [...] Morphology NORMAL Manual Diff Comments (SEE NOTE) 61 Comp Metabolic Panel 04/01/2011 [facility] Sodium 138 mmol/L 135-145 [address] [place] [address] [phone] Potassium 4.5 mmol/L 3.5-5.0 Chloride 102 mmol/L 101-111 Co2 (Carbon Dioxide) 26.0 mmol/L 22-32 Anion Gap 10.0 mmol/L 2-11 62 Glucose 145 mg/dL High 70-100 BUN 16 mg/dL 6-24 Creatinine 0.80 mg/dL 0.50-1.40 One Over Creatinine 1.20 BUN/Creatinine Ratio 20.0 8-20 Calcium 8.9 mg/dL 8.1-9.9 Total Protein 6.4 GM/DL 6.2-8.1 Albumin 3.6 GM/DL 3.2-5.2 Globulin 2.8 GM/DL 2-4 Albumin/Globulin Ratio 1.3 1-3 Bilirubin Total 0.6 mg/dL 0.4-1.5 63 Alkaline Phosphatase 61 U/L 30-110 Alt (SGPT) 30 U/L 14-54 Ast (Sgot) 21 U/L 12-42 eGFR Non- 71.8 > 60 eGFR 92.3 > 60 64 CBC Auto Diff 04/01/2011 [facility] White Blood 9.3 CUMM 4.8- 10.[address] [place] [address] [phone] Red Cell Count 3.92 CUMM Low 4.2-5.4 [...] 0.5 0-0.6 Abs Basophils 0 0-0.2 Cytology 12/26/2010 [facility] Cytology Non 65 Non-Facility Mechanic [address] Facility Mechanic <SEE NOTE> [place] [address] [phone] Laboratory 12/24/2010 [facility] CPK 536 U/L High 0-[address] (Creatine 70 [place] [address] Kinase) [phone] Liver Function 12/24/2010 [facility] Total 7.0 GM/DL 6.[address] Protein -8. [place] [address] [phone] Albumin 4.4 GM/DL 3.2-5.2 Globulin 2.6 GM/DL 2-4 Albumin/Globulin Ratio 1.7 1-3 Bilirubin Total 0.9 mg/dL 0.4-1.5 66 Bilirubin Direct 0.1 mg/dL 0.1-0.5 Indirect Bilirubin 0.8 mg/dL 0.3-1.0 67 Alkaline Phosphatase 57 U/L 30-110 Alt (SGPT) 82 U/L High 14-54 Ast (Sgot) 44 U/L High 12-42 CBC Auto Diff 12/24/2010 [facility] White Blood 7.1 CUMM 4.8- 10.[address] [place] [address] [phone] Red Cell Count 4.21 CUMM 4.2-5.4 Hemoglobin [...] Eosinophils 0.1 0-0.6 Abs Basophils 0 0-0.2 Laboratory test 12/24/2010 [facility] PTT (Aptt) 29.4 25.15- 38.[address] [place] [address] [phone] Protime 12/24/2010 [facility] Inr 0.97 0.82-1.[address] [place] [address] [phone] Protime 11.4 SEC 10.2-14.8 69 CKMB 2010 [facility] CKMB In NG/ML 20.0 NG/ML High 0.3- 4.[address] [place] [address] [phone] % CKMB 4 %MB 0-9 70 Laboratory test 2010 [facility] CPK (Creatine 500 U/L High 0-[address] Kinase) [place] [address] [phone] CK Isoenzymes 2010 [facility] Creatine 489 U/L Abnormal 38-[address] Kinase (CK) [place] [address] [phone] Total CK 489 U/L Abnormal () 72 mm Fraction . % 100 73 MB Fraction 4 % Abnormal 0 BB Fraction 0 % 0 74 Laboratory test 12/04/2010 [facility] Hemoglobin A1c 6.2 % High Less [address] Than 6.0 [place] [address] [phone] Urine 12/04/2010 [facility] Microalbumin 8.[address] (MG/L) mg/[place] [address] [phone] Urine Creatinine 198.78 mg/dL Arik Alb/Creatinine Ratio 4.0 UG/MG Less Than 30 76 Lipid Panel - 12/04/2010 [facility] CPK (Creatine 491 U/L High 0-[address] Kinase) [place], [place] [address] [phone] Comp Metabolic 12/04/2010 [facility] Sodium 139 135-[address] mmol/[place] [address] [phone] Potassium 4.6 mmol/L 3.5-5.0 Chloride 107 mmol/L 101-111 Co2 (Carbon Dioxide) 27.0 mmol/L 22-32 Anion Gap 5.0 mmol/L 2-11 77 Glucose 122 mg/dL High 70-100 BUN 14 mg/dL 6-24 Creatinine 0.80 mg/dL 0.50-1.40 One Over Creatinine 1.20 BUN/Creatinine Ratio 17.5 8-20 Calcium 8.8 mg/dL 8.1-9.9 Total Protein 6.0 GM/DL Low 6.2-8.1 Albumin 4.0 GM/DL 3.2-5.2 Globulin 2.0 GM/DL 2-4 Albumin/Globulin Ratio 2.0 1-3 Bilirubin Total 0.9 mg/dL 0.4-1.5 78 Alkaline Phosphatase 55 U/L 30-110 Alt (SGPT) 84 U/L High 14-54 Ast (Sgot) 44 U/L High 12-42 eGFR Non- 72.0 > 60 eGFR 92.6 > 60 79 Lipid Profile 12/04/2010 [facility] Triglyceride 132 mg/dL 40 -200 (Trig/Chol/HDL) [address] [place] [address] [phone] Cholesterol 232 mg/dL High Less Than 200 80 High Density Lipoprotein 53 mg/dL 40-60 81 Cholesterol/HDL Ratio 4.38 AVERAGE 1-4.44 Low Density Lipoprotein 153 mg/dL High Less Than 100 82 CBC Auto Diff 12/04/2010 [facility] White Blood 5.9 CUMM 4.8- 10.[address] [place] [address] [phone] Red Cell Count 4.12 CUMM Low 4.2-5.4 [...] Eosinophils 0.2 0-0.6 Abs Basophils 0 0-0.2 Laboratory test 08/23/2010 [facility] Hemoglobin A1c 6.3 % High Less Than [address] 6.0 [place] [address] [phone] Lipid Profile 08/23/2010 [facility] Triglyceride 106 40-200 (Trig/Chol/HDL) [address] mg/[place] [address] [phone] Cholesterol 197 mg/dL Less Than 200 84 High Density Lipoprotein 52 mg/dL 40-60 85 Cholesterol/HDL Ratio 3.79 AVERAGE 1-4.44 Low Density Lipoprotein 124 mg/dL High Less Than 100 86 Comp Metabolic Panel 08/23/2010 [facility] Sodium 137 mmol/L 135-[address] [place] [address] [phone] Potassium 4.4 mmol/L 3.5-5.0 Chloride 105 mmol/L 101-111 Co2 (Carbon Dioxide) 27.0 mmol/L 22-32 Anion Gap 5.0 mmol/L 2-11 87 Glucose 138 mg/dL High 70-100 BUN 11 mg/dL 6-24 Creatinine 0.90 mg/dL 0.50-1.40 One Over Creatinine 1.10 BUN/Creatinine Ratio 12.2 8-20 Calcium 8.9 mg/dL 8.1-9.9 Total Protein 5.9 GM/DL Low 6.2-8.1 Albumin 3.8 GM/DL 3.2-5.2 Globulin 2.1 GM/DL 2-4 Albumin/Globulin Ratio 1.8 1-3 Bilirubin Total 0.8 mg/dL 0.4-1.5 88 Alkaline Phosphatase 58 U/L 30-110 Alt (SGPT) 46 U/L 14-54 Ast (Sgot) 28 U/L 12-42 eGFR Non- 66.8 > 60 eGFR 80.8 > 60 89 Lipid Panel - 08/23/2010 [facility] CPK (Creatine 376 U/L High 0-[address] Kinase) [place] [address] [phone] Basic Metabolic 05/22/2010 [facility] Sodium 138 135-[address] mmol/[place] [address] [phone] Potassium 4.0 mmol/L 3.5-5.0 Chloride 104 mmol/L 101-111 Co2 (Carbon Dioxide) 26.0 mmol/L 22-32 Anion Gap 8.0 mmol/L 2-11 90 Glucose 129 mg/dL High 70-100 91 BUN 15 mg/dL 6-24 Creatinine 0.90 mg/dL 0.50-1.40 One Over Creatinine 1.10 BUN/Creatinine Ratio 16.7 8-20 Calcium 9.0 mg/dL 8.1-9.9 eGFR Non- 66.8 > 60 eGFR 80.8 > 60 92 Liver Function 05/22/2010 [facility] Total Protein 5.8 GM/DL Low 6.2-8.[address] [place] [address] [phone] Albumin 4.0 GM/DL 3.2-5.2 Globulin 1.8 GM/DL Low 2-4 Albumin/Globulin Ratio 2.2 1-3 Bilirubin Total 0.7 mg/dL 0.4-1.5 93 Bilirubin Direct 0.0 mg/dL Low 0.1-0.5 Indirect Bilirubin (SEE NOTE) mg/dL 0.3-1.0 94 Alkaline Phosphatase 52 U/L 30-110 Alt (SGPT) 57 U/L High 14-54 Ast (Sgot) 34 U/L 12-42 Laboratory test 05/22/2010 [facility] C Reactive 1.0 mg/dL High Less Than finding [address] Protein 0.5 [place] [address] [phone] CBC With 05/22/2010 [facility] White Blood 7.9 CUMM 4.8-10.8 Electronic Diff [address] [place] [address] [phone] Red Cell Count 4.18 CUMM Low 4.2-5.4 Hemoglobin 13.5 g/dL 12.0-16.0 Hematocrit 38 % 35-47 Mean Corpuscular Volume 92 um3 79-97 Mean Corpuscular Hemoglob 32 pg High 27-31 Mean Corpuscular HGB Cone 35 g/dL 32-36 Redcell Distribution WDTH 12 % 10.5-15 Platelet Count 272 CUMM 150-450 Mean Platelet Volume 8.1 um3 7.4-10.4 Manual Differential 05/22/2010 [facility] Polysegmented 49 % 38-[address] [place] [address] [phone] Band Neutrophil 1 % 0-8 Lymphocyte 38 % 25-47 Monocyte 11 % 0-13 Eosinophil 1 % 0-6 Absolute Neutrophil Count 3.9 RBC Morphology NORMAL Laboratory test 05/22/2010 [facility] Erythrocyte Sed 9 MM/HR 0-[address] [place] [address] [phone] CBC With 03/15/2010 [facility] White Blood 8.3 CUMM 4.8-10.8 Electronic Diff [address] [place] [address] [phone] Red Cell Count 4.09 CUMM Low 4.2-5.4 Hemoglobin 13.1 g/dL 12.0-16.0 Hematocrit 37 % 35-47 Mean Corpuscular Volume 91 um3 79-97 Mean Corpuscular Hemoglob 32 pg High 27-31 Mean Corpuscular HGB Cone 35 g/dL 32-36 Redcell Distribution WDTH 13 % 10.5-15 Platelet Count 277 CUMM 150-450 Mean Platelet Volume 7.9 um3 7.4-10.4 95 Laboratory test 03/15/2010 [facility] C Reactive 0.8 mg/dL High Less Than finding [address] Protein 0.5 [place] [address] [phone] Liver Function 03/15/2010 [facility] Total Protein 6.4 GM/DL 6.2-8.[address] [place] [address] [phone] Albumin 4.0 GM/DL 3.2-5.2 Globulin 2.4 GM/DL 2-4 Albumin/Globulin Ratio 1.7 1-3 Bilirubin Total 0.6 mg/dL 0.4-1.5 96 Bilirubin Direct 0.1 mg/dL 0.1-0.5 Indirect Bilirubin 0.5 mg/dL 0.3-1.0 97 Alkaline Phosphatase 57 U/L 30-110 Alt (SGPT) 53 U/L 14-54 Ast (Sgot) 32 U/L 12-42 Basic Metabolic Panel 03/15/2010 [facility] Sodium 139 mmol/L 135-[address] [place] [address] [phone] Potassium 4.3 mmol/L 3.5-5.0 Chloride 104 mmol/L 101-111 Co2 (Carbon Dioxide) 28.0 mmol/L 22-32 Anion Gap 7.0 mmol/L 2-11 98 Glucose 123 mg/dL High 70-100 99 BUN 13 mg/dL 6-24 Creatinine 0.90 mg/dL 0.50-1.40 One Over Creatinine 1.10 BUN/Creatinine Ratio 14.4 8-20 Calcium 9.1 mg/dL 8.1-9.9 100 eGFR Non- 66.8 > 60 eGFR 80.8 > 60 101 Manual Differential 03/15/2010 [facility] Polysegmented 57 % 38-[address] [place] [address] [phone] Band Neutrophil 2 % 0-8 Lymphocyte 30 % 25-47 Monocyte 8 % 0-13 Eosinophil 3 % 0-6 Absolute Neutrophil Count 4.8 RBC Morphology NORMAL Laboratory test 03/15/2010 [facility] Erythrocyte Sed 11 MM/HR 0-[address] [place] [address] [phone] Laboratory test 01/22/2010 [facility] Erythrocyte Sed 14 MM/HR 0-[address] [place] [address] [phone] CBC With Manual 01/22/2010 [facility] White Blood 6.5 CUMM 4.8-10.[address] [place] [address] [phone] Red Cell Count 3.99 CUMM Low 4.2-5.4 [...] Count 3.4 RBC Morphology NORMAL Laboratory test 01/22/2010 [facility] C Reactive 0.6 mg/dL High Less Than finding [address] Protein 0.5 [place] [address] [phone] Liver Function 01/22/2010 [facility] Total Protein 6.0 GM/DL Low 6.2-8.[address] [place] [address] [phone] Albumin 3.8 GM/DL 3.2-5.2 Globulin 2.2 GM/DL 2-4 Albumin/Globulin Ratio 1.7 1-3 Bilirubin Total 0.7 mg/dL 0.4-1.5 102 Bilirubin Direct 0.1 mg/dL 0.1-0.5 Indirect Bilirubin 0.6 mg/dL 0.1-0.75 Alkaline Phosphatase 52 U/L 30-110 Alt (SGPT) 58 U/L High 14-54 Ast (Sgot) 40 U/L 12-42 Basic Metabolic Panel 01/22/2010 [facility] Sodium 135 mmol/L 135-145 [address] [place] [address] [phone] Potassium 4.0 mmol/L 3.5-5.0 Chloride 105 mmol/L 101-111 Co2 (Carbon Dioxide) 25.0 mmol/L 22-32 Anion Gap 5.0 mmol/L 2-11 103 Glucose 137 mg/dL High 70-100 104 BUN 10 mg/dL 6-24 Creatinine 0.80 mg/dL 0.50-1.40 One Over Creatinine 1.20 BUN/Creatinine Ratio 12.5 8-20 Calcium 8.5 mg/dL 8.1-9.9 105 eGFR Non- 76.5 > 60 eGFR 92.6 > 60 106 Comp Metabolic Panel 10/10/2009 [facility] Sodium 132 mmol/L Low 135-145 [address] [place] [address] [phone] Potassium 4.2 mmol/L 3.5-5.0 Chloride 99 mmol/L Low 101-111 Co2 (Carbon Dioxide) 27.0 mmol/L 22-32 Anion Gap 6.0 mmol/L 2-11 107 Glucose 137 mg/dL High 70-100 108 BUN 15 mg/dL 6-24 Creatinine 0.90 mg/dL 0.50-1.40 One Over Creatinine 1.10 BUN/Creatinine Ratio 16.7 8-20 Calcium 8.8 mg/dL 8.1-9.9 109 Total Protein 6.0 GM/DL Low 6.2-8.1 Albumin 3.6 GM/DL 3.2-5.2 Globulin 2.4 GM/DL 2-4 Albumin/Globulin Ratio 1.5 1-3 Bilirubin Total 0.7 mg/dL 0.4-1.5 110 Alkaline Phosphatase 55 U/L 30-110 Alt (SGPT) 42 U/L 14-54 Ast (Sgot) 28 U/L 12-42 eGFR Non- 67.0 > 60 eGFR 81.1 > 60 111 Laboratory test 10/10/2009 [facility] Rheumatoid 699.5 High Less finding [address] Factor IU/mL Than 20 [place] [address] [phone] C Reactive Protein 0.5 mg/dL Less Than 0.5 CBC With Manual 10/10/2009 [facility] White Blood 5.8 CUMM 4.8-10.[address] [place] [address] [phone] Red Cell Count 4.33 CUMM 4.2-5.4 Hemoglobin [...] Neutrophil Count 3.7 Anisocytosis SLIGHT Laboratory test 10/10/2009 [facility] Erythrocyte Sed 13 MM/HR 0-[address] [place] [address] [phone] Cyclic Citrullinated Pep Igg <15.6 U () 112 Thyroxine Free 07/19/2009 [facility] Free 0.74 NG/ML 0.61- 1.[address] [place] [address] [phone] Laboratory test 07/19/2009 [facility] Ariane NEGATIVE Negative finding [address] ([place] [address] Antibodies) [phone] TSH 1.93 MIU/ML 0.34-5.60 Laboratory test 07/19/2009 [facility] Magnesium 2.2 mg/dL 1.7 -2.[address] [place] [address] [phone] Laboratory test 07/19/2009 [facility] Erythrocyte Sed 13 MM/HR 0-[address] [place] [address] [phone] C Reactive Protein < 0.5 mg/dL Less Than 0.5 Rheumatoid Factor 346.7 IU/mL High Less Than 20 CBC With Manual 07/19/2009 [facility] White Blood 5.9 CUMM 4.8-10.[address] [place] [address] [phone] Red Cell Count 4.37 CUMM 4.2-5.4 Hemoglobin [...] 3.0 Anisocytosis SLIGHT Basic Metabolic Panel 07/19/2009 [facility] Sodium 138 mmol/L 135-[address] [place] [address] [phone] Potassium 4.4 mmol/L 3.5-5.0 Chloride 107 mmol/L 101-111 Co2 (Carbon Dioxide) 27.0 mmol/L 22-32 Anion Gap 4.0 mmol/L 2-11 114 Glucose 129 mg/dL High 70-100 115 BUN 14 mg/dL 6-24 Creatinine 0.80 mg/dL 0.50-1.40 One Over Creatinine 1.20 BUN/Creatinine Ratio 17.5 8-20 Calcium 8.9 mg/dL 8.1-9.9 116 eGFR Non- 76.8 > 60 eGFR 92.9 > 60 117 Lipid Profile 02/29/2008 [facility] Triglyceride 102 mg/dL 40 -200 (Trig/Chol/HDL) [address] [place] [address] [phone] Cholesterol 219 mg/dL High Less Than 200 118 High Density Lipoprotein 50 mg/dL 40-60 119 Cholesterol/HDL Ratio 4.38 AVERAGE 1-4.44 Low Density Lipoprotein 149 mg/dL High Less Than 100 120 Laboratory test 02/29/2008 [facility] Magnesium 2.1 mg/dL 1.7 -2.6 finding [address] [place], [place] [id number] [phone] Basic Metabolic 02/29/2008 [facility] Sodium 142 mmol/L 135- 145 Panel 101 [place], [place] [address] [phone] Potassium 4.0 mmol/L 3.5-5.0 Chloride 108 mmol/L 101-111 Co2 (Carbon Dioxide) 27.0 mmol/L 22-32 Anion Gap 7.0 mmol/L 2-11 121 Glucose 119 mg/dL High 70-105 BUN 11 mg/dL 6-24 Creatinine 1.0 mg/dL 0.5-1.4 One Over Creatinine 1.00 BUN/Creatinine Ratio 11.0 8-20 Calcium 8.6 mg/dL 8.1-9.9 122 Laboratory 02/29/2008 [facility] Hemoglobin 6.2 % High <6.0 123 test finding 101 [facility] A1c [place], [place] [id number] [phone] Laboratory 08/09/2007 [facility] C. Difficile N^NEGATIVE 124 test finding [facility] Toxin A B BY IM <[place] [address] NOTE> [phone] Stool For 08/09/2007 [facility] Stool For POSITIVE Abnormal Negative Blood 101 [facility] Blood [place], [place] [address] [phone] Stool Color BROWN Stool Consistency FIRM Stool Form FORMED Laboratory test 08/05/2007 [facility] Urine Culture NG 125 finding 101 [facility] [place] [address] [phone] Urinalysis 08/05/2007 [facility] Ua Color YELLOW [address] [place] [address] [phone] Appearance-Urine CLEAR Bilirubin-Ur NEGATIVE Negative Blood-Urine NEGATIVE Negative Esterase-Urine NEGATIVE Negative Glucose-Urine NEGATIVE Negative Ketones-Urine NEGATIVE Negative Nitrite NEGATIVE Negative PH-Urine 6.0 5-9 Protein-Urine NEGATIVE Negative Dvssumjpwbli-Ng-OJI NEGATIVE Negative Specific Rogers-Ur 1.008 Low 1.010-1.030 1 [id number] 2 Conveyor Feeder Offbearer: [id number] 3 Because ethnic data is not always readily [...] 15-29 5 Kidney failure <15 (or dialysis) 4 No evidence of antibodies to B. burgdorferi detected. False negative results may occur in recently infected patients (<=2 weeks) due to low or undetectable antibody levels to B. burgdorferi. If recent exposure is suspected, a second sample should be collected and tested in 2-4 weeks. Test Performed by: [facility] [address] [place] [id number] 5 Desirable: <150 Borderline High: 150-199 High: 200-499 Very High: >500 6 Desirable: <200 Borderline High: 200-239 High: >239 7 Low: <40 Desirable: 40-60 High: >60 8 Desirable: <100 Near Optimal: 100-129 Borderline High: 130-159 High: 160-189 Very High: >189 9 Because ethnic data is not always readily [...] 15-29 5 Kidney failure <15 (or dialysis) 10 Unable to calculate due to low microalbumin 11 Desirable <150 Borderline high 150-199 High 200-499 Very High >500 12 Desirable <200 Borderline high 200-239 High >239 13 Low <40 Desirable: 40-60 High: >60 14 Desirable: <100 mg/dL Near Optimal: 100-129 mg/dL Borderline High: 130-159 mg/dL High: 160-189 mg/dL Very High: >189 mg/dL 15 Because ethnic data is not always readily [...] 15-29 5 Kidney failure <15 (or dialysis) 16 Therapeutic target for the treatment of diabetes Mellitus patients is <7% HBA1C, and in selective patients <6.0%.Please refer to [place] [employer] Diabetic care guidelines for further information. 17 Desirable <150 Borderline high 150-199 High 200-499 Very High >500 18 Desirable <200 Borderline high 200-239 High >239 19 Low <40 Desirable: 40-60 High: >60 20 Desirable: <100 mg/dL Near Optimal: 100-129 mg/dL Borderline High: 130-159 mg/dL High: 160-189 mg/dL Very High: >189 mg/dL 21 Therapeutic target for the treatment of diabetes Mellitus patients is <7% HBA1C, and in selective patients <6.0%.Please refer to [place] [employer] Diabetic care guidelines for further information. 22 Because ethnic data is not always [...] 5 Kidney failure <15 (or dialysis) 23 SEE RESULT BELOW Name: BRADLEY EGAN Aracely : [address]: Rodrigue Villalba MD Acct: [id number] Unit: [id number] AGE: 69 Location: [facility] Re05/30/15 SEX: F Status: REG REF SPEC: [id number] LAURA: 05/30/15- SUBM DR: Rodrigue Villalba MD REQ: [id number] RECD: 05/30/15 STATUS: MILO CHRISTIE DR: Nima [...] performed at Main Lab DEPARTMENT OF PATHOLOGY, [address] [place] [address] Keanu Paiz M.D. Director [facility] # [id number] 24 Because ethnic data is not always readily [...] 15-29 5 Kidney failure <15 (or dialysis) 25 PT IS FASTING 26 Because ethnic data is not always readily [...] 15-29 5 Kidney failure <15 (or dialysis) 27 Desirable <150 Borderline high 150-199 High 200-499 Very High >500 28 Desirable <200 Borderline high 200-239 High >239 29 Low <40 Desirable: 40-60 High: >60 30 Desirable: <100 mg/dL Near Optimal: 100-129 mg/dL Borderline High: 130-159 mg/dL High: 160-189 mg/dL Very High: >189 mg/dL 31 Therapeutic target for the treatment of diabetes Mellitus patients is <7% HBA1C, and in selective patients <6.0%.Please refer to [place] [employer] Diabetic care guidelines for further information. 32 SDS 12/26 33 Because ethnic data is not always [...] 5 Kidney failure <15 (or dialysis) 34 RUN DATE: 12/21/14 [facility] LAB LIVE PAGE 1 RUN TIME: 5950 [address] [place], [place] [address] Specimen Inquiry Name: BRADLEY EGAN : [address]: Brady Aguilar MD Acct: [id number] Unit: [id number] AGE: 69 Location: [facility] Re12/19/14 SEX: F Status: REG REF SPEC: [id number] LAURA: 12/19/14-1420 [facility] DR: Brady Aguilar MD REQ: [id number] RECD: 12/19/141939 STATUS: BRANDON CHRISTIE DR: Nima Roche MD _ SOURCE: URINE SPDESC: ORDERED: Urine Culture Procedure Result Verified Site Urine Culture Final 12/21/14- 1228 ML Organism 1 NORMAL MICHELLE [place] Count 25-50,000 (Moderate) CFU/ML * ML - MAIN LAB (PSC1) . END OF REPORT * ML=Testing performed at Main Lab DEPARTMENT OF PATHOLOGY, [address] [place] [address] Keanu Paiz M.D. Director [facility] # [id number] 35 Microalbuminuria in a random sample is defined as: Microalbumin/Creatinine ratio of 30-299 ug/mg. 36 FASTING 10 HOUR 37 Because ethnic data is not always readily [...] 15-29 5 Kidney failure <15 (or dialysis) 38 Desirable <150 Borderline high 150-199 High 200-499 Very High >500 39 Desirable <200 Borderline high 200-239 High >239 40 Low <40 Desirable: 40-60 High: >60 41 Desirable <100 Near Optimal 100-129 Borderline high 130-159 High 160-189 Very High >189 42 Serologic response to B. burgdorferi infection is not detected, but cannot rule out early infection during which low or undetectable antibody levels to B. burgdorferi may be present. If clinically indicated, a new serum specimen should be submitted in 7-14 days. Test Performed by: [place] [address] Blister Packing Machine Tender: Marcos Alejandro III, M.D. 43 Because ethnic data is not always readily [...] 15-29 5 Kidney failure <15 (or dialysis) 44 @Sample frozen by at 1629 on 04/01/13. 45 Test Performed by: [place] [address] Blister Packing Machine Tender: Marcos Alejandro III, M.D. 46 -- REFERENCE VALUE -- <20.0 (Negative) Test Performed by: [place] [address] Blister Packing Machine Tender: Marcos Alejandro III, M.D. 47 The above MURIEL screen is designed for the detection of antibodies to extractable nuclear antigen (MURIEL) in human serum. It is a combination test for the detection of antibodies to SERVICER TRAVEL TRAILERS, Sm, SS-A (Ro), and SS-B (La) nuclear antigens. 48 Microalbuminuria in a random sample is defined as: Microalbumin/Creatinine ratio of 30-299 ug/mg. 49 Therapeutic target for the treatment of diabetes Mellitus patients is <7% HBA1C, and in selective patients <6.0%.Please refer to [place] [employer] Diabetic care guidelines for further information. 50 Because ethnic data is not always readily [...] 15-29 5 Kidney failure <15 (or dialysis) 51 HDL Interpretation: Undesirable: High Risk: Less than 40 MG/DL Desirable: Low Risk: Greater than 60 MG/DL 52 LDL Interpretation: Low Risk Optimal Level: LDL Less than 100 MG/DL Near or Above Optimal: LDL 100-129 MG/DL Borderline High Risk: LDL 130-159 MG/DL High Risk: LDL 160-189 MG/DL Very High Risk: LDL Greater than 189 MG/DL 53 MICROALBUMINURIA IN A RANDOM SAMPLE IS DEFINED : MICROALBUMIN/CREATININE RATIO OF 30-299 ug/mg. . 54 THERAPEUTIC TARGET FOR THE TREATMENT OF DIABETES MELLITUS PATIENTS IS <7% HBA1C, AND IN SELECTIVE PATIENTS <6.0%. PLEASE REFER TO CIT[place] [employer] DIABETIC CARE GUIDELINES FOR FURTHER INFORMATION. 55 Anion gap measurement may be of limited value in the presence of any alkalosis, especially in a combined acid base disorder. . 56 A metabolite of Naproxen, O-desmethylnaproxen, has been shown to interfere with the Jendrassik-Kwame method for measuring total bilirubin. Samples from patients who have taken Naproxen have shown spurious elevation in total bilirubin levels. 57 Because ethnic data is not always readily [...] 15-29 5 Kidney failure <15 (or dialysis) 58 CHOLESTEROL INTERPRETATION: Desirable: Less than 200 MG/DL Borderline-High Risk: 200-239 MG/DL High-Risk: 240 MG/DL and over 59 HDL INTERPRETATION: Undesirable: High Risk: Less than 40 MG/DL Desirable: Low Risk: Greater than 60 MG/DL 60 LDL INTERPRETATION: Low Risk Optimal Level: LDL Less than 100 MG/DL Near or Above Optimal: LDL 100-129 MG/DL Borderline High Risk: LDL 130-159 MG/DL High Risk: LDL 160-189 MG/DL Very High Risk: LDL Greater than 189 MG/DL 61 REVIEWED BY KEANU PAIZ MD 62 Anion gap measurement may be of limited value in the presence of any alkalosis, especially in a combined acid base disorder. . 63 A metabolite of Naproxen, O-desmethylnaproxen, has been shown to interfere with the Jendrassik-Kwame method for measuring total bilirubin. Samples from patients who have taken Naproxen have shown spurious elevation in total bilirubin levels. 64 Because ethnic data is not always readily [...] 15-29 5 Kidney failure <15 (or dialysis) 65 ---- RUN DATE: 01/02/11 [facility] NMI LIVE PAGE 1 RUN TIME: 1027 Specimen Inquiry RUN USER: INTERFACE -- Name: BRADLEY EGAN [facility]#: [id number] Status: DEP ER Re12/26/10 Age/Sex: 65/F Unit#: [id number] Location: ED : 44 -- Specimen: [id number] Spec Date: 12/26/[address]: Seth cross MD Spec Type: CYTOLOGY [...] Decorate blood vessels. -- DEPARTMENT OF PATHOLOGY, [address] [place] [address] [facility] Permit #[id number] Keanu Paiz M.D. Director Zev Ac M.D. Brush Maker Dir ford -- -- RUN DATE: 01/02/11 [facility] NMI LIVE PAGE 2 RUN TIME: 1027 Specimen Inquiry RUN USER: INTERFACE -- Name: JULISABRADLEY M [facility]#: [id number] Status: DEP ER Re12/26/10 Age/Sex: 65/F Unit#: [id number] Location: [facility] : 44 -- -- CONTINUED -- COMMENT [...] similar findings. Initial evaluation performed by Lei MCMILLAN([facility]) 12/27/10 Final Interpretation electronically signed by: ZEV AC 01/02/11 1026 -- -- DEPARTMENT OF PATHOLOGY, [address] [place] [address] [facility] Permit #[id number] Keanu Paiz M.D. Director Zev Ac M.D. Brush Maker Dir ford -- 66 A metabolite of Naproxen, O-desmethylnaproxen, has been shown to interfere with the Ferny method for measuring total bilirubin. Samples from patients who have taken Naproxen have shown spurious elevation in total bilirubin levels. 67 Please note updated reference range, effective 03/07/10 68 Recommended INR for Patients on Oral Anticoagulants Prophylaxis 2.0 - 3.0 Treatment of thrombosis 2.0 - 3.0 Prevention of embolism 2.0 - 3.0 Prevention of embolism from prosthetic heart valves 2.5 - 3.5 69 DIAGNOSIS,TREATMENT,AND THERAPY MUST BE BASED ON THE INR VALUE ALONE. 70 INTERPRETATION %CK-MB < 5% NOT SUPPORTIVE OF DIAGNOSIS OF CT 5 - <10% INDETERMINATE; SUGGEST SERIAL STUDIES IF CLINICALLY INDICATED 10% OR > CONSISTENT WITH DIAGNOSIS OF CT . 71 Test Performed by: [facility] Dpt of Lab Med and Pathology [address] [place] [address] Blister Packing Machine Tender: Marcos Alejandro III, M.D. 72 -- REFERENCE VALUE -- 38-176 (>=18 y) NOTE: Strenuous exercise or intramuscular injections may cause transient elevation of CK. 73 MM=93% MACRO TYPE 1=3% 74 Test Performed by: [facility] Dpt of Lab Med and Pathology [address] [place] [address] Blister Packing Machine Tender: Marcos Alejandro III, M.D. 75 THERAPEUTIC TARGET FOR THE TREATMENT OF DIABETES MELLITUS PATIENTS IS <7% HBA1C, AND IN SELECTIVE PATIENTS <6.0%. PLEASE REFER TO [place] [employer] DIABETIC CARE GUIDELINES FOR FURTHER INFORMATION. 76 MICROALBUMINURIA IN A RANDOM SAMPLE IS DEFINED : MICROALBUMIN/CREATININE RATIO OF 30-299 ug/mg. . 77 Anion gap measurement may be of limited value in the presence of any alkalosis, especially in a combined acid base disorder. . 78 A metabolite of Naproxen, O-desmethylnaproxen, has been shown to interfere with the Jendrassik-Ector method for measuring total bilirubin. Samples from patients who have taken Naproxen have shown spurious elevation in total bilirubin levels. 79 Because ethnic data is not always readily [...] 15-29 5 Kidney failure <15 (or dialysis) 80 CHOLESTEROL INTERPRETATION: Desirable: Less than 200 MG/DL Borderline-High Risk: 200-239 MG/DL High-Risk: 240 MG/DL and over 81 HDL INTERPRETATION: Undesirable: High Risk: Less than 40 MG/DL Desirable: Low Risk: Greater than 60 MG/DL 82 LDL INTERPRETATION: Low Risk Optimal Level: LDL Less than 100 MG/DL Near or Above Optimal: LDL 100-129 MG/DL Borderline High Risk: LDL 130-159 MG/DL High Risk: LDL 160-189 MG/DL Very High Risk: LDL Greater than 189 MG/DL 83 THERAPEUTIC TARGET FOR THE TREATMENT OF DIABETES MELLITUS PATIENTS IS <7% HBA1C, AND IN SELECTIVE PATIENTS <6.0%. PLEASE REFER TO [place] [employer] DIABETIC CARE GUIDELINES FOR FURTHER INFORMATION. 84 CHOLESTEROL INTERPRETATION: Desirable: Less than 200 MG/DL Borderline-High Risk: 200-239 MG/DL High-Risk: 240 MG/DL and over 85 HDL INTERPRETATION: Undesirable: High Risk: Less than 40 MG/DL Desirable: Low Risk: Greater than 60 MG/DL 86 LDL INTERPRETATION: Low Risk Optimal Level: LDL Less than 100 MG/DL Near or Above Optimal: LDL 100-129 MG/DL Borderline High Risk: LDL 130-159 MG/DL High Risk: LDL 160-189 MG/DL Very High Risk: LDL Greater than 189 MG/DL 87 Anion gap measurement may be of limited value in the presence of any alkalosis, especially in a combined acid base disorder. . 88 A metabolite of Naproxen, O-desmethylnaproxen, has been shown to interfere with the Jendrassik-Kwame method for measuring total bilirubin. Samples from patients who have taken Naproxen have shown spurious elevation in total bilirubin levels. 89 Because ethnic data is not always readily [...] 15-29 5 Kidney failure <15 (or dialysis) 90 Anion gap measurement may be of limited value in the presence of any alkalosis, especially in a combined acid base disorder. . 91 Note change in reference range as of 04/06/08. The change was based on recommendations from the [place] [employer]. 92 Because ethnic data is not always readily [...] 15-29 5 Kidney failure <15 (or dialysis) 93 A metabolite of Naproxen, O-desmethylnaproxen, has been shown to interfere with the Jendrassik-Ector method for measuring total bilirubin. Samples from patients who have taken Naproxen have shown spurious elevation in total bilirubin levels. 94 UNABLE TO CALCULATE IND.BILI D.BILI IS <0.1 Please note updated reference range, effective 03/07/10 95 Imm. NE 1 96 A metabolite of Naproxen, O-desmethylnaproxen, has been shown to interfere with the Jendrassik-Kwame method for measuring total bilirubin. Samples from patients who have taken Naproxen have shown spurious elevation in total bilirubin levels. 97 Please note updated reference range, effective 03/07/10 98 Anion gap measurement may be of limited value in the presence of any alkalosis, especially in a combined acid base disorder. . 99 Note change in reference range as of 04/06/08. The change was based on recommendations from the [place] [employer]. 100 Please note change in [...] has been shown to interfere with the Jendrassik-Ector method for measuring total bilirubin. Samples from patients who have taken Naproxen have shown spurious elevation in total bilirubin levels. 103 Anion gap measurement may be of limited value in the presence of any alkalosis, especially in a combined acid base disorder. . 104 Note change in reference range as of 04/06/08. The change was based on recommendations from the [place] [employer]. 105 Please note change in reference range effective 08 . 106 Because ethnic data is not always readily [...] 15-29 5 Kidney failure <15 (or dialysis) 107 Anion gap measurement may be of limited value in the presence of any alkalosis, especially in a combined acid base disorder. . 108 Note change in reference range as of 04/06/08. The change was based on recommendations from the [place] [employer]. 109 Please note change in reference range effective 08 . 110 A metabolite of Naproxen, O-desmethylnaproxen, has been shown to interfere with the Jendrassik-Kwame method for measuring total bilirubin. Samples from patients who have taken Naproxen have shown spurious elevation in total bilirubin levels. 111 Because ethnic data is not always readily [...] 15-29 5 Kidney failure <15 (or dialysis) 112 -- REFERENCE VALUE -- <20.0 (Negative) 20.0-39.9 (Weak Positive) 40.0-59.9 (Positive) >=60.0 (Strong Positive) Test Performed by: [facility] Dpt of Lab Med and Pathology [address] [place] [id number] Blister Packing Machine Tender: Marcos Alejandro III, M.D. 113 PLEASE NOTE NEW REFERENCE RANGES. 114 Anion gap measurement may be of limited value in the presence of any alkalosis, especially in a combined acid base disorder. . 115 Note change in reference range as of 04/06/08. The change was based on recommendations from the [place] [employer]. 116 Please note change in reference range effective 08 . 117 Because ethnic data is not always readily [...] 15-29 5 Kidney failure <15 (or dialysis) 118 CHOLESTEROL INTERPRETATION: Desirable: Less than 200 MG/DL Borderline-High Risk: 200-239 MG/DL High-Risk: 240 MG/DL and over 119 HDL INTERPRETATION: Undesirable: High Risk: Less than 40 MG/DL Desirable: Low Risk: Greater than 60 MG/DL 120 LDL INTERPRETATION: Low Risk Optimal Level: LDL Less than 100 MG/DL Near or Above Optimal: LDL 100-129 MG/DL Borderline High Risk: LDL 130-159 MG/DL High Risk: LDL 160-189 MG/DL Very High Risk: LDL Greater than 189 MG/DL 121 Anion gap measurement may be of limited value in the presence of any alkalosis, especially in a combined acid base disorder. . 122 Please note change in reference range effective 08 . 123 THERAPEUTIC TARGET FOR THE TREATMENT OF DIABETES MELLITUS PATIENTS IS <7% HBA1C, AND IN SELECTIVE PATIENTS <6.0%. PLEASE REFER TO CITIZEN OF [place] AND [place] DI[employer]ES [employer] DIABETIC CARE GUIDELINES FOR FURTHER INFORMATION. 124 N^NEGATIVE BY IMMUNOASSAY^CDT 125 FINAL: NO GROWTH DAY 2 (<1,000 CFU/mL) Procedures Date Code Description Status 09/15/2018 [id number] Mammogram Completed 06/24/2018 [id number] Diabetic Retinal Eye Exam Completed 06/10/2018 16132 Arthroscopy,Knee,Meniscectomy Media & Lateral Completed 06/10/2018 13337 Arthroscopy,Knee,Meniscectomy Media & Lateral Completed 06/04/2018 31879 EKG Tracing & Interpretation Completed 04/05/2018 62331 Inject/Drain Joint/Bursa Major W/O US Completed 06/10/2017 90770 ECHO Transthoracic, Real-Time 2D With Doppler And Completed Color Flow 05/05/2017 07921 EKG Tracing & Interpretation Completed 07/08/2016 28995 EKG Tracing & Interpretation Completed 06/18/2016 [id number] Mammogram Completed 03/27/2016 84865 Diffusing Capacity Completed 03/27/2016 20615 Plethysmography Determination Lung Volumes & Per Completed Airway Resist 03/27/2016 90559 Pulmonary Function><Bronchodil Completed 11/29/2015 [id number] Diabetic Retinal Eye Exam Completed 10/19/2015 67493 EKG Tracing & Interpretation Completed 05/30/2015 73200066 Colonoscopy Completed 04/04/2015 [id number] Mammogram Completed 12/26/2014 24508 THR Total Hip Replacement Completed 12/26/2014 13206 THR Total Hip Replacement Completed 12/22/2014 51596 Myocardial Perfusion Imaging Tomographic (Spect) Completed Multiple Studies 12/22/2014 31220 Myocardial Perfusion Imaging Tomographic (Spect) Completed Multiple Studies 12/22/2014 09359 Stress Test Completed 12/20/2014 33359 ECHO Transthoracic, Real-Time 2D With Doppler And Completed Color Flow 12/18/2014 06376 EKG Tracing & Interpretation Completed 12/18/2014 25935 EKG Tracing & Interpretation Completed 08/24/2014 [id number] Diabetic Retinal Eye Exam Completed 02/01/2014 47459930 Mammogram Completed 02/01/2014 [id number] Bone Mineral Density Test Completed 04/27/2013 311224254 Diabetic Retinal Eye Exam Completed 01/31/2013 14461781 Mammogram Completed 10/01/2011 93527728 Colonoscopy Completed 09/11/2011 140983870 Bone Mineral Density Test Completed 09/04/2010 01564757 Mammogram Completed 08/11/2008 32640891 Mammogram Completed 05/18/2006 [id number] Colonoscopy Completed Encounters Type Date Location Provider Dx Diagnosis Office Visit 11/17/2018 Orthopedic Netta Brooks, M25.562 Pain in left knee 10:30a Services Of Owen Bhatia M25.462 Effusion, left knee M17.12 Unilateral primary osteoarthritis, left knee M25.551 Pain in right hip M16.11 Unilateral primary osteoarthritis, right hip Office Visit 06/04/2018 2:30p [employer] Internal Zeny Whiteside, Z01.818 Encounter for other Medicine - MD preprocedural [place] examination E11.65 Type 2 diabetes mellitus with hyperglycemia M25.562 Pain in left knee E11.9 Type 2 diabetes mellitus without complications I10 Essential (primary) hypertension Z23 Encounter for immunization Office Visit 04/26/2018 Orthopedic Netta M17.12 Unilateral primary 1:00p Services Of Jannette Brooks osteoarthritis, left C.M.A. knee M25.462 Effusion, left knee M25.562 Pain in left knee S83.242A Oth tear of medial meniscus, current injury, left knee, init Office Visit 04/05/2018 9:00a [facility]opedic Services Netta Brooks, M25.562 Pain in left Of C.M.A. M.D. knee M25.462 Effusion, left knee M17.12 Unilateral primary osteoarthritis, left knee R26.9 Unspecified abnormalities of gait and mobility Office Visit 03/22/2018 10:30a Orthopedic Brady Aguilar M70.62 Trochanteric Services Of Jannette bursitis, left hip C.M.A. 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 hip Office Visit 06/16/2017 9:10a [facility] Internal Nima Ricketts Z00.01 Encounter for Medicine general [place] adult Jannette,FACP medical exam w abnormal findings E11.9 Type 2 diabetes mellitus without complications I10 Essential (primary) hypertension F33.9 Major depressive disorder, recurrent, unspecified Z23 Encounter for immunization Office Visit 05/05/2017 2:00p [facility] Douglas Frankel I10 Essential Jannette Simon (primary) hypertension E78.4 Other hyperlipidemia I44.7 Left bundle-branch block, unspecified R53.83 Other fatigue Office Visit 12/09/2016 10:10a [facility] Aisha Ricketts E11.9 Type 2 diabetes Raoul Roche M.D.,FACP mellitus without complications I10 Essential (primary) hypertension E78.4 Other hyperlipidemia 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 Office Visit 07/08/2016 3:00p [facility] Douglas Frankel I10 Essential Jannette Simon (primary) hypertension E78.4 Other hyperlipidemia I44.7 Left bundle-branch block, unspecified E66.9 Obesity, unspecified Z68.32 Body mass index (BMI) 32.0-32.9, adult Office Visit 06/10/2016 10:30a [facility] Aisha Ricketts Z00.00 Encntr for Raoul Roche M.D.,FACP general adult medical exam w/o abnormal findings E11.9 Type 2 diabetes mellitus without complications I10 Essential (primary) hypertension F33.9 Major depressive disorder, recurrent, unspecified Z71.89 Other specified counseling Z23 Encounter for immunization Office Visit 02/19/2016 9:10a [facility] Aisha Ricketts J20.9 Acute bronchitis, Raoul Roche M.D.,FACP unspecified E11.9 Type 2 diabetes mellitus without complications Office Visit 11/22/2015 [facility] Internal Pascual Perdue, J00 Acute nasopharyngitis 1:20p Medicine - [place] WHARF ATTENDANT [common cold] Rd Office Visit 10/19/2015 [facility] Douglas Frankel E11.9 Type 2 diabetes 10:20a [facility] [place], mellitus without M.D. complications I10 Essential (primary) hypertension R94.31 Abnormal electrocardiogram [ECG] [EKG] I44.7 Left bundle-branch block, unspecified Office Visit 08/22/2015 9:15a Orthopedic Brady Aguilar, Z96.642 Presence of left Services Of M.D. artificial hip C.M.A. joint Office Visit 07/25/2015 10:00a [facility] Aisha Perdue, F33.9 Major depressive Medicine - [place] WHARF ATTENDANT disorder, Rd recurrent, unspecified Office Visit 05/14/2015 9:15a Orthopedic Brady Aguilar, Z47.1 Aftercare Services Of Jannette following joint C.M.A. replacement surgery Z96.642 Presence of left artificial hip joint Office Visit 04/24/2015 10:30a [facility] Internal Pascual Perdue, 578.9 Hemorrhage Medicine - WHARF ATTENDANT Gastrointestinal Tract [address] Unspec 788.1 Dysuria Office Visit 02/05/2015 10:10a [facility] Internal Nima Ricketts 250.00 Diabetes Mellitus Raoul Roche M.D.,FACP W/O Compl Type II [address] Or Unspec Controlled 401.1 Hypertension Benign 309.9 Adjustment Reaction Unspec Office Visit 12/22/2014 Allen Frankel V72.84 Examination 3:20p Cardiology Jannette Simon Preoperative Unspec 401.1 Hypertension Benign 250.00 Diabetes Mellitus W/O Compl Type II Or Unspec Controlled 272.2 Hyperlipidemia Mixed 715.15 Osteoarthrosis Localized Prim Pelvic & Thigh Office Visit 12/18/2014 Allen Frankel V72.83 Examination 4:00p Cardiology Jannette Simon Preoperative Other Spec 715.15 Osteoarthrosis Localized Prim Pelvic & Thigh 250.00 Diabetes Mellitus W/O Compl Type II Or Unspec Controlled 272.2 Hyperlipidemia Mixed 401.1 Hypertension Benign 794.31 Electrocardiogram (ECG) (EKG) Abnormal Office Visit 12/18/2014 11:00a [facility] Internal Brad Lay, V72.84 Examination Medicine - [place] WHARF ATTENDANT Preoperative Unspec Rd V43.64 Hip Replacement By Other Means 794.31 Electrocardiogram (ECG) (EKG) Abnormal 401.1 Hypertension Benign 272.2 Hyperlipidemia Mixed 250.00 Diabetes Mellitus W/O Compl Type II Or Unspec Controlled 714.0 Rheumatoid Arthritis 715.95 Osteoarthrosis Unspec Genlzd Or Localized Pelvic & Thigh Office Visit 11/22/2014 Orthopedic Brady Aguilar, 715.35 Osteoarthrosis 8:45a Services Of Jannette Rodriguez Not Spec C.M.A. Prime Or 2Ndy Pelvic & Thigh Office Visit 10/02/2014 Orthopedic Naty 716.96 Arthropathy Unspec 3:30p Services Of KRYSTAL Almazan Lower Leg C.M.A. Office Visit 08/03/2014 [facility] Internal Makayla 250.00 Diabetes Mellitus 8:30a Medicine Tara, W/O Compl Type II Or N.P. Unspec Controlled 380.4 Impacted Cerumen 715.15 Osteoarthrosis Localized Prim Pelvic & Thigh v03.82 Streptococcus Pneumoniae Vaccination Spec Other Office Visit 02/15/2014 1:30p Orthopedic Dirk Jeff, 726.71 Bursitis Or Services Of Jannette Tendinitis C.M.A. Achilles 726.64 Tendinitis Patellar 715.15 Osteoarthrosis Localized Prim Pelvic & Thigh Office Visit 01/31/2014 [facility] Internal Makayla Hartbull, 715.15 Osteoarthrosis 10:00a Medicine N.P. Localized Prim Pelvic & Thigh 250.00 Diabetes Mellitus W/O Compl Type II Or Unspec Controlled 726.71 Bursitis Or Tendinitis Achilles Office Visit 10/27/2013 10:00a [facility] Internal Makayla Tara, 250.00 Diabetes Mellitus Medicine N.P. W/O Compl Type II Or Unspec Controlled V82.81 Special Screening For Osteoporosis v06.1 Pjqgokduqh-Ofuoqjb-Ixnbwjnx Combined (DTaP) Office Visit 07/28/2013 10:00a [facility] Internal Makayla Pacheco, 250.00 Diabetes Mellitus Medicine N.P. W/O Compl Type II Or Unspec Controlled Office Visit 05/16/2013 8:30a Adam Ricketts 716.96 Arthropathy Medicine Jannette Roche,FACP Unspec Lower Leg 453.40 Acute Venous Embolism & Thrombosis,Unspec Deep Vessels Lower 724.02 Spinal Stenosis, Lumbar Region, W/O Neurogenic Claudication v04.81 Need For Prophylactic Vaccination & Inoculation/Influenza Office Visit 05/05/2013 11:40a Rheumatology Renato Shen, 714.0 Rheumatoid Services Of Adam Bhatia Arthritis 719.49 Pain Joint Multiple Sites 715.15 Osteoarthrosis Localized Prim Pelvic & Thigh 308.3 Stress Reaction Other Acute Office Visit 04/01/2013 11:40a Rheumatology Renato Shen, 359.89 Myopathies Other Services Of Adam Bhatia 719.49 Pain Joint Multiple Sites 780.79 Malaise And Fatigue Other Office Visit 01/26/2013 8:30a Adam Ricketts V70.0 Examination Medicine Jannette Roche,FACP General Medical Routine AT Health Care Facility 250.00 Diabetes Mellitus W/O Compl Type II Or Unspec Controlled V76.10 Screening For Malignant Neoplasm Breast 715.15 Osteoarthrosis Localized Prim Pelvic & Thigh Office Visit 11/24/2012 8:30a [facility] Nima Ricketts 728.9 Muscle Disorders Raoul Roche M.D.,FACP Unspec 727.40 Cyst Synovial Unspec 719.45 Pain Joint Pelvic Region & Thigh 287.2 Purpuras Nonthrombocytopenic Other 250.00 Diabetes Mellitus W/O Compl Type II Or Unspec Controlled Office Visit 12/31/2011 3:20p [facility] Nima Ricketts V70.0 Examination Medicine Jannette Roche,FACP General Medical Routine AT [facility] Facility 250.00 Diabetes Mellitus W/O Compl Type II Or Unspec Controlled Office Visit 08/27/2011 2:40p [facility] Nima Ricketts 250.00 Diabetes Mellitus Raoul Roche M.D.,FACP W/O Compl Type II Or Unspec Controlled 729.2 Neuralgia Neuritis & Radiculitis Unspec V82.81 Special Screening For Osteoporosis V76.51 Special Screening For Malignant Neoplasms Colon Office Visit 05/27/2011 11:10a DO Not Use [employer] Nima Ricketts 311 Depressive AT Arlyn Roche M.D.,FACP Disorder Not Elsewhere Spec 250.00 Diabetes Mellitus W/O Compl Type II Or Unspec Controlled Office Visit 04/18/2011 10:40a DO Not Use [employer] Nima Ricketts 311 Depressive AT Arlyn Roche M.D.,FACP Disorder Not Elsewhere Spec 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 728.88 Rhabdomyolysis Office Visit 04/01/2011 8:40a DO Not Use [employer] Nima Ricketts 209.21 Malignant AT Arlyn Roche M.D.,FACP Carcinoid Tumor Of The Bronchus And Lung 728.88 Rhabdomyolysis 696.0 Psoriatic Arthropathy Office Visit 02/18/2011 10:40a DO Not Use [employer] Nima Ricketts 466.0 Bronchitis Acute AT Arlyn Roche M.D.,[facility] 729.2 Neuralgia Neuritis & Radiculitis Unspec Office Visit 12/31/2010 2:40p DO Not Use [employer] Nima Ricketts 759.6 Hamartoses Other AT Arlyn Roche M.D.,FACP Not Elsewhere Classified 359.9 Myopathy Unspec Office Visit 12/24/2010 9:40a DO Not Use [employer] Nima Ricketts 518.89 Lung Disease AT Arlyn Roche M.D.,[facility] Other Not Elsewhere Class 359.9 Myopathy Unspec 790.4 Transaminase Or Lactic Acid Dehydrogenase Elevation Nonspec Office Visit 12/19/2010 8:40a Rheumatology Renato Shen, 714.0 Rheumatoid Services Of Adam Bhatia Arthritis 359.9 Myopathy Unspec 443.0 Raynauds Syndrome V58.69 Medications Information Broker (Current) Use Encounter Office Visit 11/28/2010 11:00a DO Not Use [employer] Nima Ricketts 250.00 Diabetes Mellitus AT Arlyn Roche M.D.,[facility] W/O Compl Type II Or Unspec Controlled 714.0 Rheumatoid Arthritis 786.09 Dyspnea & Respiratory Abnormalities Other 401.1 Hypertension Benign Office Visit 10/09/2010 10:00a Rheumatology Renato Shen, 714.0 Rheumatoid Services Of Adam Bhatia Arthritis 715.91 Osteoarthrosis Unspec Genlzd Or Localized Shoulder V58.69 Medications Senior Care (Current) Use Encounter Office Visit 08/23/2010 3:00p DO Not Use [employer] iNma Ricketts V70.0 Examination AT Arlyn Roche M.D.,[facility] General Medical Routine AT Health Care Facility 401.1 Hypertension Benign V76.10 Screening For Malignant Neoplasm Breast 250.00 Diabetes Mellitus W/O Compl Type II Or Unspec Controlled 696.0 Psoriatic Arthropathy 272.2 Hyperlipidemia Mixed 786.09 Dyspnea & Respiratory Abnormalities Other V03.82 Streptococcus Pneumoniae Vaccination Spec Other Office Visit 08/08/2009 11:40a DO Not Use [employer] AT Nima Roche, 786.2 Cough [place],[facility] 696.0 Psoriatic Arthropathy Office Visit 07/19/2009 8:30a DO Not Use Wood Model Builder Marie Murrieta PA 729.1 Myalgia & AT [facility] Myositis Unspec 719.49 Pain Joint Multiple Sites 729.82 Cramp Of Limb Office Visit 05/07/2009 11:40a DO Not Use [employer] AT Nima Roche, 717.6 Loose Body In Arlyn Bhatia,[facility] Knee 840.4 Sprains & Strains Rotator Cuff (Capsule) Office Visit 01/04/2009 3:40p DO Not Use Wood Model [employer] Thananart, 569.42 Pain Anal Or AT Arlyn Perez M.D. Rectal Office Visit 11/02/2008 9:00a DO Not Use Wood Model [employer] Thanana, 465.9 URI Upper AT Arlyn Perez M.D. Respiratory Infections Acute Unspec Sites Office Visit 02/28/2008 3:20p DO Not Use [employer] Nima Ricketts 361.30 Retinal Defect AT Arlyn Roche M.D.,FACP Unspec 401.1 Hypertension Benign 790.21 Impaired Fasting Glucose Office Visit 08/18/2007 4:00p DO Not Use [employer] Nima Ricketts 401.1 Hypertension AT Arlyn Roche M.D.,FACP Benign 272.2 Hyperlipidemia Mixed 790.6 Abnormal Blood Chemistry Other 701.1 Keratoderma Acquired Plan of Treatment Future Appointment(s):12/29/2018 9:45 am - Netta Brooks M.D. at [facility].12/16/2018 8:00 am - Netta Brooks M.D. at [facility]02/23/2019 10:00 am - JOSE Vasquez at [facility] Internal Xrvkdsgx59/24/2019 - Kenia Storey RPA-CE11.9 Type 2 diabetes mellitus without dtanzckkemlthL11.12 Unilateral primary osteoarthritis, left kneeI10 Essential (primary) gdtfadpgyqdcK87.5 Hyperlipidemia, adaihsftlmbU01.7 Left bundle-branch block, qydlnsmqovlF73.31 Abnormal electrocardiogram [ECG] [EKG] M06.9 Rheumatoid arthritis, unspecified
--- OUTSIDE RECORDS SUMMARY | 2018-12-16 07:13 | XMS REPORT | Continuity of Care Document ---
:1945 External Reference #:[id number] Author Name Ld Shayy Care Team Providers Name Role Phone Zeny Whiteside M.D. Primary Care Physician Unavailable Payers Date Identification Numbers Payment Provider Subscriber Policy Number: [id number] Medicare Bradley Egan PayID: [id number] [address] [facility] [address] Effective: 2012 Policy Number: [id number] Medicare Bradley Egan Expires: 2018 PayID: [id number] [address] [place] [address] Effective: 2011 Policy Number: [id number] 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 2ppd at 12/03/18 smoker the end of 12 years. Exercise Type/Frequency Exercises rarely due to hip Allergies, Adverse Reactions, Alerts Description No Known Drug Allergies Medications Active Medications SIG Qnty Indications Ordering Provider Date Amoxicillin 4 tablets 1 hour 12caps Z47.1 Brady Aguilar M.D. 06/16/2018 500mg before dental Capsules work Aspirin take 1 by mouth 28tabs Netta Brooks, 06/09/[address] twice a day for M.D. two weeks Shingrix 2 doses 6 month 2units Z23 Truong Messer, 03/10/2018 50mcg Suspension apart CAR PARKER Rec Metformin HCL 1 by mouth every [...] Roche, 08/30/2008 10mg Tablets mouth once daily Jannette,FACP E11.9 Vitamin B daily Unknown Vitamin D [...] - Capsules DR day for 4 doses Pelham, 07/09/2016 (pt is done) MAYELA Bhatia Proair [...] Perdue, 05/25/2015 - 150mg morning, 1 at [employer] 06/10/2016 Tablets ER 12HR noon Amoxicillin 4 [...] Ricketts 02/18/2011 - 500mg Tablets 7 days Pelham, 04/01/2011 Jannette,FACP Diclofenac Sodium DR 1 tab by mouth 180tabs Renato Shen, 10/09/2010 - 75mg twice a day Aracely.DSarah 04/01/[address] Methotrexate 4 q week [...] Nima Ricketts 08/08/2009 - Solution prn cough Pelham, 08/23/2010 Jannette,FACP Prednisone 3 po qd for 2wks, 90tabs Nima Ricketts 07/27/2009 - 10mg Tablets then 2 qd Pelham, 08/08/2009 Janentte,FACP Anusol-HC apply to affected 1tube 569.42 Sudhir, 01/04/2009 - 2.5% Cream area bid x 7 days Jannette Perez 05/07/2009 Tahmina Leon 1-2 po tid prn 30caps 465.9 Thananart, 11/02/2008 - 100mg Jannette Perez 05/07/2009 Capsules Zithromax Z-Tevin take as directed 1Pak 465.9 Thananart, 11/02/2008 - 250mg Jannette Perez 05/07/2009 Tablets Urea topical qd 60units 701.1 Nima Ricketts 08/18/2007 - 40% Cream Pelham, 11/24/2012 M.D.,FACP Glucosamine-Chondroiti bid PO Nima Ricketts 08/18/2007 - n Pelham, 12/18/2010 500-400 Capsules M.D.,FACP Fish Oil 1 PO qpm Nima Ricketts 08/18/2007 - 1000mg Capsules Pelham, 02/18/2011 M.D.,FACP Aspirin 2 PO qd Nima Ricketts 08/18/2007 - 325mg Tablets Pelham, 10/09/2010 M.D.,FACP Triamterene/Hydrochlor 1 PO qam 30caps Nima Ricketts - othiazide Pelham, 02/28/2008 37.5-25 M.D.,FACP Capsules Lidex apply topically 60mg 250.00 Nima Ricketts - 0.05% Gel once daily as Pelham, 01/26/2013 needed M.D.,FACP Aspirin 2 po qd [...] CPT Code Status Date Vaccine Lot # 75632 Given 07/13/2018 Zoster (Shingles) Vaccine (HZV), Recombinant, Subunit, Adjuvanted 93250 Given 06/04/2018 Fluzone High Dose [id number] 31806 Given 06/16/2017 Influenza Virus Vaccine, Quadrivalent, Split, [id number] Preservative Free 13904 Given 06/10/2016 Influ Virus Vaccine, Quadrivalent, Split Virus, [place] [id number] [address] Given 06/10/2016 Hepatitis A Vaccine Adult Dosage [id number] 08265 Given 05/25/2015 Influenza Virus Vaccine, Quadrivalent, Split, [id number] Preservative Free 55996 Given 08/03/2014 Pneumococcal Conjugate Vaccine 13 Valent For [id number] Intramuscular Use 51654 Given 04/17/2014 Flu Vaccine Split Virus Preservative Free For Indiv 3Yr Older 42849 Given 10/27/2013 Tdap - Tetanus/Diptheria/Acellular Pertussis [id number] 05541 Given 05/16/2013 Flu Vaccine Split Virus Preservative Free For [id number] Indiv 3Yr Older 09306 Given 05/26/2011 Influenza Virus 3Yrs & Over 79492 Given 08/23/2010 Pneumonia Vaccine [id number] 75425 Given 05/26/2010 Influenza Virus 3Yrs & Over 05538 Given 03/22/2008 Zoster (Zostavax) 96291 Given 03/22/2008 Zoster (Zostavax) [id number] Vital Signs Date Vital Result Comment 12/03/2018 8:06am Height 67 inches 5'7" Weight [...] Test Result H/L Range Note Laboratory test 08/26/2018 [facility] Hemoglobin A1c 6.2 5-7 finding Urine Microalbumin 08/18/2018 [facility] Ur Microalbumin 18.6 [address] (mg/L) [place] [address] [phone] Urine Creatinine 164.23 mg/dL Urine Microalbumin/Creatinine 11.3 N <31 Laboratory test 06/10/2018 [facility] Point of 131 mg/dL High 70-100 [address] [place] [address] [phone] CBC Auto Diff 06/04/2018 [facility] White Blood 7.8 N 3.5- 10.[address] Count 10^3/[place] [address] [phone] Red Blood Count 4.25 10^6/uL N 4.00-5.40 [...] Red Blood Cells % 0 Inr/Protime 06/04/2018 [facility] Inr 0.92 N 0.77-1.[address] [place] [address] [phone] Laboratory test 06/04/2018 [facility] Partial 30.3 seconds N 26.0-36.[address] [place] [address] [phone] Basic Metabolic 06/04/2018 [facility] Sodium 140 mmol/L N 135- [address] [place] [address] [phone] Potassium 4.5 mmol/L N 3.5-5.0 Chloride 106 mmol/L N 101-111 Co2 Carbon Dioxide 29 mmol/L N 22-32 Anion Gap 5 mmol/L N 2-11 Glucose 117 mg/dL High 70-100 Blood Urea Nitrogen 21 mg/dL N 6-24 Creatinine 0.96 mg/dL High 0.51-0.95 BUN/Creatinine Ratio 21.9 High 8-20 Calcium 9.5 mg/dL N 8.6-10.3 Egfr Non- 57.0 >60 Egfr 68.9 >60 3 Laboratory test 04/05/2018 [facility] Lyme Disease Negative Negative [address] [place] [address] [phone] Laboratory test 03/10/2018 [facility] Hemoglobin A1c 6.4 5-7 finding Laboratory test 12/09/2017 [facility] Hemoglobin A1c 6.8 5-7 finding Lipid Profile 11/19/2017 [facility] Triglycerides 99 mg/dL 5 (Trig/Chol/HDL) [address] [place] [address] [phone] Cholesterol 148 mg/dL 6 HDL Cholesterol 61.0 mg/dL 7 LDL Cholesterol 67 mg/dL 8 Basic Metabolic Panel 11/19/2017 [facility] Sodium 139 mmol/L N 139-[address] [place] [address] [phone] Potassium 4.6 mmol/L N 3.5-5.0 Chloride 106 mmol/L N 101-111 Co2 Carbon Dioxide 26 mmol/L N 22-32 Anion Gap 7 mmol/L N 2-11 Glucose 160 mg/dL High 70-100 Blood Urea Nitrogen 17 mg/dL N 6-24 Creatinine 0.99 mg/dL High 0.51-0.95 BUN/Creatinine Ratio 17.2 N 8-20 Calcium 9.2 mg/dL N 8.6-10.3 Egfr Non- 55.1 >60 Egfr 70.9 >60 9 Urine Microalbumin 06/16/2017 [facility] Ur Microalbumin < 15.[address] (mg/L) mg/[place] [address] [phone] Urine Creatinine 46.87 mg/dL N Urine Microalbumin/Creatinine TNP ug/mg N <31 10 Laboratory test 06/16/2017 [facility] In House Hemoglobin A1c 6.8 5-7 finding Lipid Profile 12/05/2016 [facility] Triglycerides 97 mg/dL N 11 (Trig/Chol/HDL) [address] [place] [address] [phone] Cholesterol 137 mg/dL N 12 HDL Cholesterol 56.2 mg/dL N 13 LDL Cholesterol 61 mg/dL N 14 Comp Metabolic Panel 12/05/2016 [facility] Sodium 138 mmol/L N 133-[address] [place] [address] [phone] Potassium 4.3 mmol/L N 3.5-5.0 Chloride 107 [...] 78.4 N >60 15 Laboratory test 12/05/2016 [facility] Hemoglobin A1c 6.7 % High Less [address] (Glyco HGB) than 6.0 [place] [address] [phone] Lipid Profile 03/07/2016 [facility] Triglycerides 114 N 17 (Trig/Chol/HDL) [address] mg/[place] [address] [phone] Cholesterol 200 mg/dL N 18 HDL Cholesterol 47.7 mg/dL N 19 LDL Cholesterol 130 mg/dL N 20 Laboratory test 03/07/2016 [facility] Hemoglobin A1c 6.7 % High Less [address] (Glyco HGB) than 6.0 [place] [address] [phone] Urine 03/07/2016 [facility] Urine 181.71 N Microalbumin [address] Creatinine mg/[place] [address] [phone] Ur Microalbumin (mg/L) 22.2 mg/L N Urine Microalbumin/Creatinine 12.2 ug/mg N <31 Basic Metabolic Panel 03/07/2016 [facility] Sodium 139 mmol/L N 133-[address] [place] [address] [phone] Potassium 5.0 mmol/L N 3.5-5.0 Chloride 105 mmol/L N 101-111 Co2 Carbon Dioxide 27 mmol/L N 22-32 Anion Gap 7 mmol/L N 2-11 Glucose 149 mg/dL High 70-100 Blood Urea Nitrogen 16 mg/dL N 6-24 Creatinine 0.98 mg/dL High 0.51-0.95 BUN/Creatinine Ratio 16.3 N 8-20 Calcium 9.1 mg/dL N 8.6-10.3 Egfr Non- 55.9 N >60 Egfr 71.9 N >60 22 Laboratory test 11/22/2015 [facility] Rapid Group A neg finding Strep Laboratory test 05/30/2015 [facility] Surgical SEE RESULT [address] [place] [address] [phone] CBC Auto Diff 04/24/2015 [facility] White Blood 10.2 10^3/uL N 4.8-10. [address] Count 8 [place] [address] [phone] Red Blood Count 4.80 10^6/uL N 4.0-5.4 [...] % 0.1 N Comp Metabolic Panel 04/24/2015 [facility] Sodium 136 mmol/L N 133-[address] [place] [address] [phone] Potassium 4.0 mmol/L N 3.5-5.0 Chloride 102 [...] N >60 24 Laboratory test finding 04/24/2015 [facility] Amylase 21 U/L Low 29-[address] [place] [address] [phone] Lipase 26 U/L N 11.0-82.0 Alkaline Phosphatase 70 U/L N 34-104 Inr/Protime 04/24/2015 [facility] Inr 0.98 N 0.78-1.[address] [place] [address] [phone] Ua Routine 04/24/2015 [facility] Ua Specific [place] 1.030 Ua PH 7 Ua Color dark yellow Ua Appera clear Ua WBC neg Ua Protein neg Ua Glucose neg Ua Ketones neg Ua Bilirubin +++ Ua Urobilinogen normal Ua Nitrite positive Ua Occult Blood trace Urine Microalbumin 02/20/2015 [facility] Ur Microalbumin 17.0 mg /L N [address] (mg/L) [place] [address] [phone] Urine Creatinine 146.47 mg/dL N Urine Microalbumin/Creatinine 11.6 ug/mg N <31 Laboratory test 02/20/2015 [facility] Hemoglobin A1c 5.6 % N Less than [address] (Glyco HGB) 6.0 [place] [address] [phone] Lipid Profile 02/20/2015 [facility] Triglycerides 114 N 27 (Trig/Chol/HDL) [address] mg/[place] [address] [phone] Cholesterol 189 mg/dL N 28 HDL Cholesterol 55.4 mg/dL N 29 LDL Cholesterol 111 mg/dL N 30 Basic Metabolic Panel 02/20/2015 [facility] Sodium 137 mmol/L N 133-[address] [place] [address] [phone] Potassium 4.5 mmol/L N 3.5-5.0 Chloride 106 mmol/L N 101-111 Co2 Carbon Dioxide 25 mmol/L N 22-32 Anion Gap 6 mmol/L N 2-11 Glucose 133 mg/dL High 70-100 Blood Urea Nitrogen 12 mg/dL N 6-24 Creatinine 0.77 mg/dL N 0.51-0.95 BUN/Creatinine Ratio 15.6 N 8-20 Calcium 8.9 mg/dL N 8.6-10.3 Egfr Non- 74.1 N >60 Egfr 95.3 N >60 31 CBC No Diff 12/19/2014 [facility] White Blood 7.3 10^3/uL N 4.8-10.[address] [place] [address] [phone] Red Blood Count 4.56 10^6/uL N 4.0-5.4 Hemoglobin 13.8 g/dL N 12.0-16.0 Hematocrit 40 % N 35-47 Mean Corpuscular Volume 88 fL N 80-97 Mean Corpuscular Hemoglobin 30 pg N 27-31 Mean Corpuscular HGB Conc 34 g/dL N 31-36 Red Cell Distribution Width 13 % N 10.5-15 Platelet Count 278 10^3/uL N 150-450 Mean Platelet Volume 9 um3 N 7.4-10.4 Inr/Protime 12/19/2014 [facility] Inr 0.97 N 0.78-1.07 [address] [place] [address] [phone] Basic Metabolic 12/19/2014 [facility] Sodium 136 mmol/L N 133- [address] [place] [address] [phone] Potassium 4.2 mmol/L N 3.5-5.0 Chloride 103 mmol/L N 101-111 Co2 Carbon Dioxide 26 mmol/L N 22-32 Anion Gap 7 mmol/L N 2-11 Glucose 131 mg/dL High 70-100 Blood Urea Nitrogen 17 mg/dL N 6-24 Creatinine 0.91 mg/dL N 0.51-0.95 BUN/Creatinine Ratio 18.7 N 8-20 Calcium 9.1 mg/dL N 8.6-10.3 Egfr Non- 61.1 N >60 Egfr 78.6 N >60 33 Type & Screen 12/19/2014 [facility] Patient Blood Type O Positive N [address] [place] [address] [phone] Antibody Screen NEGATIVE N Urinalysis Profile 12/19/2014 [facility] Urine Color Yellow N [address] [place] [address] [phone] Urine Appearance Cloudy N Urine Specific [place] 1.023 N 1.010-1.030 Urine pH 5.0 N [...] Urine Squamous Epithelial Cell Present Abnormal Absent Urine Culture And 12/19/2014 [facility] Urine Culture (SEE NOTE ) 34 Sensitivities [address] [place] [address] [phone] Laboratory test 08/03/2014 [facility] Hemoglobin A1c 6.0 5-7 finding Urine Microalbumin 01/31/2014 [facility] Ur Microalbumin 5.0 mg/ dL N <30 35 Random [address] [facility] (mg/L) [place] [address] [phone] Urine Creatinine 69.03 mg/dL N Urine Microalbumin/Creatinine 7.2 N Less Than 31 Lipid Profile 10/28/2013 [facility] Triglycerides 83 mg/dL 36 (Trig/Chol/HDL) [address] [place] [address] [phone] Cholesterol 185 mg/dL 37 HDL Cholesterol 52.2 mg/dL 38 LDL Cholesterol 116 mg/dL 39 Comp Metabolic Panel 10/28/2013 [facility] Sodium 140 mmol/L 133-145 [address] [place] [address] [phone] Potassium 5.0 mmol/L 3.7-5.6 Chloride 105 mmol/L [...] Egfr Non- 61.5 >60 Egfr 79.1 >60 40 Lipid Panel - 10/28/2013 [facility] Creatine 152 U/L 10-223 41 J[address] [place] [address] [phone] Laboratory 10/27/2013 [facility] Hemoglobin 6.0 5-7 test finding A1c Laboratory 07/28/2013 [facility] Hemoglobin 6.2 5-7 test finding A1c Laboratory 05/16/2013 [facility] Lyme Disease Negative Negative 42 test finding [address] [place] [address] [phone] Laboratory 04/01/2013 [facility] Rheumatoid 47 IU/mL Abnormal <15 43 test finding [address] [place] [address] [phone] Cyclic Citrullinated Pept IgG <15.6 U 44 Manuel Screen Negative Negative 45 Erythrocyte Sed Rate 24 mm/Hr 0-40 Hepatitis 04/01/2013 [facility] Hepatitis C Nonreactive Nonreactive Acute Panel [address] [place] [address] [phone] Hepatitis A AB IgM Nonreactive Nonreactive Hepatitis B Core IgM Nonreactive Nonreactive Hepatitis B Surface Antigen Nonreactive Nonreactive Laboratory test 04/01/2013 [facility] Creatine Kinase 242 U/L High 0-200 finding [address] [place] [address] [phone] Ariane (Anti-Nuclear AB) Screen Negative Negative 46 Comp Metabolic Panel 04/01/2013 [facility] Sodium 140 mmol/L 133-145 [address] [place] [address] [phone] Potassium 4.7 mmol/L 3.5-5.0 Chloride 105 mmol/L [...] Egfr Non- 62.3 >60 Egfr 80.1 >60 47 CBC Auto Diff 04/01/2013 [facility] White Blood 8.4 10^3/uL 4.8-10.[address] Count [place], [place] [phone] [phone] Red Blood Count 4.33 10^6/uL 4.0-5.4 Hemoglobin [...] 0-2 Nucleated Red Blood Cells % 0 Lipid Profile 11/20/2012 [facility] Triglycerides 93 mg/dL 40 -200 (Trig/Chol/HDL) [address] [place] [address] [phone] Cholesterol 214 mg/dL High Less than 200 HDL Cholesterol 61 mg/dL High 40-60 48 Cholesterol/HDL Ratio 3.5 Average 1-4.44 LDL Cholesterol 134.4 mg/dL High Less Than 100 49 Comp Metabolic Panel 11/20/2012 [facility] Sodium 136 mmol/L 133-[address] [place] [address] [phone] Potassium 4.5 mmol/L 3.5-5.0 Chloride 104 mmol/L [...] Non- 62.5 >60 Egfr 80.3 >60 50 Laboratory test 11/20/2012 [facility] Hemoglobin A1c 5.9 % Less [address] than 6.0 [place] [address] [phone] Urine 11/20/2012 [facility] Ur Microalbumin 7.0 mg/L [address] (Mg/L) [place] [address] [phone] Urine Creatinine 163.1 mg/dL Urine Microalbumin/Creatinine 4.3 ug/mg Less Than 31 Laboratory test 11/20/2012 [facility] Creatine Kinase 272 U/L High 0-[address] [place] [address] [phone] LDH 189 U/L High 95-185 Lipid Profile 11/21/2011 [facility] Triglyceride 99 mg/dL 40- 200 (Trig/Chol/HDL) [address] [place] [address] [phone] Cholesterol 203 mg/dL High Less Than 200 53 High Density Lipoprotein 58 mg/dL 40-60 54 Cholesterol/HDL Ratio 3.50 AVERAGE 1-4.44 Low Density Lipoprotein 125 mg/dL High Less Than 100 55 Comp Metabolic Panel 11/21/2011 [facility] Sodium 136 mmol/L 135-[address] [place] [address] [phone] Potassium 4.8 mmol/L 3.5-5.0 Chloride 104 mmol/L 101-111 Co2 (Carbon Dioxide) 29.0 mmol/L 22-32 Anion Gap 3.0 mmol/L 2-11 56 Glucose 131 mg/dL High 70-100 BUN 14 mg/dL 6-24 Creatinine 0.9 mg/dL 0.50-1.40 One Over Creatinine 1.11 BUN/Creatinine Ratio 15.6 8-20 Calcium 8.9 mg/dL 8.1-9.9 Total Protein 6.3 GM/DL 6.2-8.1 Albumin 4.0 GM/DL 3.2-5.2 Globulin 2.3 GM/DL 2-4 Albumin/Globulin Ratio 1.7 1-3 Bilirubin Total 0.6 mg/dL 0.4-1.5 57 Alkaline Phosphatase 65 U/L 30-110 Alt (SGPT) 56 U/L High 14-54 Ast (Sgot) 33 U/L 12-42 eGFR Non- 62.6 > 60 eGFR 80.6 > 60 58 Laboratory test 11/21/2011 [facility] CPK (Creatine 350 U/L High 0-[address] Kinase) [place] [address] [phone] Hemoglobin A1c 6.2 % High Less Than 6.0 59 Urine Microalbumin 11/21/2011 [facility] Microalbumin (MG/L) 8.0 mg/L Random [address] [place] [address] [phone] Urine Creatinine 155.2 mg/dL Arik Alb/Creatinine Ratio 5.2 UG/MG Less Than 30 60 Laboratory test 08/27/2011 [facility] Hemoglobin A1c 5.8 5-7 finding Laboratory test 04/01/2011 [facility] CPK (Creatine 175 U/L High 0-[address] Kinase) [place] [address] [phone] CBC With Manual 04/01/2011 [facility] White Blood Count 9.3 CUMM 4.8-10.[address] [place] [address] [phone] Red Cell Count 3.92 CUMM Low 4.2-5.4 [...] (SEE NOTE) 61 Comp Metabolic Panel 04/01/2011 [facility] Sodium 138 mmol/L 135-[address] [place] [address] [phone] Potassium 4.5 mmol/L 3.5-5.0 Chloride 102 mmol/L [...] > 60 64 CBC Auto Diff 04/01/2011 [facility] White Blood 9.3 CUMM 4.8- 10.[address] [place] [address] [phone] Red Cell Count 3.92 CUMM Low 4.2-5.4 [...] 0-0.6 Abs Basophils 0 0-0.2 Cytology 12/26/2010 [facility] Cytology Non 65 Non-Button Puncher [address] Button Puncher <SEE NOTE> [place] [address] [phone] Protime 12/24/2010 [facility] Inr 0.97 0.[address] -1.1 [place] [address] [phone] Protime 11.4 SEC 10.2-14.8 67 Laboratory test 12/24/2010 [facility] PTT (Aptt) 29.4 25.15- 38.[address] [place], [place] [address] [phone] CBC Auto Diff 12/24/2010 [facility] White Blood 7.1 CUMM 4.8- 10.[address] Count [place], [place] [address]850 [phone] Red Cell Count 4.21 CUMM 4.2-5.4 Hemoglobin [...] 0-0.6 Abs Basophils 0 0-0.2 Liver Function 12/24/2010 [facility] Total Protein 7.0 GM/DL 6.2-8.[address] [place] [address] [phone] Albumin 4.4 GM/DL 3.2-5.2 Globulin 2.6 GM/DL 2-4 Albumin/Globulin Ratio 1.7 1-3 Bilirubin Total 0.9 mg/dL 0.4-1.5 68 Bilirubin Direct 0.1 mg/dL 0.1-0.5 Indirect Bilirubin 0.8 mg/dL 0.3-1.0 69 Alkaline Phosphatase 57 U/L 30-110 Alt (SGPT) 82 U/L High 14-54 Ast (Sgot) 44 U/L High 12-42 Laboratory test 12/24/2010 [facility] CPK (Creatine 536 U/L High 0-[address] Kinase) [place] [address] [phone] [facility] CKMB In NG/ML 20.0 High 0.3-4.[address] NG/[place] [address] [phone] % CKMB 4 %MB 0-9 [address] [facility] CPK (Creatine 500 U/L High 0-[address] Kinase) [place] [address] [phone] [facility] Creatine 489 U/L Abnormal 38-[address] Kinase (CK) [place], [place] [id number] [phone] Total CK 489 U/L Abnormal () 72 mm Fraction . % 100 73 MB Fraction 4 % Abnormal 0 BB Fraction 0 % 0 74 Laboratory test 12/04/2010 [facility] Hemoglobin A1c 6.2 % High Less [address] Than 6.0 [place], [place] 217[address]26 [phone] Urine 12/04/2010 [facility] Microalbumin 8.[address] (MG/L) mg/L Random [place], [place] [address] [phone] Urine Creatinine 198.78 mg/dL Arik Alb/Creatinine Ratio 4.0 UG/MG Less Than 30 76 Lipid Panel - 12/04/2010 [facility] CPK (Creatine 491 U/L High 0-[address] Kinase) [place], [place] [id number] [phone] Comp Metabolic 12/04/2010 [facility] Sodium 139 135-[address] mmol/L [place], [place] [address] [phone] Potassium 4.6 mmol/L 3.5-5.0 Chloride 107 mmol/L [...] 92.6 > 60 79 Lipid Profile 12/04/2010 [facility] Triglyceride 132 mg/dL 40 -200 (Trig/Chol/HDL) [address] [place] [address] [phone] Cholesterol 232 mg/dL High Less Than 200 80 High Density Lipoprotein 53 mg/dL 40-60 81 Cholesterol/HDL Ratio 4.38 AVERAGE 1-4.44 Low Density Lipoprotein 153 mg/dL High Less Than 100 82 CBC Auto Diff 12/04/2010 [facility] White Blood 5.9 CUMM 4.8- 10.[address] [place] [address] [phone] Red Cell Count 4.12 CUMM Low 4.2-5.4 [...] Eosinophils 0.2 0-0.6 Abs Basophils 0 0-0.2 Lipid Panel - 08/23/2010 [facility] CPK (Creatine 376 U/L High 0-[address] Kinase) [place] [address] [phone] Comp Metabolic 08/23/2010 [facility] Sodium 137 135-[address] mmol/[place] [address] [phone] Potassium 4.4 mmol/L 3.5-5.0 Chloride 105 mmol/L 101-111 Co2 (Carbon Dioxide) 27.0 mmol/L 22-32 Anion Gap 5.0 mmol/L 2-11 83 Glucose 138 mg/dL High 70-100 BUN 11 mg/dL 6-24 Creatinine 0.90 mg/dL 0.50-1.40 One Over Creatinine 1.10 BUN/Creatinine Ratio 12.2 8-20 Calcium 8.9 mg/dL 8.1-9.9 Total Protein 5.9 GM/DL Low 6.2-8.1 Albumin 3.8 GM/DL 3.2-5.2 Globulin 2.1 GM/DL 2-4 Albumin/Globulin Ratio 1.8 1-3 Bilirubin Total 0.8 mg/dL 0.4-1.5 84 Alkaline Phosphatase 58 U/L 30-110 Alt (SGPT) 46 U/L 14-54 Ast (Sgot) 28 U/L 12-42 eGFR Non- 66.8 > 60 eGFR 80.8 > 60 85 Lipid Profile 08/23/2010 [facility] Triglyceride 106 mg/dL 40 -200 (Trig/Chol/HDL) [address] [place] [address] [phone] Cholesterol 197 mg/dL Less Than 200 86 High Density Lipoprotein 52 mg/dL 40-60 87 Cholesterol/HDL Ratio 3.79 AVERAGE 1-4.44 Low Density Lipoprotein 124 mg/dL High Less Than 100 88 Laboratory test 08/23/2010 [facility] Hemoglobin A1c 6.3 % High Less Than [address] 6.0 [place] [address] [phone] Basic Metabolic 05/22/2010 [facility] Sodium 138 135-[address] mmol/[place] [address] [phone] Potassium 4.0 mmol/L 3.5-5.0 Chloride 104 mmol/L 101-111 Co2 (Carbon Dioxide) 26.0 mmol/L 22-32 Anion Gap 8.0 mmol/L 2-11 90 Glucose 129 mg/dL High 70-100 91 BUN 15 mg/dL 6-24 Creatinine 0.90 mg/dL 0.50-1.40 One Over Creatinine 1.10 BUN/Creatinine Ratio 16.7 8-20 Calcium 9.0 mg/dL 8.1-9.9 eGFR Non- 66.8 > 60 eGFR 80.8 > 60 92 Liver Function 05/22/2010 [facility] Total Protein 5.8 GM/DL Low 6.2-8.[address] [place] [address] [phone] Albumin 4.0 GM/DL 3.2-5.2 Globulin 1.8 GM/DL Low 2-4 Albumin/Globulin Ratio 2.2 1-3 Bilirubin Total 0.7 mg/dL 0.4-1.5 93 Bilirubin Direct 0.0 mg/dL Low 0.1-0.5 Indirect Bilirubin (SEE NOTE) mg/dL 0.3-1.0 94 Alkaline Phosphatase 52 U/L 30-110 Alt (SGPT) 57 U/L High 14-54 Ast (Sgot) 34 U/L 12-42 Laboratory test 05/22/2010 [facility] C Reactive 1.0 mg/dL High Less Than finding [address] Protein 0.5 [place] [address] [phone] CBC With 05/22/2010 [facility] White Blood 7.9 CUMM 4.8-10.8 Electronic Diff [address] [place] [address] [phone] Red Cell Count 4.18 CUMM Low 4.2-5.4 Hemoglobin 13.5 g/dL 12.0-16.0 Hematocrit 38 % 35-47 Mean Corpuscular Volume 92 um3 79-97 Mean Corpuscular Hemoglob 32 pg High 27-31 Mean Corpuscular HGB Cone 35 g/dL 32-36 Redcell Distribution WDTH 12 % 10.5-15 Platelet Count 272 CUMM 150-450 Mean Platelet Volume 8.1 um3 7.4-10.4 Manual Differential 05/22/2010 [facility] Polysegmented 49 % 38-[address] [place] [address] [phone] Band Neutrophil 1 % 0-8 Lymphocyte 38 % 25-47 Monocyte 11 % 0-13 Eosinophil 1 % 0-6 Absolute Neutrophil Count 3.9 RBC Morphology NORMAL Laboratory test 05/22/2010 [facility] Erythrocyte Sed 9 MM/HR 0-[address] [place] [address] [phone] Basic Metabolic 03/15/2010 [facility] Sodium 139 mmol/L 135- [address] [place] [address] [phone] Potassium 4.3 mmol/L 3.5-5.0 Chloride 104 mmol/L 101-111 Co2 (Carbon Dioxide) 28.0 mmol/L 22-32 Anion Gap 7.0 mmol/L 2-11 95 Glucose 123 mg/dL High 70-100 96 BUN 13 mg/dL 6-24 Creatinine 0.90 mg/dL 0.50-1.40 One Over Creatinine 1.10 BUN/Creatinine Ratio 14.4 8-20 Calcium 9.1 mg/dL 8.1-9.9 97 eGFR Non- 66.8 > 60 eGFR 80.8 > 60 98 Liver Function 03/15/2010 [facility] Total Protein 6.4 GM/DL 6.2-8.[address] [place] [address] [phone] Albumin 4.0 GM/DL 3.2-5.2 Globulin 2.4 GM/DL 2-4 Albumin/Globulin Ratio 1.7 1-3 Bilirubin Total 0.6 mg/dL 0.4-1.5 99 Bilirubin Direct 0.1 mg/dL 0.1-0.5 Indirect Bilirubin 0.5 mg/dL 0.3-1.0 100 Alkaline Phosphatase 57 U/L 30-110 Alt (SGPT) 53 U/L 14-54 Ast (Sgot) 32 U/L 12-42 Laboratory test 03/15/2010 [facility] C Reactive 0.8 mg/dL High Less Than finding [address] Protein 0.5 [place] [address] [phone] CBC With 03/15/2010 [facility] White Blood 8.3 CUMM 4.8-10.8 Electronic Diff [address] [place] [address] [phone] Red Cell Count 4.09 CUMM Low 4.2-5.4 Hemoglobin 13.1 g/dL 12.0-16.0 Hematocrit 37 % 35-47 Mean Corpuscular Volume 91 um3 79-97 Mean Corpuscular Hemoglob 32 pg High 27-31 Mean Corpuscular HGB Cone 35 g/dL 32-36 Redcell Distribution WDTH 13 % 10.5-15 Platelet Count 277 CUMM 150-450 Mean Platelet Volume 7.9 um3 7.4-10.4 101 Manual Differential 03/15/2010 [facility] Polysegmented 57 % 38-[address] [place] [address] [phone] Band Neutrophil 2 % 0-8 Lymphocyte 30 % 25-47 Monocyte 8 % 0-13 Eosinophil 3 % 0-6 Absolute Neutrophil Count 4.8 RBC Morphology NORMAL Laboratory test 03/15/2010 [facility] Erythrocyte Sed 11 MM/HR 0-[address] [place] [address] [phone] Basic Metabolic 01/22/2010 [facility] Sodium 135 mmol/L 135- [address] [place] [address] [phone] Potassium 4.0 mmol/L 3.5-5.0 Chloride 105 mmol/L 101-111 Co2 (Carbon Dioxide) 25.0 mmol/L 22-32 Anion Gap 5.0 mmol/L 2-11 102 Glucose 137 mg/dL High 70-100 103 BUN 10 mg/dL 6-24 Creatinine 0.80 mg/dL 0.50-1.40 One Over Creatinine 1.20 BUN/Creatinine Ratio 12.5 8-20 Calcium 8.5 mg/dL 8.1-9.9 104 eGFR Non- 76.5 > 60 eGFR 92.6 > 60 105 Liver Function 01/22/2010 [facility] Total Protein 6.0 GM/DL Low 6.2-8.[address] [place] [address] [phone] Albumin 3.8 GM/DL 3.2-5.2 Globulin 2.2 GM/DL 2-4 Albumin/Globulin Ratio 1.7 1-3 Bilirubin Total 0.7 mg/dL 0.4-1.5 106 Bilirubin Direct 0.1 mg/dL 0.1-0.5 Indirect Bilirubin 0.6 mg/dL 0.1-0.75 Alkaline Phosphatase 52 U/L 30-110 Alt (SGPT) 58 U/L High 14-54 Ast (Sgot) 40 U/L 12-42 Laboratory test 01/22/2010 [facility] C Reactive 0.6 mg/dL High Less Than finding [address] Protein 0.5 [place] [address] [phone] CBC With Manual 01/22/2010 [facility] White Blood 6.5 CUMM 4.8-10.[address] [place] [address] [phone] Red Cell Count 3.99 CUMM Low 4.2-5.4 [...] 3.4 RBC Morphology NORMAL Laboratory test 01/22/2010 [facility] Erythrocyte Sed 14 MM/HR 0-[address] [place] [address] [phone] Comp Metabolic 10/10/2009 [facility] Sodium 132 mmol/L Low 135 -[address] [place] [address] [phone] Potassium 4.2 mmol/L 3.5-5.0 Chloride 99 mmol/L [...] 81.1 > 60 111 Laboratory test 10/10/2009 [facility] Rheumatoid 699.5 High Less finding [address] Factor IU/mL Than 20 [place] [address] [phone] C Reactive Protein 0.5 mg/dL Less Than 0.5 CBC With Manual 10/10/2009 [facility] White Blood 5.8 CUMM 4.8-10.[address] [place] [address] [phone] Red Cell Count 4.33 CUMM 4.2-5.4 Hemoglobin [...] Count 3.7 Anisocytosis SLIGHT Laboratory test 10/10/2009 [facility] Erythrocyte Sed 13 MM/HR 0-[address] [place] [address] [phone] Cyclic Citrullinated Pep Igg <15.6 U () 112 Laboratory test 07/19/2009 [facility] Magnesium 2.2 mg/dL 1.7 -2.[address] [place] [address] [phone] Laboratory test 07/19/2009 [facility] Erythrocyte Sed 13 MM/HR 0-[address] [place] [address] [phone] C Reactive Protein < 0.5 mg/dL Less Than 0.5 Rheumatoid Factor 346.7 IU/mL High Less Than 20 CBC With Manual 07/19/2009 [facility] White Blood 5.9 CUMM 4.8-10.[address] [place] [address] [phone] Red Cell Count 4.37 CUMM 4.2-5.4 Hemoglobin [...] 3.0 Anisocytosis SLIGHT Basic Metabolic Panel 07/19/2009 [facility] Sodium 138 mmol/L 135-[address] [place] [address] [phone] Potassium 4.4 mmol/L 3.5-5.0 Chloride 107 mmol/L 101-111 Co2 (Carbon Dioxide) 27.0 mmol/L 22-32 Anion Gap 4.0 mmol/L 2-11 113 Glucose 129 mg/dL High 70-100 114 BUN 14 mg/dL 6-24 Creatinine 0.80 mg/dL 0.50-1.40 One Over Creatinine 1.20 BUN/Creatinine Ratio 17.5 8-20 Calcium 8.9 mg/dL 8.1-9.9 115 eGFR Non- 76.8 > 60 eGFR 92.9 > 60 116 Laboratory test 07/19/2009 [facility] Ariane (Antinuclear NEGATIVE Negative finding [address] Antibodies) [place] [address] [phone] TSH 1.93 MIU/ML 0.34-5.60 Thyroxine Free 07/19/2009 [facility] Free Thyroxine 0.74 0.61 -1.[address] NG/[place] [address] [phone] Laboratory 02/29/2008 [facility] Hemoglobin A1c 6.2 % High < 6.0 118 test finding [address] [place] [address] [phone] Basic 02/29/2008 [facility] Sodium 142 135-[address] mmol/[place] [address] [phone] Potassium 4.0 mmol/L 3.5-5.0 Chloride 108 mmol/L 101-111 Co2 (Carbon Dioxide) 27.0 mmol/L 22-32 Anion Gap 7.0 mmol/L 2-11 119 Glucose 119 mg/dL High 70-105 BUN 11 mg/dL 6-24 Creatinine 1.0 mg/dL 0.5-1.4 One Over Creatinine 1.00 BUN/Creatinine Ratio 11.0 8-20 Calcium 8.6 mg/dL 8.1-9.9 120 Laboratory test 02/29/2008 [facility] Magnesium 2.1 mg/dL 1.7 -2.6 finding [address] [place] [address] [phone] Lipid Profile 02/29/2008 [facility] Triglyceride 102 mg/dL 40 -200 (Trig/Chol/HDL) [address] [place] [address] [phone] Cholesterol 219 mg/dL High Less Than 200 121 High Density Lipoprotein 50 mg/dL 40-60 122 Cholesterol/HDL Ratio 4.38 AVERAGE 1-4.44 Low Density Lipoprotein 149 mg/dL High Less Than 100 123 Laboratory 08/09/2007 [facility] C. N^NEGATIVE 124 test finding 101 [facility] Difficile BY IM <[place] [address] Toxin A B NOTE> [phone] Stool For 08/09/2007 [facility] Stool For POSITIVE Abnormal Negative Blood 101 [facility] Blood [place], [place] [address] [phone] Stool Color BROWN Stool Consistency FIRM Stool Form FORMED Urinalysis 08/05/2007 [facility] Ua Color YELLOW [address] [place] [address] [phone] Appearance-Urine CLEAR Bilirubin-Ur NEGATIVE Negative Blood-Urine NEGATIVE Negative Esterase-Urine NEGATIVE Negative Glucose-Urine NEGATIVE Negative Ketones-Urine NEGATIVE Negative Nitrite NEGATIVE Negative PH-Urine 6.0 5-9 Protein-Urine NEGATIVE Negative [id number] NEGATIVE Negative Specific [place]-Ur 1.008 Low 1.010-1.030 Laboratory test 08/05/2007 [facility] Urine Culture NG 125 finding [address] [facility] [place] [address] [phone] 1 [id number] 2 Tongue Presser: [id number] 3 Because ethnic data is not always [...] tested in 2-4 weeks. Test Performed by: [facility] Er - [facility] [address] [place] [address] 5 Desirable: <150 Borderline High: 150-199 High: [...] and in selective patients <6.0%.Please refer to [place] [employer] Diabetic care guidelines for further [...] and in selective patients <6.0%.Please refer to [place] [employer] Diabetic care guidelines for further [...] 23 SEE RESULT BELOW Name: BRADLEY EGAN : [address]: Rodrigue Villalba MD Acct: [id number] Unit: [id number] AGE: 69 Location: [facility] Re05/30/15 SEX: F Status: REG REF SPEC: [id number] LAURA: 05/30/15- SUBM DR: Rodrigue Villalba MD REQ: [id number] RECD: 05/30/15 STATUS: MILO CHRISTIE DR: Nima [...] performed at Main Lab DEPARTMENT OF PATHOLOGY, [address] [place] [address] Keanu Paiz M.D. Director [facility] # [id number] 24 Because ethnic data is not always [...] (or dialysis) 25 PT IS FASTING 26 Therapeutic target for the treatment of diabetes Mellitus patients is <7% HBA1C, and in selective patients <6.0%.Please refer to [place] [employer] Diabetic care guidelines for further information. 27 Desirable <150 Borderline high 150-199 High 200-499 Very High >500 28 Desirable <200 Borderline high 200-239 High >239 29 Low <40 Desirable: 40-60 High: >60 30 Desirable: <100 mg/dL Near Optimal: 100-129 mg/dL Borderline High: 130-159 mg/dL High: 160-189 mg/dL Very High: >189 mg/dL 31 Because ethnic data is not always readily [...] 15-29 5 Kidney failure <15 (or dialysis) 32 [facility] 12/26 33 Because ethnic data is not [...] <15 (or dialysis) 34 RUN DATE: 12/21/14 [facility] LAB LIVE PAGE 1 RUN TIME: 1228 [address] [place], [place] [address] Specimen Inquiry Name: BRADLEY EGAN : [address]: Brady Aguilar MD Acct: [id number] Unit: [id number] AGE: 69 Location: PAT Re12/19/14 SEX: F Status: REG REF SPEC: [id number] LAURA: 12/19/14-[address] [facility] [address]: Brady Aguilar MD REQ: [id number] RECD: 12/19/14-293 STATUS: BRANDON CHRISTIE DR: Nima Roche MD _ SOURCE: URINE SPDESC: ORDERED: Urine Culture Procedure Result Verified Site Urine Culture Final 12/21/14- 1228 ML Organism 1 NORMAL MICHELLE Sheridan Count 25-50,000 (Moderate) CFU/ML * ML - MAIN LAB ([facility]) . END OF REPORT * ML=Testing performed at Main Lab DEPARTMENT OF PATHOLOGY, [address] [place] [address] Keanu Paiz M.D. Director [facility] # [id number] 35 Microalbuminuria in a random sample is defined as: Microalbumin/Creatinine ratio of 30-299 ug/mg. 36 Desirable <150 Borderline high 150-199 High 200-499 Very High >500 37 Desirable <200 Borderline high 200-239 High >239 38 Low <40 Desirable: 40-60 High: >60 39 Desirable <100 Near Optimal 100-129 Borderline high 130-159 High 160-189 Very High >189 40 Because ethnic data is not always readily [...] 15-29 5 Kidney failure <15 (or dialysis) 41 FASTING 10 HOUR 42 Serologic response to B. burgdorferi infection is not detected, but cannot rule out early infection during which low or undetectable antibody levels to B. burgdorferi may be present. If clinically indicated, a new serum specimen should be submitted in 7-14 days. Test Performed by: [place] [address] Well Flow Operator: Marcos Alejandro III, M.D. 43 Test Performed by: [place] [address] Well Flow Operator: Marcos Alejandro III, M.D. 44 -- REFERENCE VALUE -- <20.0 (Negative) Test Performed by: [place] [address] Well Flow Operator: Marcos Alejandro III, M.D. 45 The above MANUEL screen is designed for the detection of antibodies to extractable nuclear antigen (MANUEL) in human serum. It is a combination test for the detection of antibodies to BUCKLE COVERER, Sm, SS-A (Ro), and SS-B (La) nuclear antigens. 46 @Sample frozen by at 1629 on 04/01/13. 47 Because ethnic data is not always readily [...] 15-29 5 Kidney failure <15 (or dialysis) 48 HDL Interpretation: Undesirable: High Risk: Less than 40 MG/DL Desirable: Low Risk: Greater than 60 MG/DL 49 LDL Interpretation: Low Risk Optimal Level: LDL Less than 100 MG/DL Near or Above Optimal: LDL 100-129 MG/DL Borderline High Risk: LDL 130-159 MG/DL High Risk: LDL 160-189 MG/DL Very High Risk: LDL Greater than 189 MG/DL 50 Because ethnic data is not always [...] 5 Kidney failure <15 (or dialysis) 51 Therapeutic target for the treatment of diabetes Mellitus patients is <7% HBA1C, and in selective patients <6.0%.Please refer to [place] [employer] Diabetic care guidelines for further information. 52 Microalbuminuria in a random sample is defined as: Microalbumin/Creatinine ratio of 30-299 ug/mg. 53 CHOLESTEROL INTERPRETATION: Desirable: Less than 200 MG/DL Borderline-High Risk: 200-239 MG/DL High-Risk: 240 MG/DL and over 54 HDL INTERPRETATION: Undesirable: High Risk: Less than 40 MG/DL Desirable: Low Risk: Greater than 60 MG/DL 55 LDL INTERPRETATION: Low Risk Optimal Level: LDL Less than 100 MG/DL Near or Above Optimal: LDL 100-129 MG/DL Borderline High Risk: LDL 130-159 MG/DL High Risk: LDL 160-189 MG/DL Very High Risk: LDL Greater than 189 MG/DL 56 Anion gap measurement may be of limited value in the presence of any alkalosis, especially in a combined acid base disorder. . 57 A metabolite of Naproxen, O-desmethylnaproxen, has been shown to interfere with the Jendrassik-Kwame method for measuring total bilirubin. Samples from patients who have taken Naproxen have shown spurious elevation in total bilirubin levels. 58 Because ethnic data is not always readily [...] 15-29 5 Kidney failure <15 (or dialysis) 59 THERAPEUTIC TARGET FOR THE TREATMENT OF DIABETES MELLITUS PATIENTS IS <7% HBA1C, AND IN SELECTIVE PATIENTS <6.0%. PLEASE REFER TO [place] [employer] DIABETIC CARE GUIDELINES FOR FURTHER INFORMATION. 60 MICROALBUMINURIA IN A RANDOM SAMPLE IS DEFINED : MICROALBUMIN/CREATININE RATIO OF 30-299 ug/mg. . 61 REVIEWED BY KEANU PAIZ MD 62 Anion gap measurement may be of limited value in the presence of any alkalosis, especially in a combined acid base disorder. . 63 A metabolite of Naproxen, O-desmethylnaproxen, has been shown to interfere with the Jendrassik-[place] method for measuring total bilirubin. Samples from [...] (or dialysis) 65 ---- RUN DATE: 01/02/11 [facility] NMI LIVE PAGE 1 RUN TIME: 1027 Specimen Inquiry RUN USER: INTERFACE -- Name: JULISABRADLEY Aracely Status: DEP ER Re12/26/10 Age/Sex: 65/F Unit#: [id number] Location: [facility].B. : [birth year] -- Specimen: [id number] Spec Date: 12/26/[address]: Seth cross MD Spec Type: CYTOLOGY Received: 12/26/10-124 Copies to: Nima gandara MD SOURCE FINE [...] Decorate blood vessels. -- DEPARTMENT OF PATHOLOGY, [address] [place] [address] [facility] Permit #[id number] Keanu Paiz M.D. Director Shannon Ac M.D. Drag Out Man ford -- -- RUN DATE: 01/02/11 [facility] NMI LIVE PAGE 2 RUN TIME: 1027 Specimen Inquiry RUN USER: INTERFACE -- Name: BRADLEY EGAN Status: DEP ER Re12/26/10 Age/Sex: 65/F Unit#: [id number] Location: [facility]. : 43 -- -- CONTINUED -- COMMENT [...] similar findings. Initial evaluation performed by Lei MCMILLAN([facility]) 12/27/10 Final Interpretation electronically signed by: SHANNON AC 01/02/11 1026 -- -- DEPARTMENT OF PATHOLOGY, [address] [place] [address] [facility] Permit #[id number] Keanu Paiz M.D. Director Shannon Ac M.D. Drag Out Man Dir ford -- 66 Recommended INR for Patients on Oral Anticoagulants Prophylaxis 2.0 - 3.0 Treatment of thrombosis 2.0 - 3.0 Prevention of embolism 2.0 - 3.0 Prevention of embolism from prosthetic heart valves 2.5 - 3.5 67 DIAGNOSIS,TREATMENT,AND THERAPY MUST BE BASED ON THE INR VALUE ALONE. 68 A metabolite of Naproxen, O-desmethylnaproxen, has been shown to interfere with the Jendrgoldenik-Kwame method for measuring total bilirubin. Samples from patients who have taken Naproxen have shown spurious elevation in total bilirubin levels. 69 Please note updated reference range, effective 03/07/10 70 INTERPRETATION %CK-MB < 5% NOT SUPPORTIVE OF DIAGNOSIS OF MS 5 - <10% INDETERMINATE; SUGGEST SERIAL STUDIES IF CLINICALLY INDICATED 10% OR > CONSISTENT WITH DIAGNOSIS OF MS . 71 Test Performed by: [facility] Dpt of Lab Med and Pathology [address] [place] [id number] Well Flow Operator: Marcos Alejandro III, M.D. 72 -- REFERENCE VALUE -- 38-176 (>=18 y) NOTE: Strenuous exercise or intramuscular injections may cause transient elevation of CK. 73 MM=93% MACRO TYPE 1=3% 74 Test Performed by: [facility] Dpt of Lab Med and Pathology [address] [place] [address] Well Flow Operator: Marcos Alejandro III, M.D. 75 THERAPEUTIC TARGET FOR THE TREATMENT OF DIABETES MELLITUS PATIENTS IS <7% HBA1C, AND IN SELECTIVE PATIENTS <6.0%. PLEASE REFER TO [place] [employer] DIABETIC CARE GUIDELINES FOR FURTHER INFORMATION. 76 MICROALBUMINURIA IN A RANDOM SAMPLE IS DEFINED : MICROALBUMIN/CREATININE RATIO OF 30-299 ug/mg. . 77 Anion gap measurement may be of limited value in the presence of any alkalosis, especially in a combined acid base disorder. . 78 A metabolite of Naproxen, O-desmethylnaproxen, has been shown to interfere with the Jendrassik-[place] method for measuring total bilirubin. Samples from [...] Risk: LDL Greater than 189 MG/DL 83 Anion gap measurement may be of limited value in the presence of any alkalosis, especially in a combined acid base disorder. . 84 A metabolite of Naproxen, O-desmethylnaproxen, has been shown to interfere with the Jendrassik-Kwame method for measuring total bilirubin. Samples from patients who have taken Naproxen have shown spurious elevation in total bilirubin levels. 85 Because ethnic data is not always readily [...] 15-29 5 Kidney failure <15 (or dialysis) 86 CHOLESTEROL INTERPRETATION: Desirable: Less than 200 MG/DL Borderline-High Risk: 200-239 MG/DL High-Risk: 240 MG/DL and over 87 HDL INTERPRETATION: Undesirable: High Risk: Less than 40 MG/DL Desirable: Low Risk: Greater than 60 MG/DL 88 LDL INTERPRETATION: Low Risk Optimal Level: LDL Less than 100 MG/DL Near or Above Optimal: LDL 100-129 MG/DL Borderline High Risk: LDL 130-159 MG/DL High Risk: LDL 160-189 MG/DL Very High Risk: LDL Greater than 189 MG/DL 89 THERAPEUTIC TARGET FOR THE TREATMENT OF DIABETES MELLITUS PATIENTS IS <7% HBA1C, AND IN SELECTIVE PATIENTS <6.0%. PLEASE REFER TO [place] [employer] DIABETIC CARE GUIDELINES FOR FURTHER INFORMATION. 90 Anion gap measurement may be of limited value in the presence of any alkalosis, especially in a combined acid base disorder. . 91 Note change in reference range as of 04/06/08. The change was based on recommendations from the [place] [employer]. 92 Because ethnic data is [...] has been shown to interfere with the Jendrassik-[place] method for measuring total bilirubin. Samples from patients who have taken Naproxen have shown spurious elevation in total bilirubin levels. 94 UNABLE TO CALCULATE IND.BILI D.BILI IS <0.1 Please note updated reference range, effective 03/07/10 95 Anion gap measurement may be of limited value in the presence of any alkalosis, especially in a combined acid base disorder. . 96 Note change in reference range as of 04/06/08. The change was based on recommendations from the [place] [employer]. 97 Please note change in reference range effective 08 . 98 Because ethnic data is not always readily [...] 15-29 5 Kidney failure <15 (or dialysis) 99 A metabolite of Naproxen, O-desmethylnaproxen, has been shown to interfere with the Jendrassik-[place] method for measuring total bilirubin. Samples from patients who have taken Naproxen have shown spurious elevation in total bilirubin levels. 100 Please note updated reference range, effective 03/07/10 101 Imm[address] [place] 1 102 Anion gap measurement may be of limited value in the presence of any alkalosis, especially in a combined acid base disorder. . 103 Note change in reference range as of 04/06/08. The change was based on recommendations from the [place] [employer]. 104 Please note change in reference range effective 08 . 105 Because ethnic data is not always readily [...] 15-29 5 Kidney failure <15 (or dialysis) 106 A metabolite of Naproxen, O-desmethylnaproxen, has been shown to interfere with the Jendrassik-Kwame method for measuring total bilirubin. Samples from patients who have taken Naproxen have shown spurious elevation in total bilirubin levels. 107 Anion gap measurement may be of limited value in the presence of any alkalosis, especially in a combined acid base disorder. . 108 Note change in reference range as of 04/06/08. The change was based on recommendations from the [place] [employer]. 109 Please note change in reference range effective 08 . 110 A metabolite of Naproxen, O-desmethylnaproxen, has been shown to interfere with the Jendrassik-[place] method for measuring total bilirubin. Samples from [...] (Positive) >=60.0 (Strong Positive) Test Performed by: [facility] Dpt of Lab Med and Pathology [address] [place] [address] Well Flow Operator: Marcos Alejandro III, M.D. 113 Anion gap measurement may be of limited value in the presence of any alkalosis, especially in a combined acid base disorder. . 114 Note change in reference range as of 04/06/08. The change was based on recommendations from the [place] [employer]. 115 Please note change in reference range effective 08 . 116 Because ethnic data is not always readily [...] 15-29 5 Kidney failure <15 (or dialysis) 117 PLEASE NOTE NEW REFERENCE RANGES. 118 THERAPEUTIC TARGET FOR THE TREATMENT OF DIABETES MELLITUS PATIENTS IS <7% HBA1C, AND IN SELECTIVE PATIENTS <6.0%. PLEASE REFER TO [place] [employer] DIABETIC CARE GUIDELINES FOR FURTHER INFORMATION. 119 Anion gap measurement may be of limited value in the presence of any alkalosis, especially in a combined acid base disorder. . 120 Please note change in reference range effective 08 . 121 CHOLESTEROL INTERPRETATION: Desirable: Less than 200 MG/DL Borderline-High Risk: 200-239 MG/DL High-Risk: 240 MG/DL and over 122 HDL INTERPRETATION: Undesirable: High Risk: Less than 40 MG/DL Desirable: Low Risk: Greater than 60 MG/DL 123 LDL INTERPRETATION: Low Risk Optimal Level: LDL Less than 100 MG/DL Near or Above Optimal: LDL 100-129 MG/DL Borderline High Risk: LDL 130-159 MG/DL High Risk: LDL 160-189 MG/DL Very High Risk: LDL Greater than 189 MG/DL 124 N^NEGATIVE BY IMMUNOASSAY^CDT 125 FINAL: NO GROWTH DAY 2 (<1,000 CFU/mL) Procedures Date Code Description Status 09/15/2018 [id number] Mammogram Completed 06/24/2018 [id number] Diabetic Retinal Eye Exam Completed 06/10/2018 45469 Arthroscopy,Knee,Meniscectomy Media & Lateral Completed 06/10/2018 39900 Arthroscopy,Knee,Meniscectomy Media & Lateral Completed 06/04/2018 41141 EKG Tracing & Interpretation Completed 04/05/2018 79131 Inject/Drain Joint/Bursa Major W/O US Completed 06/10/2017 28785 ECHO Transthoracic, Real-Time 2D With Doppler And Completed Color Flow 05/05/2017 23270 EKG Tracing & Interpretation Completed 07/08/2016 43264 EKG Tracing & Interpretation Completed 06/18/2016 [id number] Mammogram Completed 03/27/2016 00881 Diffusing Capacity Completed 03/27/2016 88576 Plethysmography Determination Lung Volumes & Per Completed Airway Resist 03/27/2016 96478 Pulmonary Function><Bronchodil Completed 11/29/2015 [id number] Diabetic Retinal Eye Exam Completed 10/19/2015 68756 EKG Tracing & Interpretation Completed 05/30/2015 [id number] Colonoscopy Completed 04/04/2015 [id number] Mammogram Completed 12/26/2014 64303 THR Total Hip Replacement Completed 12/26/2014 32395 THR Total Hip Replacement Completed 12/22/2014 54087 Myocardial Perfusion Imaging Tomographic (Spect) Completed Multiple Studies 12/22/2014 73572 Myocardial Perfusion Imaging Tomographic (Spect) Completed Multiple Studies 12/22/2014 55668 Stress Test Completed 12/20/2014 51725 ECHO Transthoracic, Real-Time 2D With Doppler And Completed Color Flow 12/18/2014 17389 EKG Tracing & Interpretation Completed 12/18/2014 49390 EKG Tracing & Interpretation Completed 08/24/2014 [id number] Diabetic Retinal Eye Exam Completed 02/01/2014 [id number] Mammogram Completed 02/01/2014 [id number] Bone Mineral Density Test Completed 04/27/2013 [id number] Diabetic Retinal Eye Exam Completed 01/31/2013 [id number] Mammogram Completed 10/01/2011 [id number] Colonoscopy Completed 09/11/2011 [id number] Bone Mineral Density Test Completed 09/04/2010 [id number] Mammogram Completed 08/11/2008 [id number] Mammogram Completed 05/18/2006 [id number] Colonoscopy Completed Encounters Type Date Location Provider Dx Diagnosis Office Visit 11/17/2018 Orthopedic Netta Brooks, M25.562 Pain in left knee 10:30a [facility] Owen Bhatia M25.462 Effusion, left knee M17.12 Unilateral primary osteoarthritis, left knee M25.551 Pain in right hip M16.11 Unilateral primary osteoarthritis, right hip Office Visit 06/04/2018 2:30p [facility] Zeny Miesha, Z01.818 Encounter for other Medicine - MD [...] mobility Office Visit 03/22/2018 10:30a Orthopedic Brady Aguilar, M70.62 [facility] bursitis, left hip C.M.A. Office Visit 03/10/2018 10:00a [facility] Internal [place] E11.9 Type 2 diabetes Medicine - [place] Gu[place], CAR PARKER mellitus without Rd complications I10 Essential (primary) hypertension E78.4 Other hyperlipidemia H61.22 Impacted cerumen, left ear Z23 Encounter for immunization Office Visit 12/09/2017 9:20a [facility] Internal Truong Messer, E11.9 Type 2 diabetes Medicine - CAR PARK[place] mellitus without [address] complications I10 Essential (primary) hypertension E78.4 Other hyperlipidemia E11.65 Type 2 diabetes mellitus with hyperglycemia Office Visit 09/28/2017 9:00a [facility] Brady Aguilar M70.61 [facility] bursitis, right C.M.A. hip Office Visit 06/16/2017 9:10a [facility] Internal Nima Ricketts Z00.01 Encounter for Raoul Roche general adult Jannette,FACP medical exam w abnormal findings E11.9 Type 2 diabetes mellitus without complications I10 Essential (primary) hypertension F33.9 Major depressive disorder, recurrent, unspecified Z23 Encounter for immunization Office Visit 05/05/2017 2:00p [facility] Douglas Frankel I10 Essential Jannette Simon (primary) hypertension E78.4 Other hyperlipidemia I44.7 Left bundle-branch block, unspecified R53.83 Other fatigue Office Visit 12/09/2016 10:10a [facility] Internal Nima Ricketts E11.9 Type 2 diabetes Raoul Roche M.D.,FACP mellitus without complications I10 Essential (primary) hypertension E78.4 Other hyperlipidemia 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 I10 Essential Jannette Simon (primary) hypertension E78.4 Other hyperlipidemia I44.7 Left bundle-branch block, unspecified E66.9 Obesity, unspecified Z68.32 Body mass index (BMI) 32.0-32.9, adult Office Visit 06/10/2016 10:30a [facility] Aisha Ricketts Z00.00 Encntr for Raoul Roche M.D.,FACP general adult medical exam w/o abnormal findings E11.9 Type 2 diabetes mellitus without complications I10 Essential (primary) hypertension F33.9 Major depressive disorder, recurrent, unspecified Z71.89 Other specified counseling Z23 Encounter for immunization Office Visit 02/19/2016 9:10a [facility] Aisha Ricketts J20.9 Acute bronchitis, Raoul Roche M.D.,FACP unspecified E11.9 Type 2 diabetes mellitus without complications Office Visit 11/22/2015 [facility] Internal Pascual Perdue, J00 Acute nasopharyngitis 1:20p Medicine - [place] [employer] [common cold] Rd Office Visit 10/19/2015 [place] Qutayenni S. E11.9 Type 2 diabetes 10:20a Card[facility] [place], mellitus without M.D. complications I10 Essential (primary) hypertension R94.31 Abnormal electrocardiogram [ECG] [EKG] I44.7 Left bundle-branch block, unspecified Office Visit 08/22/2015 9:15a Orthopedic Brady Aguilar, Z96.642 Presence of left [facility] artificial hip C.M.A. joint Office Visit 07/25/2015 10:00a [facility] Internal Pascual Perdue, F33.9 Major depressive Medicine - [place] [employer] disorder, Rd recurrent, unspecified Office Visit 05/14/2015 9:15a [facility] Brady Aguilar, Z47.1 Aftercare [facility] following joint C.M.A. replacement surgery Z96.642 Presence of left artificial hip joint Office Visit 04/24/2015 10:30a [facility] Aisha Perdue, 578.9 Hemorrhage Medicine - [employer] Gastrointestinal Tract [address] Unspec 788.1 Dysuria Office Visit 02/05/2015 10:10a [facility] Aisha Ricketts 250.00 Diabetes Mellitus Raoul Roche M.D.,FACP [...] (ECG) (EKG) Abnormal Office Visit 12/18/2014 11:00a [facility] Internal Brad Lay, V72.84 Examination Medicine - [place] [employer] Preoperative Unspec Rd V43.64 Hip Replacement By Other Means 794.31 Electrocardiogram (ECG) (EKG) Abnormal 401.1 Hypertension Benign 272.2 Hyperlipidemia Mixed 250.00 Diabetes Mellitus W/O Compl Type II Or Unspec Controlled 714.0 Rheumatoid Arthritis 715.95 Osteoarthrosis Unspec Genlzd Or Localized Pelvic & Thigh Office Visit 11/22/2014 Orthopedic Brady Aguilar, 715.35 Osteoarthrosis 8:45a [facility] Localsilverio Not Spec C.M.A. Prime Or 2Ndy Pelvic & Thigh Office Visit 10/02/2014 Orthopedic Naty 716.96 Arthropathy Unspec 3:30p Services Of KRYSTAL Almazan Lower Leg C.M.A. Office Visit 08/03/2014 [facility] Internal Makayla 250.00 Diabetes Mellitus 8:30a Medicine Tara, W/O Compl Type II Or N.P. Unspec Controlled 380.4 Impacted Cerumen 715.15 Osteoarthrosis Localized Prim Pelvic & Thigh v03.82 Streptococcus Pneumoniae Vaccination Spec Other Office Visit 02/15/2014 1:30p Orthopedic Brady Aguilar, 726.71 Bursitis Or [facility] Tendinitis C.M.A. Achilles 726.64 Tendinitis Patellar 715.15 Osteoarthrosis Localized Prim Pelvic & Thigh Office Visit 01/31/2014 [facility] Internal Makayla Pacheco, 715.15 Osteoarthrosis 10:00a Medicine N.P. Localized Prim Pelvic & Thigh 250.00 Diabetes Mellitus W/O Compl Type II Or Unspec Controlled 726.71 Bursitis Or Tendinitis Achilles Office Visit 10/27/2013 10:00a [facility] Internal Makayla Pacheco, 250.00 Diabetes Mellitus Medicine N.P. W/O Compl Type II Or Unspec Controlled V82.81 Special Screening For Osteoporosis v06.1 Eoeigtofgm-Velulcl-Ynxqiumj Combined (DTaP) Office Visit 07/28/2013 10:00a [facility] Internal Makayla Pacheco, 250.00 Diabetes Mellitus Medicine N.P. W/O Compl Type II Or Unspec Controlled Office Visit 05/16/2013 8:30a [facility] Aisha Ricketts 716.96 Arthropathy Medicine Jannette Roche,FACP Unspec [...] And Fatigue Other Office Visit 01/26/2013 8:30a [facility] Aisha Ricketts V70.0 Examination Medicine Jannette Roche,FACP General Medical Routine AT Health Care Facility 250.00 Diabetes Mellitus W/O Compl Type II Or Unspec Controlled V76.10 Screening For Malignant Neoplasm Breast 715.15 Osteoarthrosis Localized Prim Pelvic & Thigh Office Visit 11/24/2012 8:30a Adam Ricketts 728.9 Muscle Disorders Medicine Jannette Roche,FACP Unspec 727.40 Cyst Synovial Unspec 719.45 Pain Joint Pelvic Region & Thigh 287.2 Purpuras Nonthrombocytopenic Other 250.00 Diabetes Mellitus W/O Compl Type II Or Unspec Controlled Office Visit 12/31/2011 3:20p [facility] Internal Nima Ricketts V70.0 Examination Medicine Jannette Roche,FACP General Medical Routine AT Health Care Facility 250.00 Diabetes Mellitus W/O Compl Type II Or Unspec Controlled Office Visit 08/27/2011 2:40p [facility] Internal Nima Ricketts 250.00 Diabetes Mellitus Raoul Roche M.D.,FACP W/O Compl Type II Or Unspec Controlled 729.2 Neuralgia Neuritis & Radiculitis Unspec V82.81 Special Screening For Osteoporosis V76.51 Special Screening For Malignant Neoplasms Colon Office Visit 05/27/2011 11:10a DO Not Use [facility] Nima Ricketts 311 Depressive AT Arlyn Roche M.D.,FACP Disorder Not Elsewhere Spec 250.00 Diabetes Mellitus W/O Compl Type II Or Unspec Controlled Office Visit 04/18/2011 10:40a DO Not Use Le[facility] Nima Ricketts 311 Depressive AT Arlyn Roche M.D.,FACP Disorder Not Elsewhere Spec 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 759.6 Hamartoses Other AT Arlyn Roche M.D.,FACP Not Elsewhere Classified 359.9 Myopathy Unspec Office Visit 12/24/2010 9:40a DO Not Use Leak Patcher Nima Jamarcus 518.89 Lung Disease AT Arlyn Roche M.D.,[facility] Other Not Elsewhere Class 359.9 Myopathy Unspec 790.4 Transaminase Or Lactic Acid Dehydrogenase Elevation Nonspec Office Visit 12/19/2010 8:40a Rheumatology Renato Shen, 714.0 Rheumatoid Services [facility] Adam Bhatia Arthritis 359.9 Myopathy Unspec 443.0 Raynauds Syndrome V58.69 Medications Fire Suppression Captain (Current) Use Encounter Office Visit 11/28/2010 11:00a DO Not Use Leak Patcher Nima Ricketts 250.00 Diabetes Mellitus AT Arlyn Roche M.D.,[facility] W/O Compl Type II Or Unspec Controlled 714.0 Rheumatoid Arthritis 786.09 Dyspnea & Respiratory Abnormalities Other 401.1 Hypertension Benign Office Visit 10/09/2010 10:00a Rheumatology Renato Shen, 714.0 Rhe[facility]oid [facility] Adam Bhatia Arthritis 715.91 Osteoarthrosis Unspec Genlzd Or Localized Shoulder V58.69 Medications Penitentiary (Current) Use Encounter Office Visit 08/23/2010 3:00p DO Not Use Leak Patcher Nima Ricketts V70.0 Examination AT Arlyn Roche M.D.,[facility] General Medical Routine AT Health Care Facility 401.1 Hypertension Benign V76.10 Screening For Malignant Neoplasm Breast 250.00 Diabetes Mellitus W/O Compl Type II Or Unspec Controlled 696.0 Psoriatic Arthropathy 272.2 Hyperlipidemia Mixed 786.09 Dyspnea & Respiratory Abnormalities Other V03.82 Streptococcus Pneumoniae Vaccination Spec Other Office Visit 08/08/2009 11:40a DO Not Use Leak Patcher AT Nima Roche, 786.2 Cough Elmosanjana Bhatia,FACP 696.0 Psoriatic Arthropathy Office Visit 07/19/2009 8:30a DO Not Use Leak Patcher Marie Murrieta PA 729.1 Myalgia & AT [facility] Myositis Unspec 719.49 Pain Joint Multiple Sites 729.82 Cramp Of Limb Office Visit 05/07/2009 11:40a DO Not Use Leak Patcher AT Nima Roche, 717.6 Loose Body In Elmosanjana Bhatia,[facility] Knee 840.4 Sprains & Strains Rotator Cuff (Capsule) Office Visit 01/04/2009 3:40p DO Not Use Leak Patcher Sudhir, 569.42 Pain Anal Or AT Aryln Perez M.D. Rectal Office Visit 11/02/2008 9:00a DO Not Use Leak Patcher Sudhir, 465.9 URI Upper AT Arlyn Perez M.D. Respiratory Infections Acute Unspec Sites Office Visit 02/28/2008 3:20p DO Not Use Leak [facility]cher Nima Ricketts 361.30 Retinal Defect AT Arlyn Roche M.D.,FACP Unspec 401.1 Hypertension Benign 790.21 Impaired Fasting Glucose Office Visit 08/18/2007 4:00p DO Not Use [facility] Nima Ricketts 401.1 Hypertension AT Arlyn Roche M.D.,[facility] Benign 272.2 Hyperlipidemia Mixed 790.6 Abnormal Blood Chemistry Other 701.1 Keratoderma Acquired Plan of Treatment Future Appointment(s):12/29/2018 9:45 am - Netta Brooks M.D. at [facility]12/08/2018 9:20 am - KRYSTAL Michael at [facility] Internal Atnuggct33/02/2019 8:00 am - Netta Brooks M.D. at [facility]02/23/2019 10:00 am - JOSE Vasquez at [facility] Internal [id number] - Netta Brooks M.D.M25.562 Pain in left kneeFollow up:Follow up: 2 weeks after olqexfuG04.462 Effusion, left kneeM17.12 Unilateral primary osteoarthritis, left knee
--- OUTSIDE RECORDS SUMMARY | 2018-12-16 07:14 | XMS REPORT | Continuity of Care Document ---
:1945 External Reference #:[id number] Author Name Coty Nicholas Care Team Providers Name Role Phone Zeny Whiteside M.D. Primary Care Physician Unavailable Payers Date Identification Numbers Payment Provider Subscriber Policy Number: [id number] Medicare Bradley Egan PayID: [id number] [address] [place] [address] Effective: 2012 Policy Number: [id number] Medicare Bradley Egan Expires: 2018 PayID: [id number] [address] [place] [address] Effective: 2011 Policy Number: [id number] [facility] Bradley Egan PayID: [id number] [address] [place] [address] Expires: 2011 Policy Number: [id number] [facility]esh Egan Group Number: [id number] [address] PayID: [id number] [place] [address] Advance Directives Type Date Description Status Comment Other Directive 08/03/2014 Health Care Proxy Current and Verified Problems Date Description Provider Status Onset: 08/18/2007 Benign essential hypertension Nima Roche M.D.,FACP Active Onset: 08/18/2007 Mixed hyperlipidemia Nima Roche M.D.,FACP Active Onset: 08/23/2010 Rheumatoid arthritis Nima Roche M.D.,FACP Active Note: RF 346 and 699 but also psoriatic. Note also OA maria c endo Onset: 08/23/2010 Type 2 diabetes mellitus Nima Roche M.D.,FACP Active Onset: 12/05/2010 Degenerative joint disease of Renato Shen M.D. Active shoulder region Note: Along with rheumatoid. Radiographically long hx OA-shoulders [AC], lumbar, feet. Onset: 01/26/2013 Localized, primary Nima Roche, Active osteoarthritis of the pelvic M.DSarah,FACP region and thigh Onset: 08/24/2014 Presbyopia Rodrigue Melendez MD Active Onset: 08/24/2014 Borderline glaucoma Rodrigue Melendez MD Active Onset: 02/05/2015 Left bundle branch block Cici Palomares M.D.,FACP Onset: 05/25/2015 Transient ischemic colitis Cici Palomares M.D.,ERICAP Onset: 05/25/2015 Rheumatoid factor positive Cici Palomares M.D.,FACP Onset: 05/25/2015 Recurrent major depressive Nima Roche Active episodes Jannette,FACP Onset: 04/05/2018 Localized, primary Netta Brooks M.D. Active osteoarthritis Onset: 04/26/2018 Current tear of medial cartilage Netta Brooks M.D. Active AND/OR meniscus of knee Onset: 08/18/2007 Impaired fasting glycaemia Cisco Palomares M.D.,FACP Inactive: 12/31/2011 Onset: 08/18/2007 Blood chemistry abnormal Nima Roche M.D.,FACP Inactive Inactive: 12/31/2011 Onset: 04/01/2013 Disorder of muscle Renato Shen M.D. Inactive Inactive: 02/05/2015 Onset: 04/01/2013 Multiple joint pain Renato Shen M.D. Inactive Inactive: 05/25/2015 Onset: 04/01/2013 Malaise and fatigue Renato Shen M.D. Inactive Inactive: 05/25/2015 Onset: 04/18/2011 Carcinoid bronchial adenoma Nima Roche M.D.,FACP Resolved Resolved: 12/31/2011 Onset: 05/05/2013 Acute stress disorder Renato Shen M.D. Resolved Resolved: 02/05/2015 Onset: 05/25/2015 Elevated levels of transaminase Nima Roche, Resolved & lactic acid dehydrogenase Aracely.DSarah,FACP Resolved: 08/26/2018 Family History Date Family Member(s) [...] a former quit in 1975. 2ppd at 11/17/18 smoker the end of 12 years. Exercise Type/Frequency Exercises rarely due to hip Allergies, Adverse Reactions, Alerts Description No Known Drug Allergies Medications Medication Date Status Form Strength Qnty SIG Indications Ordering Provider Amoxicillin 06/16/ Active Capsules 500mg 12caps 4 tablets Z47.1 Dirk 2017 1 hour Jeff, before M.D. dental work Aspirin 06/09/ Active Tablets DR 325mg 28tabs take 1 by Netta 2017 mouth Todd, twice a M.D. day for two weeks Percocet 06/09/ Active Tablets 5-325mg 42tabs 1 by Netta 2017 mouth Todd, every 4 M.D. hours as needed pain Shingrix 03/10/ Active Suspension 50mcg 2units 2 doses 6 Z23 Zsofia 2018 Rec month Gui, apart [employer] Metformin HCL 12/09/ Active Tablets 500mg 90tabs 1 by E11.9 Nima 2017 mouth D. [place], every day M.D.,FACP Wellbutrin XL 06/10/ Active Tablets ER 300mg 90tabs 1 by F33.9 Juancho Hudson 2016 24HR mouth D. [place], every day M.D.,FACP Rosuvastatin 06/10/ Active Tablets 5mg 90tabs 1 by E11.9 Nima Calcium 2016 mouth Jamarcus Roche, every M.DSarah,FACP night at bedtime E78.4 Lisinopril 08/30/2008 Active Tablets 10mg 90tabs take 1 tablet I10 Ander Ricketts by mouth once Jannette Roche,FACP daily E11.9 Vitamin B Active daily Unknown Vitamin D Active daily Unknown Meloxicam 04/05/2018 - Hx Tablets 15m 30t 1 by mouth M25.46 Netta 08/25/2018 g abs every day 2 Todd, (patient is M.D. taking prn) Vivotif 06/10/2016 - Hx Capsules DR rico 1 tab every Z71.89 Nima 07/09/2016 ps other day for Jamarcus Roche, 4 doses (pt is M.D.,FACP done) Guaifenesin ac 02/17/2016 - Hx Syrup 100 Take 5-10 Unknown 06/10/2016 -10 Milliliters By mg/ Mouth Every 4 5ML Hours as Needed For Cough. Max/ Mucinex 02/17/2016 - Hx Tablets ER 600 Take 1 Tablet Unknown 06/10/2016 12HR mg By Mouth Twice Daily as Needed For Cough Cefdinir 02/17/2016 - Hx Capsules 300 Take 1 Capsule Unknown 06/10/2016 mg By Mouth Twice Daily Benzonatate 02/17/2016 - Hx Capsules 100 Take 1 Capsule Unknown 06/10/2016 mg By Mouth 3 Times Daily as Needed For Cough Proair HFA 02/17/2016 - Hx Aerosol 108 Inhale 2 Puffs Unknown 06/10/2016 (90 By Mouth Every Bas 4 Hours as e) Needed For mcg Shortness Of /Ac Breat t Wellbutrin SR 05/25/2015 - Hx Tablets ER 150 60t 1 tablet in F33.9 Pascual 06/10/2016 12HR mg abs the morning, Montserratian, CODIFIER 1 at noon Amoxicillin 01/24/2015 - Hx Capsules 500 12c 4 tablets 1 Z47.1 Dirk 06/04/2018 mg aps hour before Jeff, dental work M.DSarah Debrox 08/03/2014 - Hx Solution 6.5 1bo 5 drops in L 380.4 Makayla 12/17/2014 % ttl ear bid x 3 Tara, e days N.P. Lidex 07/28/2013 - Hx Gel 0.0 60m apply 250.00 Makayla 02/05/2015 5% g topically once Tara, daily as N.P. needed Cyclobenzaprine 05/05/2013 - Hx Tablets 5mg 60t 1-2 po hs 308.3 Renato HCL 10/27/2013 abs Jannette Shen Nabumetone 05/05/2013 - Hx Tablets 500 60t 1 po bid 714.0 Renato 10/27/2013 mg abs Jannette Shen Fluocinonide 01/26/2013 - Hx Gel 0.0 30g topical twice E11.9 Nima 09/27/2017 5% m a day as juan antonio Osorio M.D.,MAYELA Sertraline HCL 04/18/2011 - Hx Tablets 50m 30t 1/2 tab qd for 311 Juancho Hudson 05/27/2011 g abs 10 days then 1 DSarah Roche, po qd M.Jamarcus,FACP Amoxicillin 02/18/2011 - Hx Tablets 500 28t 2 tabs po bid 466.0 Juancho Hudson 04/01/2011 mg abs for 7 days Jamarcus Roche M.D.,FACP Diclofenac Sodium 10/09/2010 - Hx Tablets 75m 180 1 tab by mouth Renato CARTER 04/01/2011 g tab twice a day Jannette Shen s Methotrexate 08/23/2010 - Hx Tablets 2.5 48t 4 q week Nima 02/18/2011 mg abs Jamarcus Roche M.D.,FACP Folic Acid 08/23/2010 - Hx Tablets 1mg 30t 1 po qd Nima 02/18/2011 abs Jamarcus Roche M.D.,FACP Azithromycin 08/08/2009 - Hx Tablets 500 5ta 1 tab qd for 786.2 Juancho Hudson 01/21/2010 mg bs 5days Jamarcus Roche M.D.,FACP Robitussin ac 08/08/2009 - Hx Solution 200 10cc q 4 hours 786.2 Juancho Tristan 08/23/2010 cc prn cough Jamarcus Roche M.D.,FACP Prednisone 07/27/2009 - Hx Tablets 10m 90t 3 po qd for Nima 08/08/2009 g abs 2wks, then 2 D. [place], qd M.D.,FACP Anusol-HC 01/04/2009 - Hx Cream 2.5 1tu apply to 569.42 Thananart, 05/07/2009 % be affected area Ana, bid x 7 days M.D. Tahmina Leon 11/02/2008 - Hx Capsules 100 30c 1-2 po tid prn 465.9 Thananart, 05/07/2009 mg aps Jannette Perez Zithromax Z-Tevin 11/02/2008 - Hx Tablets 250 1Pa take as 465.9 Thananart , 05/07/2009 mg k khadra Perez M.D. Aspirin 08/18/2007 - Hx Tablets 325 2 PO qd Nima 10/09/2010 mg DSarah Roche M.D.,FACP Fish Oil 08/18/2007 - Hx Capsules 100 1 PO qpm Nima 02/18/2011 0mg Jamarcus Roche M.D.,FACP Glucosamine-Chondr 08/18/2007 - Hx Capsules 500 bid PO Nima oitin 12/18/2010 -40 D. Melchor, 0 M.D.,FACP Urea 08/18/2007 - Hx Cream 40% 60u topical qd 701.1 Nima 11/24/2012 nit Jamarcus Roche, s M.D.,FACP Triamterene/Hydroc - Hx Capsules 37. 30c 1 PO qam Nima hlorothiazide 02/28/2008 5-2 aps Jamarcus Roche, 5 M.D.,FACP Lidex - Hx Gel 0.0 60m apply 250.00 Nima 01/26/2013 5% g topically once D. Melchor, daily as M.D.,FACP needed Aspirin - Hx Tablets 325 30t 2 po qd Unknown 05/25/2015 mg abs Vitamin D - Hx Capsules 100 30c po qd Unknown 09/27/2017 0Un aps it Vitamin B Complex - Hx Tablets 30t 1 po qd Unknown 09/27/2017 abs Aspirin - Hx 325 1 tablets Unknown 09/27/2017 mg daily Aspirin - Hx Tablets 325 take 1 by Unknown 04/04/2018 mg mouth once a day Ibuprofen 200 - Hx Tablets 200 400-600mg Unknown 04/04/2018 mg every 6 hours as needed for pain. Fluocinonide - Hx Gel 0.0 apply Unknown 04/04/2018 5% topically twice a day if needed Vitamin B12 - Hx Tablets ER 100 1 by mouth Unknown 04/04/2018 0mc every day g Medications Administered in Office Medication Date Status Form Strength Qnty SIG Indications Ordering Provider Triamcinolone 04/05/ Administered Injection Netta (Kenalog) 2017 Todd, M.D. Inj, 12/22/ Administered Injection Karsten D. Regadenoson, 0.1 2014 Brand, MG M.D. Inj, 12/22/ Administered Injection Coty Regadenoson, 0.1 2014 ISSAC Juan MG Technetium TC 12/22/ Administered Injection Karsten D. 99M Tetrofosmin, 2014 Brand, Per Unit Dose Up M.D. To 40 Millicuries Technetium TC 12/22/ Administered Injection Coty 99M Tetrofosmin, 2014 ISSAC Juan Per Unit Dose Up To 40 Millicuries Immunizations CPT Code Status Date Vaccine Lot # [id number] Given 07/13/2018 Zoster (Shingles) Vaccine (HZV), Recombinant, Subunit, Adjuvanted 28250 Given 06/04/2018 Fluzone High Dose [id number] 09911 Given 06/16/2017 Influenza Virus Vaccine, Quadrivalent, Split, [id number] Preservative Free 43790 Given 06/10/2016 Influ Virus Vaccine, Quadrivalent, Split Virus, [place] [id number] [address] Given 06/10/2016 Hepatitis A Vaccine Adult Dosage [id number] 76984 Given 05/25/2015 Influenza Virus Vaccine, Quadrivalent, Split, [id number] Preservative Free 75462 Given 08/03/2014 Pneumococcal Conjugate Vaccine 13 Valent For [id number] Intramuscular Use 23343 Given 04/17/2014 Flu Vaccine Split Virus Preservative Free For Indiv 3Yr Older 08174 Given 10/27/2013 Tdap - Tetanus/Diptheria/Acellular Pertussis [id number] 43265 Given 05/16/2013 Flu Vaccine Split Virus Preservative Free For [id number] Indiv 3Yr Older 53447 Given 05/26/2011 Influenza Virus 3Yrs & Over 94931 Given 08/23/2010 Pneumonia Vaccine [id number] 49716 Given 05/26/2010 Influenza Virus 3Yrs & Over 16888 Given 03/22/2008 Zoster (Zostavax) 64623 Given 03/22/2008 Zoster (Zostavax) [id number] Vital Signs Date Vital Result Comment 11/17/2018 11:26am Height 67 inches 5'7" Heart [...] Result H/L Range Note Laboratory test 08/26/2018 [facility] In House Hemoglobin A1c 6.2 5-7 finding Urine Microalbumin 08/18/2018 [facility] Ur Microalbumin 18.6 [address] (mg/L) [place] [address] [phone] Urine Creatinine 164.23 mg/dL Urine Microalbumin/Creatinine 11.3 N <31 Laboratory test 06/10/2018 [facility] Point of 131 mg/dL High 70-100 [address] [place] [address] [phone] CBC Auto Diff 06/04/2018 [facility] White Blood 7.8 N 3.5- 10.[address] Count 10^3/uL [place], [place] [id number] [phone] Red Blood Count 4.25 10^6/uL N 4.00-5.40 [...] Red Blood Cells % 0 Inr/Protime 06/04/2018 [facility] Inr 0.92 N 0.77-1.[address] [place] [address] [phone] Laboratory test 06/04/2018 [facility] Partial 30.3 seconds N 26.0-36.[address] [facility] [place] [address] [phone] Basic Metabolic 06/04/2018 [facility] Sodium 140 mmol/L N 135- 145 Panel [address] [place] [address] [phone] Potassium 4.5 mmol/L N 3.5-5.0 Chloride 106 mmol/L N 101-111 Co2 Carbon Dioxide 29 mmol/L N 22-32 Anion Gap 5 mmol/L N 2-11 Glucose 117 mg/dL High 70-100 Blood Urea Nitrogen 21 mg/dL N 6-24 Creatinine 0.96 mg/dL High 0.51-0.95 BUN/Creatinine Ratio 21.9 High 8-20 Calcium 9.5 mg/dL N 8.6-10.3 Egfr Non- 57.0 >60 Egfr 68.9 >60 3 Laboratory test 04/05/2018 [facility] Lyme Disease Negative Negative [address] [place] [address] [phone] Laboratory test 03/10/2018 [facility] Hemoglobin A1c 6.4 5-7 finding Laboratory test 12/09/2017 [facility] Hemoglobin A1c 6.8 5-7 finding Lipid Profile 11/19/2017 [facility] Triglycerides 99 mg/dL 5 (Trig/Chol/HDL) [address] [place] [address] [phone] Cholesterol 148 mg/dL 6 HDL Cholesterol 61.0 mg/dL 7 LDL Cholesterol 67 mg/dL 8 Basic Metabolic Panel 11/19/2017 [facility] Sodium 139 mmol/L N 139-145 [address] [place] [address] [phone] Potassium 4.6 mmol/L N 3.5-5.0 Chloride 106 mmol/L N 101-111 Co2 Carbon Dioxide 26 mmol/L N 22-32 Anion Gap 7 mmol/L N 2-11 Glucose 160 mg/dL High 70-100 Blood Urea Nitrogen 17 mg/dL N 6-24 Creatinine 0.99 mg/dL High 0.51-0.95 BUN/Creatinine Ratio 17.2 N 8-20 Calcium 9.2 mg/dL N 8.6-10.3 Egfr Non- 55.1 >60 Egfr 70.9 >60 9 Urine Microalbumin 06/16/2017 [facility] Ur Microalbumin < 15.[address] [facility] (mg/L) mg/[place] [address] [phone] Urine Creatinine 46.87 mg/dL N Urine Microalbumin/Creatinine TNP ug/mg N <31 10 Laboratory test 06/16/2017 [facility] In House Hemoglobin A1c 6.8 5-7 finding Lipid Profile 12/05/2016 [facility] Triglycerides 97 mg/dL N 11 (Trig/Chol/HDL) [address] [place] [address] [phone] Cholesterol 137 mg/dL N 12 HDL Cholesterol 56.2 mg/dL N 13 LDL Cholesterol 61 mg/dL N 14 Comp Metabolic Panel 12/05/2016 [facility] Sodium 138 mmol/L N 133-145 [address] [place] [address] [phone] Potassium 4.3 mmol/L N 3.5-5.0 Chloride 107 [...] 78.4 N >60 15 Laboratory test 12/05/2016 [facility] Hemoglobin A1c 6.7 % High Less [address] (Glyco HGB) than 6.0 [place] [address] [phone] Lipid Profile 03/07/2016 [facility] Triglycerides 114 N 17 (Trig/Chol/HDL) [address] mg/[place] [address] [phone] Cholesterol 200 mg/dL N 18 HDL Cholesterol 47.7 mg/dL N 19 LDL Cholesterol 130 mg/dL N 20 Laboratory test 03/07/2016 [facility] Hemoglobin A1c 6.7 % High Less [address] (Glyco HGB) than 6.0 [place] [address] [phone] Urine 03/07/2016 [facility] Urine 181.71 N Microalbumin [address] Creatinine mg/[place] [address] [phone] Ur Microalbumin (mg/L) 22.2 mg/L N Urine Microalbumin/Creatinine 12.2 ug/mg N <31 Basic Metabolic Panel 03/07/2016 [facility] Sodium 139 mmol/L N 133-[address] [place] [address] [phone] Potassium 5.0 mmol/L N 3.5-5.0 Chloride 105 mmol/L N 101-111 Co2 Carbon Dioxide 27 mmol/L N 22-32 Anion Gap 7 mmol/L N 2-11 Glucose 149 mg/dL High 70-100 Blood Urea Nitrogen 16 mg/dL N 6-24 Creatinine 0.98 mg/dL High 0.51-0.95 BUN/Creatinine Ratio 16.3 N 8-20 Calcium 9.1 mg/dL N 8.6-10.3 Egfr Non- 55.9 N >60 Egfr 71.9 N >60 22 Laboratory test 11/22/2015 [facility] Rapid Group A neg finding Strep Laboratory test 05/30/2015 [facility] Surgical SEE RESULT [address] [place] [address] [phone] CBC Auto Diff 04/24/2015 [facility] White Blood 10.2 10^3/uL N 4.8-10. [address] Count 8 [place] [address] [phone] Red Blood Count 4.80 10^6/uL N 4.0-5.4 [...] Nucleated Red Blood Cells % 0.1 N Ua Routine 04/24/2015 [facility] Ua Specific [place] 1.030 Ua PH 7 Ua Color dark yellow Ua Appera clear Ua WBC neg Ua Protein neg Ua Glucose neg Ua Ketones neg Ua Bilirubin +++ Ua Urobilinogen normal Ua Nitrite positive Ua Occult Blood trace Inr/Protime 04/24/2015 [facility] Inr 0.98 N 0.78-1.[address] [place] [address] [phone] Laboratory test 04/24/2015 [facility] Amylase 21 U/L Low 29- 103 finding [address] [place] [address] [phone] Lipase 26 U/L N 11.0-82.0 Alkaline Phosphatase 70 U/L N 34-104 Comp Metabolic Panel 04/24/2015 [facility] Sodium 136 mmol/L N 133-145 [address] [place] [address] [phone] Potassium 4.0 mmol/L N 3.5-5.0 Chloride 102 [...] N >60 Egfr 79.6 N >60 24 Basic Metabolic Panel 02/20/2015 [facility] Sodium 137 mmol/L N 133-145 25 [address] [place] [address] [phone] Potassium 4.5 mmol/L N 3.5-5.0 Chloride 106 mmol/L N 101-111 Co2 Carbon Dioxide 25 mmol/L N 22-32 Anion Gap 6 mmol/L N 2-11 Glucose 133 mg/dL High 70-100 Blood Urea Nitrogen 12 mg/dL N 6-24 Creatinine 0.77 mg/dL N 0.51-0.95 BUN/Creatinine Ratio 15.6 N 8-20 Calcium 8.9 mg/dL N 8.6-10.3 Egfr Non- 74.1 N >60 Egfr 95.3 N >60 26 Lipid Profile 02/20/2015 [facility] Triglycerides 114 mg/dL N 27 (Trig/Chol/HDL) [address] [place] [address] [phone] Cholesterol 189 mg/dL N 28 HDL Cholesterol 55.4 mg/dL N 29 LDL Cholesterol 111 mg/dL N 30 Laboratory test 02/20/2015 [facility] Hemoglobin A1c 5.6 % N Less [address] [facility] (Glyco HGB) than 6.0 [place] [address] [phone] Urine 02/20/2015 [facility] Ur Microalbumin 17.[address] (mg/L) mg/[place] [address] [phone] Urine Creatinine 146.47 mg/dL N Urine Microalbumin/Creatinine 11.6 ug/mg N <31 Type & Screen 12/19/2014 [facility] Patient Blood Type O Positive N 32 [address] [place] [address] [phone] Antibody Screen NEGATIVE N Urinalysis Profile 12/19/2014 [facility] Urine Color Yellow N [address] [place] [address] [phone] Urine Appearance Cloudy N Urine Specific [place] 1.023 N 1.010-1.030 Urine pH 5.0 N [...] Present Abnormal Absent Urine Culture And 12/19/2014 [facility] Urine Culture (SEE NOTE ) 33 Sensitivities [address] [place] [address] [phone] Basic Metabolic 12/19/2014 [facility] Sodium 136 mmol/L N 133- [address] 5 [place] [address] [phone] Potassium 4.2 mmol/L N 3.5-5.0 Chloride 103 mmol/L N 101-111 Co2 Carbon Dioxide 26 mmol/L N 22-32 Anion Gap 7 mmol/L N 2-11 Glucose 131 mg/dL High 70-100 Blood Urea Nitrogen 17 mg/dL N 6-24 Creatinine 0.91 mg/dL N 0.51-0.95 BUN/Creatinine Ratio 18.7 N 8-20 Calcium 9.1 mg/dL N 8.6-10.3 Egfr Non- 61.1 N >60 Egfr 78.6 N >60 34 Inr/Protime 12/19/2014 [facility] Inr 0.97 N 0.78-1.[address] [place] [address] [phone] CBC No Diff 12/19/2014 [facility] White Blood 7.3 10^3/uL N 4.8-10.[address] [place] [address] [phone] Red Blood Count 4.56 10^6/uL N 4.0-5.4 Hemoglobin 13.8 g/dL N 12.0-16.0 Hematocrit 40 % N 35-47 Mean Corpuscular Volume 88 fL N 80-97 Mean Corpuscular Hemoglobin 30 pg N 27-31 Mean Corpuscular HGB Conc 34 g/dL N 31-36 Red Cell Distribution Width 13 % N 10.5-15 Platelet Count 278 10^3/uL N 150-450 Mean Platelet Volume 9 um3 N 7.4-10.4 Laboratory test 08/03/2014 [facility] In House Hemoglobin A1c 6.0 5-7 finding Urine Microalbumin 01/31/2014 [facility] Ur Microalbumin 5.0 mg/ dL N <[address] (mg/L) [place] [address] [phone] Urine Creatinine 69.03 mg/dL N Urine Microalbumin/Creatinine 7.2 N Less Than 31 Lipid Panel - 10/28/2013 [facility] Creatine Kinase 152 U/L 10-223 [address] [place] [address] [phone] Comp Metabolic 10/28/2013 [facility] Sodium 140 133-[address] mmol/[place] [address] [phone] Potassium 5.0 mmol/L 3.7-5.6 Chloride 105 mmol/L [...] Egfr 79.1 >60 37 Lipid Profile 10/28/2013 [facility] Triglycerides 83 mg/dL 38 (Trig/Chol/HDL) [address] [place] [address] [phone] Cholesterol 185 mg/dL 39 HDL Cholesterol 52.2 mg/dL 40 LDL Cholesterol 116 mg/dL 41 Laboratory test 10/27/2013 [facility] Hemoglobin A1c 6.0 5-7 finding Laboratory test 07/28/2013 [facility] Hemoglobin A1c 6.2 5-7 finding Laboratory test 05/16/2013 [facility] Lyme Disease Negative Negative [address] [facility] [place] [address] [phone] Comp Metabolic 04/01/2013 [facility] Sodium 140 mmol/L 133- 145 Panel [address] [place] [address] [phone] Potassium 4.7 mmol/L 3.5-5.0 Chloride 105 mmol/L [...] Egfr 80.1 >60 43 Laboratory test 04/01/2013 [facility] Creatine Kinase 242 U/L High 0-[address] [place] [address] [phone] Ariane (Anti-Nuclear AB) Screen Negative Negative 44 Laboratory test 04/01/2013 [facility] Rheumatoid 47 IU/mL Abnormal <15 [address] [place] [address] [phone] Cyclic Citrullinated Pept IgG <15.6 U 46 Manuel Screen Negative Negative 47 Erythrocyte Sed Rate 24 mm/Hr 0-40 CBC Auto Diff 04/01/2013 [facility] White Blood 8.4 10^3/uL 4.8-10.[address] [place] [address] [phone] Red Blood Count 4.33 10^6/uL 4.0-5.4 Hemoglobin [...] 0-2 Nucleated Red Blood Cells % 0 Hepatitis 04/01/2013 [facility] Hepatitis C Nonreactive Nonreactive Acute Panel [address] [place] [address] [phone] Hepatitis A AB IgM Nonreactive Nonreactive Hepatitis B Core IgM Nonreactive Nonreactive Hepatitis B Surface Antigen Nonreactive Nonreactive Lipid Profile 11/20/2012 [facility] Triglycerides 93 mg/dL 40 -200 (Trig/Chol/HDL) [address] [place] [address] [phone] Cholesterol 214 mg/dL High Less than 200 HDL Cholesterol 61 mg/dL High 40-60 48 Cholesterol/HDL Ratio 3.5 Average 1-4.44 LDL Cholesterol 134.4 mg/dL High Less Than 100 49 Comp Metabolic Panel 11/20/2012 [facility] Sodium 136 mmol/L 133-[address] [place] [address] [phone] Potassium 4.5 mmol/L 3.5-5.0 Chloride 104 mmol/L [...] Egfr 80.3 >60 50 Laboratory test 11/20/2012 [facility] Hemoglobin A1c 5.9 % Less [address] than 6.0 [place] [address] [phone] Urine 11/20/2012 [facility] Ur Microalbumin 7.0 mg/L [address] (Mg/L) [place] [address] [phone] Urine Creatinine 163.1 mg/dL Urine Microalbumin/Creatinine 4.3 ug/mg Less Than 31 Laboratory test 11/20/2012 [facility] Creatine Kinase 272 U/L High 0-[address] [place], [place] [phone] LDH 189 U/L High 95-185 Lipid Profile 11/21/2011 [facility] Triglyceride 99 mg/dL 40- 200 (Trig/Chol/HDL) [address] [place] [address] [phone] Cholesterol 203 mg/dL High Less Than 200 53 High Density Lipoprotein 58 mg/dL 40-60 54 Cholesterol/HDL Ratio 3.50 AVERAGE 1-4.44 Low Density Lipoprotein 125 mg/dL High Less Than 100 55 Comp Metabolic Panel 11/21/2011 [facility] Sodium 136 mmol/L 135-[address] [place] [address] [phone] Potassium 4.8 mmol/L 3.5-5.0 Chloride 104 mmol/L [...] 80.6 > 60 58 Laboratory test 11/21/2011 [facility] CPK (Creatine 350 U/L High 0-[address] Kinase) [place] [address] [phone] Hemoglobin A1c 6.2 % High Less Than 6.0 59 Urine Microalbumin 11/21/2011 [facility] Microalbumin (MG/L) 8.0 mg/L Random [address] [place] [address] [phone] Urine Creatinine 155.2 mg/dL Arik Alb/Creatinine Ratio 5.2 UG/MG Less Than 30 60 Laboratory test 08/27/2011 [facility] In House Hemoglobin A1c 5.8 5-7 finding Laboratory test 04/01/2011 [facility] CPK (Creatine 175 U/L High 0-[address] Kinase) [place] [address] [phone] CBC With Manual 04/01/2011 [facility] White Blood Count 9.3 CUMM 4.8-10.[address] [place] [address] [phone] Red Cell Count 3.92 CUMM Low 4.2-5.4 [...] (SEE NOTE) 61 Comp Metabolic Panel 04/01/2011 [facility] Sodium 138 mmol/L 135-145 [address] [place] [address] [phone] Potassium 4.5 mmol/L 3.5-5.0 Chloride 102 mmol/L [...] > 60 64 CBC Auto Diff 04/01/2011 [facility] White Blood 9.3 CUMM 4.8- 10.[address] [place] [address] [phone] Red Cell Count 3.92 CUMM Low 4.2-5.4 [...] 0-0.6 Abs Basophils 0 0-0.2 Cytology 12/26/2010 [facility] Cytology Non 65 Non-Aix Administrator [address] Aix Administrator <SEE NOTE> [place], [place] [address] [phone] Laboratory 12/24/2010 [facility] CPK 536 U/L High 0-[address] (Creatine 70 [place] [address] Kinase) [phone] Liver Function 12/24/2010 [facility] Total 7.0 GM/DL 6.[address] Protein -8[place] [address] [phone] Albumin 4.4 GM/DL 3.2-5.2 Globulin 2.6 GM/DL 2-4 Albumin/Globulin Ratio 1.7 1-3 Bilirubin Total 0.9 mg/dL 0.4-1.5 66 Bilirubin Direct 0.1 mg/dL 0.1-0.5 Indirect Bilirubin 0.8 mg/dL 0.3-1.0 67 Alkaline Phosphatase 57 U/L 30-110 Alt (SGPT) 82 U/L High 14-54 Ast (Sgot) 44 U/L High 12-42 CBC Auto Diff 12/24/2010 [facility] White Blood 7.1 CUMM 4.8- 10.[address] [place] [address] [phone] Red Cell Count 4.21 CUMM 4.2-5.4 Hemoglobin [...] Abs Basophils 0 0-0.2 Laboratory test 12/24/2010 [facility] PTT (Aptt) 29.4 25.15- 38.[address] [place], [place] [id number] [phone] Protime 12/24/2010 [facility] Inr 0.97 0.82-1.[address] [place] [address] [phone] Protime 11.4 SEC 10.2-14.8 69 CK Isoenzymes 2010 [facility] Creatine 489 U/L Abnormal 38-[address] Kinase (CK) [place] [address] [phone] Total CK 489 U/L Abnormal () 71 mm Fraction . % 100 72 MB Fraction 4 % Abnormal 0 BB Fraction 0 % 0 73 Laboratory test 2010 [facility] CPK (Creatine 500 U/L High 0-[address] Kinase) [place], [place] [id number] [phone] CKMB 2010 [facility] CKMB In NG/ML 20.0 High 0.3-4.[address] NG/ML [place], [place] [id number] [phone] % CKMB 4 %MB 0-9 74 Laboratory test 12/04/2010 [facility] Hemoglobin A1c 6.2 % High Less [address] Than 6.0 [place] [address] [phone] Urine 12/04/2010 [facility] Microalbumin 8.[address] (MG/L) mg/[place] [address] [phone] Urine Creatinine 198.78 mg/dL Arik Alb/Creatinine Ratio 4.0 UG/MG Less Than 30 76 Lipid Panel - 12/04/2010 [facility] CPK (Creatine 491 U/L High 0-[address] Kinase) [place], [place] [id number] [phone] Comp Metabolic 12/04/2010 [facility] Sodium 139 135-[address] mmol/[place] [address] [phone] Potassium 4.6 mmol/L 3.5-5.0 Chloride 107 mmol/L [...] 92.6 > 60 79 Lipid Profile 12/04/2010 [facility] Triglyceride 132 mg/dL 40 -200 (Trig/Chol/HDL) [address] [place] [address] [phone] Cholesterol 232 mg/dL High Less Than 200 80 High Density Lipoprotein 53 mg/dL 40-60 81 Cholesterol/HDL Ratio 4.38 AVERAGE 1-4.44 Low Density Lipoprotein 153 mg/dL High Less Than 100 82 CBC Auto Diff 12/04/2010 [facility] White Blood 5.9 CUMM 4.8- 10.[address] [place] [address] [phone] Red Cell Count 4.12 CUMM Low 4.2-5.4 [...] Basophils 0 0-0.2 Lipid Panel - 08/23/2010 [facility] CPK (Creatine 376 U/L High 0-[address] Kinase) [place] [address] [phone] Comp Metabolic 08/23/2010 [facility] Sodium 137 135-[address] mmol/[place] [address] [phone] Potassium 4.4 mmol/L 3.5-5.0 Chloride 105 mmol/L [...] 80.8 > 60 85 Lipid Profile 08/23/2010 [facility] Triglyceride 106 mg/dL 40 -200 (Trig/Chol/HDL) [address] [place] [address] [phone] Cholesterol 197 mg/dL Less Than 200 86 High Density Lipoprotein 52 mg/dL 40-60 87 Cholesterol/HDL Ratio 3.79 AVERAGE 1-4.44 Low Density Lipoprotein 124 mg/dL High Less Than 100 88 Laboratory test 08/23/2010 [facility] Hemoglobin A1c 6.3 % High Less Than [address] 6.0 [place] [address] [phone] Basic Metabolic 05/22/2010 [facility] Sodium 138 135-[address] mmol/[place] [address] [phone] Potassium 4.0 mmol/L 3.5-5.0 Chloride 104 mmol/L 101-111 Co2 (Carbon Dioxide) 26.0 mmol/L 22-32 Anion Gap 8.0 mmol/L 2-11 90 Glucose 129 mg/dL High 70-100 91 BUN 15 mg/dL 6-24 Creatinine 0.90 mg/dL 0.50-1.40 One Over Creatinine 1.10 BUN/Creatinine Ratio 16.7 8-20 Calcium 9.0 mg/dL 8.1-9.9 eGFR Non- 66.8 > 60 eGFR 80.8 > 60 92 Liver Function 05/22/2010 [facility] Total Protein 5.8 GM/DL Low 6.2-8.[address] [place] [address] [phone] Albumin 4.0 GM/DL 3.2-5.2 Globulin 1.8 GM/DL Low 2-4 Albumin/Globulin Ratio 2.2 1-3 Bilirubin Total 0.7 mg/dL 0.4-1.5 93 Bilirubin Direct 0.0 mg/dL Low 0.1-0.5 Indirect Bilirubin (SEE NOTE) mg/dL 0.3-1.0 94 Alkaline Phosphatase 52 U/L 30-110 Alt (SGPT) 57 U/L High 14-54 Ast (Sgot) 34 U/L 12-42 Laboratory test 05/22/2010 [facility] C Reactive 1.0 mg/dL High Less Than finding [address] Protein 0.5 [place] [address] [phone] CBC With 05/22/2010 [facility] White Blood 7.9 CUMM 4.8-10.8 Electronic Diff [address] [place] [address] [phone] Red Cell Count 4.18 CUMM Low 4.2-5.4 Hemoglobin 13.5 g/dL 12.0-16.0 Hematocrit 38 % 35-47 Mean Corpuscular Volume 92 um3 79-97 Mean Corpuscular Hemoglob 32 pg High 27-31 Mean Corpuscular HGB Cone 35 g/dL 32-36 Redcell Distribution WDTH 12 % 10.5-15 Platelet Count 272 CUMM 150-450 Mean Platelet Volume 8.1 um3 7.4-10.4 Manual Differential 05/22/2010 [facility] Polysegmented 49 % 38-[address] [place] [address] [phone] Band Neutrophil 1 % 0-8 Lymphocyte 38 % 25-47 Monocyte 11 % 0-13 Eosinophil 1 % 0-6 Absolute Neutrophil Count 3.9 RBC Morphology NORMAL Laboratory test 05/22/2010 [facility] Erythrocyte Sed 9 MM/HR 0-[address] [place] [address] [phone] Basic Metabolic 03/15/2010 [facility] Sodium 139 mmol/L 135- [address] [place] [address] [phone] Potassium 4.3 mmol/L 3.5-5.0 Chloride 104 mmol/L 101-111 Co2 (Carbon Dioxide) 28.0 mmol/L 22-32 Anion Gap 7.0 mmol/L 2-11 95 Glucose 123 mg/dL High 70-100 96 BUN 13 mg/dL 6-24 Creatinine 0.90 mg/dL 0.50-1.40 One Over Creatinine 1.10 BUN/Creatinine Ratio 14.4 8-20 Calcium 9.1 mg/dL 8.1-9.9 97 eGFR Non- 66.8 > 60 eGFR 80.8 > 60 98 Liver Function 03/15/2010 [facility] Total Protein 6.4 GM/DL 6.2-8.[address] [place] [address] [phone] Albumin 4.0 GM/DL 3.2-5.2 Globulin 2.4 GM/DL 2-4 Albumin/Globulin Ratio 1.7 1-3 Bilirubin Total 0.6 mg/dL 0.4-1.5 99 Bilirubin Direct 0.1 mg/dL 0.1-0.5 Indirect Bilirubin 0.5 mg/dL 0.3-1.0 100 Alkaline Phosphatase 57 U/L 30-110 Alt (SGPT) 53 U/L 14-54 Ast (Sgot) 32 U/L 12-42 Laboratory test 03/15/2010 [facility] C Reactive 0.8 mg/dL High Less Than finding [address] Protein 0.5 [place] [address] [phone] CBC With 03/15/2010 [facility] White Blood 8.3 CUMM 4.8-10.8 Electronic Diff [address] [place] [address] [phone] Red Cell Count 4.09 CUMM Low 4.2-5.4 Hemoglobin 13.1 g/dL 12.0-16.0 Hematocrit 37 % 35-47 Mean Corpuscular Volume 91 um3 79-97 Mean Corpuscular Hemoglob 32 pg High 27-31 Mean Corpuscular HGB Cone 35 g/dL 32-36 Redcell Distribution WDTH 13 % 10.5-15 Platelet Count 277 CUMM 150-450 Mean Platelet Volume 7.9 um3 7.4-10.4 101 Manual Differential 03/15/2010 [facility] Polysegmented 57 % 38-[address] [place] [address] [phone] Band Neutrophil 2 % 0-8 Lymphocyte 30 % 25-47 Monocyte 8 % 0-13 Eosinophil 3 % 0-6 Absolute Neutrophil Count 4.8 RBC Morphology NORMAL Laboratory test 03/15/2010 [facility] Erythrocyte Sed 11 MM/HR 0-[address] [place] [address] [phone] Basic Metabolic 01/22/2010 [facility] Sodium 135 mmol/L 135- [address] [place] [address] [phone] Potassium 4.0 mmol/L 3.5-5.0 Chloride 105 mmol/L 101-111 Co2 (Carbon Dioxide) 25.0 mmol/L 22-32 Anion Gap 5.0 mmol/L 2-11 102 Glucose 137 mg/dL High 70-100 103 BUN 10 mg/dL 6-24 Creatinine 0.80 mg/dL 0.50-1.40 One Over Creatinine 1.20 BUN/Creatinine Ratio 12.5 8-20 Calcium 8.5 mg/dL 8.1-9.9 104 eGFR Non- 76.5 > 60 eGFR 92.6 > 60 105 Liver Function 01/22/2010 [facility] Total Protein 6.0 GM/DL Low 6.2-8.[address] [place] [address] [phone] Albumin 3.8 GM/DL 3.2-5.2 Globulin 2.2 GM/DL 2-4 Albumin/Globulin Ratio 1.7 1-3 Bilirubin Total 0.7 mg/dL 0.4-1.5 106 Bilirubin Direct 0.1 mg/dL 0.1-0.5 Indirect Bilirubin 0.6 mg/dL 0.1-0.75 Alkaline Phosphatase 52 U/L 30-110 Alt (SGPT) 58 U/L High 14-54 Ast (Sgot) 40 U/L 12-42 Laboratory test 01/22/2010 [facility] C Reactive 0.6 mg/dL High Less Than finding [address] Protein 0.5 [place] [address] [phone] CBC With Manual 01/22/2010 [facility] White Blood 6.5 CUMM 4.8-10.[address] [place] [address] [phone] Red Cell Count 3.99 CUMM Low 4.2-5.4 [...] 3.4 RBC Morphology NORMAL Laboratory test 01/22/2010 [facility] Erythrocyte Sed 14 MM/HR 0-[address] [place] [address] [phone] Comp Metabolic 10/10/2009 [facility] Sodium 132 mmol/L Low 135 -[address] [place] [address] [phone] Potassium 4.2 mmol/L 3.5-5.0 Chloride 99 mmol/L [...] 81.1 > 60 111 Laboratory test 10/10/2009 [facility] Rheumatoid 699.5 High Less finding [address] Factor IU/mL Than 20 [place] [address] [phone] C Reactive Protein 0.5 mg/dL Less Than 0.5 CBC With Manual 10/10/2009 [facility] White Blood 5.8 CUMM 4.8-10.[address] [place] [address] [phone] Red Cell Count 4.33 CUMM 4.2-5.4 Hemoglobin [...] Count 3.7 Anisocytosis SLIGHT Laboratory test 10/10/2009 [facility] Erythrocyte Sed 13 MM/HR 0-[address] [place] [address] [phone] Cyclic Citrullinated Pep Igg <15.6 U () 112 Laboratory test 07/19/2009 [facility] Magnesium 2.2 mg/dL 1.7 -2.[address] [place] [address] [phone] Laboratory test 07/19/2009 [facility] Erythrocyte Sed 13 MM/HR 0-[address] [place] [address] [phone] C Reactive Protein < 0.5 mg/dL Less Than 0.5 Rheumatoid Factor 346.7 IU/mL High Less Than 20 CBC With Manual 07/19/2009 [facility] White Blood 5.9 CUMM 4.8-10.[address] [place] [address] [phone] Red Cell Count 4.37 CUMM 4.2-5.4 Hemoglobin [...] 3.0 Anisocytosis SLIGHT Basic Metabolic Panel 07/19/2009 [facility] Sodium 138 mmol/L 135-[address] [place] [address] [phone] Potassium 4.4 mmol/L 3.5-5.0 Chloride 107 mmol/L 101-111 Co2 (Carbon Dioxide) 27.0 mmol/L 22-32 Anion Gap 4.0 mmol/L 2-11 113 Glucose 129 mg/dL High 70-100 114 BUN 14 mg/dL 6-24 Creatinine 0.80 mg/dL 0.50-1.40 One Over Creatinine 1.20 BUN/Creatinine Ratio 17.5 8-20 Calcium 8.9 mg/dL 8.1-9.9 115 eGFR Non- 76.8 > 60 eGFR 92.9 > 60 116 Laboratory test 07/19/2009 [facility] Ariane (Antinuclear NEGATIVE Negative finding DRIVE Antibodies) [place] [address] [phone] TSH 1.93 MIU/ML 0.34-5.60 Thyroxine Free 07/19/2009 [facility] Free Thyroxine 0.74 0.61 -1.[address] NG/[place] [address] [phone] Laboratory 02/29/2008 [facility] Hemoglobin A1c 6.2 % High < 6.0 [address] [place] [address] [phone] Basic 02/29/2008 [facility] Sodium 142 135-[address] mmol/[place] [address] [phone] Potassium 4.0 mmol/L 3.5-5.0 Chloride 108 mmol/L 101-111 Co2 (Carbon Dioxide) 27.0 mmol/L 22-32 Anion Gap 7.0 mmol/L 2-11 119 Glucose 119 mg/dL High 70-105 BUN 11 mg/dL 6-24 Creatinine 1.0 mg/dL 0.5-1.4 One Over Creatinine 1.00 BUN/Creatinine Ratio 11.0 8-20 Calcium 8.6 mg/dL 8.1-9.9 120 Laboratory test 02/29/2008 [facility] Magnesium 2.1 mg/dL 1.7 -2.[address] [place], [place] [address] [phone] Lipid Profile 02/29/2008 [facility] Triglyceride 102 mg/dL 40 -200 (Trig/Chol/HDL) [address] [place] [address] [phone] Cholesterol 219 mg/dL High Less Than 200 121 High Density Lipoprotein 50 mg/dL 40-60 122 Cholesterol/HDL Ratio 4.38 AVERAGE 1-4.44 Low Density Lipoprotein 149 mg/dL High Less Than 100 123 Laboratory 08/09/2007 [facility] C. N^NEGATIVE 124 test finding [address] Difficile BY IM <[place] [address] Toxin A B NOTE> [phone] Stool For 08/09/2007 [facility] Stool For POSITIVE Abnormal Negative Blood [address] [place] [address] [phone] Stool Color BROWN Stool Consistency FIRM Stool Form FORMED Urinalysis 08/05/2007 [facility] Ua Color YELLOW [address] [place] [address] [phone] Appearance-Urine CLEAR Bilirubin-Ur NEGATIVE Negative Blood-Urine NEGATIVE Negative Esterase-Urine NEGATIVE Negative Glucose-Urine NEGATIVE Negative Ketones-Urine NEGATIVE Negative Nitrite NEGATIVE Negative PH-Urine 6.0 5-9 Protein-Urine NEGATIVE Negative Lwticaywmfsh-Gt-NTP NEGATIVE Negative Specific [place]-Ur 1.008 Low 1.010-1.030 Laboratory test 08/05/2007 [facility] Urine Culture NG [address] [place] [address] [phone] 1 [id number] 2 Weblogic Developer: [id number] 3 Because ethnic data is not always [...] in 2-4 weeks. Test Performed by: [facility] [address] [place] [address] 5 Desirable: <150 Borderline High: 150-199 High: [...] and in selective patients <6.0%.Please refer to [place] [employer] Diabetic care guidelines for further [...] and in selective patients <6.0%.Please refer to [place] [employer] Diabetic care guidelines for further [...] (or dialysis) 23 SEE RESULT BELOW Name: ANDREWLINDABRADLEY : [address]: Rodrigue Villalba MD Acct: [id number] Unit: [id number] AGE: 69 Location: [facility] Re05/30/15 SEX: F Status: REG REF SPEC: [id number] LAURA: 05/30/15- SUBM DR: Rodrigue Villalba MD REQ: [id number] RECD: 05/30/15 STATUS: MILO CHRISTIE DR: Nima [...] performed at Main Lab DEPARTMENT OF PATHOLOGY, [address] [place] [address] Keanu Paiz M.D. Director [facility] # [id number] 24 Because ethnic data is not always [...] and in selective patients <6.0%.Please refer to [place] [employer] Diabetic care guidelines for further information. 32 SDS 12/26 33 RUN DATE: 12/21/14 [facility] LAB LIVE PAGE 1 RUN TIME: 0132 [address] [place], [place] [address] Specimen Inquiry Name: BRADLEY EGAN : [address]: Brady Aguilar MD Acct: [id number] Unit: [id number] AGE: 69 Location: PAT Re12/19/14 SEX: F Status: REG REF SPEC: [id number] LAURA: 12/19/14-[address]: Brady Aguilar MD REQ: [id number] RECD: 12/19/14-1550 STATUS: BRANDON CHRISTIE DR: Nima Roche MD _ SOURCE: URINE SPDESC: ORDERED: Urine Culture Procedure Result Verified Site Urine Culture Final 12/21/14- 1228 ML Organism 1 NORMAL MICHELLE Steinauer Count 25-50,000 (Moderate) CFU/ML * ML - MAIN LAB (PSC1) . END OF REPORT * ML=Testing performed at Main Lab DEPARTMENT OF PATHOLOGY, [address] [place] [address] Keanu Paiz M.D. Director [facility] # [id number] 34 Because ethnic data is not always readily [...] 15-29 5 Kidney failure <15 (or dialysis) 35 Microalbuminuria in a random sample is [...] submitted in 7-14 days. Test Performed by: [place] [address] Carton Liner: Marcos Alejandro III, M.D. 43 Because ethnic [...] 1629 on 04/01/13. 45 Test Performed by: [place] [address] Carton Liner: Marcos Alejandro III, M.D. 46 -- REFERENCE VALUE -- <20.0 (Negative) Test Performed by: [place] [address] Carton Liner: Marcos Alejandro III, M.D. 47 The above MANUEL screen is designed for the detection of antibodies to extractable nuclear antigen (MANUEL) in human serum. It is a combination test for the detection of antibodies to RIM FIRE CHARGER OPERATOR, Sm, SS-A (Ro), and SS-B (La) nuclear antigens. 48 HDL Interpretation: Undesirable: High Risk: Less [...] and in selective patients <6.0%.Please refer to [place] [employer] Diabetic care guidelines for further [...] IN SELECTIVE PATIENTS <6.0%. PLEASE REFER TO [employer]ATION DIABETIC CARE GUIDELINES FOR FURTHER [...] has been shown to interfere with the [place] method for measuring total bilirubin. Samples from [...] (or dialysis) 65 ---- RUN DATE: 01/02/11 [facility] NMI LIVE PAGE 1 RUN TIME: 1027 Specimen Inquiry RUN USER: INTERFACE -- Name: JULISABRADLEY [place]#: [id number] Status: DEP ER Re12/26/10 Age/Sex: 65/F Unit#: [id number] Location: [facility]. : 43 -- Specimen: [id number] [id number] Spec [...] Decorate blood vessels. -- DEPARTMENT OF PATHOLOGY, [address] [place] [address] [facility] Permit #[id number] Keanu Paiz M.D. Director Shannon Ac M.D. Public Address Systems Mechanic Dir youngblood -- -- RUN DATE: 01/02/11 [facility] NMI LIVE PAGE 2 RUN TIME: 1027 Specimen Inquiry RUN USER: INTERFACE -- Name: BRADLEY EGAN Acc#: [id number] Status: DEP ER Re12/26/10 Age/Sex: 65/F Unit#: [id number] Location: [facility] : 43 -- -- CONTINUED -- COMMENT [...] similar findings. Initial evaluation performed by Lei MCMILLAN([facility]) 12/27/10 Final Interpretation electronically signed by: SHANNON AC 01/02/11 1026 -- -- DEPARTMENT OF PATHOLOGY, [address] [place] [address] [facility] Permit #[id number] Keanu Paiz M.D. Director Shannon Ac M.D. Public Address Systems Mechanic Dir ford -- 66 A metabolite of Naproxen, O-desmethylnaproxen, has been shown to interfere with the Tammy- method for measuring total bilirubin. Samples from [...] BASED ON THE INR VALUE ALONE. 70 Test Performed by: [facility] Dpt of Lab Med and Pathology [address] [place] [address] Carton Liner: Marcos Alejandro III, M.D. 71 -- REFERENCE VALUE -- 38-176 (>=18 y) NOTE: Strenuous exercise or intramuscular injections may cause transient elevation of CK. 72 MM=93% MACRO TYPE 1=3% 73 Test Performed by: [facility] Dpt of Lab Med and Pathology [address] [place] [address] Carton Liner: Marcos Alejandro III, M.D. 74 INTERPRETATION %CK-MB < 5% NOT SUPPORTIVE OF DIAGNOSIS OF TX 5 - <10% INDETERMINATE; SUGGEST SERIAL STUDIES IF CLINICALLY INDICATED 10% OR > CONSISTENT WITH DIAGNOSIS OF TX . 75 THERAPEUTIC TARGET FOR THE TREATMENT OF DIABETES MELLITUS PATIENTS IS <7% HBA1C, AND IN SELECTIVE PATIENTS <6.0%. PLEASE REFER TO [employer]ATION DIABETIC CARE GUIDELINES FOR FURTHER INFORMATION. 76 MICROALBUMINURIA IN A RANDOM SAMPLE IS DEFINED : MICROALBUMIN/CREATININE RATIO OF 30-299 ug/mg. . 77 Anion gap measurement may be of limited value in the presence of any alkalosis, especially in a combined acid base disorder. . 78 A metabolite of Naproxen, O-desmethylnaproxen, has been shown to interfere with the [place] method for measuring total bilirubin. Samples from [...] IN SELECTIVE PATIENTS <6.0%. PLEASE REFER TO [employer] DIABETIC CARE GUIDELINES FOR FURTHER INFORMATION. 90 Anion gap measurement may be of limited value in the presence of any alkalosis, especially in a combined acid base disorder. . 91 Note change in reference range as of 04/06/08. The change was based on recommendations from the [place] [employer]. 92 Because ethnic data is [...] change was based on recommendations from the [place] [employer]. 97 Please note change in [...] change was based on recommendations from the [place] [employer]. 104 Please note change in [...] has been shown to interfere with the [place] method for measuring total bilirubin. Samples from patients who have taken Naproxen have shown spurious elevation in total bilirubin levels. 107 Anion gap measurement may be of limited value in the presence of any alkalosis, especially in a combined acid base disorder. . 108 Note change in reference range as of 04/06/08. The change was based on recommendations from the [place] [employer]. 109 Please note change in reference range effective 08 . 110 A metabolite of Naproxen, O-desmethylnaproxen, has been shown to interfere with the [place] method for measuring total bilirubin. Samples from [...] >=60.0 (Strong Positive) Test Performed by: [facility] Dpt of Lab Med and Pathology [address] [place] [address] Carton Liner: Marcos Alejandro III, M.D. 113 Anion gap measurement may be of limited value in the presence of any alkalosis, especially in a combined acid base disorder. . 114 Note change in reference range as of 04/06/08. The change was based on recommendations from the [place] [employer]. 115 Please note change in [...] IN SELECTIVE PATIENTS <6.0%. PLEASE REFER TO [employer] DI[employer]ATION DIABETIC CARE GUIDELINES FOR FURTHER [...] CFU/mL) Procedures Date Code Description Status 09/15/2018 [id number] Mammogram Completed 06/24/2018 [id number] Diabetic Retinal Eye Exam Completed 06/10/2018 23257 Arthroscopy,Knee,Meniscectomy Media & Lateral Completed 06/10/2018 68053 Arthroscopy,Knee,Meniscectomy Media & Lateral Completed 06/04/2018 22282 EKG Tracing & Interpretation Completed 04/05/2018 16921 Inject/Drain Joint/Bursa Major W/O US Completed 06/10/2017 89154 ECHO Transthoracic, Real-Time 2D With Doppler And Completed Color Flow 05/05/2017 53964 EKG Tracing & Interpretation Completed 07/08/2016 92731 EKG Tracing & Interpretation Completed 06/18/2016 [id number] Mammogram Completed 03/27/2016 06375 Diffusing Capacity Completed 03/27/2016 47498 Plethysmography Determination Lung Volumes & Per Completed Airway Resist 03/27/2016 16184 Pulmonary Function><Bronchodil Completed 11/29/2015 [id number] Diabetic Retinal Eye Exam Completed 10/19/2015 23861 EKG Tracing & Interpretation Completed 05/30/2015 [id number] Colonoscopy Completed 04/04/2015 [id number] Mammogram Completed 12/26/2014 54764 THR Total Hip Replacement Completed 12/26/2014 66671 THR Total Hip Replacement Completed 12/22/2014 79561 Myocardial Perfusion Imaging Tomographic (Spect) Completed Multiple Studies 12/22/2014 20354 Myocardial Perfusion Imaging Tomographic (Spect) Completed Multiple Studies 12/22/2014 73512 Stress Test Completed 12/20/2014 09572 ECHO Transthoracic, Real-Time 2D With Doppler And Completed Color Flow 12/18/2014 93966 EKG Tracing & Interpretation Completed 12/18/2014 17552 EKG Tracing & Interpretation Completed 08/24/2014 [id number] Diabetic Retinal Eye Exam Completed 02/01/2014 [id number] Mammogram Completed 02/01/2014 [id number] Bone Mineral Density Test Completed 04/27/2013 [id number] Diabetic Retinal Eye Exam Completed 01/31/2013 [id number] Mammogram Completed 10/01/2011 15448069 Colonoscopy Completed 09/11/2011 [id number] Bone Mineral Density Test Completed 09/04/2010 50295675 Mammogram Completed 08/11/2008 50805675 Mammogram Completed 05/18/2006 [id number] Colonoscopy Completed Encounters Type Date Location Provider Dx Diagnosis Office Visit 11/17/2018 Orthopedic Netta Brooks, M25.562 Pain in left knee 10:30a [facility] M25.462 Effusion, left knee M17.12 Unilateral primary osteoarthritis, left knee M25.551 Pain in right hip M16.11 Unilateral primary osteoarthritis, right hip Office Visit 06/04/2018 2:30p Chart Writer Internal Zeny Whiteside, Z01.818 Encounter for other [...] mobility Office Visit 03/22/2018 10:30a Orthopedic Brady Augilar M70.62 [facility] bursitis, left hip C.M.A. Office Visit 03/10/2018 10:00a [facility] Internal Giuseppeofia E11.9 Type 2 diabetes Medicine - [place] Gui, DESIGN AND SALES CONSULTANT mellitus without Rd complications I10 Essential (primary) hypertension E78.4 Other hyperlipidemia H61.22 Impacted cerumen, left ear Z23 Encounter for immunization Office Visit 12/09/2017 9:20a [facility] Internal Truong Messer, E11.9 Type 2 diabetes Medicine - DESIGN AND SALES CONSULTANT mellitus without [address] complications I10 Essential (primary) hypertension E78.4 Other hyperlipidemia E11.65 Type 2 diabetes mellitus with hyperglycemia Office Visit 09/28/2017 9:00a Orthopedic Brady Aguilar M70.61 [facility] bursitis, right C.M.A. hip Office Visit 06/16/2017 9:10a [facility] Internal Nima Ricketts Z00.01 Encounter for Medicine Melchor, general adult M.Jamarcus,FACP medical exam w abnormal findings E11.9 Type 2 diabetes mellitus without complications I10 Essential (primary) hypertension F33.9 Major depressive disorder, recurrent, unspecified Z23 Encounter for immunization Office Visit 05/05/2017 2:00p [facility] Douglas Frankel I10 Essential Jannette Simon (primary) hypertension E78.4 Other hyperlipidemia I44.7 Left bundle-branch block, unspecified R53.83 Other fatigue Office Visit 12/09/2016 10:10a [facility] Internal Nima Ricketts E11.9 Type 2 diabetes Medicine [place], M.D.,FACP mellitus without complications I10 Essential (primary) hypertension E78.4 Other hyperlipidemia 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 I10 Essential Jannette Simon (primary) hypertension E78.4 Other hyperlipidemia I44.7 Left bundle-branch block, unspecified E66.9 Obesity, unspecified Z68.32 Body mass index (BMI) 32.0-32.9, adult Office Visit 06/10/2016 10:30a [facility] iAsha Ricketts Z00.00 Encntr for Raoul Roche M.D.,FACP general adult medical exam w/o abnormal findings E11.9 Type 2 diabetes mellitus without complications I10 Essential (primary) hypertension F33.9 Major depressive disorder, recurrent, unspecified Z71.89 Other specified counseling Z23 Encounter for immunization Office Visit 02/19/2016 9:10a [facility] Aisha Ricketts J20.9 Acute bronchitis, Raoul Roche M.D.,FACP unspecified E11.9 Type 2 diabetes mellitus without complications Office Visit 11/22/2015 [facility] Aisha Perdue, J00 Acute nasopharyngitis 1:20p Medicine - [place] [common cold] Rd Office Visit 10/19/2015 [place] Douglas SSarah E11.9 Type 2 diabetes 10:20a Cardiology [place], mellitus without M.D. complications I10 Essential (primary) hypertension R94.31 Abnormal electrocardiogram [ECG] [EKG] I44.7 Left bundle-branch block, unspecified Office Visit 08/22/2015 9:15a Orthopedic Brady Aguilar, Z96.642 Presence of left Services Of M.D. artificial hip C.M.A. joint Office Visit 07/25/2015 10:00a [facility] Aisha Perdue F33.9 Major depressive Medicine - [place] disorder, Rd recurrent, unspecified Office Visit 05/14/2015 9:15a Orthopedic Brady Aguilar Z47.1 Aftercare Services Of M.DSarah following joint C.M.A. replacement surgery Z96.642 Presence of left artificial hip joint Office Visit 04/24/2015 10:30a [facility] Aisha Garner Montserratian, 578.9 Hemorrhage Medicine - [place] Gastrointestinal Tract [place] [address] Unspec 788.1 Dysuria Office Visit 02/05/2015 10:10a [facility] Internal Nima Ricketts 250.00 Diabetes Mellitus [...] (ECG) (EKG) Abnormal Office Visit 12/18/2014 11:00a [facility] Internal Brad Lay, V72.84 Examination Medicine - [place] Preoperative Unspec Rd V43.64 Hip Replacement By [...] Almazan Lower Leg C.M.A. Office Visit 08/03/2014 [facility] Internal Makayla 250.00 Diabetes Mellitus 8:30a Medicine Tara, W/O Compl Type II Or N.P. Unspec Controlled 380.4 Impacted Cerumen 715.15 Osteoarthrosis Localized Prim Pelvic & Thigh v03.82 Streptococcus Pneumoniae Vaccination Spec Other Office Visit 02/15/2014 1:30p Orthopedic Dirk Jeff, 726.71 Bursitis Or Services [facility] Tendinitis C.MSarahASarah Achilles 726.64 Tendinitis Patellar 715.15 Osteoarthrosis Localized Prim Pelvic & Thigh Office Visit 01/31/2014 [facility] Internal Makayla Pacheco, 715.15 Osteoarthrosis 10:00a Medicine N.P. Localized Prim Pelvic & Thigh 250.00 Diabetes Mellitus W/O Compl Type II Or Unspec Controlled 726.71 Bursitis Or Tendinitis Achilles Office Visit 10/27/2013 10:00a [facility] Internal Makayla Pacheco, 250.00 Diabetes Mellitus Medicine N.P. W/O Compl Type II Or Unspec Controlled V82.81 Special Screening For Osteoporosis v06.1 Srbnkrxzwk-Onmzwkv-Uucqholk Combined (DTaP) Office Visit 07/28/2013 10:00a [facility] Aisha Pacheco, 250.00 Diabetes Mellitus Medicine N.P. W/O [...] Or Unspec Controlled Office Visit 12/31/2011 3:20p [facility] Internal Nima Ricketts V70.0 Examination Medicine Jannette Roche,[facility] General Medical Routine AT Health Care Facility 250.00 Diabetes Mellitus W/O Compl Type II Or Unspec Controlled Office Visit 08/27/2011 2:40p [facility] Internal Nima Ricketts 250.00 Diabetes Mellitus Medicine Jannette Roche,FACP W/O Compl Type II Or Unspec Controlled 729.2 Neuralgia Neuritis & Radiculitis Unspec V82.81 Special Screening For Osteoporosis V76.51 Special Screening For Malignant Neoplasms Colon Office Visit 05/27/2011 11:10a DO Not Use Chart Writer Nima Jamarcus 311 Depressive AT Arlyn Roche M.D.,FACP Disorder Not Elsewhere Spec 250.00 Diabetes Mellitus W/O Compl Type II Or Unspec Controlled Office Visit 04/18/2011 10:40a DO Not Use Chart Writer Nima DSarah 311 Depressive AT Arlyn Roche M.D.,FACP Disorder Not Elsewhere Spec 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 209.21 Malignant AT Arlyn Roche M.D.,FAC Carcinoid Tumor Of The Bronchus And Lung 728.88 Rhabdomyolysis 696.0 Psoriatic Arthropathy Office Visit 02/18/2011 10:40a DO Not Use Chart Writer Nima Brooks. 466.0 Bronchitis Acute AT Arlyn Roche M.D.,FACP 729.2 Neuralgia Neuritis & Radiculitis Unspec Office Visit 12/31/2010 2:40p DO Not Use Chart Writer Nima D. 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 Office Visit 11/28/2010 11:00a DO Not Use Chart Writer Nima Ricketts 250.00 Diabetes Mellitus AT Arlyn Roche M.D.,[facility] W/O Compl Type II Or Unspec Controlled 714.0 Rheumatoid Arthritis 786.09 Dyspnea & Respiratory Abnormalities Other 401.1 Hypertension Benign Office Visit 10/09/2010 10:00a Rheumatology Renato Shen, 714.0 Rheumatoid [facility] Adam Bhatia Arthritis 715.91 Osteoarthrosis Unspec Genlzd Or Localized Shoulder V58.69 Medications Halfway (Current) Use Encounter Office Visit 08/23/2010 3:00p DO Not Use Chart Writer Nima Ricketts V70.0 Examination AT Arlyn Roche M.D.,[facility] General Medical Routine AT Health Care Facility 401.1 Hypertension Benign V76.10 Screening For Malignant Neoplasm Breast 250.00 Diabetes Mellitus W/O Compl Type II Or Unspec Controlled 696.0 Psoriatic Arthropathy 272.2 Hyperlipidemia Mixed 786.09 Dyspnea & Respiratory Abnormalities Other V03.82 Streptococcus Pneumoniae Vaccination Spec Other Office Visit 08/08/2009 11:40a DO Not Use Chart Writer AT Nima Roche, 786.2 Cough Arlyn Bhatia,FACP 696.0 Psoriatic Arthropathy Office Visit 07/19/2009 8:30a DO Not Use Chart Writer Marie Murrieta PA 729.1 Myalgia & AT [facility] Myositis Unspec 719.49 Pain Joint Multiple Sites 729.82 Cramp Of Limb Office Visit 05/07/2009 11:40a DO Not Use Chart Writer AT Nima Roche, 717.6 Loose Body In [facility] Jannette,[facility] Knee 840.4 Sprains & Strains Rotator Cuff (Capsule) Office Visit 01/04/2009 3:40p DO Not Use Chart Writer Sudhir, 569.42 Pain Anal Or AT Arlyn Perez M.D. Rectal Office Visit 11/02/2008 9:00a DO Not Use Chart Writer Thananart, 465.9 URI Upper AT Arlyn Perez M.D. Respiratory Infections Acute Unspec Sites Office Visit 02/28/2008 3:20p DO Not Use [facility] Nima Ricktets 361.30 Retinal Defect AT Arlny Roche M.D.,FAC Unspec 401.1 Hypertension Benign 790.21 Impaired Fasting Glucose Office Visit 08/18/2007 4:00p DO Not Use Adam Ricketts 401.1 Hypertension AT Arlyn Roche M.D.,FACP Benign 272.2 Hyperlipidemia Mixed 790.6 Abnormal Blood Chemistry Other 701.1 Keratoderma Acquired Plan of Treatment Future Appointment(s):12/03/2018 2:30 pm - Netta Brooks M.D. at [facility]02/23/2019 10:00 am - JOSE Vasquez at [facility] Internal Hqqjwqet76/03/2019 - Netta Brooks M.D.M25.562 Pain in left kneeM25.462 Effusion , left kneeM17.12 Unilateral primary osteoarthritis, left kneeFollow up:Follow up: 7-10 days before cfabxoyK41.551 Pain in right hipM16.11 Unilateral primary osteoarthritis, right hip
[2018-12-16] MEDS ORDERED: ceFAZolin 2 GM PREMIX in ORs 2 GM/50 ML BAG IVPB ONE (08:09)
[2018-12-16] MEDS ORDERED: Buffered Lidocaine 1% SYRIN* 1 ML/SYRINGE INTRADERM ONE (08:09)
[2018-12-16] MEDS ORDERED: Midazolam* 1 MG/ML 5 ML VIAL (5 MG) ONE (09:10)
[2018-12-16] MEDS ORDERED: fentaNYL* 50 MCG/ML 2 ML VIAL (100 MCG VIAL) ONE (09:10)
[2018-12-16] MEDS ORDERED: ROPIVACAINE 5 MG/ML 30 ML BTL (0.5%) ONE (09:32)
[2018-12-16] MEDS ORDERED: Bupivacaine 0.5%* 50 ML VIAL ONE (09:41)
[2018-12-16] MEDS ORDERED: Bupivacaine 0.5% SDV PF* 30ML VIAL ONE (11:13)
[2018-12-16] MEDS ORDERED: Propofol* 10 MG/ML 20 ML BTL ONE (11:13)
[2018-12-16] MEDS ORDERED: oxyCODONE/Acetamin 5/325 MG* TAB PO PRN ×2 (11:44→13:20)
[2018-12-16] MEDS ORDERED: Acetaminophen TAB* 325 MG PO PRN (11:44)
[2018-12-16] MEDS ORDERED: fentaNYL* 50 MCG/ML 2 ML VIAL (100 MCG VIAL) IV PRN (11:44)
[2018-12-16] MEDS ORDERED: Ibuprofen TAB* 600 MG PO PRN (11:44)
[2018-12-16] MEDS ORDERED: HYDROmorphone INJ1* 1 MG/ML SYRINGE IV PRN (11:44)
[2018-12-16] MEDS ORDERED: Naloxone* 0.4 MG/ML 1 ML VIAL IV PRN (11:44)
[2018-12-16] MEDS ORDERED: Cyclobenzaprine TAB* 10 MG PO PRN (13:20)
[2018-12-16] MEDS ORDERED: Polyethylene Glycol 3350* 17 GM PACKET PO PRN (13:20)
[2018-12-16] MEDS ORDERED: traMADol TAB* 50 MG PO PRN (13:20)
[2018-12-16] MEDS ORDERED: Bisacodyl SUPP* 10 MG SUPP PR PRN (13:20)
[2018-12-16] MEDS ORDERED: Magnesium Hydroxide LIQ* 30 ML UDC PO PRN (13:20)
[2018-12-16] MEDS ORDERED: Ondansetron TAB* 4 MG PO PRN (13:20)
[2018-12-16] MEDS ORDERED: diPHENhydraMINE IV* 50 MG/ML 1 ml VIAL (BENADRYL) IV PRN (13:20)
[2018-12-16] MEDS ORDERED: Ondansetron INJ* 2 MG/ML VIAL IV PRN (13:20)
[2018-12-16] MEDS ORDERED: Acetaminophen TAB* 325 MG PO SCH (14:00)
[2018-12-16] MEDS ORDERED: Lactated Ringers 1000 ML Bag* 1,000 ML IV SCH (14:00)
--- NOTE | 2018-12-16 14:50 | PN ---
Progress Note - Progress Note Date of Service: 12/16/18 Note: resting comfortably in recovery. pain well controlled. dressing c/d/i; able to dorsi flex/plantar flex, 2+ DP pulse
[2018-12-16] MEDS ORDERED: Dextrose 50% Syringe 50 ML* 25 GM/50 ML SYRINGE IV PUSH PRN (16:28)
[2018-12-16] MEDS: oxyCODONE/Acetamin 5/325 MG* TAB PO PRN ×2 (16:48→21:06)
[2018-12-16] MEDS: Morphine INJ* 2 MG/ML 1 ML SYRINGE (TWO MG - NEW SYRINGE VERSION) IV PRN ×3 (16:49→21:05)
[2018-12-16] MEDS: Insulin LISPRO* 1 UNITS UNIT SUBCUT SCH ×2 (17:05→21:47)
--- NOTE | 2018-12-16 17:06 | OP ---
Operative Report - Blank - Operative Report Date of Operation: 12/16/18 Note: BRADLEY EGAN 1945 Date of Surgery: 12/16/18 Netta Brooks MD Spa Therapist: Miranda DAVENPORT did help throughout the procedure with preparation of the knee, wound retraction, manipulation of the knee, and wound closure. Anesthesiologist: Dr. Tang Anesthesia Type: Spinal Preoperative Diagnosis: Left severe degenerative osteoarthritis of the knee Postoperative Diagnosis: As above Procedure Performed: Left Total Knee Arthroplasty Tourniquet time: 48 minutes Complications: None Specimen: Bone and cartilage from the left knee joint sent to pathology. Hardware Used: Cemented Nolasco and Nephew total knee hardware was used - For the femur a size 5 left legion posterior stabilized femoral component, for the tibia a size 5 left rashel II tibial baseplate, for the insert a size 11 mm 5- 6 posterior stabilized articular polyethylene insert, and for the patella a size 35 3-peg all poly patella. Brief History/Indication: BRADLEY EGAN was known in clinic and had a history of severe left knee pain and swelling. She failed conservative treatment with anti-inflammatories, pain pills, intra-articular injections and physical therapy. She elected to undergo left total knee arthroplasty due to continued pain and decreased quality of life. Radiographs showed severe end stage osteoarthritis of the knee with bone on bone contact. Informed consent was obtained from the patient. She understood the risks of surgery included but were not limited to: bleeding, infection, damage to nearby structures, intraoperative fracture, nerve palsy, failure of the hardware, early loosening, knee stiffness or loss of motion, anesthesia complications, stroke, heart attack , blood clot and . She wished to proceed. Intra-Operative Findings: Intraoperatively the patient was noted to have severe loss of cartilage in all 3 compartments of the knee. Description of the Procedure: BRADLEY EGAN was identified in the preanesthesia unit. Her left knee was marked as the correct operative side. Informed consent was signed and placed in the chart. The patient was taken to the operating room and placed under anesthesia without complication. A puente catheter was placed. A tourniquet was placed on the left thigh. The left lower extremity was prepped and draped in the usual sterile fashion. Preoperative time-out was made to correctly identify the patient, side and site. Appropriate intraoperative antibiotics were given within one hour of incision. Tourniquet was inflated. A midline incision was made and carried sharply down to the extensor mechanism. A new 10 blade was used to make a standard medial parapatellar arthrotomy. The patella was subluxed laterally. Electrocautery was used to dissect soft tissue off the superomedial tibia to the midsagittal plane. The knee was flexed up. The anterior horn of the lateral meniscus and the ACL were sharply incised. A drill was used to enter the distal femur. The intramedullary distal femoral cutting guide was pinned on the distal femur. The oscillating saw was used to make the distal femoral cut. The external rotation guide was pinned on the distal femur and the distal femur was sized to a size 5. The size 5 multi-cutting jig was pinned on the distal femur. The oscillating saw was used to make the appropriate 4 chamfer cuts. Next the PCL was completely released. The extramedullary tibial cutting guide was pinned on the proximal tibia and the oscillating saw was used to make the proximal tibial cut perpendicular to the mechanical axis of the tibia. The bone was carefully removed. The knee was brought out into full extension. The spacer block was placed and had excellent fit with the knee in full extension. The medial and lateral ligaments were well balanced. The flexion and extension gaps were well balanced. The knee was flexed up. Lamina injection mold technician was placed both medially and laterally. Any remaining meniscus was removed with electrocautery. Curved osteotome was used to remove any posterior osteophytes. The tibial tray and drop saloni were placed and confirmed a satisfactory tibial cut. The size 5 left femoral trial was impacted onto the distal femur. This trial had excellent fit and stability. The box for the posterior stabilized implant was prepared using a box cut osteotome and a reamer. Next a tibial tray trial and 9 mm insert trial was placed. The knee was taken through a range of motion and had full extension to 130 degrees of flexion. Patellofemoral tracking was satisfactory. The patella was inverted and sized to a size 35. Three peg holes were drilled through the size 35 drill guide. The trial patella was placed and the knee was taken through a range of motion. There was satisfactory patellofemoral tracking. All trials were removed. The tibia was subluxed anteriorly and sized to a size 5. The proximal tibial was prepared with a size 5 keel punch. All bony cut surfaces were irrigated with sterile saline and dried. Final implants were cemented into place starting with the tibia, followed by the femur, and last the patella. A 9 mm insert trial was placed and the knee was brought into full extension. Tourniquet was turned down and the knee was copiously irrigated with sterile saline. Electrocautery was used to obtain meticulous hemostasis. Once the cement had fully cured, the insert trial was removed. Any excess cement was removed from around the hardware and capsule. Final insert chosen was a 11 mm posterior stabilized Rashel II articular insert size 5-6. Stability of the insert was checked and noted to be stable. The extensor mechanism was closed using number 1 vicryls. The rest of the incision was closed in a layered fashion using 0 and 2-0 vicryls. The skin was closed using 3-0 nylon suture. Sterile xeroform, 4x4s and webril were used to cover the incision. Abel wrap and cold pack were used to cover the dressings. The patients anesthesia was reversed without difficulty. She was taken to the PACU in stable condition. Intended weight-bearing will be as tolerated.
[2018-12-16] MEDS: Acetaminophen TAB* 325 MG PO SCH (18:17)
[2018-12-16] MEDS: oxyCODONE TAB* 5 MG TAB PO PRN ×2 (18:59→23:17)
[2018-12-16] MEDS: ceFAZolin 1 GM ADVAN(*) 1 GM in NS 0.9% 50 ML* 50 ML IVPB SCH (19:00)
--- NOTE | 2018-12-16 19:32 | CONS ---
CC: Dr. Zeny Whiteside; Dr. Netat Brooks * CONSULTATION REPORT: DATE OF CONSULT: 12/16/18 PRIMARY CARE PROVIDER: Dr. Zeny Whiteside. MY ATTENDING WHILE IN THE HOSPITAL: Dr. Kristi Rodriguez. CONSULTING PROVIDER: Dr. Netta Brooks. REASON FOR CONSULT: Co-management of comorbid medical conditions. HISTORY OF PRESENT ILLNESS: Ms. Siegel is a 73-year-old female, who failed outpatient therapy for left knee osteoarthritis and today is postoperative for left total knee arthroplasty. The patient during examination is in significant pain requiring IV morphine to be administered and is somewhat drowsy and difficult to promptly answer questions. The patient, however, states that the pain in her leg is excruciating. It is not associated with any neurologic deficits such as numbness or tingling in her leg. The patient states she has full sensation back in the leg. The patient denies fevers or chills. The patient denies recent illness. The patient did not take her aspirin for a week. The patient did not take her lisinopril this morning. The patient did take her metformin, but did not take her Wellbutrin or rosuvastatin. The patient has not had any recent sick contacts. The patient denies abdominal pain, diarrhea. The patient has not had any recent pain with urination or urinary tract infections. The patient has no recent chest pain, dyspnea on exertion, passing out, or shortness of breath. PAST MEDICAL HISTORY: Hypertension; hypercholesterolemia; diabetes mellitus type 2; rheumatoid arthritis, on no medications; chronic kidney disease, stage 3A. 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 MEDICATIONS: 1. Aspirin 325 mg p.o. twice daily. 2. Vitamin B 1 tab p.o. daily. 3. Vitamin D 1 tab p.o. daily. 4. Lisinopril 10 mg p.o. daily. 5. Metformin 500 mg p.o. daily. 6. Wellbutrin 300 mg p.o. daily. 7. Rosuvastatin 5 mg p.o. daily. ALLERGIES: No known drug allergies. FAMILY HISTORY: The patient's father of heart disease. The patient's mother of old age. The patient does not know her siblings' past medical history. SOCIAL HISTORY: The patient lives with her daughter. The patient quit smoking in 1975, smoking since she was a teenager before that. The patient denies any illicit drug use. The patient drinks occasional alcohol. 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 The patient's surrogate decision maker will be her daughter, Chana Siegel. REVIEW OF SYSTEMS: A 14-point review of systems was reviewed and is negative except as above in the HPI. PHYSICAL EXAM: General: The patient is a 73-year-old female, who is sitting in bed, in significant distress from pain. Vital Signs: Temperature 97.3, pulse rate 72, respiratory rate 14, oxygen saturation 97% on room air, blood pressure 135/59. HEENT: Head normocephalic, atraumatic. Sclerae anicteric. No conjunctival injection. Nasal mucosa moist. Oral mucosa moist. No oropharyngeal erythema, discharge, or exudate. Neck: Supple, nontender. No lymphadenopathy. No carotid bruits auscultated. No JVD. Cardiac: Regular rate and rhythm. No clicks, murmurs, gallops, or rubs. Pulses are 2+ in the bilateral dorsalis pedis, posterior tibialis, and radial areas. Respiratory: Clear to auscultation bilaterally. No wheezes, rales, or rhonchi. Good air exchange bilaterally. Abdomen: Soft, nontender, nondistended. Bowel sounds present and normoactive in all 4 quadrants. No hepatosplenomegaly. No abdominal bruits auscultated. No hepatojugular reflux. Genitourinary: No suprapubic or CVA tenderness. Skin: Clean, dry, and intact. No rash. Neuro: Cranial nerves II through XII intact. No focal deficits. Alert and oriented x3. Psychiatric: Pleasant and cooperative. LABORATORY DATA: Preoperatively: White blood cell count 7.8, hemoglobin 15.3, platelet count 361. INR 1.01, PTT 32.5. Sodium 139, potassium 4.2, chloride 103, carbon dioxide 29, anion gap 7, BUN 21, creatinine 1.06, glucose 91, calcium 9.2. AST 13, ALT 15, alkaline phosphatase 61. Protein 6.8, albumin 4.4 , globulin 2.4. Urine: Cloudy, trace leukocyte esterase, positive squamous epithelial cells. ASSESSMENT AND PLAN: Impression: Ms. Siegel is a 73-year-old female with past medical history significant for hypertension, diabetes, chronic kidney disease and rheumatoid arthritis, who is status post left total knee arthroplasty and is having significant issues with pain control, but no other concerns. 1. Postoperative state. Management per Orthopedics. The patient should have bowel regimen and have the Arreola removed as soon as possible. The patient should have pain control with opioids and muscle relaxants. The patient should engage in physical therapy, occupational therapy, have her hemoglobin and hematocrit trended. DVT prophylaxis will be with Eliquis. 2. Hypertension. The patient is currently normotensive. Given the patient's spinal anesthesia, we will hold the patient's lisinopril in the morning. This will be resumed when indicated. 3. Diabetes. The patient has chronic kidney disease with GFR of approximately 50. The patient's BMP will be rechecked in the morning. If the patient's creatinine is not decreased, metformin may be reinitiated. The patient will have sliding scale insulin while in the hospital, the goal blood sugar of less than 180 to promote wound healing. 4. Rheumatoid arthritis. The patient is on no medications for this. The patient does not have any signs of inflammatory arthritis at this time. 5. High cholesterol. Continue the patient's Lipitor. 6. Chronic kidney disease. Avoid nephrotoxic medications. 7. FEN: The patient will have a regular unrestricted diet and have fluids until able to tolerate adequate fluids by mouth. 8. Disposition: Per Orthopedics. TIME SPENT: Approximately 45 minutes was spent on this consultation, 20 of which was spent [id number] with the patient obtaining history and physical and discussing the treatment plan. This plan was discussed with my attending, Dr. Kristi Rodriguez, and she is in agreement. ISSAC BRADFORD [id number]/MACKENZIE #: [id number] MAURICE
[2018-12-16] MEDS: Docusate CAP* 100 MG PO SCH (21:46)
[2018-12-16] MEDS: Atorvastatin* 10 MG TAB PO SCH (21:46)
[2018-12-16] MEDS: Magnesium Hydroxide LIQ* 30 ML UDC PO SCH (21:46)
[2018-12-17] MEDS: Morphine INJ* 2 MG/ML 1 ML SYRINGE (TWO MG - NEW SYRINGE VERSION) IV PRN (00:22)
[2018-12-17] MEDS: Acetaminophen TAB* 325 MG PO SCH ×3 (01:18→18:55)
[2018-12-17] MEDS: oxyCODONE/Acetamin 5/325 MG* TAB PO PRN ×5 (02:03→23:40)
[2018-12-17] MEDS: oxyCODONE TAB* 5 MG TAB PO PRN ×4 (03:26→21:04)
[2018-12-17] MEDS: ceFAZolin 1 GM ADVAN(*) 1 GM in NS 0.9% 50 ML* 50 ML IVPB SCH ×2 (03:44→10:45)
[2018-12-17 05:40] LABS: Hematocrit 31 % (35-47); Hemoglobin 10.7 g/dL (12.0-16.0); Mean Platelet Volume 7.9 fL (7.4-10.4); Platelet Count 231 10^3/uL (150-450)
[2018-12-17 06:05] LABS: BUN/Creatinine Ratio 17.6 (8-20); Calcium 8.6 mg/dL (8.6-10.3); EGFR African American 73.1 (>60); EGFR Non-African American 60.4 (>60); Potassium 4.4 mmol/L (3.5-5.0)
[2018-12-17] MEDS: Magnesium Hydroxide LIQ* 30 ML UDC PO SCH ×2 (08:43→21:05)
[2018-12-17] MEDS: Insulin LISPRO* 1 UNITS UNIT SUBCUT SCH ×4 (08:43→21:05)
[2018-12-17] MEDS: BuPROPion XL* 300 MG TAB.XL PO SCH (08:43)
[2018-12-17] MEDS: Apixaban* 2.5 MG TAB PO SCH ×2 (08:43→21:04)
[2018-12-17] MEDS: Docusate CAP* 100 MG PO SCH ×2 (08:43→21:04)
[2018-12-17] MEDS ORDERED: Lisinopril TAB* 10 MG PO SCH (09:00)
[2018-12-17] MEDS ORDERED: metFORMIN* 500 MG TAB PO SCH (09:00)
--- NOTE | 2018-12-17 10:34 | PN ---
Progress Note - Progress Note Date of Service: 12/17/18 SOAP: Subjective: [] Patient seen OOB in chair. Moderate knee pain. Denies SOB, CP, palpitations or nausea. Objective: [] Vital Signs Temp 98.7 F 12/17/18 07:30 Pulse 72 12/17/18 07:30 Resp 16 12/17/18 08:58 BP 119/58 12/17/18 07:30 Pulse Ox 97 12/17/18 08:42 Intake & Output 12/16/18 12/17/18 12/17/18 18:59 06:59 18:59 Intake Total 1550 2305 Output Total 750 900 Balance 800 1405 Weight 177 lb 6.4 oz Intake: IV Fluids 1550 1035 ABX - CEFAZOLIN 55 LR 980 TRANSEXAMIC ACID 1G 50 lr 1500 Oral 1270 Output: Arreola 500 900 Estimated Blood Loss 250 Other: # Bowel Movements 0 Laboratory Results - last 24 hr 12/16/18 12/16/18 12/17/18 17:03 21:39 05:18 Hgb Hct Plt Count MPV Sodium 133 L Potassium 4.4 Chloride 99 L Carbon Dioxide 29 Anion Gap 5 BUN 16 Creatinine 0.91 Est GFR ( Amer) 73.1 Est GFR (Non-Af Amer) 60.4 BUN/Creatinine Ratio 17.6 Glucose 154 H POC Glucose (mg/dL) 84 211 H Calcium 8.6 12/17/18 05:23 Hgb 10.7 L Hct 31 L Plt Count 231 MPV 7.9 Sodium Potassium Chloride Carbon Dioxide Anion Gap BUN Creatinine Est GFR ( Amer) Est GFR (Non-Af Amer) BUN/Creatinine Ratio Glucose POC Glucose (mg/dL) Calcium Left knee dressing dry and intact calf NT +DF left ankle sensation and circulation intact distally. Assessment: []s/p Left total knee arthroplasty POD #1 Plan: []PT/OT WBAT LLE Eliquis DVT prophylaxis Home 1-2 days when stable
--- NOTE | 2018-12-17 18:45 | PN ---
Subjective Date of Service: 12/17/18 Interval History: Patient reports left knee pain is intermittent but primarily under control. Feeling overall well. Denies abd pain, n/v/d, chest pain, dyspnea, dizziness, headache, visual changes. Objective Active Medications: Acetaminophen (Tylenol Tab*) 975 mg PO 0200,1000,1800 [facility] Last Admin: 12/17/18 08:45 Dose: Not Given Apixaban (Eliquis*) 2.5 mg PO BID [facility] Last Admin: 12/17/18 08:43 Dose: 2.5 mg Atorvastatin Calcium (Lipitor*) 10 mg PO BEDTIME [facility]; Protocol Last Admin: 12/16/18 21:46 Dose: 10 mg Bisacodyl (Dulcolax Supp*) 10 mg CA DAILY PRN PRN Reason: constipation Bupropion HCl (Bupropion Xl*) 300 mg PO QAM [facility] Last Admin: 12/17/18 08:43 Dose: 300 mg Cyclobenzaprine HCl (Flexeril Tab*) 10 mg PO TID PRN PRN Reason: SPASMS Dextrose (D50w Syringe 50 Ml*) 12.5 gm IV PUSH .FOR FS < 60 - SS PRN PRN Reason: FS < 60 Diphenhydramine HCl (Benadryl Iv*) 12.5 mg IV Q6H PRN PRN Reason: PRURITIS Docusate Sodium (Colace Cap*) 100 mg PO BID [facility] Last Admin: 12/17/18 08:43 Dose: 100 mg Lactated Ringer's (Lactated Ringers 1000 Ml Bag*) 1,000 mls @ 100 mls/hr IV PER RATE [facility] Last Admin: 12/16/18 15:45 Dose: 100 mls/hr Insulin Human Lispro (Humalog*) 0 units SUBCUT ACHS [facility]; Protocol Last Admin: 12/17/18 12:54 Dose: 2 units Lactulose (Lactulose*) 30 ml PO Q6H PRN PRN Reason: constipation Lisinopril (Prinivil Tab*) 10 mg PO DAILY [facility] Magnesium Hydroxide (Milk Of Magnesia Liq*) 30 ml PO BID [facility] Last Admin: 12/17/18 08:43 Dose: 30 ml Magnesium Hydroxide (Milk Of Magnesia Liq*) 30 ml PO Q6H PRN PRN Reason: constipation Morphine Sulfate (Morphine Inj (Syringe))*) 2 mg IV Q2H PRN PRN Reason: PAIN Last Admin: 12/17/18 00:22 Dose: 2 mg Ondansetron HCl (Zofran Inj*) 4 mg IV Q6H PRN PRN Reason: nausea Ondansetron HCl (Zofran Tab*) 4 mg PO Q6H PRN PRN Reason: NAUSEA Oxycodone HCl (Roxycodone Tab*) 10 mg PO Q4H PRN PRN Reason: SEVERE PAIN Last Admin: 12/17/18 15:47 Dose: 10 mg Oxycodone/Acetaminophen (Percocet 5/325 Tab*) 1 tab PO Q4H PRN PRN Reason: PAIN Oxycodone/Acetaminophen (Percocet 5/325 Tab*) 2 tab PO Q4H PRN PRN Reason: PAIN Last Admin: 12/17/18 12:53 Dose: 2 tab Polyethylene Glycol/Electrolytes (Miralax*) 17 gm PO DAILY PRN PRN Reason: Constipation Tramadol HCl (Ultram*) 50 mg PO Q6H PRN PRN Reason: PAIN Last Admin: 12/17/18 05:32 Dose: 50 mg Vital Signs - 8 hr 12/17/18 12/17/18 12/17/18 10:44 12:53 15:47 Respiratory 16 16 16 Rate Oxygen Devices in Use Now: None Appearance: Eldelry white female sitting upright in hospital chair, appearing in NAD, daughter at bedside Eyes: No Scleral Icterus, PERRLA Ears/Nose/Mouth/Throat: Mucous Membranes Moist Neck: NL Appearance and Movements; NL JVP Respiratory: Symmetrical Chest Expansion and Respiratory Effort, Clear to Auscultation Cardiovascular: NL Sounds; No Murmurs; No JVD, RRR Abdominal: - - abdomen soft, nontender, nondistended Extremities: No Edema, No Clubbing, Cyanosis, - Skin: No Rash or Ulcers Neurological: Alert and Oriented x 3, NL Muscle Strength and Tone Result Diagrams: 12/17/18 05:23 12/17/18 05:18 Assess/Plan/Problems-Billing Assessment: 73 yo white female with PMHx HTN, HLD, DMT2, RA, CKD stage 3 who is s/p left TKA with Dr. Brooks. - Patient Problems (1) Hypertension Code(s): I10 - ESSENTIAL (PRIMARY) HYPERTENSION SNOMED Code(s): 58467627 Comment: -normotensive -restarted home lisinopril with holding parameters for SBP<150 (2) Diabetes Code(s): E11.9 - TYPE 2 DIABETES MELLITUS WITHOUT COMPLICATIONS SNOMED Code(s) : 44442611 Comment: -holding home metformin -continue lispro SS (3) CKD (chronic kidney disease) Code(s): N18.9 - CHRONIC KIDNEY DISEASE, UNSPECIFIED SNOMED Code(s): 171840462 Comment: -Cr 0.91, improved from baseline (4) S/P total knee arthroplasty Code(s): Z96.659 - PRESENCE OF UNSPECIFIED ARTIFICIAL KNEE JOINT SNOMED Code(s ): 2082846491470 Comment: -mgmt per orthopedic surg (5) DVT prophylaxis Code(s): KMI1094 - SNOMED Code(s): 823803055 Comment: -eliquis, per orthopedic surgery (6) Full code status Code(s): Z78.9 - OTHER SPECIFIED HEALTH STATUS SNOMED Code(s): 329910468 Status and Disposition: per orthopedic surgery
[2018-12-17] MEDS: Atorvastatin* 10 MG TAB PO SCH (21:05)
[2018-12-18] MEDS: Acetaminophen TAB* 325 MG PO SCH ×3 (02:17→17:33)
[2018-12-18] MEDS: oxyCODONE TAB* 5 MG TAB PO PRN (02:33)
[2018-12-18 05:59] LABS: Hematocrit 30 % (35-47); Hemoglobin 10.4 g/dL (12.0-16.0); Mean Platelet Volume 8.1 fL (7.4-10.4); Platelet Count 213 10^3/uL (150-450)
[2018-12-18] MEDS: oxyCODONE/Acetamin 5/325 MG* TAB PO PRN (07:32)
--- NOTE | 2018-12-18 08:11 | PN ---
Progress Note - Progress Note Date of Service: 12/18/18 SOAP: Subjective: Pt. reports pain with exercise, otherwise controlled. Objective: Vital Signs: Temp Pulse Resp BP Pulse Ox 98.4 F 78 18 120/57 94 12/18/18 03:20 12/18/18 03:20 12/18/18 07:42 12/18/18 03:20 12/18/18 07:42 Laboratory Results - last 24 hr 12/17/18 12/17/18 12/17/18 11:46 17:54 20:58 Hgb Hct Plt Count MPV POC Glucose (mg/dL) 162 H 155 H 133 H 12/18/18 12/18/18 05:33 07:25 Hgb 10.4 L Hct 30 L Plt Count 213 MPV 8.1 POC Glucose (mg/dL) 147 H LLE - dressing changed, inc c/d/i. distally nvi. Assessment: 73 yo F pod 2 s/p LTKA Plan: wbat PT/OT - need to do steps today plan home with vns today or tomorrow jarvis arce
[2018-12-18] MEDS: Insulin LISPRO* 1 UNITS UNIT SUBCUT SCH ×4 (08:36→21:26)
[2018-12-18] MEDS: Docusate CAP* 100 MG PO SCH ×2 (08:36→21:26)
[2018-12-18] MEDS: Apixaban* 2.5 MG TAB PO SCH ×2 (08:36→21:27)
[2018-12-18] MEDS: BuPROPion XL* 300 MG TAB.XL PO SCH (08:36)
[2018-12-18] MEDS: Lisinopril TAB* 10 MG PO SCH (08:36)
[2018-12-18] MEDS: Magnesium Hydroxide LIQ* 30 ML UDC PO SCH ×2 (08:38→21:25)
[2018-12-18] MEDS: Atorvastatin* 10 MG TAB PO SCH (21:26)
[2018-12-19] MEDS: Acetaminophen TAB* 325 MG PO SCH (02:33)
[2018-12-19 05:32] LABS: Hematocrit 31 % (35-47); Hemoglobin 10.7 g/dL (12.0-16.0); Mean Platelet Volume 8.2 fL (7.4-10.4); Platelet Count 235 10^3/uL (150-450)
[2018-12-19] MEDS: Magnesium Hydroxide LIQ* 30 ML UDC PO SCH (07:54)
[2018-12-19] MEDS: Docusate CAP* 100 MG PO SCH (07:54)
[2018-12-19] MEDS: Apixaban* 2.5 MG TAB PO SCH (07:54)
[2018-12-19] MEDS: oxyCODONE/Acetamin 5/325 MG* TAB PO PRN (07:54)
[2018-12-19] MEDS: BuPROPion XL* 300 MG TAB.XL PO SCH (07:55)
[2018-12-19] MEDS: Insulin LISPRO* 1 UNITS UNIT SUBCUT SCH (07:55)
[2018-12-19] MEDS: Lisinopril TAB* 10 MG PO SCH (07:55)
--- NOTE | 2018-12-19 08:27 | PN ---
Progress Note - Progress Note Date of Service: 12/19/18 SOAP: Subjective: POD #3 Left TKA. Doing well, pain controlled. Ready for d/c home today. Denies CP/SOB, n/v, f/c or calf pain. Objective: Vital Signs: Temp Pulse Resp BP Pulse Ox 98.0 F 84 16 147/72 95 12/19/18 04:11 12/19/18 04:11 12/19/18 07:54 12/19/18 04:11 12/19/18 04:11 Gen: A&Ox3, NAD at rest sitting in bed LLE: Dressing C/D/I. +f/e at ankle and MTPs. N/V intact. Calf soft/NT Labs: Laboratory Results - last 24 hr 12/18/18 12/18/18 12/19/18 12:04 16:52 04:52 Hgb 10.7 L Hct 31 L Plt Count 235 MPV 8.2 POC Glucose (mg/dL) 165 H 142 H 12/19/18 07:32 Hgb Hct Plt Count MPV POC Glucose (mg/dL) 137 H Assessment: POD #3 Left TKA Plan: D/C home today [facility] for home PT/wound checks Eliquis for DVT ppx F/u with Dr. Brooks 10-14 days post op
[2018-12-19 10:51] VITALS: BP 145/67
--- NOTE | 2018-12-19 11:49 | DS ---
Orthopedic Discharge Summary - Discharge Summary Date of Admission:12/16/18 Date of Discharge: 12/19/18 Date of Surgery: 12/16/18 Attending Orthopedic Provider: Dr. Netta Brooks Pre-operative Diagnosis: Left knee arthritis Operative Procedure: Left total knee arthroplasty Condition of Patient: Stable History: BRADLEY EGAN is a 73 year old F with years of increasingly severe left knee pain. Patient has failed conservative management and has elected to undergo a Left total knee replacement Hospital Course: BRADLEY was admitted to [facility] on 12/16/18. Patient underwent a Left total knee arthroplasty without complication followed by a brief recovery in PACU and transfer to the Short Stay Surgical Unit in stable condition. Our hospitalist service, physical therapy and occupational therapy also participated in this patients care. Post-op day 1: patient was alert and in no acute distress. Dressing was clean, dry and intact. Operative extremity dorsiflexion and plantarflexion intact, sensation intact to light touch distally, DP2+. Post-op day two: patient was alert and in no acute distress. Dressing was change and incision was clean, dry and intact. Operative extremity dorsiflexion and plantarflexion intact, sensation intact to light touch distally, DP2+. Post-op day three: dressing was changed, incision was clean, dry and intact. Patient was deemed to be medically and orthopedically stable for discharge home. Physical therapy goals were met. Home Medications Medication Instructions Recorded Confirmed Type Fluocinonide 0.05% CM(NF) [Lidex 1 applic TOPICAL BID PRN 05/28/15 12/16/18 History 0.05% CREAM(NF)] Cyanocobalamin TAB* [Vitamin B12 500 mcg PO QAM 05/30/15 12/16/18 History TAB*] Bupropion HCl ER 300 tab PO QAM #0 02/17/16 12/16/18 History Rosuvastatin Calcium [Crestor] 5 mg PO BEDTIME 03/19/18 12/16/18 History metFORMIN* [Glucophage 500 MG TAB 500 mg PO QAM 03/19/18 12/16/18 History *] Lisinopril 10 mg PO QAM 06/03/18 12/16/18 History Vitamin D TAB* 1,000 units PO DAILY 12/16/18 12/16/18 History Apixaban* [Eliquis*] 2.5 mg PO BID tab 12/19/18 Rx Docusate CAP* [Colace Cap*] 100 mg PO BID cap 12/19/18 Rx oxyCODONE/Acetamin 5/325 MG* 1 tab PO Q4H PRN tab 12/19/18 Rx [Percocet 5/325 TAB*] oxyCODONE/Acetamin 5/325 MG* 2 tab PO Q4H PRN tab 12/19/18 Rx [Percocet 5/325 TAB*] Instructions: Weight Bearing as tolerated Wound Care: OK to shower on post-op day 3, no bathing/ swimming/ submerging wound. Use gentle soap, pat dry. Cover with gauze, FRANSICO wrap or tape. Call Orthopedic office for increased drainage, redness, increased pain, or fever. Go to ER with shortness of breath or chest pain. Diet: Regular diet, increase fluids and fiber to prevent constipation. Continue to use stool softeners, call office if no bowel motion within 48 hours. Visiting home nurse to do wound checks through [facility]. FOLLOW UP: Follow up with Dr. Brooks Within 10-14 days, call for appointment
== END 2018-12-19 11:50 | disposition home health service (06) | DRG 470 ==
LOC: AA 07:08 → SSU 13:20
PROVIDERS: ADMIT Orthopaedic Surgery Adult Reconstructive Orthopaedic Surgery; ATTEND Orthopaedic Surgery Adult Reconstructive Orthopaedic Surgery
PROC: 0SRD0J9 Replacement of Left Knee Joint with Synthetic Substitute, Cemented, Open Approach (ICD-10-PCS; principal; 2018-12-16 11:15)
DX: M17.12 Unilateral primary osteoarthritis, left knee (principal); E11.22 Type 2 diabetes mellitus with diabetic chronic kidney disease; M06.9 Rheumatoid arthritis, unspecified; I12.9 Hypertensive chronic kidney disease with stage 1 through stage 4 chronic kidney disease, or unspecified chronic kidney disease; N18.3 Chronic kidney disease, stage 3 (moderate); E78.00 Pure hypercholesterolemia, unspecified; M25.762 Osteophyte, left knee; Z96.642 Presence of left artificial hip joint; Z79.84 Long term (current) use of oral hypoglycemic drugs; Z79.82 Long term (current) use of aspirin; Z79.899 Other long term (current) drug therapy; Z82.49 Family history of ischemic heart disease and other diseases of the circulatory system; Z87.891 Personal history of nicotine dependence
CPT/HCPCS: 36415; 80048; 85014; 85018; 85049; A9270-GY; G8978-GP-CK; G8979-GP-CI; J0690; J2250; J2270; J2704; J2795; J3010; J3490

== ENCOUNTER 2021-12-12 08:06 | Observation (INO) ==
[~2021-12-12 08:06] MED LIST changes: +Buffered Lidocaine 1% SYRIN 1 ml INTRADERM ONE; -Buffered Lidocaine 1% SYRIN* 1 ML/SYRINGE INTRADERM ONE; +Famotidine IV 10 MG/ML 2 ml VIAL (20 mg) IV ONE; -Lactated Ringers 1000 ML Bag* 1,000 ML IV SCH; +Lactated Ringers 1000 ml BAG 1,000 ML IV SCH; -Tranexamic Acid 1,000 MG in NS 0.9% 50 ML* (outpatient use) IV SCH
[2021-12-12] MEDS ORDERED: Famotidine IV 10 MG/ML 2 ml VIAL (20 mg) ONE (08:37)
[2021-12-12] MEDS ORDERED: ceFAZolin 2 GM PREMIX 2 GM/50 ML BAG ONE (08:37)
[2021-12-12] MEDS ORDERED: Lidocaine 2% PF 5 ML VIAL ONE (10:28)
[2021-12-12] MEDS ORDERED: Propofol 10 MG/ML 20 ML BTL ONE ×2 (10:28→11:55)
[2021-12-12] MEDS ORDERED: Ondansetron 4 mg VIAL 2 MG/ML 2 ml VIAL ONE (10:28)
[2021-12-12] MEDS ORDERED: Midazolam 2 mg/2 ml VIAL 1 mg/ml 2 ml VIAL (2 mg) ONE (10:28)
[2021-12-12] MEDS ORDERED: Dexamethasone IV 4 MG/ML VIAL 1 ml VIAL ONE (10:28)
[2021-12-12] MEDS ORDERED: fentaNYL 100 mcg/2 ml 50 MCG/ML VIAL ONE (10:29)
[2021-12-12] MEDS ORDERED: Phenylephrine IV 10 MG/ML 1 ml VIAL ONE (10:30)
[2021-12-12] MEDS ORDERED: HYDROmorphone 1 MG/1 ML SYRINGE IV PRN (10:43)
[2021-12-12] MEDS ORDERED: Naloxone 0.4 mg VIAL 0.4 mg/ml 1 ml VIAL IV PRN (10:43)
[2021-12-12] MEDS ORDERED: DiMENhydriNATE IV 50 mg/ml 1 ml VIAL IV PUSH PRN (10:43)
[2021-12-12] MEDS ORDERED: fentaNYL 100 mcg/2 ml 50 MCG/ML VIAL IV PRN (10:43)
[2021-12-12] MEDS ORDERED: Ondansetron 4 mg VIAL 2 MG/ML 2 ml VIAL IV PRN ×2 (10:43→12:33)
[2021-12-12] MEDS ORDERED: EPHEDrine (Pressors) 50 MG/ML VIAL ONE (11:47)
[2021-12-12] MEDS ORDERED: Acetaminophen IV 1 GM/100ML 100 ML IV ONE (12:00)
[2021-12-12] MEDS ORDERED: Morphine 2 MG/ML SYRINGE IV PRN (12:33)
[2021-12-12] MEDS ORDERED: diPHENhydraMINE IV 50 MG/ML 1 ml VIAL (BENADRYL) IV PRN (12:33)
[2021-12-12] MEDS ORDERED: Ondansetron ODT 4 mg TAB 4 MG TAB PO PRN (12:33)
[2021-12-12] MEDS ORDERED: Magnesium Hydroxide LIQ 30 ML UDC PO PRN (12:33)
[2021-12-12] MEDS ORDERED: Lactulose 30 ml UDC PO PRN (12:33)
[2021-12-12] MEDS ORDERED: diPHENhydraMINE 25 mg TAB PO PRN (12:33)
[2021-12-12] MEDS: Lactated Ringers 1000 ml BAG 1,000 ML IV SCH (16:40)
[2021-12-12] MEDS: ceFAZolin VIAL 1 GM in NS 0.9% 50 ML 50 ML IVPB SCH (20:40)
[2021-12-12] MEDS: Magnesium Hydroxide LIQ 30 ML UDC PO SCH (20:40)
[2021-12-13] MEDS: Lactated Ringers 1000 ml BAG 1,000 ML IV SCH (03:37)
[2021-12-13] MEDS: ceFAZolin VIAL 1 GM in NS 0.9% 50 ML 50 ML IVPB SCH ×2 (03:37→12:09)
[2021-12-13 06:45] LABS: Hematocrit 29 % (35-47); Hemoglobin 9.9 g/dL (12.0-16.0); Mean Platelet Volume 8.6 fL (7.4-10.4); Platelet Count 278 10^3/uL (150-450)
[2021-12-13 07:18] LABS: Calcium 8.8 mg/dL (8.6-10.3); Potassium 4.6 mmol/L (3.5-5.0); eGFR CKD-EPI 48.4 (>60)
[2021-12-13] MEDS ORDERED: Vitamin THERAPEUTIC TAB PO SCH (09:00)
[2021-12-13] MEDS: Magnesium Hydroxide LIQ 30 ML UDC PO SCH (10:26)
[2021-12-13 11:20] VITALS: BP 112/62
== END 2021-12-13 14:55 | disposition home or self-care (01) ==
LOC: OR 08:06 → SSU 08:06
PROVIDERS: ADMIT Orthopaedic Surgery Adult Reconstructive Orthopaedic Surgery; ATTEND Orthopaedic Surgery Adult Reconstructive Orthopaedic Surgery

== ENCOUNTER 2022-10-21 06:35 | Observation (INO) ==
[~2022-10-21 06:35] MED LIST changes: -Famotidine IV 10 MG/ML 2 ml VIAL (20 mg) IV ONE
[2022-10-21] MEDS ORDERED: Ropivacaine 5 MG/ML 20 ML VIAL 0.5% (100 MG) ONE ×2 (06:59→10:06)
[2022-10-21] MEDS ORDERED: ceFAZolin 2 GM in NS PREMIX 2 GM/100 ML BAG IVPB ONE (07:02)
[2022-10-21] MEDS ORDERED: Midazolam 2 mg/2 ml VIAL 1 mg/ml 2 ml VIAL (2 mg) ONE ×3 (07:08→11:20)
[2022-10-21] MEDS ORDERED: ROPIVACAINE 5 MG/ML 30 ML BTL (0.5%) ONE (08:00)
[2022-10-21] MEDS ORDERED: fentaNYL 100 mcg/2 ml 50 MCG/ML VIAL ONE (09:34)
[2022-10-21] MEDS ORDERED: Dexamethasone IV 4 MG/ML VIAL 1 ml VIAL ONE (09:35)
[2022-10-21] MEDS ORDERED: Ondansetron 4 mg VIAL 2 MG/ML 2 ml VIAL ONE (09:35)
[2022-10-21] MEDS ORDERED: Acetaminophen IV 1 GM/100ML 1,000 MG/100 ML BAG IV ONE (09:37)
[2022-10-21] MEDS ORDERED: Naloxone 0.4 mg VIAL 0.4 mg/ml 1 ml VIAL IV PRN (09:38)
[2022-10-21] MEDS ORDERED: Levalbuterol 0.63MG/3ML NEB UNIT OF USE INH PRN (09:38)
[2022-10-21] MEDS ORDERED: Ondansetron 4 mg VIAL 2 MG/ML 2 ml VIAL IV PRN (09:49)
[2022-10-21] MEDS ORDERED: Ondansetron ODT 4 mg TAB 4 MG TAB PO PRN (09:49)
[2022-10-21] MEDS ORDERED: Magnesium Hydroxide LIQ 30 ML UDC PO PRN (09:49)
[2022-10-21] MEDS ORDERED: Morphine 2 MG/ML SYRINGE IV PRN (09:49)
[2022-10-21] MEDS ORDERED: Lactulose 30 ml UDC PO PRN (09:49)
[2022-10-21] MEDS ORDERED: Lactated Ringers 1000 ml BAG 1,000 ML IV SCH (10:00)
[2022-10-21] MEDS ORDERED: ceFAZolin 1 GM ADVAN 1 GM in NS 0.9% 50 ML 50 ML IVPB SCH (10:00)
[2022-10-21] MEDS ORDERED: Phenylephrine 40 mcg/mL 10mL (400mcg) SYRINGE ONE (10:20)
[2022-10-21] MEDS ORDERED: HYDROmorphone 1 MG/1 ML SYRINGE ONE (11:17)
[2022-10-21] MEDS: HYDROmorphone 1 MG/1 ML SYRINGE IV PRN ×5 (11:19→12:15)
[2022-10-21] MEDS ORDERED: Midazolam 2 mg/2 ml VIAL 1 mg/ml 2 ml VIAL (2 mg) IV SLOW PU ONE (11:20)
[2022-10-21] MEDS: ceFAZolin 1 GM ADVAN 1 GM in NS 0.9% 50 ML 50 ML IVPB SCH (16:51)
[2022-10-21] MEDS: Magnesium Hydroxide LIQ 30 ML UDC PO SCH (21:00)
[2022-10-22] MEDS: ceFAZolin 1 GM ADVAN 1 GM in NS 0.9% 50 ML 50 ML IVPB SCH ×2 (00:28→08:57)
[2022-10-22 06:08] LABS: Hematocrit 28 % (35-47); Mean Platelet Volume 7.3 fL (7.4-10.4); Platelet Count 294 10^3/uL (150-450)
[2022-10-22 06:24] LABS: Calcium 8.3 mg/dL (8.6-10.3); Creatinine, Serum 1.13 mg/dL (0.51-0.95); Potassium 4.9 mmol/L (3.5-5.0); eGFR CKD-EPI 50.1 (>60)
[2022-10-22] MEDS: Magnesium Hydroxide LIQ 30 ML UDC PO SCH (08:59)
[2022-10-22] MEDS ORDERED: Vitamin THERAPEUTIC TAB PO SCH (09:00)
[2022-10-22 11:16] VITALS: BP 119/58
== END 2022-10-22 14:10 | disposition home or self-care (01) ==
LOC: SSU 06:35 → OR 06:35
PROVIDERS: ADMIT Orthopaedic Surgery Adult Reconstructive Orthopaedic Surgery; ATTEND Orthopaedic Surgery Adult Reconstructive Orthopaedic Surgery